=== PATIENT | male | born 1940 | race Caucasian/White ===

== ENCOUNTER → 2016-07-10 | Outpatient (CLI) | payer MEDICARE ==
[2016-07-10 11:08] LABS: EKG EKG PERFORMED
[2016-07-10 11:27] LABS: Basophils % (A) 1 %; CHCM 32.4; Eosinophils # (A) 0.2 k/uL (0-0.7); Eosinophils % (A) 4 %; HCT 42.1 % (39.0-53.0); HDW 2.55; HGB 13.6 gm/dL (13.0-17.5); Luc # (Auto) 0.19; Luc % (Auto) 4; Lymphocytes # (A) 1.5 k/uL (1.0-4.8); Lymphocytes % (A) 28 %; MCHC 32.4 g/dL (31.0-37.0); MCV 89.7 fL (80.0-100.0); Mean Platelet Volume 6.6; Monocytes # (A) 0.4 k/uL (0-1.0); Monocytes % (A) 7 %; Neutrophils % (A) 56 %; RBC 4.69 m/uL (4.30-5.90); RDW 13.7 % (11.5-15.5); WBC 5.4 k/uL (3.8-10.6); WBC (Perox) 5.35
[2016-07-10 12:03] LABS: Anion Gap 8 mmol/L; Blood Urea Nitrogen 14 mg/dL (9-20); Calcium 9.1 mg/dL (8.4-10.2); Carbon Dioxide 26 mmol/L (22-30); Chloride 108 mmol/L (98-107); Glucose 101 mg/dL (74-99); Non-African American GFR(MDRD) >60 (>60 ml/min/1.73 sqM); Potassium 4.2 mmol/L (3.5-5.1); Sodium 142 mmol/L (137-145)
== END | disposition home or self-care (01) ==
LOC: LABPAT 10:56
PROVIDERS: ATTEND Urology
DX: Z01.810 Encounter for preprocedural cardiovascular examination (principal); Z01.818 Encounter for other preprocedural examination; I48.91 Unspecified atrial fibrillation; E78.00 Pure hypercholesterolemia, unspecified; N40.1 Benign prostatic hyperplasia with lower urinary tract symptoms; R35.0 Frequency of micturition
CPT/HCPCS: 80048; 85025; 87086; 93005

== ENCOUNTER 2016-07-17 12:18 | Day surgery (SDC) | payer MEDICARE ==
[2016-07-13 10:33] VITALS: BMI 27.1
[~2016-07-17 12:18] MED LIST: HYDROmorphone 1 MG/ML 1 ML SYRINGE IVP PRN; LACTATED RINGERS 1,000 ML IV SCH; MIDAZOLAM 2 MG/2 ML VIAL IV PRN; ceFAZolin 2 GM in SODIUM CHLORIDE 0.9% 100 ML IVPB ONE
[2016-07-17] MEDS ORDERED: LIDOCAINE 1% 20 ML VIAL (10MG/ML) FOR IV START INTRADERMA ONE (12:59)
[2016-07-17] MEDS ORDERED: DEXAMETHASONE SOD PHOSPHATE 10 MG/ML 1 ML VIAL IV ONE (13:03)
[2016-07-17] MEDS ORDERED: ONDANSETRON 4 MG/2 ML VIAL IVP ONE (13:03)
[2016-07-17 13:18] LABS: INR 1.1 (<1.1); Partial Thromboplastin Time 24.8 sec (22.0-30.0); Prothrombin Time 10.7 sec (9.0-12.0)
[2016-07-17] MEDS ORDERED: ePHEDrine 50 MG/ML 1 ML AMP ONE (13:59)
[2016-07-17] MEDS ORDERED: LIDOCAINE 1% INJ 10MG/ML (20 ML MDV) ONE (13:59)
[2016-07-17] MEDS ORDERED: MIDAZOLAM 2 MG/2 ML VIAL ONE (13:59)
[2016-07-17] MEDS ORDERED: PROPOFOL 10 MG/ML 20 ML VIAL IV ONE (13:59)
[2016-07-17] MEDS ORDERED: SUCCINYLCHOLINE CHLORIDE 100 MG/5 ML SYR IV ONE (13:59)
[2016-07-17] MEDS ORDERED: fentaNYL (PF) 50 MCG/ML 2 ML AMP ONE (13:59)
[2016-07-17] MEDS ORDERED: FUROSEMIDE 10 MG/ML 2 ML VIAL ONE (13:59)
[2016-07-17] MEDS ORDERED: LACTATED RINGERS 1,000 ML IV ONE (14:55)
--- NOTE | 2016-07-17 16:40 | P.OP ---
Date of Procedure: 07/17/16 Preoperative Diagnosis: BPH with Obstruction Postoperative Diagnosis: Same Procedure(s) Performed: Cystoscopy, Bipolar Transurethral Resection of Prostate (TURP) Implants: Anesthesia: SELENAA Surgeon: Saeed Luo Estimated Blood Loss (ml): 75 IV fluids (ml): 1,100 Pathology: other (prostate chips) Condition: stable Disposition: PACU Indications for Procedure: He is a 76-year-old male with no family history of prostate cancer. His PSA level reached a high of 6.96. He reports moderate obstructive voiding symptoms, which improved after increasing the doxazosin dosage from 2 mg to 4 mg. Ultrasound showed a prostate volume of 74 cc. This is felt to be the cause of the PSA elevation. Biopsies were not performed. He has taken finasteride since April 2012, and he feels this has helped his voiding. His PSA level has decreased appropriately. His primary voiding symptom at this time is urgency with occasional incontinence. His post void residual has increased, and he has elected to undergo a TURP. Operative Findings: Trilobar BPH Description of Procedure: The patient was taken in the operating room and placed in the dorsolithotomy position, The external genitalia was prepped and draped sterilely. The 25- Lao ACMI resectoscope sheath was introduced into the bladder. The bladder was inspected. Both ureteral orifices were of normal anatomic location and configuration, and clear urine effluxed from both. No tumors or foreign bodies were seen. Examination of the prostate revealed complete obstruction with a trilobar configuration. Using the bipolar cutting loop, the median lobe was resected. Next, the lateral lobes were resected down to the surgical capsule. The floor of the prostate was then resected, proximal to the verumontanum. Lastly, any remaining anterior tissue was resected. The prostatic fossa was then carefully examined. The remaining apical tissue was then carefully resected. The resection was carried down to the surgical capsule in all 4 quadrants. The prostatic fossa was then carefully examined, and any areas of bleeding were controlled with electrocautery. A small capsular perforation was noted on the right side, but there was no bleeding from this. Excellent hemostasis was attained. The resectoscope was withdrawn into the bulbous urethra. The external urinary sphincter remained intact. The prostatic fossa was open. The Fare Motion evacuator was used to remove all prostate chips from the bladder. These were saved and sent for pathologic examination. The resectoscope was removed, and a 20 Lao Hollingsworth catheter was placed. The return was essentially clear. The patient tolerated the procedure well was taken to the recovery room in stable condition.
[2016-07-17 17:00] VITALS: TEMP 97
[2016-07-17 17:04] VITALS: RESP 16
[2016-07-17 18:17] VITALS: BP 130/81; PULSE 66
== END 2016-07-17 19:15 | disposition home or self-care (01) ==
LOC: OR 12:18
PROVIDERS: ATTEND Urology
DX: N40.1 Benign prostatic hyperplasia with lower urinary tract symptoms (principal); E78.00 Pure hypercholesterolemia, unspecified; G47.33 Obstructive sleep apnea (adult) (pediatric); Z99.89 Dependence on other enabling machines and devices; Z87.891 Personal history of nicotine dependence; I48.91 Unspecified atrial fibrillation; Z79.01 Long term (current) use of anticoagulants; J44.9 Chronic obstructive pulmonary disease, unspecified; Z79.82 Long term (current) use of aspirin; Z79.51 Long term (current) use of inhaled steroids; Z79.899 Other long term (current) drug therapy
CPT/HCPCS: 52601; 80162; 85610; 85730; J2250; J1100; J1940; J0690; J2405; J2001; J3010; J0330; J2704; 88305

== ENCOUNTER → 2019-04-11 | Outpatient (CLI) | payer MEDICARE | END | disposition home or self-care (01) | LOC: LABWHC1 09:15 | PROVIDERS: ATTEND Urology | DX: R97.20 Elevated prostate specific antigen [PSA] (principal) | CPT/HCPCS: 36415; 84153 ==

== ENCOUNTER → 2021-11-05 | Outpatient (CLI) | payer MEDICARE ==
--- NOTE | 2021-11-05 09:26 | US ---
EXAMINATION TYPE: US abdomen complete DATE OF EXAM: 11/05/2021 COMPARISON: NONE CLINICAL HISTORY: R79.89 OTH SPECIFIED ABN FINDING OF BLOOD CHEMISTRY. Patient states no symptoms TECHNIQUE: Multiple sonographic images of the abdomen are obtained. FINDINGS: EXAM MEASUREMENTS: Liver Length: 17.8 cm Gallbladder Wall: 0.4 cm CBD: 0.4 cm Spleen: n/a Right Kidney: 13.0 x 5.4 x 5.7 cm Left Kidney: 12.4 x 5.8 x 5.7 cm Pancreas: visualized portions wnl, limited by overlying midline bowel gas Liver: measures in upper limits of normal Gallbladder: wall mildly thickened at 0.4cm - patient not NPO, had coffee before exam Evidence for sonographic Hamilton's sign: no CBD: wnl Spleen: obscured by overlying bowel gas Right Kidney: 4.4 x 4.5 x 4.3cm hypoechoic vascular mass inferior pole Left Kidney: wnl Upper IVC: wnl Abd Aorta: wnl IMPRESSION: Right lower pole vascular mass suggested further evaluation with MRI with IV contrast renal mass prot ocol is recommended to underlying renal cell carcinoma.
== END | disposition home or self-care (01) ==
LOC: RADUSWWP 08:31
PROVIDERS: ATTEND Internal Medicine
DX: R79.89 Other specified abnormal findings of blood chemistry (principal)
CPT/HCPCS: 76700

== ENCOUNTER → 2021-11-21 | Outpatient (CLI) | payer MEDICARE ==
--- NOTE | 2021-11-21 21:02 | MR ---
EXAMINATION TYPE: MR abdomen wo/w con DATE OF EXAM: 11/21/2021 COMPARISON: None HISTORY: DISORDERS OF KIDNEY AND URETER CONTRAST: Standard multiplanar, multisequence MRI departmental protocol images were obtained without contrast a nd with 9 mL intravenous Gadavist gadolinium contrast. Liver has normal size and contour. Bile ducts are not dilated. Spleen is intact. No pancreatic mass. Stomach is intact. Gallbladder appears normal. There is no adrenal mass. There is a rounded mixed signal 5 cm mass on the lateral cortex right kidne y. Contrast images show enhancement in the periphery of the mass. There is normal enhancement of the inferior vena cava and the right renal vein. There is no sign of retroperitoneal adenopathy. Heart is enlarged. No sign of pleural effusion. There is normal enhancement of the portal venous system. No ascites. No evidence of a bowel obstruction. Delayed images show progressive enhancement on the periphery of the mass. The visualized lumbar spine is intact. There is multilevel spondylotic changes in the lumbar spine. Visualized bony pelvis is in tact. IMPRESSION: Solid mass in the lower pole right kidney arising from the cortex. This is consistent with a primary renal tumor and could be oncocytoma or renal cell carcinoma.
== END | disposition home or self-care (01) ==
LOC: RADMRIMAIN 19:11
PROVIDERS: ATTEND Family Medicine
DX: N28.89 Other specified disorders of kidney and ureter (principal)
CPT/HCPCS: 74183; A9585

== ENCOUNTER → 2021-11-28 | Outpatient (CLI) | payer MEDICARE ==
--- NOTE | 2021-11-28 14:58 | XR ---
EXAMINATION TYPE: XR chest 2V DATE OF EXAM: 11/28/2021 2:53 PM COMPARISON: Chest radiographs from 03/08/2014, CT chest 03/20/2013. TECHNIQUE: XR chest 2V Frontal and lateral views of the chest. CLINICAL INDICATION:Male, 81 years old with history of D41.01 Renal mass right; FINDINGS: Lungs/Pleura: There is no evidence of pleural effusion, focal consolidation, or pneumothorax. Right basilar linear atelectasis. Stable 7 mm calcified granuloma within the right upper lobe. Flattening o f the hemidiaphragms. Pulmonary vascularity: Unremarkable. Heart/mediastinum: Cardiomediastinal silhouette is unremarkable. Atherosclerotic calcifications are seen in the aorta. Musculoskeletal: No acute osseous pathology. IMPRESSION: 1. No acute cardiopulmonary disease/process. No significant change from prior examination. 2. Stable right upper lobe calcified granuloma. 3. COPD changes.
== END | disposition home or self-care (01) ==
LOC: RADXRMAIN 14:40
PROVIDERS: ATTEND Family Medicine
DX: J44.9 Chronic obstructive pulmonary disease, unspecified (principal); J84.10 Pulmonary fibrosis, unspecified
CPT/HCPCS: 71046

== ENCOUNTER → 2021-12-09 | Outpatient (CLI) | payer MEDICARE ==
--- NOTE | 2021-12-09 14:43 | NM ---
EXAMINATION TYPE: NM bone scan whole body DATE OF EXAM: 12/09/2021 COMPARISON: NONE HISTORY: Renal mass Delayed whole-body scanning was performed following the injection of 23 mCi Tc 99m MDP. Images acqui red 3.5 hours post injection. FINDINGS: Abnormal uptake involving the sternoclavicular joints bilaterally likely postarthritic. Faint uptake throughout the mid thoracic and lower lumbar spine likely degenerative. Abnormal uptake involving the knees and feet likely postarthritic. IMPRESSION: 1. Nonspecific uptake involving the vertebral, mild intensity, therefore, felt to be most likely dege nerative.
== END | disposition home or self-care (01) ==
LOC: RADNMMAIN 10:20
PROVIDERS: ATTEND Urology
DX: D41.01 Neoplasm of uncertain behavior of right kidney (principal)
CPT/HCPCS: 78306; A9503

== ENCOUNTER → 2021-12-29 | Outpatient (CLI) | payer MEDICARE ==
[2021-12-29 15:33] LABS: Basophils # (A) 0.05 X 10*3/uL (0.00-0.10); Basophils % (A) 0.8 %; Eosinophils # (A) 0.22 X 10*3/uL (0.04-0.35); Eosinophils % (A) 3.4 %; HCT 38.5 % (39.6-50.0); HGB 12.5 g/dL (13.0-17.0); Immature Grans, Automated 0.2 %; Lymphocytes # (A) 1.54 X 10*3/uL (0.90-5.00); MCH 29.3 pg (27.0-32.0); MCHC 32.5 g/dL (32.0-37.0); MCV 90.4 fL (80.0-97.0); Mean Platelet Volume 9.9 fL (9.5-12.2); Monocytes # (A) 0.87 X 10*3/uL (0.20-1.00); Monocytes % (A) 13.5 %; NRBC Per 100 WBC 0 /100 WBCS (0.0-0.0); Neutrophils # (A) 3.74 X 10*3/uL (1.80-7.70); Neutrophils % (A) 58.1 %; Platelet Count 288 X 10*3/uL (140-440); RBC 4.26 X 10*6/uL (4.40-5.60); RDW 14.6 % (11.5-14.5); WBC 6.43 X 10*3/uL (4.50-10.00)
[2021-12-29 15:56] LABS: African American GFR (CKD) 95.8 (60.0-200.0); BUN/Creat Ratio 15.24 Ratio (12.00-20.00); Blood Urea Nitrogen 12.6 mg/dL (9.0-27.0); Calcium 9.4 mg/dL (8.7-10.3); Carbon Dioxide 26.2 mmol/L (20.0-27.5); Non-African American GFR(CKD) 82.6 (60.0-200.0); Potassium 4.8 mmol/L (3.5-5.5)
== END | disposition home or self-care (01) ==
LOC: LABPAT 10:22
PROVIDERS: ATTEND Urology
DX: Z01.818 Encounter for other preprocedural examination (principal); D41.01 Neoplasm of uncertain behavior of right kidney
CPT/HCPCS: 36415; 80048; 85025

== ENCOUNTER 2022-01-08 06:04 | Inpatient (IN) | payer MEDICARE ==
--- NOTE | 2022-01-07 07:13 | P.GSHP ---
History of Present Illness H&P Date: 01/06/22 Chief Complaint: Right renal mass The patient is an 81-year-old white male recently found to have an incidental 5 cm right renal mass. The mass is solid and likely represents renal cell carcinoma. He declines flank pain and gross hematuria. His metastatic evaluation consists of a bone scan and chest x-ray, both of which were negative. The patient was made aware of the fact that aspects of the appearance of the mass suggest the possibility of oncocytoma, and referral to a tertiary care center for biopsy of the mass was offered. Given the likelihood of malignancy, he has elected to simply undergo a right radical nephrectomy and comes for this reason. - Cardiovascular Cardiovascular: Reports high blood pressure - Genitourinary (Male) Genitourinary: Reports as per HPI, Denies flank pain, Denies hematuria Past Medical History Past Medical History: Atrial Fibrillation, Asthma, COPD, Eye Disorder, Hyperlipidemia, Hypertension, Prostate Disorder, Sleep Apnea/CPAP/BIPAP Additional Past Medical History / Comment(s): 'dry skin", enlarged prostate. uses c-pap. inguinal hernia rt side. BEGINNING OF CATARACTS History of Any Multi-Drug Resistant Organisms: None Reported Past Surgical History: Heart Catheterization, Hernia Repair, Orthopedic Surgery Additional Past Surgical History / Comment(s): right elbow surgery-injury, bone spur heel, right shoulder arthroscopy, cardioversion, umbilical hernia repair, colonoscopy, TURP 2016 Past Anesthesia/Blood Transfusion Reactions: No Reported Reaction Additional Past Anesthesia/Blood Transfusion Reaction / Comment(s): slow wake up Smoking Status: Former smoker - Past Family History Daughter(s) Family Medical History: Cancer Father Family Medical History: Cancer Medications and Allergies Home Medications Medication Instructions Recorded Confirmed Type Albuterol Sulfate [Proair Hfa] 2 puff INHALATION QID PRN 01/30/14 01/02/22 History Aspirin 81 mg PO DAILY 01/30/14 01/02/22 History Finasteride [Proscar] 5 mg PO HS 01/30/14 01/02/22 History Pravastatin Sodium [Pravachol] 20 mg PO HS 01/30/14 01/02/22 History Warfarin [Coumadin] 5 mg PO WE 01/30/14 01/02/22 History Warfarin [Coumadin] 10 mg PO SUMOTUTHFRSA 01/30/14 01/02/22 History dilTIAZem HCL [Diltiazem HCl] 120 mg PO HS 01/30/14 01/02/22 History Ascorbic Acid [Vitamin C] 500 mg PO DAILY 12/31/14 01/02/22 History Cholecalciferol [Vitamin D3] 4,000 unit PO DAILY 12/31/14 01/02/22 History Magnesium Gluconate [Magonate] 500 mg PO DAILY 12/31/14 01/02/22 History Vitamin B Complex 1 tab PO DAILY 12/31/14 01/02/22 History Fluticasone Propion/Salmeterol 1 puff INHALATION BID 01/02/22 01/02/22 History [Advair 500-50 Diskus] Latanoprost [Latanoprost 0.005%] 1 drop BOTH EYES DAILY 01/02/22 01/02/22 History Metoprolol Succinate (ER) [Toprol 50 mg PO HS 01/02/22 01/02/22 History Xl] Montelukast [Singulair] 1 tab PO HS 01/02/22 01/02/22 History Allergies Allergy/AdvReac Type Severity Reaction Status Date / Time No Known Allergies Allergy Verified 01/02/22 13:22 Surgical - Exam - General well developed, well nourished, no distress - Neck no masses, trachea midline - Respiratory normal respiratory effort - Abdomen Abdomen: soft, non tender, no guarding, no rigid, no rebound - Genitourinary normal penis with no external lesions, testicles non-tender - Psychiatric oriented to time, oriented to person, oriented to place, speech is normal, memory intact Results - Imaging Chest x-ray: report reviewed Assessment and Plan (1) Neoplasm of uncertain behavior of right kidney Status: Acute Code(s): D41.01 - NEOPLASM OF UNCERTAIN BEHAVIOR OF RIGHT KIDNEY SNOMED Code(s): 080667845064446 Plan: Right radical nephrectomy. The procedure then reviewed in detail with the patient. He has been made aware of potential risks, which include anesthesia, b leeding, infection, bowel injury, postoperative paralytic ileus, chylous ascites, and bowel obstruction.
[~2022-01-08 06:04] MED LIST changes: +HEPARIN SODIUM,PORCINE/PF 5,000 UNIT/0.5 ML SYRINGE SQ PRN; -HYDROmorphone 1 MG/ML 1 ML SYRINGE IVP PRN; -LACTATED RINGERS 1,000 ML IV SCH; -MIDAZOLAM 2 MG/2 ML VIAL IV PRN; -ceFAZolin 2 GM in SODIUM CHLORIDE 0.9% 100 ML IVPB ONE
[2022-01-08] MEDS ORDERED: DEXAMETHASONE SOD PHOSPHATE 4 MG/ML 1 ML VIAL IV ONE (06:20)
[2022-01-08] MEDS ORDERED: fentaNYL (PF) 50 MCG/ML 2 ML AMP ONE (07:20)
[2022-01-08] MEDS ORDERED: PROPOFOL 10 MG/ML 20 ML VIAL IV ONE (07:20)
[2022-01-08] MEDS ORDERED: LIDOCAINE 2% INJ 20 MG/ML (2 ML VIAL) ONE (07:20)
[2022-01-08] MEDS ORDERED: ROCURONIUM 10 MG/ML (5 ML VIAL) IV ONE (07:20)
[2022-01-08] MEDS ORDERED: GLYCOPYRROLATE 0.2 MG/ML 2 ML VIAL ONE (07:20)
[2022-01-08] MEDS ORDERED: ePHEDrine 50 MG/ML 1 ML VIAL ONE (07:20)
[2022-01-08] MEDS ORDERED: ROPIVACAINE 5 MG/ML 30 ML VIAL ONE (07:20)
[2022-01-08] MEDS ORDERED: WATER FOR INJECTION, STERILE 10 ML VIAL IV ONE (07:20)
[2022-01-08] MEDS ORDERED: SUCCINYLCHOLINE CHLORIDE 200 MG/10 ML VIAL IV ONE (07:20)
[2022-01-08] MEDS: LACTATED RINGERS 1,000 ML IV SCH (07:20)
[2022-01-08] MEDS ORDERED: NEOSTIGMINE 1 MG/ML 10 ML VIAL ONE (07:20)
[2022-01-08] MEDS ORDERED: MIDAZOLAM 2 MG/2 ML VIAL ONE (07:20)
[2022-01-08] MEDS ORDERED: PHENYLEPHRINE-0.9% NACL SYG 1,000 MCG/10 ML SYRINGE ONE (07:20)
[2022-01-08] MEDS: ONDANSETRON 4 MG/2 ML VIAL IVP ONE ×2 (07:26→07:27)
[2022-01-08] MEDS ORDERED: LACTATED RINGERS 1,000 ML IV ONE (10:25)
[2022-01-08] MEDS: HYDROmorphone 0.5 MG/0.5 ML SYRINGE IVP PRN ×3 (10:54→12:30)
[2022-01-08] MEDS ORDERED: ALBUTEROL NEBULIZED 2.5 MG/3 ML INHALATION PRN (11:06)
[2022-01-08] MEDS ORDERED: ACETAMINOPHEN TAB 325 MG TAB PO PRN (11:07)
--- NOTE | 2022-01-08 13:21 | P.OP ---
Date of Procedure: 01/08/22 Preoperative Diagnosis: Right renal mass Postoperative Diagnosis: Right renal mass, urethral stricture Procedure(s) Performed: Cystoscopy, direct visual internal urethrotomy (DVIU), right radical nephrectomy Anesthesia: BG Surgeon: Saeed Luo Seismograph Shooter #1: Amauri Quiñones Estimated Blood Loss (ml): 400 IV fluids (ml): 1,350 Pathology: other Condition: stable Disposition: PACU Indications for Procedure: The patient is an 81-year-old white male recently found to have an incidental 5 cm right renal mass. The mass is solid and likely represents renal cell carcinoma. He declines flank pain and gross hematuria. His metastatic evaluation consists of a bone scan and chest x-ray, both of which were negative. The patient was made aware of the fact that aspects of the appearance of the mass suggest the possibility of oncocytoma, and referral to a tertiary care center for biopsy of the mass was offered. Given the likelihood of malignancy, he has elected to simply undergo a right radical nephrectomy and comes for this reason. Operative Findings: Bulbous urethral stricture. Right upper quadrant scarring of unclear etiology. No evidence of extrarenal disease. Description of Procedure: The patient was taken to the operating room and placed in the supine position. The external genitalia was prepped and draped sterilely, but a Hollingsworth catheter could not be placed. Therefore, filiforms and followers were used to dilate the urethra but the urethra could not be dilated beyond 18-[place] Korean. The patient was placed in the dorsolithotomy position, and cystoscopy was performed using the visual urethrotome. The stricture was incised dorsally, and it was then possible to place a 16-[place] Hollingsworth catheter without difficulty. The patient was then returned to the supine position, and the abdomen was prepped and draped sterilely. A right-sided chevron incision was made using the scalpel. The Bovie electrocautery was used to incise the subcutaneous tissues and muscular layers of the abdominal wall down to the peritoneum. The peritoneum was then carefully entered, and opened the full length of the incision. The abdomen was examined, and no abnormalities were noted other than the renal mass. Specifically, there was no evidence of malignancy elsewhere within the abdomen. The Bookwalter retractor was used for exposure. The peritoneum was incised at the line of Toldt, and a South maneuver was performed. Significant scarring around the gallbladder was noted. This exposed the right kidney and the inferior vena cava. The gonadal vein was isolated. It was then ligated using 2-0 silk ties and divided. Dissection was then performed alongside the lateral aspect of the inferior vena cava. Lymphoadipose tissue was clipped and divided up to the renal hilum. There was no evidence of adenopathy. 2 right renal arteries were identified, one within the hilum and the other was a lower pole artery.. Both were ligated twice proximally and once distally using 2-0 silk ties and divided. The right renal vein was then likewise ligated twice proximally and distally. The remaining hilar tissues were clipped and divided at this time. Once the hilar dissection had been completed, the inferior aspect of the dissection was performed. A small hole was noted within the inferior vena cava, and this was closed using a 5-0 Prolene suture. The tail of Gerota's fascia was isolated, and the ureter was clipped and divided. Blunt dissection was then performed to dissect the kidney off of the posterior abdominal wall. Superiorly, the perinephric fat was divided down to the upper pole of the kidney. The remaining dissection was then performed over the superior aspect of the kidney, thus preserving the right adrenal gland. The superior attachments were clipped prior to dividing them. Once all attachments were divided, the specimen was removed. The adrenal gland was left intact. The wound was irrigated with warm normal saline. The surgical field was examined for hemostasis. Minimal oozing was noted from the superior aspect of the surgical field near the adrenal gland, and Surgicel was placed over this. Hemostasis within the remainder of the surgical field was excellent. The Bookwalter retractor was removed. The abdominal contents were allowed to return to their normal location. Each individual muscle layer of the anterior abdominal wall was closed using #1 Vicryl suture in a running fashion. Hemostasis within the subcutaneous tissues was excellent. The skin was closed using jarocho. A sterile gauze dressing was applied over the incision. All sponge and needle counts were correct. The patient tolerated the procedure well was taken to the recovery room in stable condition.
--- NOTE | 2022-01-08 14:17 | P.ANPRN ---
Procedure Note - Anesthesia - Nerve Block Performed Right Erector Spinae Single Time Out Performed: Yes ([id number]) Date of Procedure: 01/08/22 Procedure Start Time: 11:56 Procedure Stop Time: 12:02 Location of Patient: PreOp Indication: Acute Post-Operative Pain, Requested by Surgeon Specifically requested for management of pain by : Saeed Luo Sedation Type: Sedate with meaningful contact maintained Preparation: Sterile Prep Position: Left Lateral Catheter: None Needle Types: Pajunk Needle Gauge: 21 Ultrasound used to visualize needle placement: Yes Ultrasound used to observe medication spread: Yes Injectate: 0.5% Ropivacaine (see comment for volume) (30cc) Blood Aspirated: No Pain Paresthesia on Injection Noted: No Resistance on Injection: Normal Image Stored and Saved: Yes Events: Uneventful and Well Tolerated
[2022-01-08] MEDS ORDERED: HYDROcodone/APAP 5-325MG 1 EACH TAB PO PRN (14:30)
[2022-01-08] MEDS: DEXTROSE 5%-0.45% NACL 1,000 ML IV SCH (14:58)
[2022-01-08] MEDS: HYDROmorphone 1 MG/ML 1 ML SYRINGE IVP PRN (14:59)
[2022-01-08] MEDS: HEPARIN SODIUM,PORCINE/PF 5,000 UNIT/0.5 ML SYRINGE SQ SCH (16:42)
[2022-01-08] MEDS: SYMBICORT 160-4.5 MCG INHALER INHALATION SCH (20:49)
[2022-01-08] MEDS: MONTELUKAST 10 MG TAB PO SCH (21:34)
[2022-01-08] MEDS: DILTIAZEM CD 120 MG CAP.ER.24H PO SCH (21:34)
[2022-01-08] MEDS: METOPROLOL SUCCINATE (ER) 50 MG TAB.ER.24H PO SCH (21:34)
[2022-01-08] MEDS: FINASTERIDE 5 MG TAB PO SCH (21:34)
[2022-01-08] MEDS: PRAVASTATIN SODIUM 20 MG TAB PO SCH (21:35)
[2022-01-08] MEDS: HYDROcodone/APAP 5-325MG 1 EACH TAB PO PRN (21:37)
[2022-01-09] MEDS: HEPARIN SODIUM,PORCINE/PF 5,000 UNIT/0.5 ML SYRINGE SQ SCH ×4 (00:12→23:04)
[2022-01-09] MEDS: DEXTROSE 5%-0.45% NACL 1,000 ML IV SCH ×2 (03:03→13:47)
[2022-01-09] MEDS ORDERED: ONDANSETRON 4 MG/2 ML VIAL IVP PRN (05:39)
[2022-01-09] MEDS: LACTATED RINGERS 1,000 ML IV SCH (08:46)
[2022-01-09] MEDS: SYMBICORT 160-4.5 MCG INHALER INHALATION SCH ×2 (09:05→20:22)
--- NOTE | 2022-01-09 09:05 | P.PN ---
Subjective Progress Note Date: 01/09/22 Principal diagnosis: Right renal mass, urethral stricture The patient is an 81-year-old white male recently found to have an incidental 5 cm right renal mass. The mass is solid and likely represents renal cell carcinoma. He declined flank pain and gross hematuria. His metastatic evaluation consists of a bone scan and chest x-ray, both of which were negative. The patient was made aware of the fact that aspects of the appearance of the mass suggest the possibility of oncocytoma, and referral to a tertiary care center for biopsy of the mass was offered. Given the likelihood of malignancy, he elected to have a right radical nephrectomy. On 01/08/22 he was taken to the OR with Dr. Luo. Due to a bulbous urethral stricture, a Hollingsworth catheter was unable to be placed. Therefore, the urethra was dilated in order to insert the Hollingsworth catheter. The patient underwent an elective cystoscopy, direct visual internal urethrotomy (DVIU), right radical nephrectomy. Objective - Vital Signs Vital signs: Vital Signs Temp 97.6 F 01/09/22 04:29 Pulse 102 H 01/09/22 04:29 Resp 16 01/09/22 04:29 BP 125/80 01/09/22 04:29 Pulse Ox 96 01/09/22 04:29 FiO2 Intake & Output 01/08/22 01/09/22 01/09/22 18:59 06:59 18:59 Intake Total 1850 Output Total 600 600 Balance 1250 -600 Weight 87.2 kg Intake: IV 1850 Output: Urine 200 600 Estimated Blood Loss 400 Other: Voiding Method Indwelling Catheter - Exam General: Well developed, well nourished. No acute distress. HEENT: Head is atraumatic, normocephalic. Lungs: Respirations even and nonlabored. On 3L NC Abdomen/GI: Soft. Dressing to RUQ CDI, + tenderness. : Hollingsworth catheter in place draining clear yellow urine Skin: Warm and dry Neurologic: Awake, alert and oriented times 3. CN II-XII grossly intact. Psychiatric: Appropriate mood and affect. - Labs CBC & Chem 7: 01/09/22 05:15 01/09/22 05:15 Assessment and Plan Assessment: The patient states his pain has been well controlled. He reports being nauseated last night. He is afebrile, mildly tachycardic, and on 3L O2. His abdominal dressing is clean and intact. His Hollingsworth catheter is draining clear yellow urine. There is a scant amount of old dried blood at the urethral o pening, likely from the dilation and catheter insertion. (1) Neoplasm of uncertain behavior of right kidney Current Visit: No Status: Acute Code(s): D41.01 - NEOPLASM OF UNCERTAIN BEHAVIOR OF RIGHT KIDNEY SNOMED Code(s): 971427546439261 Plan: - Increase activity - Continue current pain regimen - Continue Kefzol as ordered - IS 10 x hour while awake - Wean O2 - Advance diet as tolerated - Leave Hollingsworth catheter in place - Pathology pending Impression and plan of care have been directed as dictated by the signing physician. Polly Snyder nurse practitioner acting as scribe for signing physician. Polly Snyder [facility]- Palliative Care/Urology [facility] [id number] Email: [email or web address] The patient was seen and evaluated by me. I concur with the above note, Farhad Mars
[2022-01-09] MEDS: LATANOPROST 0.005% OPHTH DROPS 2.5 ML BTL BOTH EYES SCH (09:16)
[2022-01-09] MEDS ORDERED: PROCHLORPERAZINE INJ 10 MG/2 ML VIAL IVP STA (09:17)
[2022-01-09 10:38] LABS: HGB 11.7 g/dL (13.0-17.0); MCH 29.2 pg (27.0-32.0); MCHC 31.6 g/dL (32.0-37.0); MCV 92.3 fL (80.0-97.0); Mean Platelet Volume 10.6 fL (9.5-12.2); NRBC Per 100 WBC 0 /100 WBCS (0.0-0.0); Platelet Count 314 X 10*3/uL (140-440); RBC 4.01 X 10*6/uL (4.40-5.60); RDW 14.7 % (11.5-14.5)
[2022-01-09 10:44] LABS: African American GFR (CKD) 65.3 (60.0-200.0); BUN/Creat Ratio 16.83 Ratio (12.00-20.00); Blood Urea Nitrogen 20.2 mg/dL (9.0-27.0); Calcium 8.9 mg/dL (8.7-10.3); Non-African American GFR(CKD) 56.4 (60.0-200.0); Potassium 4.6 mmol/L (3.5-5.5)
[2022-01-09] MEDS ORDERED: SIMETHICONE 80 MG CHEWABLE PO PRN (11:15)
[2022-01-09 11:42] LABS: Basophils # (A) 0.01 X 10*3/uL (0.00-0.10); Basophils % (A) 0.1 %; Eosinophils # (A) 0 X 10*3/uL (0.04-0.35); Eosinophils % (A) 0 %; Immature Grans, Automated 0.3 %; Lymphocytes # (A) 0.96 X 10*3/uL (0.90-5.00); Lymphocytes % (A) 7.2 %; Monocytes # (A) 1.67 X 10*3/uL (0.20-1.00); Monocytes % (A) 12.5 %; Neutrophils # (A) 10.72 X 10*3/uL (1.80-7.70); Neutrophils % (A) 79.9 %
[2022-01-09] MEDS ORDERED: polyethylene glycoL 3350 17 GM POWD.PACK PO STA (13:36)
[2022-01-09] MEDS: SENNOSIDES-DOCUSATE SODIUM 1 EACH TAB PO SCH (13:45)
[2022-01-09] MEDS: HYDROmorphone 1 MG/ML 1 ML SYRINGE IVP PRN (15:54)
[2022-01-09] MEDS: FINASTERIDE 5 MG TAB PO SCH (21:31)
[2022-01-09] MEDS: METOPROLOL SUCCINATE (ER) 50 MG TAB.ER.24H PO SCH (21:31)
[2022-01-09] MEDS: DILTIAZEM CD 120 MG CAP.ER.24H PO SCH (21:31)
[2022-01-09] MEDS: MONTELUKAST 10 MG TAB PO SCH (21:31)
[2022-01-09] MEDS: PRAVASTATIN SODIUM 20 MG TAB PO SCH (21:31)
[2022-01-10] MEDS: DEXTROSE 5%-0.45% NACL 1,000 ML IV SCH ×2 (02:47→13:58)
[2022-01-10] MEDS: SYMBICORT 160-4.5 MCG INHALER INHALATION SCH ×2 (07:19→19:29)
[2022-01-10] MEDS: SENNOSIDES-DOCUSATE SODIUM 1 EACH TAB PO SCH (08:14)
[2022-01-10] MEDS: polyethylene glycoL 3350 17 GM POWD.PACK PO SCH (08:18)
[2022-01-10] MEDS: HEPARIN SODIUM,PORCINE/PF 5,000 UNIT/0.5 ML SYRINGE SQ SCH ×3 (08:18→23:43)
[2022-01-10] MEDS: LATANOPROST 0.005% OPHTH DROPS 2.5 ML BTL BOTH EYES SCH (08:18)
[2022-01-10] MEDS: LACTATED RINGERS 1,000 ML IV SCH (08:18)
--- NOTE | 2022-01-10 11:24 | P.PN ---
Subjective Progress Note Date: 01/10/22 The patient underwent a right radical nephrectomy by on . He is slowly recuperating. He has not passed any gas yet. Vital signs are stable. His urine output is good. His abdomen was soft and wound looks good. I will ambulate the patient. We will continue the IV and the Hollingsworth for now. Objective - Vital Signs Vital signs: Vital Signs Temp 97.8 F 01/10/22 04:40 Pulse 72 01/10/22 04:40 Resp 16 01/10/22 04:40 BP 130/79 01/10/22 04:40 Pulse Ox 95 01/10/22 04:40 FiO2 Intake & Output 01/09/22 01/10/22 01/10/22 18:59 06:59 18:59 Output Total 1700 1650 Balance -1700 -1650 Output: Urine 1700 1650 Other: Voiding Method Indwelling Catheter Indwelling Catheter Indwelling Catheter - Labs CBC & Chem 7: 01/09/22 05:15 01/09/22 05:15 Labs: Abnormal Lab Results - Last 24 Hours (Table) 01/09/22 Range/Units 05:15 Neutrophils # 10.72 H (1.80-7.70) X 10*3/uL Monocytes # 1.67 H (0.20-1.00) X 10*3/uL Eosinophils # 0 L (0.04-0.35) X 10*3/uL Assessment and Plan (1) Neoplasm of uncertain behavior of right kidney Current Visit: No Status: Acute Code(s): D41.01 - NEOPLASM OF UNCERTAIN BEHAVIOR OF RIGHT KIDNEY SNOMED Code(s): 744505023606379
[2022-01-10] MEDS: METOPROLOL SUCCINATE (ER) 50 MG TAB.ER.24H PO SCH (20:21)
[2022-01-10] MEDS: DILTIAZEM CD 120 MG CAP.ER.24H PO SCH (20:21)
[2022-01-10] MEDS: MONTELUKAST 10 MG TAB PO SCH (20:21)
[2022-01-10] MEDS: PRAVASTATIN SODIUM 20 MG TAB PO SCH (20:21)
[2022-01-10] MEDS: FINASTERIDE 5 MG TAB PO SCH (20:21)
[2022-01-11] MEDS: LACTATED RINGERS 1,000 ML IV SCH (06:47)
[2022-01-11] MEDS: polyethylene glycoL 3350 17 GM POWD.PACK PO SCH (08:26)
[2022-01-11] MEDS: SENNOSIDES-DOCUSATE SODIUM 1 EACH TAB PO SCH (08:26)
[2022-01-11] MEDS: HEPARIN SODIUM,PORCINE/PF 5,000 UNIT/0.5 ML SYRINGE SQ SCH ×2 (08:26→16:02)
[2022-01-11] MEDS: LATANOPROST 0.005% OPHTH DROPS 2.5 ML BTL BOTH EYES SCH (08:27)
[2022-01-11] MEDS: SYMBICORT 160-4.5 MCG INHALER INHALATION SCH ×2 (08:34→20:53)
--- NOTE | 2022-01-11 09:57 | P.PN ---
Subjective Progress Note Date: 01/11/22 The patient is in the hospital for right renal mass. He underwent a right radical nephrectomy 01/08/2022. He is recuperating appropriately. His vital signs are stable. His urine output is good. He has not passed any gas was abnormal appears to be softer today. His wound looks good. His pathology is pending. He is coughing and deep breathing adequately. I will continue to ambulate the patient . The catheter will remain in place until he is ready for discharge. Objective - Vital Signs Vital signs: Vital Signs Temp 97.8 F 01/11/22 04:21 Pulse 94 01/11/22 04:21 Resp 16 01/11/22 04:21 BP 122/77 01/11/22 04:21 Pulse Ox 97 01/11/22 04:21 FiO2 Intake & Output 01/10/22 01/11/22 01/11/22 18:59 06:59 18:59 Output Total 350 Balance -350 Output: Urine 350 Other: Voiding Method Indwelling Catheter Indwelling Catheter # Voids 4 - Labs CBC & Chem 7: 01/09/22 05:15 01/09/22 05:15 Assessment and Plan (1) Neoplasm of uncertain behavior of right kidney Current Visit: No Status: Acute Code(s): D41.01 - NEOPLASM OF UNCERTAIN BEHAVIOR OF RIGHT KIDNEY SNOMED Code(s): 964628194965324
[2022-01-11] MEDS: DEXTROSE 5%-0.45% NACL 1,000 ML IV SCH (14:57)
[2022-01-11] MEDS: PRAVASTATIN SODIUM 20 MG TAB PO SCH (21:53)
[2022-01-11] MEDS: DILTIAZEM CD 120 MG CAP.ER.24H PO SCH (21:53)
[2022-01-11] MEDS: FINASTERIDE 5 MG TAB PO SCH (21:53)
[2022-01-11] MEDS: MONTELUKAST 10 MG TAB PO SCH (21:53)
[2022-01-11] MEDS: HYDROcodone/APAP 5-325MG 1 EACH TAB PO PRN (21:57)
[2022-01-11] MEDS: METOPROLOL SUCCINATE (ER) 50 MG TAB.ER.24H PO SCH (21:58)
[2022-01-12] MEDS: HEPARIN SODIUM,PORCINE/PF 5,000 UNIT/0.5 ML SYRINGE SQ SCH ×2 (00:06→09:01)
[2022-01-12 04:58] VITALS: BP 132/70; PULSE 75; RESP 14; TEMP 97.5
[2022-01-12] MEDS: SYMBICORT 160-4.5 MCG INHALER INHALATION SCH (07:22)
[2022-01-12] MEDS: LATANOPROST 0.005% OPHTH DROPS 2.5 ML BTL BOTH EYES SCH (09:01)
[2022-01-12] MEDS: SENNOSIDES-DOCUSATE SODIUM 1 EACH TAB PO SCH (09:01)
[2022-01-12] MEDS: polyethylene glycoL 3350 17 GM POWD.PACK PO SCH (09:01)
--- NOTE | 2022-01-12 09:48 | P.DS ---
Providers Date of admission: 01/08/22 06:04 Expected date of discharge: 01/12/22 Attending physician: Saeed Luo Primary care physician: Ben Liz MD - Discharge Diagnosis(es) (1) Neoplasm of uncertain behavior of right kidney Current Visit: No Status: Acute Hospital Course: The patient is an 81-year-old white male recently found to have an incidental 5 cm right renal mass. The mass is solid and likely represents renal cell carcinoma. He declined flank pain and gross hematuria. His metastatic evaluation consists of a bone scan and chest x-ray, both of which were negative. The patient was made aware of the fact that aspects of the appearance of the mass suggest the possibility of oncocytoma, and referral to a tertiary care center for biopsy of the mass was offered. Given the likelihood of malignancy, he elected to have a right radical nephrectomy. On 01/08/22 he was taken to the OR with Dr. Luo. Due to a bulbous urethral stricture, a Lentz catheter was unable to be placed. Therefore, the urethra was dilated in order to insert the Lentz catheter. The patient underwent an elective cystoscopy, direct visual internal urethrotomy (DVIU), right radical nephrectomy on 01/08/22. The patient is able to tolerate a diet and denies any nausea or vomiting. He has been ambulating in his room. He reports his pain is well managed. His lentz catheter was removed and he is able to void without difficulty. His vitals are stable and he is afebrile. His abdominal incision is intact with jarocho and ENVIRONMENTAL MONITORING SPECIALIST. He is being discharged on POD #4 with a prescription for Noco for pain. He is to follow up in the office in one week with Dr. Luo. Impression and plan of care have been directed as dictated by the signing physician. Polly Snyder nurse practitioner acting as scribe for signing physician. Polly Snyder [facility] Palliative Care/Urology Spectralink [phone] Email: [email or web address] Patient Condition at Discharge: Good Plan - Discharge Summary Discharge Rx Participant: No New Discharge Prescriptions: Continue Aspirin 81 mg PO DAILY Pravastatin Sodium [Pravachol] 20 mg PO HS Finasteride [Proscar] 5 mg PO HS dilTIAZem HCL [Diltiazem HCl] 120 mg PO HS Warfarin [Coumadin] 10 mg PO SUMOTUTHFRSA Warfarin [Coumadin] 5 mg PO WE Magnesium Gluconate [Magonate] 500 mg PO DAILY Cholecalciferol [Vitamin D3 (25 Mcg = 1000 Iu)] 4,000 unit PO DAILY Ascorbic Acid [Vitamin C] 500 mg PO DAILY Vitamin B Complex 1 tab PO DAILY Montelukast [Singulair] 1 tab PO HS Metoprolol Succinate (ER) [Toprol XL] 50 mg PO HS Latanoprost [Latanoprost 0.005%] 1 drop BOTH EYES DAILY Fluticasone Propion/Salmeterol [Advair 500-50 Diskus] 1 puff INHALATION BID Discontinued Albuterol Sulfate [Proair Hfa] 2 puff INHALATION QID PRN PRN Reason: Shortness Of Breath Discharge Medication List Aspirin 81 mg PO DAILY 01/30/14 [History] Finasteride [Proscar] 5 mg PO HS 01/30/14 [History] Pravastatin Sodium [Pravachol] 20 mg PO HS 01/30/14 [History] Warfarin [Coumadin] 5 mg PO WE 01/30/14 [History] Warfarin [Coumadin] 10 [facility] [History] dilTIAZem HCL [Diltiazem HCl] 120 mg PO HS 01/30/14 [History] Ascorbic Acid [Vitamin C] 500 mg PO DAILY 12/31/14 [History] Cholecalciferol [Vitamin D3 (25 Mcg = 1000 Iu)] 4,000 unit PO DAILY 12/31/14 [History] Magnesium Gluconate [Magonate] 500 mg PO DAILY 12/31/14 [History] Vitamin B Complex 1 tab PO DAILY 12/31/14 [History] Fluticasone Propion/Salmeterol [Advair 500-50 Diskus] 1 puff INHALATION BID 01/02/22 [History] Latanoprost [Latanoprost 0.005%] 1 drop BOTH EYES DAILY 01/02/22 [History] Metoprolol Succinate (ER) [Toprol XL] 50 mg PO HS 01/02/22 [History] Montelukast [Singulair] 1 tab PO HS 01/02/22 [History] Follow up Appointment(s)/Referral(s): Saeed Luo MD [STAFF PHYSICIAN] - 1 Week Activity/Diet/Wound Care/Special Instructions: - No heavy lifting, straining, or strenuous activity - You may shower, no tub baths - Monitor incision for infection - increased redness, drainage, or warmth - Follow up with Dr. Luo in one week - Use over the counter stool softener/laxative as needed Discharge Disposition: HOME SELF-CARE
[2022-01-12] MEDS ORDERED: ALBUTEROL NEBULIZED 2.5 MG/3 ML INHALATION SCH (12:00)
[2022-01-12] MEDS ORDERED: WARFARIN 7.5 MG TAB PO SCH (18:00)
--- NOTE | 2022-01-16 10:45 | CDI ---
Documentation Clarification Form Date: 01/16/22 From: Shannon Irwin Admit Date: 01/08/2022 06:04:00 AM Patient Name: Howie Ogden Visit Number: [id number] Discharge Date: 01/12/2022 01:10:00 PM ATTENTION: The Clinical Documentation Specialists (CDI) and [facility] Coding Staff appreciate your assistance in clarifying documentation. Please respond to the clarification below the line at the bottom and electronically sign. The CDI & [facility] Coding staff will review the response and follow-up if needed. Please note: Queries are made part of the Legal Health Record. If you have any questions, please contact the author of this message via ITS. Dr. 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 History/risk factors: bulbous urethral stricture, BPH, HTN, HLD, a fib, COPD, sleep apnea Clinical Indicators: The patient is an 81-year-old white male recently found to have an incidental 5 cm right renal mass. The mass is solid and likely represents renal cell carcinoma. He declines flank pain and gross hematuria. His metastatic evaluation consists of a bone scan and chest x-ray, both of which were negative. Treatment: Cystoscopy, direct visual internal urethrotomy (DVIU), right radical nephrectomy Please clarify if you agree with the pathology report diagnosis of Clear cell renal cell carcinoma: [ X] Yes [ ] No [ ] Other (please specify) [ ] Unable to determine MTDD
== END 2022-01-12 13:10 | disposition home or self-care (01) | DRG 657 ==
LOC: 2ORMAIN 06:04 → 5NMEDONC 12:28
PROVIDERS: ADMIT Urology; ATTEND Urology
PROC: 0TB60ZZ Excision of Right Ureter, Open Approach (ICD-10-PCS; principal; 2022-01-08 07:30)
PROC: 0T9D8ZZ Drainage of Urethra, Via Natural or Artificial Opening Endoscopic (ICD-10-PCS; principal; 2022-01-08 07:30)
PROC: 06Q00ZZ Repair Inferior Vena Cava, Open Approach (ICD-10-PCS; principal; 2022-01-08 07:30)
PROC: 0TT00ZZ Resection of Right Kidney, Open Approach (ICD-10-PCS; principal; 2022-01-08 07:30)
DX: C64.1 Malignant neoplasm of right kidney, except renal pelvis (principal); I97.51 Accidental puncture and laceration of a circulatory system organ or structure during a circulatory system procedure; E78.5 Hyperlipidemia, unspecified; Y83.6 Removal of other organ (partial) (total) as the cause of abnormal reaction of the patient, or of later complication, without mention of misadventure at the time of the procedure; Y92.234 Operating room of hospital as the place of occurrence of the external cause; I48.91 Unspecified atrial fibrillation; J44.9 Chronic obstructive pulmonary disease, unspecified; N35.912 Unspecified bulbous urethral stricture, male; N40.0 Benign prostatic hyperplasia without lower urinary tract symptoms; I10 Essential (primary) hypertension; G47.30 Sleep apnea, unspecified; K40.90 Unilateral inguinal hernia, without obstruction or gangrene, not specified as recurrent; H26.9 Unspecified cataract; Z79.82 Long term (current) use of aspirin; Z79.51 Long term (current) use of inhaled steroids; Z79.01 Long term (current) use of anticoagulants; Z79.899 Other long term (current) drug therapy; Z87.891 Personal history of nicotine dependence
CPT/HCPCS: 64999; 80048; 85025; 85610; 86850; 86900; 86901; 88307; 94640; 94760

== ENCOUNTER 2022-02-06 12:47 | Emergency (ER) | payer MEDICARE ==
[2022-02-06 13:12] VITALS: RESP 18
[2022-02-06 14:34] LABS: Basophils # (A) 0.1 k/uL (0-0.2); Basophils % (A) 1 %; Eosinophils # (A) 0.5 k/uL (0-0.7); Eosinophils % (A) 4 %; HCT 37.4 % (39.0-53.0); HGB 12.9 gm/dL (13.0-17.5); Lymphocytes # (A) 1.5 k/uL (1.0-4.8); Lymphocytes % (A) 11 %; MCH 30.7 pg (25.0-35.0); MCHC 34.6 g/dL (31.0-37.0); MCV 88.6 fL (80.0-100.0); Mean Platelet Volume 7.3; Monocytes % (A) 8 %; Neutrophils # (A) 9.8 k/uL (1.3-7.7); Neutrophils % (A) 75 %; Platelet Count 425 k/uL (150-450); RBC 4.21 m/uL (4.30-5.90); RDW 13.5 % (11.5-15.5); WBC 13.1 k/uL (3.8-10.6)
[2022-02-06 14:46] LABS: Calcium 9.4 mg/dL (8.4-10.2); Potassium 4.4 mmol/L (3.5-5.1); Total Bilirubin 0.8 mg/dL (0.2-1.3); Total Protein 6.7 g/dL (6.3-8.2)
[2022-02-06 15:22] LABS: Appearance,Urine Clear (Clear); Bilirubin,Urine Negative (Negative); Blood,Urine Negative (Negative); Color,Urine Yellow; Glucose,Urine (UA) Negative (Negative); Ketones,Urine Negative (Negative); Leukocyte Esterase,Urine Negative (Negative); Nitrite,Urine Negative (Negative); PH, Urine 5.5 (5.0-8.0); Protein,Urine Trace (Negative); Specific Gravity,Urine 1.016 (1.001-1.035); Urobilinogen,Urine <2.0 mg/dL (<2.0)
--- NOTE | 2022-02-06 15:41 | ED ---
Abdominal Pain HPI - General Source: patient, family Mode of arrival: ambulatory Limitations: no limitations <Theresa Farias - Last Filed: 02/06/22 15:43> <Tai Warner - Last Filed: 02/06/22 17:27> - General Chief Complaint: Abdominal Pain Stated Complaint: Hernia - History of Present Illness Initial Comments: 81-year-old male with past medical history of renal cell cancer presents to emergency department with right lower quadrant abdominal pain. Patient had a right radical nephrectomy on January [address] Luo. Patient was discharged home and states that he has had no postop complications. No fevers. No issues with urination. Denies diarrhea. He presents today after he had right lower quadrant pain while shopping. States it was sudden onset without radiation. He felt nauseated. Denies dysuria, hematuria or difficulty voiding. No diarrhea, consultation, black or bloody stools. No testicular pain. Admits that he did feel a bulge in the area which then reduced. He denies history of hernia. Patient arrives and states that the area feels sore however is nothing in comparison to what his pain previously was. He did not take anything for pain. As he is so recently. He is requesting evaluation. No fevers. No chest pain or shortness of breath. No alleviating, precipitating or modifying factors (Theresa Farias) - Related Data Home Medications Medication Instructions Recorded Confirmed Aspirin 81 mg PO DAILY 01/30/14 01/08/22 Finasteride [Proscar] 5 mg PO HS 01/30/14 01/08/22 Pravastatin Sodium [Pravachol] 20 mg PO HS 01/30/14 01/08/22 Warfarin [Coumadin] 5 mg PO WE 01/30/14 01/08/22 Warfarin [Coumadin] 10 mg PO SUMOTUTHFRSA 01/30/14 01/08/22 dilTIAZem HCL [Diltiazem HCl] 120 mg PO HS 01/30/14 01/08/22 Ascorbic Acid [Vitamin C] 500 mg PO DAILY 12/31/14 01/08/22 Cholecalciferol [Vitamin D3 (25 4,000 unit PO DAILY 12/31/14 01/08/22 Mcg = 1000 Iu)] Magnesium Gluconate [Magonate] 500 mg PO DAILY 12/31/14 01/08/22 Vitamin B Complex 1 tab PO DAILY 12/31/14 01/08/22 Fluticasone Propion/Salmeterol 1 puff INHALATION BID 01/02/22 01/08/22 [Advair 500-50 Diskus] Latanoprost [Latanoprost 0.005%] 1 drop BOTH EYES DAILY 01/02/22 01/08/22 Metoprolol Succinate (ER) [Toprol 50 mg PO HS 01/02/22 01/08/22 XL] Montelukast [Singulair] 1 tab PO HS 01/02/22 01/08/22 Previous Rx's Medication Instructions Recorded Albuterol Inhaler [Ventolin Hfa 2 puff INHALATION QID PRN #8 gm 01/12/22 Inhaler] HYDROcodone/APAP 5-325MG [[place] 1 tab PO Q6HR PRN 3 Days #12 tab 01/12/22 5-325] Allergies Allergy/AdvReac Type Severity Reaction Status Date / Time No Known Allergies Allergy Verified 02/06/22 13:12 Review of Systems ROS Other: All systems not noted in ROS Statement are negative. <Theresa Farias - Last Filed: 02/06/22 15:43> ROS Other: All systems not noted in ROS Statement are negative. <Tai Warner - Last Filed: 02/06/22 17:27> ROS Statement: Those systems with pertinent positive or pertinent negative responses have been documented in the HPI. Past Medical History Past Medical History: Atrial Fibrillation, Asthma, COPD, Eye Disorder, Hyperlipidemia, Hypertension, Prostate Disorder, Sleep Apnea/CPAP/BIPAP Additional Past Medical History / Comment(s): 'dry skin", enlarged prostate. uses c-pap. inguinal hernia rt side. BEGINNING OF CATARACTS History of Any Multi-Drug Resistant Organisms: None Reported Past Surgical History: Heart Catheterization, Hernia Repair, Orthopedic Surgery Additional Past Surgical History / Comment(s): right elbow surgery-injury, bone spur heel, right shoulder arthroscopy, cardioversion, umbilical hernia repair, colonoscopy, TURP 2016 Past Anesthesia/Blood Transfusion Reactions: No Reported Reaction Additional Past Anesthesia/Blood Transfusion Reaction / Comment(s): slow wake up Past Psychological History: No Psychological Hx Reported Smoking Status: Former smoker Past Alcohol Use History: Occasional Past Drug Use History: None Reported - Past Family History Daughter(s) Family Medical History: Cancer Father Family Medical History: Cancer <Theresa Farias - Last Filed: 02/06/22 15:43> General Exam Limitations: no limitations General appearance: alert, in no apparent distress Head exam: Present: atraumatic, normocephalic, normal inspection Eye exam: Present: normal appearance, PERRL, EOMI. Absent: scleral icterus, conjunctival injection, periorbital swelling ENT exam: Present: normal exam, mucous membranes moist Neck exam: Present: normal inspection. Absent: tenderness, meningismus, lymphadenopathy Respiratory exam: Present: normal lung sounds bilaterally. Absent: respiratory distress, wheezes, rales, rhonchi, stridor Cardiovascular Exam: Present: regular rate, normal rhythm, normal heart sounds. Absent: systolic murmur, diastolic murmur, rubs, gallop, clicks GI/Abdominal exam: Present: soft, normal bowel sounds. Absent: distended, tenderness, guarding, rebound, rigid Extremities exam: Present: normal inspection, full ROM, normal capillary refill. Absent: tenderness, pedal edema, joint swelling, calf tenderness Back exam: Present: normal inspection Neurological exam: Present: alert, oriented X3, CN II-XII intact Psychiatric exam: Present: normal affect, normal mood Skin exam: Present: warm, dry, intact, normal color. Absent: rash <Theresa Farias - Last Filed: 02/06/22 15:43> Course Vital Signs 02/06/22 13:09 Temperature 97.9 F Pulse Rate 83 Respiratory 18 Rate Blood Pressure 129/75 O2 Sat by Pulse 96 Oximetry Medical Decision Making - Lab Data Result diagrams: 02/06/22 14:21 02/06/22 14:21 <Theresa Farias - Last Filed: 02/06/22 15:43> - Lab Data Result diagrams: 02/06/22 14:21 02/06/22 14:21 <Tai Warner - Last Filed: 02/06/22 17:27> - Medical Decision Making Upon arrival patient's placed into room 33. A thorough history and physical exam was performed. IV access is established and laboratory studies are conducted. Mild white count 13.1. Patient sent for CT of his abdomen and pelvis. At this time the CT read is pending and the patient will be signed out to Dr. Warner. (JarrettTheresa Lalitha) - Lab Data Lab Results 02/06/22 02/06/22 02/06/22 Range/Units 14:21 14:21 14:21 WBC 13.1 H (3.8-10.6) k/uL RBC 4.21 L (4.30-5.90) m/uL Hgb 12.9 L (13.0-17.5) gm/dL Hct 37.4 L (39.0-53.0) % MCV 88.6 (80.0-100.0) fL MCH 30.7 (25.0-35.0) pg MCHC 34.6 (31.0-37.0) g/dL RDW 13.5 (11.5-15.5) % Plt Count 425 (150-450) k/uL MPV 7.3 Neutrophils % 75 % Lymphocytes % 11 % Monocytes % 8 % Eosinophils % 4 % Basophils % 1 % Neutrophils # 9.8 H (1.3-7.7) k/uL Lymphocytes # 1.5 (1.0-4.8) k/uL Monocytes # 1.0 (0-1.0) k/uL Eosinophils # 0.5 (0-0.7) k/uL Basophils # 0.1 (0-0.2) k/uL Sodium 137 (137-145) mmol/L Potassium 4.4 (3.5-5.1) mmol/L Chloride 104 (98-107) mmol/L Carbon Dioxide 26 (22-30) mmol/L Anion Gap 7 mmol/L BUN 22 H (9-20) mg/dL Creatinine 1.17 (0.66-1.25) mg/dL Est GFR (CKD-EPI)AfAm 67 (>60 ml/min/1.73 sqM) Est GFR (CKD-EPI)NonAf 58 (>60 ml/min/1.73 sqM) Glucose 97 (74-99) mg/dL Plasma Lactic Acid Gabriel 1.0 (0.7-2.0) mmol/L Calcium 9.4 (8.4-10.2) mg/dL Total Bilirubin 0.8 (0.2-1.3) mg/dL AST 46 (17-59) U/L ALT 39 (4-49) U/L Alkaline Phosphatase 176 H (38-126) U/L Total Protein 6.7 (6.3-8.2) g/dL Albumin 4.0 (3.5-5.0) g/dL Lipase 214 (23-300) U/L Urine Color Urine Appearance (Clear) Urine pH (5.0-8.0) Ur Specific [place] (1.001-1.035) Urine Protein (Negative) Urine Glucose (UA) (Negative) Urine Ketones (Negative) Urine Blood (Negative) Urine Nitrite (Negative) Urine Bilirubin (Negative) Urine Urobilinogen (<2.0) mg/dL Ur Leukocyte Esterase (Negative) 02/06/22 Range/Units 14:27 WBC (3.8-10.6) k/uL RBC (4.30-5.90) m/uL Hgb (13.0-17.5) gm/dL Hct (39.0-53.0) % MCV (80.0-100.0) fL MCH (25.0-35.0) pg MCHC (31.0-37.0) g/dL RDW (11.5-15.5) % Plt Count (150-450) k/uL MPV Neutrophils % % Lymphocytes % % Monocytes % % Eosinophils % % Basophils % % Neutrophils # (1.3-7.7) k/uL Lymphocytes # (1.0-4.8) k/uL Monocytes # (0-1.0) k/uL Eosinophils # (0-0.7) k/uL Basophils # (0-0.2) k/uL Sodium (137-145) mmol/L Potassium (3.5-5.1) mmol/L Chloride (98-107) mmol/L Carbon Dioxide (22-30) mmol/L Anion Gap mmol/L BUN (9-20) mg/dL Creatinine (0.66-1.25) mg/dL Est GFR (CKD-EPI)AfAm (>60 ml/min/1.73 sqM) Est GFR (CKD-EPI)NonAf (>60 ml/min/1.73 sqM) Glucose (74-99) mg/dL Plasma Lactic Acid Gabriel (0.7-2.0) mmol/L Calcium (8.4-10.2) mg/dL Total Bilirubin (0.2-1.3) mg/dL AST (17-59) U/L ALT (4-49) U/L Alkaline Phosphatase (38-126) U/L Total Protein (6.3-8.2) g/dL Albumin (3.5-5.0) g/dL Lipase (23-300) U/L Urine Color Yellow Urine Appearance Clear (Clear) Urine pH 5.5 (5.0-8.0) Ur Specific [place] 1.016 (1.001-1.035) Urine Protein Trace H (Negative) Urine Glucose (UA) Negative (Negative) Urine Ketones Negative (Negative) Urine Blood Negative (Negative) Urine Nitrite Negative (Negative) Urine Bilirubin Negative (Negative) Urine Urobilinogen <2.0 (<2.0) mg/dL Ur Leukocyte Esterase Negative (Negative) Disposition <Theresa Farias - Last Filed: 02/06/22 15:43> Is patient prescribed a controlled substance at d/c from ED?: No <Tai Warner - Last Filed: 02/06/22 17:27> Clinical Impression: Abdominal pain Disposition: HOME SELF-CARE Condition: Good Instructions (If sedation given, give patient instructions): Abdominal Pain (ED) Referrals: Ben Liz MD [Primary Care Provider] - 1-2 days
--- NOTE | 2022-02-06 15:49 | CT ---
EXAMINATION TYPE: CT abdomen pelvis w con DATE OF EXAM: 02/06/2022 COMPARISON: None INDICATION: abdominal pain, hx of hernia DLP: 950.5 mGycm, Automated exposure control for dose reduction was used. CONTRAST: 100 mL of Isovue 300. Study performed without Oral Contrast TECHNIQUE: Axial images were obtained from above the diaphragm to the pubic rami in the axial plane a t 5 mm thick sections. Reconstructed images are reviewed on the computer in the coronal plane. FINDINGS: Limited CT sections are obtained the lung bases. Mild infiltrates to the left posterior lung base. C orrelate for atelectasis. There may be some bronchiectasis present.. CT ABDOMEN: Liver: Normal Spleen: Multiple punctate calcifications are scattered within the spleen likely related to granuloma. Pancreas: Normal Adrenal glands: The adrenal glands are normal. Gallbladder: Normal Kidneys: Right kidney is surgically absent. Left kidney appears without masses or hydronephrosis. A c ortical renal cysts appear to be present at the inferior lateral pole. Aorta: Vascular calcification is within the aorta. Inferior vena cava: Normal. CT PELVIS: Loops of bowel within the abdomen and pelvis are normal. This study is performed without oral con trast limiting follow-up evaluation. Appendix: Normal as visualized. Urinary bladder: Normal. Genitourinary structures: Prostate appears prominent. A cystocele extending into the superior prostat e may be present. Correlate for prior surgical intervention. Osseous structures: No suspicious lytic or sclerotic lesions. Degenerative disc changes present L5-S1 . Some facet degenerative change or lumbar spine. IMPRESSIONS: 1. No suspicious recurrent masses right renal bed. No suspicious metastatic disease. 2. Suspected subsegmental atelectasis left lung base. Some chronic changes could be considered. Bronc hiectasis may be present.
[2022-02-06 17:39] VITALS: BP 128/71; PULSE 87; TEMP 98
== END 2022-02-06 17:40 | disposition home or self-care (01) ==
LOC: EC 12:47
DX: R10.31 Right lower quadrant pain (principal); I48.91 Unspecified atrial fibrillation; J44.9 Chronic obstructive pulmonary disease, unspecified; I10 Essential (primary) hypertension; E78.5 Hyperlipidemia, unspecified; Z87.891 Personal history of nicotine dependence; Z79.899 Other long term (current) drug therapy; Z79.82 Long term (current) use of aspirin; Z79.02 Long term (current) use of antithrombotics/antiplatelets
CPT/HCPCS: 36415; 80053; 83605; 83690; 85025; 81003; 74177; 99284; Q9967

== ENCOUNTER → 2022-06-23 | Outpatient (CLI) | payer MEDICARE ==
--- NOTE | 2022-06-23 09:20 | XR ---
EXAMINATION TYPE: XR chest 2V DATE OF EXAM: 06/23/2022 COMPARISON: 04/25/2022 TECHNIQUE: PA and lateral views submitted. HISTORY: Renal cancer FINDINGS: The lungs are clear and there is no pneumothorax, pleural effusion, or focal pneumonia. Heart size is mildly enlarged and there is a calcified granuloma right upper lobe. Hyperinflation suggests COPD. Somewhat nodular density seen at the left lung base. IMPRESSION: 1. Somewhat nodular density seen at the left lung base measuring 1.[address] of the chest to determine if this is related to superimposition of structures or true pulmonary nodule.
[2022-06-23 15:30] LABS: African American GFR (CKD) 45.1 (60.0-200.0); Albumin/Globulin Ratio 1.64 (1.60-3.17); Anion Gap 9.8 mmol/L (10.00-18.00); BUN/Creat Ratio 20.06 Ratio (12.00-20.00); Blood Urea Nitrogen 32.5 mg/dL (9.0-27.0); Calcium 9.7 mg/dL (8.7-10.3); Carbon Dioxide 25.7 mmol/L (20.0-27.5); Globulin 2.4 g/dL (1.6-3.3); Non-African American GFR(CKD) 38.9 (60.0-200.0); Potassium 4.6 mmol/L (3.5-5.5); Total Bilirubin 0.5 mg/dL (0.30-1.20); Total Protein 6.4 g/dL (6.2-8.2)
== END | disposition home or self-care (01) ==
LOC: LABWHC1 08:07
PROVIDERS: ATTEND Urology
DX: C64.1 Malignant neoplasm of right kidney, except renal pelvis (principal); J98.4 Other disorders of lung
CPT/HCPCS: 36415; 71046; 80053

== ENCOUNTER → 2022-07-21 | Outpatient (CLI) | payer MEDICARE ==
--- NOTE | 2022-07-21 14:17 | CT ---
EXAMINATION TYPE: CT chest wo con DATE OF EXAM: 07/21/2022 COMPARISON: 03/20/2013 CT chest, chest x-ray 06/23/2022 HISTORY: Malignant neoplasm of right kidney CT DLP: 460 mGycm. Automated Exposure Control for Dose Reduction was Utilized. TECHNIQUE: CT scan of the thorax is performed without IV contrast. FINDINGS: LUNGS: The lungs are grossly clear, there is no concerning parenchymal mass or nodule identified. T here is no pleural effusion or pneumothorax seen. The tracheobronchial tree is patent. 8mm calcified granuloma right upper lobe stable. There is a nodular area of consolidation left lower lobe measurin g 2.1 x 1.2 cm. There is mild diffuse centrilobular emphysema. MEDIASTINUM: Lack of IV contrast is noted to limit evaluation for mediastinal and especially hilar ad enopathy. There are no definitive greater than 1 cm hilar or mediastinal lymph nodes. The heart is en larged. There is coronary artery calcification. Trace pericardial fluid. Aorta normal caliber with mi ld atherosclerotic changes. Calcified lymph nodes in the hilum noted. OTHER: Calcified splenic and hepatic granuloma. Hypertrophic and degenerative change of the spine. Po st right nephrectomy changes are seen. Trace the gynecomastia noted. IMPRESSION: 1. There is a 2.1 x 1.2 cm nodular density at the left lung base corresponding to the chest x-ray abn ormality. Although this could be related to scarring or rounded atelectasis. A PET scan is recommende d given the patient's history to exclude underlying malignancy. 2. Cartilage with coronary artery calcifications. 3. Chronic granulomatous disease.
== END | disposition home or self-care (01) ==
LOC: RADCTMAIN 13:16
PROVIDERS: ATTEND Urology
DX: C64.1 Malignant neoplasm of right kidney, except renal pelvis (principal); I25.10 Atherosclerotic heart disease of native coronary artery without angina pectoris; D71 Functional disorders of polymorphonuclear neutrophils; J98.4 Other disorders of lung
CPT/HCPCS: 71250

== ENCOUNTER → 2022-08-08 | Outpatient (CLI) | payer MEDICARE ==
--- NOTE | 2022-08-09 08:54 | PE ---
EXAMINATION TYPE: PET CT fusion skull to thigh DATE OF EXAM: 08/08/2022 CLINICAL INDICATION:Male, 82 years old with history of C64.1 Renal Ca; TECHNIQUE: Following the intravenous administration of 11.9 mCi of F-18 FDG, whole body images are performed from the skull base to the midthigh. Images are reviewed on the computer in the coronal, a xial, and sagittal planes. Reconstructed rotating images are created on independent workstation and reviewed on the computer. A non-contrast CT is performed in conjunction with the PET scan. Glucose level 117 mg/dL COMPARISON: CT 02/06/2022, PET/CT None, FINDINGS: Mediastinal SUV mean is 1.3. Hepatic parenchyma SUV mean is 1.8. SKULL BASE AND NECK: No suspicious radiotracer activity. CHEST, MEDIASTINUM, AND HILAR REGION: Smooth. The hilar airspace opacities anteriorly max SUV 1.5 posteriorly with a more solid component m ax SUV 2.1 measuring 2.0 x 2.1 cm. In the left lung base airspace consolidation near the diaphragm ma x SUV 1.3. There are opacified airways extending down into these regions. ABDOMEN AND PELVIS: No suspicious radiotracer activity. OSSEOUS STRUCTURES: No suspicious radiotracer activity. OTHER CT: Bilaterally aphakia. Calcified senile scleral plaques. Atherosclerosis of the coronary minoo marilyn. The heart is mildly enlarged for size. Mild gynecomastia changes. Scattered calcified granuloma s within the spleen. The gallbladder is within normal limits. Few scattered colonic diverticula prese nt. Right kidney is surgically absent. Left kidney is without evidence of hydronephrosis. Bilateral f at-containing inguinal hernias. 06/13/2021 IMPRESSION: * No abnormal FDG activity or lymphadenopathy within the right renal surgical bed to suggest recurre nce. * Pulmonary consolidation like changes with multiple large airways opacified in the lung bases suspi cious for mucous plugging and infectious/inflammatory process. Consider short-term follow-up CT and/o r bronchoscopy.
== END | disposition home or self-care (01) ==
LOC: RADPETMAIN 07:10
PROVIDERS: ATTEND Urology
DX: C64.1 Malignant neoplasm of right kidney, except renal pelvis (principal); R91.8 Other nonspecific abnormal finding of lung field
CPT/HCPCS: 78815; A9552

== ENCOUNTER → 2022-12-21 | Outpatient (CLI) | payer MEDICARE ==
[2022-12-21 15:53] LABS: ALT 28 U/L (10-49); AST 39 U/L (14-35); Albumin 3.9 d/dL (3.8-4.9); Albumin/Globulin Ratio 1.62 Ratio (1.60-3.17); Alkaline Phosphatase 117 U/L (41-126); BUN/Creat Ratio 15.08 Ratio (12.00-20.00); Blood Urea Nitrogen 19.6 mg/dL (9.0-27.0); Calcium 9.7 mg/dL (8.7-10.3); Carbon Dioxide 26.1 mmol/L (21.6-31.8); Chloride 105 mmol/L (96-109); Globulin 2.4 d/dL (1.6-3.3); Glucose 90 mg/dL (70-110); Potassium 4.3 mmol/L (3.5-5.5); Sodium 141 mmol/L (135-145); Total Bilirubin 0.6 mg/dL (0.3-1.2); Total Protein 6.3 d/dL (6.2-8.2)
== END | disposition home or self-care (01) ==
LOC: LABWHC1 09:06
PROVIDERS: ATTEND Urology
DX: C64.1 Malignant neoplasm of right kidney, except renal pelvis (principal)
CPT/HCPCS: 36415; 80053

== ENCOUNTER → 2023-06-01 | Outpatient (CLI) | payer MEDICARE ==
--- NOTE | 2023-06-01 10:47 | CT ---
EXAMINATION TYPE: CT iac w con CT DLP: 150.0 mGycm, Automated exposure control for dose reduction was used. DATE OF EXAM: 06/01/2023 10:21 AM INDICATION: Patient age:Male; 82 years old; Reason for study: H60.392 OTHER INFECTIVE OTITIS EXTERNA, LEFT EAR; PHH. COMPARISON: None. TECHNIQUE: Multiple thin axial images were obtained through the temporal bones and internal auditory canals. Additional coronal reformatted images were obtained. No IV contrast was utilized. STENVER a nd POSCHL views were created on a separate work station. CT Contrast: Contrast used:70ml mL of Isovue 300 with IV Contrast, none. FINDINGS: Right Temporal Bone: External Ear: The external auditory canal is unremarkable, The tympanic membrane is present and unrem arkable. Middle Ear: The ossicles demonstrate a normal appearance. Prussak's space is clear and the scutum i s intact. There is no evidence of osseous erosion and the tegmen tympani is intact. Inner Ear: Cochlea, vestibule and semi circular canals are unremarkable. No evidence of carotid emili l dehiscence. Two and a half turns of the cochlea are identified. The vestibular aqueduct is not enl arged. Mastoid Air Cells: The mastoid air cells are clear. The tegmen mastoideum is intact. The aditus ad an trum is clear. Internal Auditory Canal: The internal auditory canal is unremarkable. Left Temporal Bone: External Ear: There is thickening of the skin around the external auditory canal with narrowing up to 75-90%. No organizing fluid collections identified. The tympanic membrane is present and unremarkabl e. Middle Ear: The ossicles demonstrate a normal appearance. Prussak's space is clear and the scutum i s intact. There is no evidence of osseous erosion and the tegmen tympani is intact. Inner Ear: Cochlea, vestibule and semi circular canals are unremarkable. No evidence of carotid emili l dehiscence. Two and a half turns of the cochlea are identified. The vestibular aqueduct is not enl arged. Mastoid Air Cells: A few opacified left mastoid air cells. No osseous erosion visualized. The tegmen mastoideum is intact. The aditus ad antrum is clear. Internal Auditory Canal: The internal auditory canal is unremarkable. Other: Mild paranasal sinus mucosal thickening most pronounced in the right maxillary sinus. IMPRESSION: 1. Thickening of the skin surrounding the left external auditory canal with mild fat stranding bernal es and narrowing of the external auditory canal to 75-90%. Correlate for otitis externa. 2. Trace left mastoid air cell effusion without evidence for osseous erosion.
== END | disposition home or self-care (01) ==
LOC: RADCTMAIN 09:37
PROVIDERS: ATTEND Otolaryngology
DX: H60.392 Other infective otitis externa, left ear (principal); R23.4 Changes in skin texture; Z13.9 Encounter for screening, unspecified
CPT/HCPCS: 70481; Q9967

== ENCOUNTER → 2023-06-10 | Outpatient (CLI) | payer MEDICARE ==
--- NOTE | 2023-06-10 09:35 | XR ---
EXAMINATION TYPE: XR chest 2V DATE OF EXAM: 06/10/2023 9:29 AM CLINICAL INDICATION:Male, 83 years old with history of C64.1 RENAL CA; [facility] COMPARISON: 06/24/2022 TECHNIQUE: XR chest 2V Frontal and lateral views of the chest. FINDINGS: Lungs/Pleura: Right upper lung suspected calcified granuloma. There is flattening of the diaphragm wi th increased lucency of the lungs. No evidence of pneumothorax, pleural effusion or focal consolidati on. Pulmonary vascularity: Unremarkable. Heart/mediastinum: Cardiomediastinal silhouette is unremarkable. Musculoskeletal: No acute osseous pathology. Other findings: None IMPRESSION: 1. No acute cardiopulmonary disease process. 2. COPD changes.
[2023-06-10 16:17] LABS: ALT 42 U/L (10-49); AST 37 U/L (14-35); Albumin 3.9 g/dL (3.8-4.9); Albumin/Globulin Ratio 1.95 Ratio (1.60-3.17); Alkaline Phosphatase 88 U/L (41-126); Blood Urea Nitrogen 21.6 mg/dL (9.0-27.0); Calcium 9.3 mg/dL (8.7-10.3); Carbon Dioxide 24.7 mmol/L (21.6-31.8); Chloride 106 mmol/L (96-109); Glucose 99 mg/dL (70-110); Potassium 4.3 mmol/L (3.5-5.5); Sodium 142 mmol/L (135-145); Total Bilirubin 0.5 mg/dL (0.3-1.2); Total Protein 5.9 g/dL (6.2-8.2)
== END | disposition home or self-care (01) ==
LOC: LABWHC1 09:10
PROVIDERS: ATTEND Urology
DX: C64.1 Malignant neoplasm of right kidney, except renal pelvis (principal); J44.9 Chronic obstructive pulmonary disease, unspecified
CPT/HCPCS: 36415; 71046; 80053

== ENCOUNTER 2023-07-05 19:15 | Emergency (ER) | payer MEDICARE ==
--- NOTE | 2023-07-05 19:21 | ED ---
Upper Extremity HPI - General Stated Complaint: Fall-L Wrist Injury-blood thinners Time Seen by Provider: 07/05/23 19:20 Source: patient, family Mode of arrival: ambulatory Limitations: no limitations - History of Present Illness Initial Comments: 83-year-old male presenting to the ER with a chief complaint of left wrist injury. Patient states he was working out in the yard earlier today and slipped on abdelrahman. Patient states he put out his right arm to catch himself. Patient denies any head injury, loss of consciousness. Patient does take warfarin. Patient states the fall occurred around noon today. Patient denies any other injuries or complaints. Denies any paresthesias. - Related Data Home Medications Medication Instructions Recorded Confirmed Aspirin 81 mg PO HS 01/30/14 04/25/22 Finasteride [Proscar] 5 mg PO HS 01/30/14 04/25/22 dilTIAZem HCL [Diltiazem HCl] 120 mg PO HS 01/30/14 04/25/22 Ascorbic Acid [Vitamin C] 500 mg PO DAILY 12/31/14 04/25/22 Cholecalciferol [Vitamin D3 (25 50 mcg PO DAILY 12/31/14 04/25/22 Mcg = 1000 Iu)] Vitamin B Complex 1 tab PO DAILY 12/31/14 04/25/22 Fluticasone Propion/Salmeterol 1 puff INHALATION RT-BID 01/02/22 04/25/22 [Advair 500-50 Diskus] Latanoprost [Latanoprost 0.005%] 1 drop BOTH EYES HS 01/02/22 04/25/22 Metoprolol Succinate (ER) [Toprol 50 mg PO HS 01/02/22 04/25/22 XL] Montelukast [Singulair] 10 mg PO HS 01/02/22 04/25/22 Albuterol Inhaler [Ventolin Hfa 2 puff INHALATION RT-QID PRN 04/25/22 04/25/22 Inhaler] Atorvastatin [Lipitor] 20 mg PO HS 04/25/22 04/25/22 Calcium/Magnesium/Zinc 1 tab PO DAILY 04/25/22 04/25/22 1000/400/25mg Ferrous Sulfate [Feosol] 325 mg PO Q2D@2100 04/25/22 04/25/22 L.acidoph,Paracasei, B.lactis 1 cap PO DAILY 04/25/22 04/25/22 [Probiotic] Warfarin [Coumadin] 10 mg PO HS 04/25/22 04/25/22 Previous Rx's Medication Instructions Recorded Sodium Bicarbonate Tab 650 mg PO TID #90 tab 04/29/22 levoFLOXacin 250 mg PO DIRECTED #4 tab 04/29/22 Allergies Allergy/AdvReac Type Severity Reaction Status Date / Time No Known Allergies Allergy Verified 07/05/23 19:40 Review of Systems ROS Statement: Those systems with pertinent positive or pertinent negative responses have been documented in the HPI. ROS Other: All systems not noted in ROS Statement are negative. Past Medical History Past Medical History: Atrial Fibrillation, Asthma, Cancer, COPD, Eye Disorder, Hyperlipidemia, Hypertension, Prostate Disorder, Sleep Apnea/CPAP/BIPAP Additional Past Medical History / Comment(s): 'dry skin", enlarged prostate. uses c-pap. inguinal hernia rt side. BEGINNING OF CATARACTS, kidney cancer History of Any Multi-Drug Resistant Organisms: None Reported Past Surgical History: Heart Catheterization, Hernia Repair, Orthopedic Surgery Additional Past Surgical History / Comment(s): right elbow surgery-injury, bone spur heel, right shoulder arthroscopy, cardioversion, umbilical hernia repair, colonoscopy, TURP 2017, nephrectomy -rt Past Anesthesia/Blood Transfusion Reactions: No Reported Reaction Additional Past Anesthesia/Blood Transfusion Reaction / Comment(s): slow wake up Past Psychological History: No Psychological Hx Reported Smoking Status: Former smoker Past Alcohol Use History: Occasional Additional Past Alcohol Use History / Comment(s): 1 -2pk/day quit 1996 Past Drug Use History: None Reported - Past Family History Daughter(s) Family Medical History: Cancer Father Family Medical History: Cancer General Exam - General Exam Comments Initial Comments: Visual Physical Exam Vital signs reviewed General: Well-appearing, nontoxic, no acute distress. Head: Normocephalic, atraumatic Eyes: PERRLA, EOMI ENT: Airway patent Chest: Nonlabored breathing Skin: No visual rash, normal skin tone Neuro: Alert and oriented 3 Musculoskeletal: Bruising and swelling to left wrist and hand. General appearance: alert, in no apparent distress Head exam: Present: atraumatic, normocephalic, normal inspection Eye exam: Present: normal appearance, PERRL, EOMI. Absent: scleral icterus, conjunctival injection, periorbital swelling Pupils: Present: normal accommodation Respiratory exam: Present: normal lung sounds bilaterally. Absent: respiratory distress, wheezes, rales, rhonchi, stridor Cardiovascular Exam: Present: normal rhythm, irregular rhythm, normal heart sounds. Absent: systolic murmur, diastolic murmur, rubs, gallop, clicks Extremities exam: Present: tenderness (Left distal radius. Edema present. 2+ left radial pulse. Sensation intact. There is edema to all digits.) Course Vital Signs 07/05/23 07/05/23 19:37 21:36 Temperature 98 F 98.2 F Pulse Rate 116 H 81 Respiratory 20 18 Rate Blood Pressure 122/72 122/79 O2 Sat by Pulse 96 97 Oximetry Procedures - Orthopedic Splinting/Casting Injury #1 Side: left Upper Extremity Injury Location: wrist Upper Extremity Immobilizer: posterior splint Medical Decision Making - Medical Decision Making I performed the quick note portion of this chart. Electronically signed by Gino Sebastian PA-C Was pt. sent in by a medical professional or institution (GAMALIEL Patino, BAILING MACHINE OPERATOR, urgent care, hospital, or penitentiary...) When possible be specific @ -No Did you speak to anyone other than the patient for history (EMS, parent, family, police, friend...)? What history was obtained from this source @ - aiding in HPI Did you review nursing and triage notes (agree or disagree)? Why? @ -I reviewed and agree with nursing and triage notes Were old charts reviewed (outside hosp., previous admission, EMS record, old EKG, old radiological studies, urgent care reports/EKG's, penitentiary records)? Report findings @ -No old charts were reviewed Differential Diagnosis (chest pain, altered mental status, abdominal pain women, abdominal pain men, vaginal bleeding, weakness, fever, dyspnea, syncope, headache, dizziness, GI bleed, back pain, seizure, CVA, palpatations, mental health, musculoskeletal)? @ -Differential Musculoskeletal: Muscular strain, contusion, ligament sprain, fracture, arthritis, septic arthritis, bursitis, cellulitis, muscle spasm, nerve compression, DVT, arterial occlusion, herpes zoster, electrolyte abnormality, tumor.... This is not meant to be in all inclusive list EKG interpreted by me (3pts min.). @ -None X-rays interpreted by me (1pt min.). @ -Wrist x-ray interpreted by me significant for a distal radius fracture. Left hand x-ray interpreted by me negative for acute process. CT interpreted by me (1pt min.). @ -CT brain considered due to thinners but not performed due to no head injury or loss of consciousness. U/S interpreted by me (1pt. min.). @ -None done What testing was considered but not performed or refused? (CT, X-rays, U/S, pastor bs)? Why? @ -None What meds were considered but not given or refused? Why? @ -None Did you discuss the management of the patient with other professionals (professionals i.e. , PA, BAILING MACHINE OPERATOR, lab, RT, psych nurse, social media editor, patient service representative, teacher, armed custom protection officer, counter caser)? Give summary @ -No Was smoking cessation discussed for >3mins.? @ -No Was critical care preformed (if so, how long)? @ -No Were there social determinants of health that impacted care today? How? (Homelessness, low income, unemployed, alcoholism, drug addiction, transportation, low edu. Level, literacy, decrease access to med. care, skilled nursing, rehab)? @ -No Was there de-escalation of care discussed even if they declined (Discuss DNR or withdrawal of care, Hospice)? DNR status @ -No What co-morbidities impacted this encounter? (DM, HTN, Smoking, COPD, CAD, Cancer, CVA, ARF, Chemo, Hep., AIDS, mental health diagnosis, sleep apnea, morbid obesity)? @ -None Was patient admitted / discharged? Hospital course, mention meds given and route, prescriptions, significant lab abnormalities, going to OR and other pertinent info. @ -Discharge. 83-year-old male presented to the ER with a chief complaint of left wrist injury. History and physical exam completed. Vitals stable. Patient in no signs of acute distress and nontoxic-appearing. Bilateral upper extremities neurovascular intact. No acute neurological findings on exam. Lung sounds clear to auscultation bilaterally. X-rays obtained significant for a distal left radius fracture. Patient placed in a splint. I advised close follow-up with orthopedics, referral given. Patient received by mouth Tylenol for pain control in the ER. Return parameters discussed. Patient discharged in stable condition. Patient verbally expressed understanding and agreement with care plan. Case discussed with ED attending, Dr. Warner Undiagnosed new problem with uncertain prognosis? @ -No Drug Therapy requiring intensive monitoring for toxicity (Heparin, Nitro, Insuli n, Cardizem)? @ -No Were any procedures done? @ -Yes Diagnosis/symptom? @ -Distal radius fracture Acute, or Chronic, or Acute on Chronic? @ -Acute Uncomplicated (without systemic symptoms) or Complicated (systemic symptoms)? @ -Uncomplicated Side effects of treatment? @ -No Exacerbation, Progression, or Severe Exacerbation? @ -No Poses a threat to life or bodily function? How? (Chest pain, [place], [place], pneumonia, PE, COPD, DKA, ARF, appy, cholecystitis, CVA, Diverticulitis, Homicidal, Suicidal, threat to staff... and all critical care pts) @ -No - Radiology Data Radiology results: report reviewed, image reviewed Disposition Clinical Impression: Distal radius fracture Disposition: HOME SELF-CARE Condition: Stable Instructions (If sedation given, give patient instructions): Wrist Fracture in Adults (ED) Additional Instructions: You may take Tylenol every 6-8 hours for pain control. Follow-up with orthopedics, referral given. I recommend elevation and ice. Return to the ER for any new or worsening concerns. Is patient prescribed a controlled substance at d/c from ED?: No Referrals: Ben Liz MD [Primary Care Provider] - 1-2 days Radha Arnold DO [Doctor of Osteopathic Medicine] - 1-2 days Time of Disposition: 21:26
--- NOTE | 2023-07-05 20:54 | XR ---
EXAMINATION TYPE: XR hand complete LT, XR wrist complete LT DATE OF EXAM: 07/05/2023 8:19 PM CLINICAL INDICATION:Male, 83 years old with history of injury; COMPARISON: None TECHNIQUE: XR hand complete LT, XR wrist complete LT Frontal, lateral and oblique views were obtained . FINDINGS/IMPRESSION: 1. Acute fracture of the distal radius with intra-articular extension to the wrist and distal radiou lnar joint. Mild dorsal angulation. 2. Multi focal degeneration changes worse at the first digit carpometacarpal joint.
[2023-07-05] MEDS: ACETAMINOPHEN TAB 325 MG TAB PO STA (21:18)
[2023-07-05 22:01] VITALS: BP 122/79; PULSE 81; RESP 18; TEMP 98.2
== END 2023-07-05 21:39 | disposition home or self-care (01) ==
LOC: EC 19:15
DX: S52.572A Other intraarticular fracture of lower end of left radius, initial encounter for closed fracture (principal); Z87.891 Personal history of nicotine dependence; W01.0XXA Fall on same level from slipping, tripping and stumbling without subsequent striking against object, initial encounter
CPT/HCPCS: 29125; 99284

== ENCOUNTER → 2023-11-30 | Outpatient (CLI) | payer MEDICARE ==
--- NOTE | 2023-11-30 14:46 | XR ---
EXAMINATION TYPE: XR cervical spine 6 views comp DATE OF EXAM: 11/30/2023 COMPARISON: None HISTORY: 83-year-old male unspecified headache, R51.9 FINDINGS: No predental space widening or prevertebral soft tissue swelling. Moderate degenerative disc disease and endplate spondylosis C5-C7 levels. Alignment is maintained. Scattered facet and uncovertebral afshin nt arthropathy is also present. On the right, changes result in moderate bony neuroforaminal narrowing at C5-C6 and C6/C7. Mild elsew here on the right. On the left, changes result in mild bony neuroforaminal narrowing at multiple levels, greatest at C6/ C7. Normal odontoid view. IMPRESSION: 1. Moderate degenerative disc disease C5-C7 levels. 2. Multilevel facet and uncovertebral joint arthropathy resulting in moderate bony neuroforaminal laverne rowing on the right at C5-C6 and C6-C7. Mild elsewhere throughout on both sides of the cervical spine . 3. No malalignment. [facility], , 11/30/2023 2:44 PM
== END | disposition home or self-care (01) ==
LOC: RADXRMAIN 09:54
PROVIDERS: ATTEND Internal Medicine
DX: R51.9 Headache, unspecified
CPT/HCPCS: 72050

== ENCOUNTER 2023-12-05 10:35 | Inpatient (IN) | payer MEDICARE ==
[2023-12-05 11:55] LABS: Basophils % (A) 0 %; Eosinophils # (A) 0.1 k/uL (0-0.7); Eosinophils % (A) 1 %; HCT 35.9 % (39.0-53.0); HGB 11.8 gm/dL (13.0-17.5); Lymphocytes # (A) 0.9 k/uL (1.0-4.8); Lymphocytes % (A) 7 %; MCH 28.6 pg (25.0-35.0); MCHC 32.9 g/dL (31.0-37.0); Mean Platelet Volume 6.6; Monocytes # (A) 1.4 k/uL (0-1.0); Monocytes % (A) 10 %; Neutrophils # (A) 10.9 k/uL (1.3-7.7); Neutrophils % (A) 80 %; Platelet Count 407 k/uL (150-450); RBC 4.13 m/uL (4.30-5.90); RDW 14.9 % (11.5-15.5); WBC 13.7 k/uL (3.8-10.6)
[2023-12-05] MEDS: SODIUM CHLORIDE 0.9% 500 ML 500 ML IV ONE (12:08)
[2023-12-05] MEDS: METOPROLOL TARTRATE 5 MG/5 ML VIAL IVP STA ×2 (12:09→13:09)
--- NOTE | 2023-12-05 12:12 | XR ---
EXAMINATION TYPE: XR chest 2V DATE OF EXAM: 12/05/2023 COMPARISON: 06/10/2023 HISTORY: Cough TECHNIQUE: Frontal and lateral views of the chest are obtained. FINDINGS: There is moderate cardiomegaly but no pulmonary vascular congestion or interstitial edema. There is no airspace consolidation. There is a stable 8 mm nodule in the right upper lobe. There is no pleural effusion or pneumothorax. The osseous structures are intact IMPRESSION: Moderate cardiomegaly but no evidence of acute cardiopulmonary disease. [facility], , 12/05/2023 12:10 PM
--- NOTE | 2023-12-05 12:16 | XR ---
Right elbow Limited HISTORY: Pain after fall. COMPARISON: None TECHNIQUE: 2 views of the right elbow were obtained. FINDINGS: There is no acute fracture or dislocation or focal intraosseous abnormality. 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 There is a suggestion of a small joint effusion . There are multiple small calcifications in the posterior soft tissues. IMPRESSION: 1. No acute trauma. 2. Degenerative changes as described above. [facility], , 12/05/2023 12:13 PM
[2023-12-05 12:31] LABS: ALT 22 U/L (4-49); AST 31 U/L (17-59); African American GFR (CKD) 86 (>60 ml/min/1.73 sqM); Albumin 3.4 g/dL (3.5-5.0); Alkaline Phosphatase 127 U/L (38-126); Anion Gap 7 mmol/L; Blood Urea Nitrogen 21 mg/dL (9-20); Carbon Dioxide 23 mmol/L (22-30); Chloride 97 mmol/L (98-107); Glucose 118 mg/dL (74-99); Magnesium 1.7 mg/dL (1.6-2.3); Non-African American GFR(CKD) 74 (>60 ml/min/1.73 sqM); Potassium 4.1 mmol/L (3.5-5.1); Sodium 127 mmol/L (137-145); Total Protein 6.1 g/dL (6.3-8.2)
[2023-12-05] MEDS ORDERED: ONDANSETRON 4 MG/2 ML VIAL IVP PRN (13:35)
[2023-12-05] MEDS ORDERED: NALOXONE 0.4 MG/ML 1 ML VIAL IV PRN (13:35)
--- NOTE | 2023-12-05 13:35 | ED ---
General Adult HPI - General Chief complaint: Fall Stated complaint: fall/R elbow injury Time Seen by Provider: 12/05/23 10:43 Source: patient, family, RN notes reviewed Mode of arrival: wheelchair Limitations: no limitations - History of Present Illness Initial comments: 83-year-old male presents emergency department complaint of right elbow injury. Patient states he got up from a sitting position to a standing states he felt very unsteady and fell over. He states this happened 1 week ago. He states he does feel very weak does not feel well. He denies any current complaints of chest pain but he does have a history of A-fib and has had some palpitations. No head injury no loss conscious. Fall was witnessed by family. - Related Data Home Medications Medication Instructions Recorded Confirmed Aspirin 81 mg PO HS 01/30/14 04/25/22 Finasteride [Proscar] 5 mg PO HS 01/30/14 04/25/22 dilTIAZem HCL [Diltiazem HCl] 120 mg PO HS 01/30/14 04/25/22 Ascorbic Acid [Vitamin C] 500 mg PO DAILY 12/31/14 04/25/22 Cholecalciferol [Vitamin D3 (25 50 mcg PO DAILY 12/31/14 04/25/22 Mcg = 1000 Iu)] Vitamin B Complex 1 tab PO DAILY 12/31/14 04/25/22 Fluticasone Propion/Salmeterol 1 puff INHALATION RT-BID 01/02/22 04/25/22 [Advair 500-50 Diskus] Latanoprost [Latanoprost 0.005%] 1 drop BOTH EYES HS 01/02/22 04/25/22 Metoprolol Succinate (ER) [Toprol 50 mg PO HS 01/02/22 04/25/22 XL] Montelukast [Singulair] 10 mg PO HS 01/02/22 04/25/22 Albuterol Inhaler [Ventolin Hfa 2 puff INHALATION RT-QID PRN 04/25/22 04/25/22 Inhaler] Atorvastatin [Lipitor] 20 mg PO HS 04/25/22 04/25/22 Calcium/Magnesium/Zinc 1 tab PO DAILY 04/25/22 04/25/22 1000/400/25mg Ferrous Sulfate [Feosol] 325 mg PO Q2D@2100 04/25/22 04/25/22 L.acidoph,Paracasei, B.lactis 1 cap PO DAILY 04/25/22 04/25/22 [Probiotic] Warfarin [Coumadin] 10 mg PO HS 04/25/22 04/25/22 Ofloxacin 0.3% Otic Soln [Floxin 5 drops BOTH EARS BID PRN 12/05/23 12/05/23 0.3% Otic Soln] Previous Rx's Medication Instructions Recorded Sodium Bicarbonate Tab 650 mg PO TID #90 tab 04/29/22 levoFLOXacin 250 mg PO DIRECTED #4 tab 04/29/22 Allergies Allergy/AdvReac Type Severity Reaction Status Date / Time No Known Allergies Allergy Verified 07/05/23 19:40 Review of Systems ROS Statement: Those systems with pertinent positive or pertinent negative responses have been documented in the HPI. ROS Other: All systems not noted in ROS Statement are negative. Past Medical History Past Medical History: Atrial Fibrillation, Asthma, Cancer, COPD, Eye Disorder, Hyperlipidemia, Hypertension, Prostate Disorder, Sleep Apnea/CPAP/BIPAP Additional Past Medical History / Comment(s): 'dry skin", enlarged prostate. uses c-pap. inguinal hernia rt side. BEGINNING OF CATARACTS, kidney cancer History of Any Multi-Drug Resistant Organisms: None Reported Past Surgical History: Heart Catheterization, Hernia Repair, Orthopedic Surgery Additional Past Surgical History / Comment(s): right elbow surgery-injury, bone spur heel, right shoulder arthroscopy, cardioversion, umbilical hernia repair, colonoscopy, TURP 2016, nephrectomy -rt Past Anesthesia/Blood Transfusion Reactions: No Reported Reaction Additional Past Anesthesia/Blood Transfusion Reaction / Comment(s): slow wake up Past Psychological History: No Psychological Hx Reported Smoking Status: Former smoker Past Alcohol Use History: Occasional Past Drug Use History: None Reported - Past Family History Daughter(s) Family Medical History: Cancer Father Family Medical History: Cancer General Exam Limitations: no limitations General appearance: alert, in no apparent distress Head exam: Present: atraumatic, normocephalic, normal inspection Neck exam: Present: normal inspection. Absent: tenderness, meningismus, lymphadenopathy Respiratory exam: Present: normal lung sounds bilaterally. Absent: respiratory distress, wheezes, rales, rhonchi, stridor Cardiovascular Exam: Present: tachycardia, irregular rhythm, normal heart sounds. Absent: systolic murmur, diastolic murmur, rubs, gallop, clicks GI/Abdominal exam: Present: soft, normal bowel sounds. Absent: distended, tenderness, guarding, rebound, rigid Extremities exam: Present: other (Right elbow with significant swelling, ecchymosis, tenderness to palpation neurovascular intact) Course Vital Signs 12/05/23 12/05/23 12/05/23 10:55 11:42 12:09 Temperature 97.9 F Pulse Rate 117 H 113 H Respiratory 18 20 Rate Blood Pressure 102/59 113/68 Blood Pressure 117/80 [Left Arm Sitting] Blood Pressure 88/48 [Left Arm Standing] Blood Pressure 123/78 [Left Arm Supine] O2 Sat by Pulse 95 94 L Oximetry 12/05/23 13:09 Temperature Pulse Rate 110 H Respiratory 18 Rate Blood Pressure 134/87 Blood Pressure [Left Arm Sitting] Blood Pressure [Left Arm Standing] Blood Pressure [Left Arm Supine] O2 Sat by Pulse 95 Oximetry EKG Findings - EKG Comments: EKG Findings:: EKG performed at 11: 31 A-fib with RVR rate of 119, QRS 166 QT/QTc 350/425 - EKG Results: EKG: interpreted by PINKY Medical Decision Making - Medical Decision Making Was pt. sent in by a medical professional or institution (, PA, LINE PERSON, urgent care, hospital, or usp...) When possible be specific @ -No Did you speak to anyone other than the patient for history (EMS, parent, family, police, friend...)? What history was obtained from this source @ -No Did you review nursing and triage notes (agree or disagree)? Why? @ -I reviewed and agree with nursing and triage notes Were old charts reviewed (outside hosp., previous admission, EMS record, old EKG, old radiological studies, urgent care reports/EKG's, usp records)? Report findings @ -No old charts were reviewed Differential Diagnosis (chest pain, altered mental status, abdominal pain women, abdominal pain men, vaginal bleeding, weakness, fever, dyspnea, syncope, headache, dizziness, GI bleed, back pain, seizure, CVA, palpatations, mental health, musculoskeletal)? @ -Differential Syncope: Valvular disease, hypertrophic cardiomyopathy, pulmonary embolism, tamponade, tachycardia, bradycardia, [place], hypovolemia, hemorrhage, dissection, anemia, intracranial hemorrhage, seizure, hypoglycemia, carbon monoxide poisoning, this is not meant to be an all-inclusive list. EKG interpreted by me (3pts min.). @ -As above X-rays interpreted by me (1pt min.). @ -Chest x-ray shows no acute cardiopulmonary process X-ray right elbow shows old injury no acute fracture CT interpreted by me (1pt min.). @ -None done U/S interpreted by me (1pt. min.). @ -None done What testing was considered but not performed or refused? (CT, X-rays, U/S, labs)? Why? @ -None What meds were considered but not given or refused? Why? @ -None Did you discuss the management of the patient with other professionals (professionals i.e. , PA, LINE PERSON, lab, RT, psych nurse, social science professor, product management manager, teacher, staff electronic warfare officer, briefcase sewer)? Give summary @Dr. Downey for admission Was smoking cessation discussed for >3mins.? @ -No Was critical care preformed (if so, how long)? @ -35 minutes Were there social determinants of health that impacted care today? How? (Homelessness, low income, unemployed, alcoholism, drug addiction, transportation, low edu. Level, literacy, decrease access to med. care, longterm, rehab)? @ -No Was there de-escalation of care discussed even if they declined (Discuss DNR or withdrawal of care, Hospice)? DNR status @ -No What co-morbidities impacted this encounter? (DM, HTN, Smoking, COPD, CAD, Cancer, CVA, ARF, Chemo, Hep., AIDS, mental health diagnosis, sleep apnea, morbid obesity)? @ -A-fib Was patient admitted / discharged? Hospital course, mention meds given and route, prescriptions, significant lab abnormalities, going to OR and other pertinent info. @ -Admitted patient presented for near syncopal episode, fall, right elbow injury. Patient found to be in A-fib RVR patient received 2 doses of metoprolol with no severe improvement of heart rate patient was started on Cardizem patient found to have mild hyponatremia was given fluid bolus, maintenance fluids and will be admitted for further treatment management Undiagnosed new problem with uncertain prognosis? @ -No Drug Therapy requiring intensive monitoring for toxicity (Heparin, Nitro, Insulin, Cardizem)? @ -Cardizem Were any procedures done? @ -No Diagnosis/symptom? @ -A-fib RVR, near syncope, hyponatremia, right elbow injury Acute, or Chronic, or Acute on Chronic? @ -Acute Uncomplicated (without systemic symptoms) or Complicated (systemic symptoms)? @ -Complicated Side effects of treatment? @ -No Exacerbation, Progression, or Severe Exacerbation? @ -No Poses a threat to life or bodily function? How? (Chest pain, [place], [place], pneumonia, PE, COPD, DKA, ARF, appy, cholecystitis, CVA, Diverticulitis, Homicidal, Suicidal, threat to staff... and all critical care pts) @ -Yes A-fib, hyponatremia, cardiac arrest - Lab Data Result diagrams: 12/05/23 11:30 12/05/23 11:30 Lab Results 12/05/23 12/05/23 Range/Units 11:30 11:30 WBC 13.7 H (3.8-10.6) k/uL RBC 4.13 L (4.30-5.90) m/uL Hgb 11.8 L (13.0-17.5) gm/dL Hct 35.9 L (39.0-53.0) % MCV 87.0 (80.0-100.0) fL MCH 28.6 (25.0-35.0) pg MCHC 32.9 (31.0-37.0) g/dL RDW 14.9 (11.5-15.5) % Plt Count 407 (150-450) k/uL MPV 6.6 Neutrophils % 80 % Lymphocytes % 7 % Monocytes % 10 % Eosinophils % 1 % Basophils % 0 % Neutrophils # 10.9 H (1.3-7.7) k/uL Lymphocytes # 0.9 L (1.0-4.8) k/uL Monocytes # 1.4 H (0-1.0) k/uL Eosinophils # 0.1 (0-0.7) k/uL Basophils # 0.0 (0-0.2) k/uL Sodium 127 L (137-145) mmol/L Potassium 4.1 (3.5-5.1) mmol/L Chloride 97 L (98-107) mmol/L Carbon Dioxide 23 (22-30) mmol/L Anion Gap 7 mmol/L BUN 21 H (9-20) mg/dL Creatinine 0.95 (0.66-1.25) mg/dL Est GFR (CKD-EPI)AfAm 86 (>60 ml/min/1.73 sqM) Est GFR (CKD-EPI)NonAf 74 (>60 ml/min/1.73 sqM) Glucose 118 H (74-99) mg/dL Calcium 9.0 (8.4-10.2) mg/dL Magnesium 1.7 (1.6-2.3) mg/dL Total Bilirubin 2.0 H (0.2-1.3) mg/dL AST 31 (17-59) U/L ALT 22 (4-49) U/L Alkaline Phosphatase 127 H (38-126) U/L Total Protein 6.1 L (6.3-8.2) g/dL Albumin 3.4 L (3.5-5.0) g/dL Critical Care Time Critical Care Time: Yes Total Critical Care Time: 35 Disposition Clinical Impression: Fall, Contusion of right elbow, Atrial fibrillation with RVR, Near syncope, Hyponatremia Disposition: ADMITTED IP TO THIS [facility] Condition: Fair Time of Disposition: 13:34
[2023-12-05] MEDS: SODIUM CHLORIDE 0.9% 1,000 ML IV SCH (13:49)
[2023-12-05] MEDS: DILTIAZEM 125 MG in SODIUM CHLORIDE 0.9% 100 ML IV SCH (13:50)
[2023-12-05] MEDS: HYDROcodone/APAP 5-325MG 1 EACH TAB PO STA (13:51)
--- NOTE | 2023-12-05 15:12 | P.HPIM ---
History of Present Illness H&P Date: 12/05/23 Patient is a 81-year-old male with history of atrial fibrillation, renal cell cancer status post nephrectomy, dyslipidemia, COPD/asthma presenting with fall and weakness. He claims that he felt unsteady and fell over injuring his right elbow. Happened yesterday. And was witnessed by family. Did not hit his head at any point. He denies any chest pain or palpitation during that time. Patient is accompanied by his and daughter. Supposedly he had about 10 to 15 pound weight loss over the last few months. He is also not been eating or drinking well over the last week. Denies any fevers or chills. Denies any chest pain, shortness of breath, abdominal pain, urinary or bowel complaints. He follows up with urology, and cardiology. In the ED, temperature was 97.9, pulse 117, respiratory rate 18, blood pressure 102/59, saturating at 95%. WBC 13.7, hemoglobin 11.8, sodium 127, BUN 21, creatinine 0.95, magnesium 1.7. Elbow x-ray did not show any acute fractures. Chest x-ray independently interpreted, did not show any focal opacities. EKG independently interpreted showed atrial fibrillation with RVR, right bundle branch block, nonspecific ST-T wave changes including T wave inversions in precordial leads. Patient given 500 cc of normal saline bolus, started on Car dizem drip after getting 2 x 5 mg IV pushes of metoprolol tartrate. Admitted for A-fib RVR, hyponatremia, generalized weakness. Pertinent positives and negatives as discussed in HPI, a complete review of systems was performed and all other systems are negative. Patient seen and examined at bedside. Vital signs reviewed General: nontoxic, no distress, appears at stated age, chronically ill-appearing Derm: warm, dry Head: atraumatic, normocephalic, symmetric Eyes: EOMI, no lid lag, anicteric sclera, pupils equal round reactive to light ENT: Nose and ears atraumatic, left eardrum inflamed Neck: No thyromegaly, supple Mouth: no lip lesion, mucus membranes moist Cardiovascular: S1S2 irregular, tachycardic, no murmur, no edema Lungs: clear to auscultation bilateral, no rhonchi, no rales, no wheeze, no accessory muscle use Abdominal: soft, nontender to palpation, no guarding, no appreciable organomegaly Ext: no gross muscle atrophy, muscle strength muscle strength 5 out of 5 in all 4 extremities, no contractures Neuro: CN II-XII grossly intact Psych: Alert, oriented, appropriate affect Assessment/Plan: Active: Atrial fibrillation with RVR Dehydration Hypovolemic hyponatremia -Continue Cardizem drip at 5 mg/h -Continue home metoprolol 25 daily, 50 nightly, holding home oral Cardizem -Continue home Xarelto 20 nightly -Cardiology consulted -Monitor on telemetry -Continue normal saline at 75 cc an hour -Repeat BMP at 8 PM today, goal increase in sodium less than 8 to 10 mEq in 24 hours -TSH, urine electrolytes and osmolality, serum osmolality pending Leukocytosis, likely reactive -Continue to monitor for any signs of infection Weight loss -Follow-up outpatient with urology, concern for recurrence of cancer Left otitis externa -Continue Floxin 0.3% otic solution Chronic: COPD, without exacerbation BPH Renal cell cancer status post nephrectomy The patient is admitted with an anticipated less than 2 midnight stay as observation status for evaluation of A-fib RVR. Surrogate decision-maker: Spouse CODE STATUS: Full code DVT prophylaxis: Xarelto Anticipated discharge date: Pending clinical course Anticipated discharge place: Pending clinical course A total of 55 minutes was spent on the care of this complex patient more than 50% of the time was spent in counseling and care coordination. Past Medical History Past Medical History: Atrial Fibrillation, Asthma, Cancer, COPD, Eye Disorder, Hyperlipidemia, Hypertension, Prostate Disorder, Sleep Apnea/CPAP/BIPAP Additional Past Medical History / Comment(s): 'dry skin", enlarged prostate. uses c-pap. inguinal hernia rt side. BEGINNING OF CATARACTS, kidney cancer History of Any Multi-Drug Resistant Organisms: None Reported Past Surgical History: Heart Catheterization, Hernia Repair, Orthopedic Surgery Additional Past Surgical History / Comment(s): right elbow surgery-injury, bone spur heel, right shoulder arthroscopy, cardioversion, umbilical hernia repair, colonoscopy, TURP 2016, nephrectomy -rt Past Anesthesia/Blood Transfusion Reactions: No Reported Reaction Additional Past Anesthesia/Blood Transfusion Reaction / Comment(s): slow wake up Past Psychological History: No Psychological Hx Reported Smoking Status: Former smoker Past Alcohol Use History: Occasional Past Drug Use History: None Reported - Past Family History Daughter(s) Family Medical History: Cancer Father Family Medical History: Cancer Medications and Allergies Home Medications Medication Instructions Recorded Confirmed Type Aspirin 81 mg PO HS 01/30/14 12/05/23 History Finasteride [Proscar] 5 mg PO HS 01/30/14 12/05/23 History dilTIAZem HCL [Diltiazem HCl] 120 mg PO HS 01/30/14 12/05/23 History Fluticasone Propion/Salmeterol 1 puff INHALATION RT-BID 01/02/22 12/05/23 Histor y [Advair 500-50 Diskus] Metoprolol Succinate (ER) [Toprol 50 mg PO HS 01/02/22 12/05/23 History XL] Albuterol Inhaler [Ventolin Hfa 2 puff INHALATION RT-QID PRN 04/25/22 12/05/23 History Inhaler] Atorvastatin [Lipitor] 20 mg PO HS 04/25/22 12/05/23 History Ferrous Sulfate [Feosol] 325 mg PO Q2D@2100 04/25/22 12/05/23 History Ipratropium-Albuterol Nebulize 3 ml INHALATION RT-QID 12/05/23 12/05/23 History [Duoneb 0.5 mg-3 mg/3 ml Soln] Metoprolol Succinate [Toprol XL] 25 mg PO DAILY 12/05/23 12/05/23 History Ofloxacin 0.3% Otic Soln [Floxin 5 drops BOTH EARS BID PRN 12/05/23 12/05/23 History 0.3% Otic Soln] Rivaroxaban [Xarelto] 20 mg PO HS 12/05/23 12/05/23 History guaiFENesin [Mucinex] 600 mg PO Q12H 12/05/23 12/05/23 History predniSONE 5 mg PO HS 12/05/23 12/05/23 History Allergies Allergy/AdvReac Type Severity Reaction Status Date / Time No Known Allergies Allergy Verified 12/05/23 14:00 Physical Exam Vitals: Vital Signs Temp Pulse Resp BP BP BP BP 12/05/23 13:09 110 H 18 134/87 12/05/23 12:09 113 H 20 113/68 12/05/23 11:42 117/80 88/48 123/78 12/05/23 10:55 97.9 F 117 H 18 102/59 Pulse Ox 12/05/23 13:09 95 12/05/23 12:09 94 L 12/05/23 11:42 12/05/23 10:55 95 Intake and Output 12/04/23 12/05/23 12/05/23 22:59 06:59 14:59 Other: Weight 81.193 kg Results CBC & Chem 7: 12/05/23 11:30 12/05/23 11:30 Labs: Abnormal Lab Results - Last 24 Hours (Table) 12/05/23 12/05/23 Range/Units 11:30 11:30 WBC 13.7 H (3.8-10.6) k/uL RBC 4.13 L (4.30-5.90) m/uL Hgb 11.8 L (13.0-17.5) gm/dL Hct 35.9 L (39.0-53.0) % Neutrophils # 10.9 H (1.3-7.7) k/uL Lymphocytes # 0.9 L (1.0-4.8) k/uL Monocytes # 1.4 H (0-1.0) k/uL Sodium 127 L (137-145) mmol/L Chloride 97 L (98-107) mmol/L BUN 21 H (9-20) mg/dL Glucose 118 H (74-99) mg/dL Total Bilirubin 2.0 H (0.2-1.3) mg/dL Alkaline Phosphatase 127 H (38-126) U/L Total Protein 6.1 L (6.3-8.2) g/dL Albumin 3.4 L (3.5-5.0) g/dL
[2023-12-05] MEDS ORDERED: SYMBICORT 160-4.5 MCG INHALER INHALATION SCH (20:10)
[2023-12-05] MEDS: SYMBICORT 160-4.5 MCG INHALER INHALATION SCH ×2 (20:27→23:46)
[2023-12-05 21:13] LABS: African American GFR (CKD) >90 (>60 ml/min/1.73 sqM); Anion Gap 5 mmol/L; Blood Urea Nitrogen 23 mg/dL (9-20); Calcium 8.3 mg/dL (8.4-10.2); Carbon Dioxide 22 mmol/L (22-30); Chloride 97 mmol/L (98-107); Glucose 143 mg/dL (74-99); Non-African American GFR(CKD) 80 (>60 ml/min/1.73 sqM); Sodium 124 mmol/L (137-145)
[2023-12-05] MEDS: FINASTERIDE 5 MG TAB PO SCH (21:19)
[2023-12-05] MEDS: RIVAROXABAN 20 MG TAB PO SCH (21:20)
[2023-12-05] MEDS: predniSONE 10 MG TAB PO SCH (21:20)
[2023-12-05] MEDS: ATORVASTATIN 20 MG TAB PO SCH (21:20)
[2023-12-05] MEDS: METOPROLOL SUCCINATE (ER) 50 MG TAB.ER.24H PO SCH (21:20)
[2023-12-05] MEDS: ASPIRIN 81 MG PO SCH (21:20)
[2023-12-05] MEDS: ACETAMINOPHEN TAB 325 MG TAB PO PRN (21:21)
[2023-12-06 06:46] LABS: Basophils % (A) 0 %; Eosinophils # (A) 0.1 k/uL (0-0.7); Eosinophils % (A) 1 %; HCT 33.9 % (39.0-53.0); HGB 11.2 gm/dL (13.0-17.5); Lymphocytes # (A) 0.9 k/uL (1.0-4.8); Lymphocytes % (A) 6 %; MCH 28.9 pg (25.0-35.0); MCHC 33.1 g/dL (31.0-37.0); MCV 87.3 fL (80.0-100.0); Monocytes # (A) 1.2 k/uL (0-1.0); Monocytes % (A) 8 %; Neutrophils # (A) 12.9 k/uL (1.3-7.7); Neutrophils % (A) 83 %; Platelet Count 372 k/uL (150-450); RBC 3.89 m/uL (4.30-5.90); WBC 15.5 k/uL (3.8-10.6)
[2023-12-06 07:36] LABS: African American GFR (CKD) >90 (>60 ml/min/1.73 sqM); Anion Gap 7 mmol/L; Blood Urea Nitrogen 20 mg/dL (9-20); Calcium 8.6 mg/dL (8.4-10.2); Carbon Dioxide 17 mmol/L (22-30); Chloride 99 mmol/L (98-107); Glucose 126 mg/dL (74-99); Non-African American GFR(CKD) 86 (>60 ml/min/1.73 sqM); Sodium 123 mmol/L (137-145)
[2023-12-06 07:37] LABS: Potassium 4.5 mmol/L (3.5-5.1)
[2023-12-06] MEDS: METOPROLOL SUCCINATE (ER) 50 MG TAB.ER.24H PO SCH ×2 (08:59→19:51)
--- NOTE | 2023-12-06 11:02 | P.CRDCN ---
History of Present Illness Consult date: 12/06/23 Reason for Consult (text): Atrial fibrillation with rapid ventricular rate History of present illness: HPI: Patient is a 83 year old male with past medical history of atrial fibrillation, renal cell cancer s/p nephrectomy, dyslipidemia, COPD/asthma presenting with fall and weaknesses. Patient reported having a mechanical fall yesterday where he felt unsteady and fell and injured his right elbow. This was a witnessed fall. Patient did not lose his consciousness, pass out, or hit his head. Patient did have a syncopal episode about a month ago where he felt dizzy. In the ED, elbow X ray showed no acute fractures. Chest X ray showed no focal opacities. EKG showed Atrial fibrillation with rapid ventricular rate, right bundle branch block, T wave inversions in precordial leads. He got 2 X 5 mg IV of metoprolol tartrate and then was placed on Cardizem drip. He did have a heart catheterization procedure done in 2014 which showed total occlusion of major diagonal branch. He was seen in 385 this morning. He denied any chest pain, shortness of breath, nausea, vomiting, fever, chills, lower extremity edema. His last echocardiogram was done in October 2023 and the ejection fraction was normal. CBC showed CBC of 15.5, hemoglobin 11.2, hematocrit 33.9, platelet 372. CMP showed sodium of 123, potassium 4.5, chloride 99, carbon dioxide 17, BUN 20, creatinine 0.72, platelet 126. TSH 2.35. Alkaline phosphatase 127. ROS: 14 points ROS negative except those mentioned in the HPI. PMH: Atrial fibrillation, renal cell cancer s/p nephrectomy, dyslipidemia, COPD/asthma PSH: Heart cath in 2014, TURP in 2017, nephrectomy Social History: Former smoker Family History: Father has cancer Physical Exam: General: alert and oriented, not in acute distress Cardiovascular: Regular heart rate, no diastolic/systolic murmurs Respiratory: CTAB, no wheezing/rhonchi/stridor/crackles Abdominal: Soft, nontender to palpation, nondistended Extremity: No LE edema Previous Cardiac workup: Echocardiogram in October 2023 - normal ejection fraction Heart catheterization in 2014 - total occlusion of major diagonal branch Impression: 1) Atrial fibrillation with poorly controlled ventricular rate Plan: Increase metoprolol to 50 mg bid po. And one time metoprolol 25 mg po this morning. Discontinue IV cardizem. We will continue to monitor. Past Medical History Past Medical History: Atrial Fibrillation, Asthma, Cancer, COPD, Eye Disorder, Hearing Disorder / Deafness, Hyperlipidemia, Hypertension, Prostate Disorder, Sleep Apnea/CPAP/BIPAP Additional Past Medical History / Comment(s): BPH, Prescribed C-PAP but does not wear anymore, Inguinal hernia right side, cataracts, Renal CA w nephrostomy in Dec 2021. History of Any Multi-Drug Resistant Organisms: None Reported Past Surgical History: Heart Catheterization, Hernia Repair, Orthopedic Surgery Additional Past Surgical History / Comment(s): right elbow surgery-injury, bone spur heel, right shoulder arthroscopy, cardioversion, umbilical hernia repair, colonoscopy, TURP 2016, nephrectomy -rt Past Anesthesia/Blood Transfusion Reactions: No Reported Reaction Additional Past Anesthesia/Blood Transfusion Reaction / Comment(s): slow wake up Past Psychological History: No Psychological Hx Reported Smoking Status: Former smoker Past Alcohol Use History: Rare Additional Past Alcohol Use History / Comment(s): 1 -2pk/day quit 1996 Past Drug Use History: None Reported - Past Family History Daughter(s) Family Medical History: Cancer Father Family Medical History: Cancer Medications and Allergies Home Medications Medication Instructions Recorded Confirmed Type Aspirin 81 mg PO HS 01/30/14 12/05/23 History Finasteride [Proscar] 5 mg PO HS 01/30/14 12/05/23 History dilTIAZem HCL [Diltiazem HCl] 120 mg PO HS 01/30/14 12/05/23 History Fluticasone Propion/Salmeterol 1 puff INHALATION RT-BID 01/02/22 12/05/23 History [Advair 500-50 Diskus] Metoprolol Succinate (ER) [Toprol 50 mg PO HS 01/02/22 12/05/23 History XL] Albuterol Inhaler [Ventolin Hfa 2 puff INHALATION RT-QID PRN 04/25/22 12/05/23 History Inhaler] Atorvastatin [Lipitor] 20 mg PO HS 04/25/22 12/05/23 History Ferrous Sulfate [Feosol] 325 mg PO Q2D@2100 04/25/22 12/05/23 History Ipratropium-Albuterol Nebulize 3 ml INHALATION RT-QID 12/05/23 12/05/23 History [Duoneb 0.5 mg-3 mg/3 ml Soln] Metoprolol Succinate [Toprol XL] 25 mg PO DAILY 12/05/23 12/05/23 History Ofloxacin 0.3% Otic Soln [Floxin 5 drops BOTH EARS BID PRN 12/05/23 12/05/23 History 0.3% Otic Soln] Rivaroxaban [Xarelto] 20 mg PO HS 12/05/23 12/05/23 History guaiFENesin [Mucinex] 600 mg PO Q12H 12/05/23 12/05/23 History predniSONE 5 mg PO HS 12/05/23 12/05/23 History Allergies Allergy/AdvReac Type Severity Reaction Status Date / Time No Known Allergies Allergy Verified 12/05/23 14:00 Physical Exam Vitals: Vital Signs Temp Pulse Pulse Resp BP BP BP 12/06/23 08:00 108 H 16 12/06/23 03:45 98.4 F 97 18 12/06/23 00:17 110 H 20 12/05/23 20:10 98.0 F 107 H 20 115/61 12/05/23 18:41 97.8 F 100 18 12/05/23 17:59 97.8 F 98 20 123/82 12/05/23 16:15 96 16 119/78 12/05/23 13:09 110 H 18 134/87 12/05/23 12:09 113 H 20 113/68 12/05/23 11:42 117/80 88/48 12/05/23 10:55 97.9 F 117 H 18 102/59 BP Pulse Ox 12/06/23 08:00 128/67 92 L 12/06/23 03:45 128/72 95 12/06/23 00:17 125/69 93 L 12/05/23 20:10 94 L 12/05/23 18:41 126/77 96 12/05/23 17:59 93 L 12/05/23 16:15 94 L 12/05/23 13:09 95 12/05/23 12:09 94 L 12/05/23 11:42 123/78 12/05/23 10:55 95 Intake and Output 12/05/23 12/06/23 12/06/23 22:59 06:59 14:59 Intake Total 0 120 Balance 0 120 Intake: Oral 0 120 Other: Voiding Method Urinal Urinal # Voids 1 # Bowel Movements 1 Weight 82.1 kg Results 12/06/23 06:28 12/06/23 06:28 Cardiac Enzymes 12/05/23 Range/Units 11:30 AST 31 (17-59) U/L CBC 12/05/23 12/06/23 Range/Units 11:30 06:28 WBC 13.7 H 15.5 H (3.8-10.6) k/uL RBC 4.13 L 3.89 L (4.30-5.90) m/uL Hgb 11.8 L 11.2 L (13.0-17.5) gm/dL Hct 35.9 L 33.9 L (39.0-53.0) % Plt Count 407 372 (150-450) k/uL Comprehensive Metabolic Panel 12/05/23 12/05/23 12/06/23 Range/Units 11:30 20:30 06:28 Sodium 127 L 124 L 123 L (137-145) mmol/L Potassium 4.1 4.0 4.5 (3.5-5.1) mmol/L Chloride 97 L 97 L 99 (98-107) mmol/L Carbon Dioxide 23 22 17 L (22-30) mmol/L BUN 21 H 23 H 20 (9-20) mg/dL Creatinine 0.95 0.86 0.72 (0.66-1.25) mg/dL Glucose 118 H 143 H 126 H (74-99) mg/dL Calcium 9.0 8.3 L 8.6 (8.4-10.2) mg/dL AST 31 (17-59) U/L ALT 22 (4-49) U/L Alkaline Phosphatase 127 H (38-126) U/L Total Protein 6.1 L (6.3-8.2) g/dL Albumin 3.4 L (3.5-5.0) g/dL Current Medications Generic Name Dose Route Start Last Admin Trade Name Freq PRN Reason Stop Dose Admin Acetaminophen 650 mg 12/05/23 18:51 12/05/23 21:21 Acetaminophen Tab 325 Mg Tab PO 650 mg Q6HR PRN Administration Fever and/ or Pain Albuterol Sulfate 2 puff 12/05/23 14:20 Albuterol Hfa Inhaler INHALATION RT-QID PRN Shortness Of Breath Albuterol/Ipratropium 3 ml 12/05/23 14:20 Ipratropium-Albuterol 3 Ml Neb INHALATION RT-QID PRN Shortness Of Breath Aspirin 81 mg 12/05/23 21:00 12/05/23 21:20 Aspirin 81 Mg PO 81 mg HS LIAT Administration Atorvastatin Calcium 20 mg 12/05/23 21:00 12/05/23 21:20 Atorvastatin 20 Mg Tab PO 20 mg HS LIAT Administration Budesonide/Formoterol Fumarate 2 puff 12/05/23 20:10 12/06/23 09:05 Symbicort 160-4.5 Mcg Inhaler INHALATION 2 puff RT-BID LIAT Administration Finasteride 5 mg 12/05/23 21:00 12/05/23 21:19 Finasteride 5 Mg Tab PO 5 mg HS LIAT Administration Metoprolol Succinate 50 mg 12/06/23 21:00 Metoprolol Succinate (Er) 50 Mg Tab.Er.24h PO BID LIAT Naloxone HCl 0.2 mg 12/05/23 13:35 Naloxone 0.4 Mg/Ml 1 Ml Vial IV Q2M PRN Opioid Reversal Ofloxacin 5 drops 12/05/23 15:10 Ofloxacin 0.3% Ophth Drops 5 Ml Bottle BOTH EARS BID PRN ear irritation Ondansetron HCl 4 mg 12/05/23 13:35 Ondansetron 4 Mg/2 Ml Vial IVP Q8HR PRN Nausea And Vomiting Prednisone 5 mg 12/05/23 21:00 12/05/23 21:20 Prednisone 10 Mg Tab PO 5 mg HS LIAT Administration Rivaroxaban 20 mg 12/05/23 21:00 12/05/23 21:20 Rivaroxaban 20 Mg Tab PO 20 mg HS LIAT Administration Protocol Intake and Output 12/05/23 12/06/23 12/06/23 22:59 06:59 14:59 Intake Total 0 120 Balance 0 120 Intake: Oral 0 120 Other: Voiding Method Urinal Urinal # Voids 1 # Bowel Movements 1 Weight 82.1 kg 12/06/23 06:28 12/06/23 06:28
--- NOTE | 2023-12-06 11:18 | P.PN ---
Subjective Progress Note Date: 12/06/23 Hospital Course: 81-year-old male with history of atrial fibrillation, renal cell cancer status post nephrectomy, dyslipidemia, COPD/asthma presenting with fall and weakness. In the ED, temperature was 97.9, pulse 117, respiratory rate 18, blood pressure 102/59, saturating at 95%. WBC 13.7, hemoglobin 11.8, sodium 127, BUN 21, creatinine 0.95, magnesium 1.7. Elbow x-ray did not show any acute fractures. Chest x-ray independently interpreted, did not show any focal opacities. EKG independently interpreted showed atrial fibrillation with RVR, right bundle branch block, nonspecific ST-T wave changes including T wave inversions in precordial leads. Patient given 500 cc of normal saline bolus, started on Cardizem drip after getting 2 x 5 mg IV pushes of metoprolol tartrate. Admitted for A-fib RVR, hyponatremia, generalized weakness. Subjective: Seen and examined at bedside. No acute events overnight. No new changes. Pertinent positives and negatives as discussed above, a complete review of systems was performed and all other systems are negative. Vitals Signs Reviewed. General: Nontoxic, no distress, appears at stated age Derm: Warm, dry Head: Atraumatic, normocephalic, symmetric Eyes: EOMI, no lid lag, anicteric sclera Mouth: No lip lesion, mucus membranes moist Cardiovascular: S1S2 irregular, no murmur Lungs: CTA bilateral, no rhonchi, no rales, no accessory muscle use Abdominal: Soft, nontender to palpation, no guarding, no appreciable organomegaly Ext: No gross muscle atrophy, no edema, no contractures Neuro: CN II-XI grossly intact, no focal neuro deficits Psych: Alert, oriented, appropriate affect Data Reviewed Today: Pertinent Labs: WBC 15.5, sodium 123, creatinine 0.72, urine osmolality 814, urine sodium 47, TSH 2.35 Imaging: No new imaging Assessment and Plan: Patient is severely ill, needs close monitoring. Prognosis guarded. Atrial fibrillation with RVR, now rate controlled -Cardiology note reviewed, Cardizem drip discontinued, patient started on metoprolol 25 twice daily -Continue home Xarelto 20 nightly -Monitor on telemetry Euvolemic hyponatremia -On fluid restriction, IV fluids discontinued -Nephrology consulted Orthostatic hypotension Multiple falls -Repeat orthostatic vitals -Patient is status post IV fluids -PT/OT Leukocytosis, likely reactive -Continue to monitor for any signs of infection Weight loss -Follow-up outpatient with urology, concern for recurrence of cancer Left otitis externa -Continue Floxin 0.3% otic solution Chronic: COPD, without exacerbation BPH Renal cell cancer status post nephrectomy DVT ppx: Xarelto Code status: DNR/DNI Anticipated discharge place: Pending clinical course Anticipated discharge time: Pending clinical course Objective - Vital Signs Vital signs: Vital Signs Temp 98.4 F 12/06/23 03:45 Pulse 108 H 12/06/23 08:00 Resp 16 12/06/23 08:00 BP 128/67 12/06/23 08:00 Pulse Ox 92 L 12/06/23 08:00 FiO2 Intake & Output 12/05/23 12/06/23 12/06/23 18:59 06:59 18:59 Intake Total 0 120 Balance 0 120 Weight 81.193 kg 82.1 kg Intake: Oral 0 120 Other: Voiding Method Urinal Urinal # Voids 1 # Bowel Movements 1 - Labs CBC & Chem 7: 12/06/23 06:28 12/06/23 06:28 Labs: Abnormal Lab Results - Last 24 Hours (Table) 12/05/23 12/05/23 12/05/23 Range/Units 11:30 11:30 11:30 WBC 13.7 H (3.8-10.6) k/uL RBC 4.13 L (4.30-5.90) m/uL Hgb 11.8 L (13.0-17.5) gm/dL Hct 35.9 L (39.0-53.0) % Neutrophils # 10.9 H (1.3-7.7) k/uL Lymphocytes # 0.9 L (1.0-4.8) k/uL Monocytes # 1.4 H (0-1.0) k/uL Sodium 127 L (137-145) mmol/L Chloride 97 L (98-107) mmol/L Carbon Dioxide (22-30) mmol/L BUN 21 H (9-20) mg/dL Glucose 118 H (74-99) mg/dL Osmolality 272 L (275-295) mOsm/kg Calcium (8.4-10.2) mg/dL Total Bilirubin 2.0 H (0.2-1.3) mg/dL Alkaline Phosphatase 127 H (38-126) U/L Total Protein 6.1 L (6.3-8.2) g/dL Albumin 3.4 L (3.5-5.0) g/dL 12/05/23 12/06/23 12/06/23 Range/Units 20:30 06:28 06:28 WBC 15.5 H (3.8-10.6) k/uL RBC 3.89 L (4.30-5.90) m/uL Hgb 11.2 L (13.0-17.5) gm/dL Hct 33.9 L (39.0-53.0) % Neutrophils # 12.9 H (1.3-7.7) k/uL Lymphocytes # 0.9 L (1.0-4.8) k/uL Monocytes # 1.2 H (0-1.0) k/uL Sodium 124 L 123 L (137-145) mmol/L Chloride 97 L (98-107) mmol/L Carbon Dioxide 17 L (22-30) mmol/L BUN 23 H (9-20) mg/dL Glucose 143 H 126 H (74-99) mg/dL Osmolality (275-295) mOsm/kg Calcium 8.3 L (8.4-10.2) mg/dL Total Bilirubin (0.2-1.3) mg/dL Alkaline Phosphatase (38-126) U/L Total Protein (6.3-8.2) g/dL Albumin (3.5-5.0) g/dL
--- NOTE | 2023-12-06 12:09 | P.NPCON ---
History of Present Illness - Reason for Consult Consult date: 12/06/23 hyponatremia Requesting physician: Fam Downey - History of Present Illness Patient is a 83 year old male with past medical history of atrial fibrillation, renal cell cancer s/p nephrectomy in 2021, dyslipidemia, COPD/ asthma who presented to the ED with fall and weakness. Yesterday he felt unsteady and fell over injuring his right elbow. His and daughter helped him up. He reports similar kind of fall a month ago as well. He has lost 10 to 15 pounds over the last few months and has not been eating or drinking well over the last week. He mentions following up regularly with Dr. Luo for renal cell cancer and reports being in remission. He is currrently on daily low dose aspirin, xarelto. Patient seen today for renal consultation for hyponatremia. He complains of pain in the left elbow,elbow xray doesn't show any fracture or dislocation. Denies chest pain, shortness of breath, abdominal pain, dysuria. No history of CHF His sodium on admission was 127, today is 123, serum osmolality 272, urine sodium 47, urine osmolality 814 and creatinine 0.72. Systolic bp 88 on admi ssion. TSH was 2.3 No new medications started recently on outpatient basis. Past Medical History Past Medical History: Atrial Fibrillation, Asthma, Cancer, COPD, Eye Disorder, Hearing Disorder / Deafness, Hyperlipidemia, Hypertension, Prostate Disorder, Sleep Apnea/CPAP/BIPAP Additional Past Medical History / Comment(s): BPH, Prescribed C-PAP but does not wear anymore, Inguinal hernia right side, cataracts, Renal CA w nephrostomy in Dec 2021. History of Any Multi-Drug Resistant Organisms: None Reported Past Surgical History: Heart Catheterization, Hernia Repair, Orthopedic Surgery Additional Past Surgical History / Comment(s): right elbow surgery-injury, bone spur heel, right shoulder arthroscopy, cardioversion, umbilical hernia repair, colonoscopy, TURP 2016, nephrectomy -rt Past Anesthesia/Blood Transfusion Reactions: No Reported Reaction Additional Past Anesthesia/Blood Transfusion Reaction / Comment(s): slow wake up Past Psychological History: No Psychological Hx Reported Smoking Status: Former smoker Past Alcohol Use History: Rare Additional Past Alcohol Use History / Comment(s): 1 -2pk/day quit 1996 Past Drug Use History: None Reported - Past Family History Daughter(s) Family Medical History: Cancer Father Family Medical History: Cancer Medications and Allergies Home Medications Medication Instructions Recorded Confirmed Type Aspirin 81 mg PO HS 01/30/14 12/05/23 History Finasteride [Proscar] 5 mg PO HS 01/30/14 12/05/23 History dilTIAZem HCL [Diltiazem HCl] 120 mg PO HS 01/30/14 12/05/23 History Fluticasone Propion/Salmeterol 1 puff INHALATION RT-BID 01/02/22 12/05/23 History [Advair 500-50 Diskus] Metoprolol Succinate (ER) [Toprol 50 mg PO HS 01/02/22 12/05/23 History XL] Albuterol Inhaler [Ventolin Hfa 2 puff INHALATION RT-QID PRN 04/25/22 12/05/23 History Inhaler] Atorvastatin [Lipitor] 20 mg PO HS 04/25/22 12/05/23 History Ferrous Sulfate [Feosol] 325 mg PO Q2D@2100 04/25/22 12/05/23 History Ipratropium-Albuterol Nebulize 3 ml INHALATION RT-QID 12/05/23 12/05/23 History [Duoneb 0.5 mg-3 mg/3 ml Soln] Metoprolol Succinate [Toprol XL] 25 mg PO DAILY 12/05/23 12/05/23 History Ofloxacin 0.3% Otic Soln [Floxin 5 drops BOTH EARS BID PRN 12/05/23 12/05/23 History 0.3% Otic Soln] Rivaroxaban [Xarelto] 20 mg PO HS 12/05/23 12/05/23 History guaiFENesin [Mucinex] 600 mg PO Q12H 12/05/23 12/05/23 History predniSONE 5 mg PO HS 12/05/23 12/05/23 History Allergies Allergy/AdvReac Type Severity Reaction Status Date / Time No Known Allergies Allergy Verified 12/05/23 14:00 Physical Exam Vitals: Vital Signs Temp Pulse Pulse Resp BP BP BP 12/06/23 08:00 108 H 16 12/06/23 03:45 98.4 F 97 18 12/06/23 00:17 110 H 20 12/05/23 20:10 98.0 F 107 H 20 115/61 12/05/23 18:41 97.8 F 100 18 12/05/23 17:59 97.8 F 98 20 123/82 12/05/23 16:15 96 16 119/78 12/05/23 13:09 110 H 18 134/87 12/05/23 12:09 113 H 20 113/68 12/05/23 11:42 117/80 88/48 12/05/23 10:55 97.9 F 117 H 18 102/59 BP Pulse Ox 12/06/23 08:00 128/67 92 L 12/06/23 03:45 128/72 95 12/06/23 00:17 125/69 93 L 12/05/23 20:10 94 L 12/05/23 18:41 126/77 96 12/05/23 17:59 93 L 12/05/23 16:15 94 L 12/05/23 13:09 95 12/05/23 12:09 94 L 12/05/23 11:42 123/78 12/05/23 10:55 95 Intake and Output 12/05/23 12/06/23 12/06/23 22:59 06:59 14:59 Intake Total 0 120 Balance 0 120 Intake: Oral 0 120 Other: Voiding Method Urinal Urinal # Voids 1 # Bowel Movements 1 Weight 82.1 kg General: nontoxic, no distress, appears at stated age Derm: warm, dry, intact Head: atraumatic, normocephalic, symmetric Cardiovascular: S1 S2 reg, no murmur Lungs: CTA bilateral, no rhonchi, no rales, no accessory muscle use Abdominal: soft, non-tender to palpataion Extremities: no gross muscle atrophy, trace edema Neuro: Alert, Oriented Results - Lab Results Most recent lab results Calcium 8.6 mg/dL (8.4-10.2) 12/06/23 06:28 Magnesium 1.7 mg/dL (1.6-2.3) 12/05/23 11:30 12/06/23 06:28 12/06/23 11:42 Assessment and Plan Assessment: Hyponatremia, appears euvolemic although trace LE edema present. U osm 814, U Na 47. S Na worsened with saline administration suggesting high likelihood for underlying SIADH along with elevated U osm. TSH WNL. 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 Follows up with Dr. Luo Atrial fibrillation with RVR, maintained on cardizem drip Benign prostatic hyperplasia Chronic COPD Left otitis externa Weight loss, 10-15 pounds over the last few months. Plan: Continue off IV fluids Maintain fluid restriction Recheck sodium Check bladder scan, r/o urine retention due to underlying BPH Consider tolvaptan if serum sodium doesn't improve Encourage to increase oral protein intake Thank you for the consultation. We will continue to follow during the hospitalization. Patient is seen and examined. Agree with resident's findings assessment and plan.
[2023-12-06] MEDS: METOPROLOL SUCCINATE (ER) 25 MG TAB.ER.24H PO ONE (12:10)
[2023-12-06] MEDS: OFLOXACIN 0.3% OPHTH DROPS 5 ML BOTTLE BOTH EARS PRN (12:10)
[2023-12-06] MEDS: IPRATROPIUM-ALBUTEROL 3 ML NEB INHALATION PRN (16:38)
[2023-12-06] MEDS ORDERED: METOPROLOL TARTRATE 50 MG TAB PO SCH (21:00)
--- NOTE | 2023-12-06 21:40 | P.PN ---
Progress Note - Text Progress Note Date: 12/06/23 8:06 PM called to bedside by RN for right arm pain. Patient was noted to be A&O x 3 and comfortable with right arm pain and swelling from fingers to forearm at the elbow. Right arm is warm to touch, tenderness on palpation at distal area of elbow, wrist, and middle finger MCP intensity of max 10 out of 10. ROM limited by pain and swelling. Noted superficial wounds that are dried with scabs on elbow and distal forearm area with no surrounding erythema or tenderness. Negative for erythema, IV access on affected arm. Concern for DVT. Ordered venous Doppler ultrasound of right forearm.
[2023-12-06] MEDS: FUROSEMIDE 10 MG/ML 2 ML VIAL IV ONE (23:33)
--- NOTE | 2023-12-07 00:52 | US ---
EXAMINATION TYPE: US venous doppler duplex UE RT DATE OF EXAM: 12/06/2023 COMPARISON: NONE CLINICAL INDICATION: Male, 83 years old with history of R arm swelling; right hand swelling after fal l, no h/o dvt TECHNIQUE: Grayscale, color Doppler and spectral Doppler imaging of the upper extremity. SIDE PERFORMED: Right FINDINGS: Right Arm: Negative for DVT Grayscale, color doppler, spectral doppler imaging performed of the deep veins of the upper extremiti es. IMPRESSION: No evidence of DVT in the right upper extremity. [facility], , 12/07/2023 12:50 AM
[2023-12-07 07:55] LABS: African American GFR (CKD) >90 (>60 ml/min/1.73 sqM); Anion Gap 7 mmol/L; Blood Urea Nitrogen 18 mg/dL (9-20); Calcium 8.5 mg/dL (8.4-10.2); Carbon Dioxide 23 mmol/L (22-30); Chloride 94 mmol/L (98-107); Glucose 127 mg/dL (74-99); Magnesium 1.6 mg/dL (1.6-2.3); Non-African American GFR(CKD) 88 (>60 ml/min/1.73 sqM); Potassium 3.8 mmol/L (3.5-5.1); Sodium 124 mmol/L (137-145)
[2023-12-07] MEDS: FUROSEMIDE 10 MG/ML 2 ML VIAL IV STA (08:48)
--- NOTE | 2023-12-07 11:15 | P.PN ---
Subjective Progress Note Date: 12/07/23 Hospital Course: 81-year-old male with history of atrial fibrillation, renal cell cancer status post nephrectomy, dyslipidemia, COPD/asthma presenting with fall and weakness. In the ED, temperature was 97.9, pulse 117, respiratory rate 18, blood pressure 102/59, saturating at 95%. WBC 13.7, hemoglobin 11.8, sodium 127, BUN 21, creatinine 0.95, magnesium 1.7. Elbow x-ray did not show any acute fractures. Chest x-ray independently interpreted, did not show any focal opacities. EKG independently interpreted showed atrial fibrillation with RVR, right bundle branch block, nonspecific ST-T wave changes including T wave inversions in precordial leads. Patient given 500 cc of normal saline bolus, started on Cardizem drip after getting 2 x 5 mg IV pushes of metoprolol tartrate. Admitted for A-fib RVR, hyponatremia, generalized weakness. Nephrology consulted for hyponatremia. Cardiology consulted for A-fib with RVR. Subjective: Seen and examined at bedside. No acute events overnight. Continues to complain of right arm swelling and pain. Pertinent positives and negatives as discussed above, a complete review of systems was performed and all other systems are negative. Vitals Signs Reviewed. General: Nontoxic, no distress, appears at stated age Derm: Warm, dry Head: Atraumatic, normocephalic, symmetric Eyes: EOMI, no lid lag, anicteric sclera Mouth: No lip lesion, mucus membranes moist Cardiovascular: S1S2 irregular, no murmur Lungs: CTA bilateral, no rhonchi, no rales, no accessory muscle use Abdominal: Soft, nontender to palpation, no guarding, no appreciable or ganomegaly Ext: Right upper extremity edematous and erythematous Neuro: CN II-XI grossly intact, no focal neuro deficits Psych: Alert, oriented, appropriate affect Data Reviewed Today: Pertinent Labs: Sodium 124, creatinine 0.69, magnesium 1.6 Imaging: Right upper extremity venous Doppler negative for DVT Assessment and Plan: Patient is severely ill, needs close monitoring. Prognosis guarded. Atrial fibrillation with RVR, now rate controlled -Discussed management with cardiology, patient on diltiazem oral 30 3 times daily, metoprolol 50 twice daily -Continue home Xarelto 20 nightly -Monitor on telemetry Euvolemic versus hypervolemic hyponatremia -On fluid restriction, IV fluids discontinued -Nephrology following, patient given 2 doses of 20 mg IV Lasix over the last 2 days -Continue to monitor BMP Orthostatic hypotension Multiple falls Right forearm edema -Dopplers negative for DVT -Forearm and wrist x-ray pending -Repeat orthostatic vitals -Patient is status post IV fluids -PT/OT Leukocytosis, likely reactive -Continue to monitor for any signs of infection Repeat CBC. Weight loss -Follow-up outpatient with urology, concern for recurrence of cancer Left otitis externa -Continue Floxin 0.3% otic solution Chronic: COPD, without exacerbation BPH Renal cell cancer status post nephrectomy DVT ppx: Xarelto Code status: DNR/DNI Anticipated discharge place: Pending clinical course Anticipated discharge time: Pending clinical course Objective - Vital Signs Vital signs: Vital Signs Temp 97.3 F L 12/07/23 11:08 Pulse 92 12/07/23 11:08 Resp 16 12/07/23 11:08 BP 107/64 12/07/23 11:08 Pulse Ox 94 L 12/07/23 11:08 FiO2 Intake & Output 12/06/23 12/07/23 12/07/23 18:59 06:59 18:59 Intake Total 596 10 180 Output Total 1000 350 Balance 596 -990 -170 Weight 82.1 kg 81.2 kg Intake: IV 10 Invasive Line 1 10 Oral 596 0 180 Output: Urine 1000 350 Straight 500 Other: Voiding Method Urinal Urinal # Voids 0 1 1 # Bowel Movements 0 1 1 - Labs CBC & Chem 7: 12/06/23 06:28 12/07/23 06:50 Labs: Abnormal Lab Results - Last 24 Hours (Table) 12/06/23 12/06/23 12/07/23 Range/Units 11:42 20:37 06:50 Sodium 124 L 120 L 124 L (137-145) mmol/L Chloride 94 L (98-107) mmol/L Glucose 127 H (74-99) mg/dL 12/07/23 Range/Units 06:50 Sodium 124 L (137-145) mmol/L Chloride (98-107) mmol/L Glucose (74-99) mg/dL
--- NOTE | 2023-12-07 11:44 | XR ---
EXAMINATION TYPE: XR forearm RT DATE OF EXAM: 12/07/2023 COMPARISON: NONE HISTORY: Pain Two views of the forearm demonstrate that the osseous structures appear to be intact and the joint sp aces appear to be preserved. There is no acute fracture or dislocation. Generalized osteopenia. Que stion mild anterior fat pad displacement. This may be indicative of a joint effusion. This can be see n either an occult fracture or post arthropathy. Soft tissue edema. Vascular calcifications. Calcifications are seen adjacent to the head of the radius. Stable from rece nt x-ray. IMPRESSION: 1. No acute displaced fracture or dislocation. 2. Again noted are calcifications along the radial margin of the joint space and posteriorly which ar e likely chronic. If the patient is point tender consider a dedicated CT scan to exclude fracture. [facility], , 12/07/2023 11:42 AM
--- NOTE | 2023-12-07 11:50 | XR ---
EXAMINATION TYPE: XR wrist complete RT DATE OF EXAM: 12/07/2023 COMPARISON: NONE HISTORY: Pain TECHNIQUE: Four views submitted. FINDINGS: The osseous structures are intact. There is severe arthropathy of the trapezial scaphoid joint with c ystic changes the scaphoid which appear chronic. Marked narrowing of the capitate lunate joint is see n. There is narrowing of the radiocarpal joint with chondrocalcinosis noted. There are vascular calci fications and diffuse osteopenia. Moderate arthropathy of the first MCP and first carpometacarpal afshin nt. Remote trauma the fifth metacarpal. IMPRESSION: 1. No definite acute fracture. 2. Deformity of the scaphoid injury which appears chronic. Osteonecrosis in the differential diagnosi sLisa [facility], , 12/07/2023 11:48 AM
[2023-12-07] MEDS: DILTIAZEM ORAL 30 MG TAB PO SCH (12:31)
--- NOTE | 2023-12-07 12:39 | P.PN ---
Subjective HISTORY OF PRESENT ILLNESS: This is an 83-year-old male who initially presented to the hospital after sustaining a mechanical fall at home. Patient was found to be in A-fib with RVR. Patient was started on IV Cardizem which was discontinued yesterday. Patient remains in atrial fibrillation this morning with heart rates [id number]. Patient currently denies chest pain or pressure. He denies shortness of breath. He denies any palpitations. He complains of increased swelling to his right arm and worsening decreased range of motion. Venous Doppler performed this morning was negative for DVT. Patient did have an echocardiogram performed in the office in October 2023 revealing ejection fraction 50%, moderate pulm hypertension, moderate to severe mitral regurgitation, severe tricuspid regurgitation, mild to moderate aortic insufficiency. PHYSICAL EXAM: VITAL SIGNS: Reviewed. GENERAL: Well-developed in no acute distress. NECK: Supple. No JVD or thyromegaly LUNGS: Respirations even and unlabored. Lungs essentially clear to auscultation bilaterally. HEART: Irregular rate and rhythm. S1 and S2 heard. Systolic murmur noted EXTREMITIES: Normal range of motion. No clubbing or cyanosis. Peripheral pulses intact. Right upper extremity with bruising and swelling noted along with decreased range of motion. ASSESSMENT: Status post mechanical fall Permanent atrial fibrillation with RVR Hyponatremia Right arm pain with increased swelling and decreased range of motion History of renal cancer with previous right nephrectomy Coronary artery disease with total occlusion of diagonal branch, per cardiac catheterization in 2014 Hypertension Hyperlipidemia History of COPD History of asthma Moderate pulmonary hypertension Valvular heart disease including moderate to severe MR, severe TR, mild to moderate AI PLAN: Continue anticoagulation with Xarelto Continue current dose of metoprolol succinate 50 mg twice a day Add oral Cardizem 30 mg 3 times daily for optimal heart rate control Continue additional cardiac medications Recommend orthopedic consultation for increased right arm pain and decreased range of motion. Discussed with primary medicine, Dr. Downey who states he will order x-rays first. Will defer ortho consult to primary medicine if deemed necessary. Further recommendations pending patient course Patient to follow-up postdischarge with Dr. Schneider Nurse practitioner note has been reviewed by physician. Signing provider agrees with the documented findings, assessment, and plan of care documented by LEAF TINNER as a scribe. Objective - Vital Signs Vital signs: Vital Signs Temp 97.3 F L 12/07/23 11:08 Pulse 92 12/07/23 11:08 Resp 16 12/07/23 11:08 BP 107/64 12/07/23 11:08 Pulse Ox 94 L 12/07/23 11:08 FiO2 Intake & Output 12/06/23 12/07/23 12/07/23 18:59 06:59 18:59 Intake Total 596 10 180 Output Total 1000 350 Balance 596 -990 -170 Weight 82.1 kg 81.2 kg Intake: IV 10 Invasive Line 1 10 Oral 596 0 180 Output: Urine 1000 350 Straight 500 Other: Voiding Method Urinal Urinal # Voids 0 1 1 # Bowel Movements 0 1 1 - Labs CBC & Chem 7: 12/06/23 06:28 12/07/23 10:49 Labs: Abnormal Lab Results - Last 24 Hours (Table) 12/06/23 12/07/23 12/07/23 Range/Units 20:37 06:50 06:50 Sodium 120 L 124 L 124 L (137-145) mmol/L Chloride 94 L (98-107) mmol/L Glucose 127 H (74-99) mg/dL 12/07/23 Range/Units 10:49 Sodium 124 L (137-145) mmol/L Chloride (98-107) mmol/L Glucose (74-99) mg/dL
--- NOTE | 2023-12-07 12:48 | P.PN ---
Subjective Progress Note Date: 12/07/23 Principal diagnosis: Euvolemic hyponatremia Hospital course: Patient is a 83 year old male with past medical history of atrial fibrillation, renal cell cancer s/p nephrectomy in 2021, dyslipidemia, COPD/ asthma who presented to the ED with fall and weakness. Yesterday he felt unsteady and fell over injuring his right elbow. His and daughter helped him up. He reports similar kind of fall a month ago as well. He has lost 10 to 15 pounds over the last few months and has not been eating or drinking well over the last week. He mentions following up regularly with Dr. Luo for renal cell cancer and reports being in remission. He is currrently on daily low dose aspirin, xarelto. Patient seen today for renal consultation for hyponatremia. He complains of pain in the left elbow,elbow xray doesn't show any fracture or dislocation. Denies chest pain, shortness of breath, abdominal pain, dysuria. No history of CHF His sodium on admission was 127, today is 123, serum osmolality 272, urine sodium 47, urine osmolality 814 and creatinine 0.72. Systolic bp 88 on admiss ion. TSH was 2.3 No new medications started recently on outpatient basis. 12/07/23 Patient seen today. Bladder scan showed post void residual of 367 ml yesterday and 101-150 ml today. Repeat sodium yesterday was 124 and dropped to 120. S/p IV lasix x1. Na imoroved to 124 this morning. He complains of pain and edema in the right arm. Venous doppler is negative for DVT. Denies abdominal pain, chest pain, dysuria. Objective - Vital Signs Vital signs: Vital Signs Temp 97.5 F L 12/07/23 08:00 Pulse 110 H 12/07/23 08:00 Resp 22 12/07/23 08:00 BP 136/80 12/07/23 08:00 Pulse Ox 97 12/07/23 08:00 FiO2 Intake & Output 12/06/23 12/07/23 12/07/23 18:59 06:59 18:59 Intake Total 596 10 180 Output Total 1000 350 Balance 596 -990 -170 Weight 82.1 kg 81.2 kg Intake: IV 10 Invasive Line 1 10 Oral 596 0 180 Output: Urine 1000 350 Straight 500 Other: Voiding Method Urinal # Voids 0 1 1 # Bowel Movements 0 1 1 - Exam General: nontoxic, no distress, appears at stated age Derm: warm, dry, intact Head: atraumatic, normocephalic, symmetric Cardiovascular: S1 S2 reg, no murmur Lungs: CTA bilateral, no rhonchi, no rales, no accessory muscle use Abdominal: soft, non-tender to palpataion Extremities: right UE edematous, trace edema on LE b/l Neuro: Alert, Oriented - Labs CBC & Chem 7: 12/07/23 12:49 12/07/23 10:49 Labs: Abnormal Lab Results - Last 24 Hours (Table) 12/06/23 12/06/23 12/07/23 Range/Units 11:42 20:37 06:50 Sodium 124 L 120 L 124 L (137-145) mmol/L Chloride 94 L (98-107) mmol/L Glucose 127 H (74-99) mg/dL 12/07/23 Range/Units 06:50 Sodium 124 L (137-145) mmol/L Chloride (98-107) mmol/L Glucose (74-99) mg/dL Assessment and Plan Assessment: Hyponatremia, appears euvolemic although trace LE edema present. U osm 814, U Na 47. S Na worsened with saline administration suggesting high likelihood for underlying SIADH along with elevated U osm. TSH WNL. s/p furosemide 40mg. Maintained on fluid restriction. 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 Follows up with Dr. Luo Atrial fibrillation with RVR,s/p cardizem drip, now maintained on oral cardizem, metoprolol and xarelto Benign prostatic hyperplasia Chronic COPD Left otitis externa Weight loss, 10-15 pounds over the last few months. Plan: Samsca x1 Maintain fluid restriction Repeat sodium at 7pm today. Continue to monitor bladder scan periodically Encourage to increase oral protein intake Repeat labs in am. Patient seen and examined. Agree with resident's findings, assessment and plan
[2023-12-07 13:09] LABS: Basophils % (A) 0 %; Eosinophils # (A) 0.1 k/uL (0-0.7); Eosinophils % (A) 1 %; HCT 35.1 % (39.0-53.0); HGB 11.3 gm/dL (13.0-17.5); Lymphocytes # (A) 0.9 k/uL (1.0-4.8); Lymphocytes % (A) 6 %; MCH 28.2 pg (25.0-35.0); MCHC 32.1 g/dL (31.0-37.0); MCV 87.6 fL (80.0-100.0); Mean Platelet Volume 7.2; Monocytes # (A) 0.9 k/uL (0-1.0); Monocytes % (A) 6 %; Neutrophils # (A) 12.1 k/uL (1.3-7.7); Neutrophils % (A) 85 %; Platelet Count 442 k/uL (150-450); WBC 14.4 k/uL (3.8-10.6)
[2023-12-07] MEDS: TOLVAPTAN 15 MG TABLET PO ONE (16:42)
[2023-12-08 06:19] LABS: Basophils % (A) 0 %; Eosinophils # (A) 0.1 k/uL (0-0.7); Eosinophils % (A) 1 %; HGB 10.8 gm/dL (13.0-17.5); Lymphocytes # (A) 0.9 k/uL (1.0-4.8); Lymphocytes % (A) 7 %; MCH 28.6 pg (25.0-35.0); MCHC 32.8 g/dL (31.0-37.0); MCV 87.2 fL (80.0-100.0); Mean Platelet Volume 6.8; Monocytes % (A) 9 %; Neutrophils # (A) 9.5 k/uL (1.3-7.7); Neutrophils % (A) 80 %; Platelet Count 432 k/uL (150-450); RBC 3.79 m/uL (4.30-5.90); WBC 11.8 k/uL (3.8-10.6)
[2023-12-08 06:30] LABS: African American GFR (CKD) >90 (>60 ml/min/1.73 sqM); Anion Gap 4 mmol/L; Blood Urea Nitrogen 18 mg/dL (9-20); Carbon Dioxide 29 mmol/L (22-30); Chloride 100 mmol/L (98-107); Glucose 123 mg/dL (74-99); Non-African American GFR(CKD) 83 (>60 ml/min/1.73 sqM); Sodium 133 mmol/L (137-145)
[2023-12-08] MEDS: METOPROLOL SUCCINATE (ER) 25 MG TAB.ER.24H PO ONE (09:08)
--- NOTE | 2023-12-08 11:55 | P.PN ---
Subjective Progress Note Date: 12/08/23 Principal diagnosis: Euvolemic hyponatremia Hospital course: Patient is a 83 year old male with past medical history of atrial fibrillation, renal cell cancer s/p nephrectomy in 2021, dyslipidemia, COPD/ asthma who presented to the ED with fall and weakness. Yesterday he felt unsteady and fell over injuring his right elbow. His and daughter helped him up. He reports similar kind of fall a month ago as well. He has lost 10 to 15 pounds over the last few months and has not been eating or drinking well over the last week. He mentions following up regularly with Dr. Luo for renal cell cancer and reports being in remission. He is currrently on daily low dose aspirin, xarelto. Patient seen today for renal consultation for hyponatremia. He complains of pain in the left elbow,elbow xray doesn't show any fracture or dislocation. Denies chest pain, shortness of breath, abdominal pain, dysuria. No history of CHF His sodium on admission was 127, today is 123, serum osmolality 272, urine sodium 47, urine osmolality 814 and creatinine 0.72. Systolic bp 88 on admiss ion. TSH was 2.3 No new medications started recently on outpatient basis. 12/07/23 Patient seen today. Bladder scan showed post void residual of 367 ml yesterday and 101-150 ml today. Repeat sodium yesterday was 124 and dropped to 120. S/p IV lasix x1. Na imoroved to 124 this morning. He complains of pain and edema in the right arm. Venous doppler is negative for DVT. Denies abdominal pain, chest pain, dysuria. 12/08/23 Patient evaluated today.Complains of pain in the right forearm. Denies abdominal pain, dysuria, hematuria. S/p tolvaptan 15 mg p.o. once yesterday. Sodium is improving and is 133 today. Right forearm x-ray and wrist x-ray did not show any definite acute fractures. Objective - Vital Signs Vital signs: Vital Signs Temp 97.5 F L 12/08/23 06:45 Pulse 112 H 12/08/23 06:45 Resp 16 12/08/23 06:45 BP 102/70 12/08/23 06:45 Pulse Ox 95 12/08/23 06:45 FiO2 Intake & Output 10/12/08/23 12/08/23 18:59 06:59 18:59 Intake Total 540 10 Output Total 350 2350 Balance 190 -2340 Weight 80.5 kg Intake: IV 10 Invasive Line 1 10 Oral 540 Output: Urine 350 2350 Other: Voiding Method Urinal Toilet Urinal # Voids 1 1 # Bowel Movements 1 0 - Exam General: nontoxic, no distress, appears at stated age Derm: warm, dry, intact Head: atraumatic, normocephalic, symmetric Cardiovascular: S1 S2 reg, no murmur Lungs: CTA bilateral, no rhonchi, no rales, no accessory muscle use Abdominal: soft, non-tender to palpataion Extremities: right UE edematous, trace edema on LE b/l Neuro: Alert, Oriented - Labs CBC & Chem 7: 12/08/23 05:37 12/08/23 10:11 Labs: Abnormal Lab Results - Last 24 Hours (Table) 12/07/23 12/07/23 12/07/23 Range/Units 10:49 12:49 19:02 WBC 14.4 H (3.8-10.6) k/uL RBC 4.00 L (4.30-5.90) m/uL Hgb 11.3 L (13.0-17.5) gm/dL Hct 35.1 L (39.0-53.0) % Neutrophils # 12.1 H (1.3-7.7) k/uL Lymphocytes # 0.9 L (1.0-4.8) k/uL Sodium 124 L 122 L (137-145) mmol/L Glucose (74-99) mg/dL 12/08/23 12/08/23 Range/Units 05:37 05:37 WBC 11.8 H (3.8-10.6) k/uL RBC 3.79 L (4.30-5.90) m/uL Hgb 10.8 L (13.0-17.5) gm/dL Hct 33.0 L (39.0-53.0) % Neutrophils # 9.5 H (1.3-7.7) k/uL Lymphocytes # 0.9 L (1.0-4.8) k/uL Sodium 133 L (137-145) mmol/L Glucose 123 H (74-99) mg/dL Assessment and Plan Assessment: 1. Hyponatremia, appears euvolemic although trace LE edema present. U osm 814, U Na 47. S Na worsened with saline administration suggesting high likelihood for underlying SIADH along with elevated U osm. TSH WNL. s/p furosemide 40mg. Maintained on fluid restriction. Improving after Samsca 15 mg p.o. once 12/07/2023. 2. 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 Follows up with Dr. Luo 3. Atrial fibrillation with RVR, s/p cardizem drip, now maintained on oral cardizem, metoprolol and xarelto 4. Benign prostatic hyperplasia 5. Chronic COPD 6. Left otitis externa 7. Weight loss, 10-15 pounds over the last few months. Plan: Monitor sodium for possible need of D5W if sodium continues to increase. Encourage to increase oral protein intake Repeat labs in am. Agree with resident's findings, assessment and plan.
--- NOTE | 2023-12-08 12:03 | P.PN ---
Subjective HISTORY OF PRESENT ILLNESS: This is an 83-year-old male who initially presented to the hospital after sustaining a mechanical fall at home. Patient was found to be in A-fib with RVR. Patient was started on IV Cardizem which was discontinued yesterday. Patient remains in atrial fibrillation this morning with heart rates [id number]. Patient currently denies chest pain or pressure. He denies shortness of breath. He denies any palpitations. He complains of increased swelling to his right arm and worsening decreased range of motion. Venous Doppler performed this morning was negative for DVT. Patient did have an echocardiogram performed in the office in October 2023 revealing ejection fraction 50%, moderate pulm hypertension, moderate to severe mitral regurgitation, severe tricuspid regurgitation, mild to moderate aortic insufficiency. 12/08/2023 Patient examined this morning at the bedside. Patient currently denies chest pain or pressure. He denies shortness of breath. He continues to have swelling in his right upper extremity but does report a little bit more mobility today. X-rays were completed yesterday which were negative for fracture. He remains in atrial fibrillation with heart rates in the [id number]. Sodium 132. Nephrology is following. PHYSICAL EXAM: VITAL SIGNS: Reviewed. GENERAL: Well-developed in no acute distress. NECK: Supple. No JVD or thyromegaly LUNGS: Respirations even and unlabored. Lungs essentially clear to auscultation bilaterally. HEART: Irregular rate and rhythm. S1 and S2 heard. Systolic murmur noted EXTREMITIES: Normal range of motion. No clubbing or cyanosis. Peripheral pulses intact. Right upper extremity with bruising and swelling noted along with decreased range of motion. ASSESSMENT: Status post mechanical fall Permanent atrial fibrillation with RVR Hyponatremia, improving Right arm pain with increased swelling and decreased range of motion History of renal cancer with previous right nephrectomy Coronary artery disease with total occlusion of diagonal branch, per cardiac catheterization in 2014 Hypertension Hyperlipidemia History of COPD History of asthma Moderate pulmonary hypertension Valvular heart disease including moderate to severe MR, severe TR, mild to moderate AI PLAN: Continue anticoagulation with Xarelto Increase metoprolol succinate to 75 mg twice a day Continue oral Cardizem 30 mg a day Continue telemetry monitoring Continue additional cardiac medications Further recommendations pending patient course Patient to follow-up postdischarge with Dr. Schneider Nurse practitioner note has been reviewed by physician. Signing provider agrees with the documented findings, assessment, and plan of care documented by MANUFACTURING ASSISTANT as a scribe. Objective - Vital Signs Vital signs: Vital Signs Temp 97.7 F 12/08/23 11:08 Pulse 97 12/08/23 11:08 Resp 16 12/08/23 11:08 BP 111/56 12/08/23 11:08 Pulse Ox 94 L 12/08/23 11:08 FiO2 Intake & Output 12/07/23 12/08/23 12/08/23 18:59 06:59 18:59 Intake Total 540 10 Output Total 350 2350 380 Balance 190 -2340 -380 Weight 80.5 kg Intake: IV 10 Invasive Line 1 10 Oral 540 Output: Urine 350 2350 380 Other: Voiding Method Urinal Toilet Toilet Urinal Urinal # Voids 1 1 # Bowel Movements 1 0 - Labs CBC & Chem 7: 12/08/23 05:37 12/08/23 10:11 Labs: Abnormal Lab Results - Last 24 Hours (Table) 12/07/23 12/07/23 12/07/23 Range/Units 10:49 12:49 19:02 WBC 14.4 H (3.8-10.6) k/uL RBC 4.00 L (4.30-5.90) m/uL Hgb 11.3 L (13.0-17.5) gm/dL Hct 35.1 L (39.0-53.0) % Neutrophils # 12.1 H (1.3-7.7) k/uL Lymphocytes # 0.9 L (1.0-4.8) k/uL Sodium 124 L 122 L (137-145) mmol/L Glucose (74-99) mg/dL 12/08/23 12/08/23 12/08/23 Range/Units 05:37 05:37 10:11 WBC 11.8 H (3.8-10.6) k/uL RBC 3.79 L (4.30-5.90) m/uL Hgb 10.8 L (13.0-17.5) gm/dL Hct 33.0 L (39.0-53.0) % Neutrophils # 9.5 H (1.3-7.7) k/uL Lymphocytes # 0.9 L (1.0-4.8) k/uL Sodium 133 L 132 L (137-145) mmol/L Glucose 123 H (74-99) mg/dL
--- NOTE | 2023-12-08 13:00 | P.PN ---
Subjective Progress Note Date: 12/08/23 Hospital Course: 81-year-old male with history of atrial fibrillation, renal cell cancer status post nephrectomy, dyslipidemia, COPD/asthma presenting with fall and weakness. In the ED, temperature was 97.9, pulse 117, respiratory rate 18, blood pressure 102/59, saturating at 95%. WBC 13.7, hemoglobin 11.8, sodium 127, BUN 21, creatinine 0.95, magnesium 1.7. Elbow x-ray did not show any acute fractures. Chest x-ray independently interpreted, did not show any focal opacities. EKG independently interpreted showed atrial fibrillation with RVR, right bundle branch block, nonspecific ST-T wave changes including T wave inversions in precordial leads. Patient given 500 cc of normal saline bolus, started on Cardizem drip after getting 2 x 5 mg IV pushes of metoprolol tartrate. Admitted for A-fib RVR, hyponatremia, generalized weakness. Nephrology consulted for hyponatremia. Cardiology consulted for A-fib with RVR. Subjective: Seen and examined at bedside. No acute events overnight. Continues to complain of right arm swelling and pain. Pertinent positives and negatives as discussed above, a complete review of systems was performed and all other systems are negative. Vitals Signs Reviewed. General: Nontoxic, no distress, appears at stated age Derm: Warm, dry Head: Atraumatic, normocephalic, symmetric Eyes: EOMI, no lid lag, anicteric sclera Mouth: No lip lesion, mucus membranes moist Cardiovascular: S1S2 irregular, no murmur Lungs: CTA bilateral, no rhonchi, no rales, no accessory muscle use Abdominal: Soft, nontender to palpation, no guarding, no appreciable or ganomegaly Ext: Right upper extremity edematous and erythematous, slowly improving Neuro: CN II-XI grossly intact, no focal neuro deficits Psych: Alert, oriented, appropriate affect Data Reviewed Today: Pertinent Labs: WBC 11.8, hemoglobin 10.8, sodium 133, creatinine 0.8 Imaging: Right upper extremity x-rays did not show any fractures, 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 -Continue to monitor for any signs of infection Repeat CBC. Weight loss -Follow-up outpatient with urology, concern for recurrence of cancer Left otitis externa -Continue Floxin 0.3% otic solution Chronic: COPD, without exacerbation BPH Renal cell cancer status post nephrectomy DVT ppx: Xarelto Code status: DNR/DNI Anticipated discharge place: [facility] Anticipated discharge time: Pending clinical course Objective - Vital Signs Vital signs: Vital Signs Temp 97.7 F 12/08/23 11:08 Pulse 97 12/08/23 11:08 Resp 16 12/08/23 11:08 BP 111/56 12/08/23 11:08 Pulse Ox 94 L 12/08/23 11:08 FiO2 Intake & Output 12/07/23 12/08/23 12/08/23 18:59 06:59 18:59 Intake Total 540 10 Output Total 350 2350 380 Balance 190 -2340 -380 Weight 80.5 kg Intake: IV 10 Invasive Line 1 10 Oral 540 Output: Urine 350 2350 380 Other: Voiding Method Urinal Toilet Toilet Urinal Urinal # Voids 1 1 # Bowel Movements 1 0 - Labs CBC & Chem 7: 12/08/23 05:37 12/08/23 10:11 Labs: Abnormal Lab Results - Last 24 Hours (Table) 12/07/23 12/07/23 12/08/23 Range/Units 12:49 19:02 05:37 WBC 14.4 H (3.8-10.6) k/uL RBC 4.00 L (4.30-5.90) m/uL Hgb 11.3 L (13.0-17.5) gm/dL Hct 35.1 L (39.0-53.0) % Neutrophils # 12.1 H (1.3-7.7) k/uL Lymphocytes # 0.9 L (1.0-4.8) k/uL Sodium 122 L 133 L (137-145) mmol/L Glucose 123 H (74-99) mg/dL 12/08/23 12/08/23 Range/Units 05:37 10:11 WBC 11.8 H (3.8-10.6) k/uL RBC 3.79 L (4.30-5.90) m/uL Hgb 10.8 L (13.0-17.5) gm/dL Hct 33.0 L (39.0-53.0) % Neutrophils # 9.5 H (1.3-7.7) k/uL Lymphocytes # 0.9 L (1.0-4.8) k/uL Sodium 132 L (137-145) mmol/L Glucose (74-99) mg/dL
--- NOTE | 2023-12-08 13:17 | CDI ---
Documentation Clarification Form Date: 12/08/2023 12:17:01 PM From: Karla Cochran RN CCDS Phone: [phone] Admit Date: 12/06/2023 09:31:00 AM Patient Name: Howie Ogden Visit Number: [id number] Discharge Date: ATTENTION: The Clinical Documentation Specialists (CDI) and [facility] Coding Staff appreciate your assistance in clarifying documentation. Please respond to the clarification below the line at the bottom and electronically sign. The CDI & [facility] Coding staff will review the response and follow-up if needed. Please note: Queries are made part of the Legal Health Record. If you have any questions, please contact the author of this message via ITS. Doctor: Samia Chavez MD Your patient has a sodium level of 127 and 124 on 12/05. Please clarify if there is an additional diagnosis and/or clinical significance related to this lab value. History/Risk Factors: 81 year old male presents to the ED after a fall from standing with weakness. Medical history: COPD, BPH, Renal cell cancer s/p nephrectomy. 12/04, Clinical indicators: 12/05, Nephrology Consult: Hyponatremia, appears euvolemic although trace LE edema present U osm 814, U Na 47. S Na worsened with saline administration suggesting high likihood for underlying SIADH along with elevated U OSM. TSH WNL. Treatment: Fluid restriction, 12/05 IV Fluids discontinued, 12/05 Lasix IV x 1; 12/06 Lasix IV x 1; 12/06 Samsca po x 1; Is there an additional diagnosis and/or clinical significance related to the above lab result/information? [ x ] Hyponatremia [ x ] SIADH [ ] Other condition, please specify [ ] Unable to determine (Template Last Revised: April 2020) MTDD
--- NOTE | 2023-12-08 16:52 | P.CNOR ---
History of Present Illness - [facility] Consult date: 12/08/23 Requesting physician: Fam Downey Consult reason: other (Right upper extremity cellulitis and edema) History of present illness: Patient is a very pleasant 83-year-old male who is seen examined the bedside with his family present for further evaluation of his right upper extremity. Patient states he sustained a fall landing on his right arm. Since that time he has had swelling and pain at his right forearm, elbow, and distal humerus. He has had some limited range of motion of his elbow due to the swelling. He denies any pain or difficulty with his right wrist, hand, or fingers of the right hand. He denies any difficulty with his right shoulder. Prior to evaluation x-ray imaging has been taken of the right wrist and forearm without evidence of fracture. He does have arthritic change at his right elbow and right wrist. He states he did sustain an injury to his right elbow in 1963 requiring surgical intervention. He states his arm almost had to be amputated at that time. Following surgery and recovery he was able to live a normal life with normal range of motion of his right elbow. He has not had difficulty until his recent fall. Currently he has Significant swelling and edema with warmth to palpation over his lower right humerus, right elbow, and forearm. He is currently being seen and evaluated by multiple other medical providers including cardiology, nephrology, and medicine for his other medical diagnoses. Past Medical History Past Medical History: Atrial Fibrillation, Asthma, Cancer, COPD, Eye Disorder, Hearing Disorder / Deafness, Hyperlipidemia, Hypertension, Prostate Disorder, Sleep Apnea/CPAP/BIPAP Additional Past Medical History / Comment(s): BPH, Prescribed C-PAP but does not wear anymore, Inguinal hernia right side, cataracts, Renal CA w nephrostomy in Dec 2021. History of Any Multi-Drug Resistant Organisms: None Reported Past Surgical History: Heart Catheterization, Hernia Repair, Orthopedic Surgery Additional Past Surgical History / Comment(s): right elbow surgery-injury, bone spur heel, right shoulder arthroscopy, cardioversion, umbilical hernia repair, colonoscopy, TURP 2017, nephrectomy -rt Past Anesthesia/Blood Transfusion Reactions: No Reported Reaction Additional Past Anesthesia/Blood Transfusion Reaction / Comm: slow wake up Past Psychological History: No Psychological Hx Reported Smoking Status: Former smoker Past Alcohol Use History: Rare Additional Past Alcohol Use History / Comment(s): 1 -2pk/day quit 1996 Past Drug Use History: None Reported - Past Family History Daughter(s) Family Medical History: Cancer Father Family Medical History: Cancer Medications and Allergies Home Medications Medication Instructions Recorded Confirmed Type Aspirin 81 mg PO HS 01/30/14 12/05/23 History Finasteride [Proscar] 5 mg PO HS 01/30/14 12/05/23 History dilTIAZem HCL [Diltiazem HCl] 120 mg PO HS 01/30/14 12/05/23 History Fluticasone Propion/Salmeterol 1 puff INHALATION RT-BID 01/02/22 12/05/23 History [Advair 500-50 Diskus] Metoprolol Succinate (ER) [Toprol 50 mg PO HS 01/02/22 12/05/23 History XL] Albuterol Inhaler [Ventolin Hfa 2 puff INHALATION RT-QID PRN 04/25/22 12/05/23 History Inhaler] Atorvastatin [Lipitor] 20 mg PO HS 04/25/22 12/05/23 History Ferrous Sulfate [Feosol] 325 mg PO Q2D@2100 04/25/22 12/05/23 History Ipratropium-Albuterol Nebulize 3 ml INHALATION RT-QID 12/05/23 12/05/23 History [Duoneb 0.5 mg-3 mg/3 ml Soln] Metoprolol Succinate [Toprol XL] 25 mg PO DAILY 12/05/23 12/05/23 History Ofloxacin 0.3% Otic Soln [Floxin 5 drops BOTH EARS BID PRN 12/05/23 12/05/23 History 0.3% Otic Soln] Rivaroxaban [Xarelto] 20 mg PO HS 12/05/23 12/05/23 History guaiFENesin [Mucinex] 600 mg PO Q12H 12/05/23 12/05/23 History predniSONE 5 mg PO HS 12/05/23 12/05/23 History Allergies Allergy/AdvReac Type Severity Reaction Status Date / Time No Known Allergies Allergy Verified 12/05/23 14:00 Physical Examination Physical Exam: Patient is awake, alert, and oriented 3 Vital signs stable Good chest excursion with deep inspiration and expiration Evidence of significant swelling at the volar aspect of the right forearm, at the right elbow, and right distal humerus with erythema erythema, edema, and increased warmth with palpation No palpable fluid collection over the entire right upper extremity Neurovascular intact right upper extremity Patient is able to perform flexion and extension of the right wrist independently without difficulty Active range of motion of all fingers of the right hand without difficulty Results Pertinent studies: X-rays of the right wrist and forearm taken on 12/07/2023: No obvious fracture or dislocation at the right forearm or right wrist; midcarpal arthritis; r adiocapitellar arthritis Ultrasound Doppler of the right upper extremity taken on 12/06/2023: Negative for DVT - Labs Labs: Abnormal Lab Results - Last 24 Hours (Table) 12/07/23 12/08/23 12/08/23 Range/Units 19:02 05:37 05:37 WBC 11.8 H (3.8-10.6) k/uL RBC 3.79 L (4.30-5.90) m/uL Hgb 10.8 L (13.0-17.5) gm/dL Hct 33.0 L (39.0-53.0) % Neutrophils # 9.5 H (1.3-7.7) k/uL Lymphocytes # 0.9 L (1.0-4.8) k/uL Sodium 122 L 133 L (137-145) mmol/L Glucose 123 H (74-99) mg/dL 12/08/23 Range/Units 10:11 WBC (3.8-10.6) k/uL RBC (4.30-5.90) m/uL Hgb (13.0-17.5) gm/dL Hct (39.0-53.0) % Neutrophils # (1.3-7.7) k/uL Lymphocytes # (1.0-4.8) k/uL Sodium 132 L (137-145) mmol/L Glucose (74-99) mg/dL H & H 12/05/23 12/06/23 12/07/23 Range/Units 11:30 06:28 12:49 Hgb 11.8 L 11.2 L 11.3 L (13.0-17.5) gm/dL Hct 35.9 L 33.9 L 35.1 L (39.0-53.0) % 12/08/23 Range/Units 05:37 Hgb 10.8 L (13.0-17.5) gm/dL Hct 33.0 L (39.0-53.0) % Result Diagrams: 12/08/23 05:37 12/08/23 10:11 Assessment and Plan Assessment: Assessment: Right upper extremity cellulitis Right upper extremity edema and swelling Right upper extremity pain Status post fall Right midcarpal arthritis Right radiocapitellar arthritis Atrial fibrillation with RVR Hyponatremia Orthostatic hypotension History of renal cell carcinoma with nephrectomy COPD (1) Cellulitis of right upper extremity Current Visit: Yes Status: Acute Code(s): L03.113 - CELLULITIS OF RIGHT UPPER LIMB SNOMED Code(s): 55921183161037645 (2) Right arm pain Current Visit: Yes Status: Acute Code(s): M79.601 - PAIN IN RIGHT ARM SNOMED Code(s): 074346054 (3) Swelling of right upper extremity Current Visit: Yes Status: Acute Code(s): M79.89 - OTHER SPECIFIED SOFT TISSUE DISORDERS SNOMED Code(s): 672159702 (4) Edema of right upper extremity Current Visit: Yes Status: Acute Code(s): R60.0 - LOCALIZED EDEMA SNOMED Code(s): 635999218 (5) Status post fall Current Visit: Yes Status: Acute Code(s): Z91.81 - HISTORY OF FALLING SNOMED Code(s): 697284241 (6) COPD (chronic obstructive pulmonary disease) Current Visit: Yes Status: Acute Code(s): J44.9 - CHRONIC OBSTRUCTIVE PULMONARY DISEASE, UNSPECIFIED SNOMED Code(s): 63026495 (7) History of renal cell carcinoma Current Visit: Yes Status: Acute Code(s): Z85.528 - PERSONAL HISTORY OF OTHER MALIGNANT NEOPLASM OF KIDNEY SNOMED Code(s): 241477552 (8) History of nephrectomy Current Visit: Yes Status: Acute Code(s): Z90.5 - ACQUIRED ABSENCE OF KIDNEY SNOMED Code(s): 48619815493632 (9) Orthostatic hypotension Current Visit: Yes Status: Acute Code(s): I95.1 - ORTHOSTATIC HYPOTENSION SNOMED Code(s): 59497083 (10) Atrial fibrillation with RVR Current Visit: Yes Status: Acute Code(s): I48.91 - UNSPECIFIED ATRIAL FIBRILLATION SNOMED Code(s): 126548942435824 (11) Hyponatremia Current Visit: Yes Status: Acute Code(s): E87.1 - HYPO-OSMOLALITY AND HYPONATREMIA SNOMED Code(s): 45157318 Plan: Plan: 1. Patient had a recent fall and since that time has been experiencing significant swelling at the volar aspect of the right forearm, at the right elbow, and right distal humerus with erythema erythema, edema, and increased warmth with palpation. He does have some decreased range of motion in his right elbow due to the pain and swelling. No palpable fluid collection over the entire right upper extremity. He is neurovascular intact at the right upper extremity. Would not currently plan for acute surgical intervention as we do not feel a palpable fluid collection in which surgical intervention would provide significant movement of his symptoms. He does have cellulitis over his right upper extremity. I will currently plan to consult Dr. Ta sanchez. Patient will be discussed in detail with Dr. Stauffer we may plan to adjust our plan of care according to his recommendations. We will continue to follow the patient. 2. Patient will continue be seen examined by multiple other medical providers including cardiology, nephrology, and medicine. 3. Consultation has been placed with factious disease Time with Patient: Greater than 30 (Including obtaining history, physical examination, reviewing of imaging, and dictation.)
--- NOTE | 2023-12-08 21:15 | CT ---
EXAMINATION TYPE: CT upper extremity RT wo con CT DLP: 411.1 mGycm, Automated exposure control for dose reduction was used. DATE OF EXAM: 12/08/2023 8:43 PM COMPARISON: . None CLINICAL INDICATION: Male, 83 years old with history of R UE Cellulitis, Edema, and Pain; PHH, R UE C ellulitis, Edema, and Pain TECHNIQUE: Axial images were obtained of the CT upper extremity RT wo con, Additional coronal and sag ittal reformatted images and soft tissue and bone window were obtained for review. . Contrast used: mL of , (None if empty) Oral contrast used: (None if empty) FINDINGS: There is no evidence of fracture, subluxation, or dislocation. No focal muscular atrophy o r edema is identified. No radiopaque foreign body identified. Degeneration changes of the elbow joints with osteophyte from injury joint space narrowing. Small afshin nt effusion is likely present. Streaky edema throughout the soft tissues of the right upper extremity no organizing fluid collection s. There is a round area measuring 23 x 230 mm near the olecranon process. This is just deep to the s urface of the skin series 205 image 4 possibly related to vasculature with a vessel possibly extendin g away from this lesion. IMPRESSION: 1. Limited noncontrast exam. 2. Soft tissue lesion near the olecranon process in the medial epicondyle. Further evaluation with u ltrasound may be of benefit. No additional evidence of abscess. 3. Streaky edema throughout the subcutaneous tissues. [facility], , 12/08/2023 9:12 PM
[2023-12-08] MEDS: METOPROLOL SUCCINATE (ER) 50 MG TAB.ER.24H PO SCH (21:19)
[2023-12-09 07:26] LABS: Basophils % (A) 0 %; Eosinophils # (A) 0.2 k/uL (0-0.7); Eosinophils % (A) 2 %; HCT 32.7 % (39.0-53.0); HGB 10.4 gm/dL (13.0-17.5); Lymphocytes # (A) 0.9 k/uL (1.0-4.8); Lymphocytes % (A) 8 %; MCH 28.3 pg (25.0-35.0); MCHC 31.9 g/dL (31.0-37.0); MCV 88.6 fL (80.0-100.0); Mean Platelet Volume 7.1; Monocytes % (A) 9 %; Neutrophils # (A) 8.5 k/uL (1.3-7.7); Neutrophils % (A) 78 %; Platelet Count 485 k/uL (150-450); RBC 3.68 m/uL (4.30-5.90); RDW 14.9 % (11.5-15.5); WBC 10.9 k/uL (3.8-10.6)
[2023-12-09 07:39] LABS: African American GFR (CKD) >90 (>60 ml/min/1.73 sqM); Anion Gap 3 mmol/L; Blood Urea Nitrogen 18 mg/dL (9-20); Calcium 8.7 mg/dL (8.4-10.2); Carbon Dioxide 30 mmol/L (22-30); Chloride 97 mmol/L (98-107); Glucose 116 mg/dL (74-99); Magnesium 1.8 mg/dL (1.6-2.3); Non-African American GFR(CKD) 88 (>60 ml/min/1.73 sqM); Potassium 4.3 mmol/L (3.5-5.1); Sodium 130 mmol/L (137-145)
--- NOTE | 2023-12-09 08:38 | P.PN ---
Subjective Progress Note Date: 12/09/23 Patient is a very pleasant 83-year-old male who is seen and examined the bedside for progress evaluation of his right upper extremity with Dr. Stauffer. Patient states he feels his right elbow has slightly improved since yesterday. Patient states he sustained a fall landing on his right arm a couple weeks ago. Since that time he has had swelling and pain at his right forearm, elbow, and distal humerus. He denies any pain or difficulty with his right shoulder, right wrist, hand, or fingers of the right hand. He denies pain with passive range of motion of the elbow, but endorses slight decrease in range of motion of the elbow due to swelling. CT without contrast dated 12/08/2023 right upper extremity, images were reviewed, and report stated soft tissue lesion near the olecranon process and t he medial epicondyle. Streaky edema throughout the subcutaneous tissue no organizing fluid collections. Objective - Vital Signs Vital signs: Vital Signs Temp 97.5 F L 12/09/23 04:05 Pulse 89 12/09/23 04:05 Resp 18 12/09/23 04:05 BP 110/59 12/09/23 04:05 Pulse Ox 93 L 12/09/23 04:05 FiO2 Intake & Output 12/08/23 12/09/23 12/09/23 18:59 06:59 18:59 Output Total 380 300 Balance -380 -300 Weight 78.6 kg Output: Urine 380 300 Other: Voiding Method Toilet Toilet Urinal Urinal # Voids 1 - Exam Patient is awake, alert, and oriented 3. Evidence of significant swelling at the volar aspect of the right forearm, at the right elbow, and right distal humerus with erythema and edema. No fluctuance palpated in the right upper extremity today. No pain with passive range of motion of the right elbow. Patient is able to fully extend the right elbow, and has flexion up to 120 degrees. Patient is able to perform flexion and extension of the right wrist and fingers without difficulty. Neurovascular intact right upper extremity. - Labs CBC & Chem 7: 12/09/23 06:37 12/09/23 06:37 Labs: Abnormal Lab Results - Last 24 Hours (Table) 12/08/23 12/09/23 12/09/23 Range/Units 10:11 06:37 06:37 WBC 10.9 H (3.8-10.6) k/uL RBC 3.68 L (4.30-5.90) m/uL Hgb 10.4 L (13.0-17.5) gm/dL Hct 32.7 L (39.0-53.0) % Plt Count 485 H (150-450) k/uL Sodium 132 L 130 L (137-145) mmol/L Chloride 97 L (98-107) mmol/L Glucose 116 H (74-99) mg/dL Assessment and Plan Assessment: Right upper extremity cellulitis Right upper extremity edema and swelling Right upper extremity pain Status post fall Right midcarpal arthritis Right radiocapitellar arthritis Atrial fibrillation with RVR Hyponatremia Orthostatic hypotension History of renal cell carcinoma with nephrectomy COPD Plan: Patient had a recent fall and since that time has been experiencing significant swelling at the volar aspect of the right forearm, right elbow, and right distal humerus with erythema, and edema. He does have some mild decreased range of motion in his right elbow due to the swelling. No palpable fluid collection over the entire right upper extremity. CT without contrast dated 12/08/2023 right upper extremity, with no organizing fluid collections. Patient was examined at bedside with Dr. Stauffer, no acute surgical interve ntions are planned at this time as we do not feel a palpable fluid collection. A consult for infectious disease was placed for management of right upper extremity cellulitis and edema. Patient may be discharged from an orthopedic standpoint when cleared by medical team. Thank you for the consult.
--- NOTE | 2023-12-09 09:26 | P.PN ---
Subjective Progress Note Date: 12/09/23 Principal diagnosis: Euvolemic hyponatremia Hospital course: Patient is a 83 year old male with past medical history of atrial fibrillation, renal cell cancer s/p nephrectomy in 2021, dyslipidemia, COPD/ asthma who presented to the ED with fall and weakness. Yesterday he felt unsteady and fell over injuring his right elbow. His and daughter helped him up. He reports similar kind of fall a month ago as well. He has lost 10 to 15 pounds over the last few months and has not been eating or drinking well over the last week. He mentions following up regularly with Dr. Luo for renal cell cancer and reports being in remission. He is currrently on daily low dose aspirin, xarelto. Patient seen today for renal consultation for hyponatremia. He complains of pain in the left elbow,elbow xray doesn't show any fracture or dislocation. Denies chest pain, shortness of breath, abdominal pain, dysuria. No history of CHF His sodium on admission was 127, today is 123, serum osmolality 272, urine sodium 47, urine osmolality 814 and creatinine 0.72. Systolic bp 88 on admiss ion. TSH was 2.3 No new medications started recently on outpatient basis. 12/07/23 Patient seen today. Bladder scan showed post void residual of 367 ml yesterday and 101-150 ml today. Repeat sodium yesterday was 124 and dropped to 120. S/p IV lasix x1. Na imoroved to 124 this morning. He complains of pain and edema in the right arm. Venous doppler is negative for DVT. Denies abdominal pain, chest pain, dysuria. 12/08/23 Patient evaluated today.Complains of pain in the right forearm. Denies abdominal pain, dysuria, hematuria. S/p tolvaptan 15 mg p.o. once yesterday. Sodium is improving and is 133 today. Right forearm x-ray and wrist x-ray did not show any definite acute fractures. 12/09/23 Patient seen today. Still complains of pain in the right forearm. Denies abdominal pain, dysuria, hematuria. Repeat sodium yesterday was 132. Sodium today is 130. Objective - Vital Signs Vital signs: Vital Signs Temp 97.8 F 12/09/23 07:45 Pulse 95 12/09/23 07:45 Resp 18 12/09/23 07:45 BP 118/83 12/09/23 07:45 Pulse Ox 95 12/09/23 07:45 FiO2 Intake & Output 12/08/23 12/09/23 12/09/23 18:59 06:59 18:59 Intake Total 720 Output Total 380 300 Balance -380 -300 720 Weight 78.6 kg Intake: Oral 720 Output: Urine 380 300 Other: Voiding Method Toilet Toilet Urinal Urinal # Voids 1 - Exam General: nontoxic, no distress, appears at stated age Derm: warm, dry, intact Head: atraumatic, normocephalic, symmetric Cardiovascular: S1 S2 reg, no murmur Lungs: CTA bilateral, no rhonchi, no rales, no accessory muscle use Abdominal: soft, non-tender to palpataion Extremities: right UE edematous, trace edema on LE b/l Neuro: Alert, Oriented - Labs CBC & Chem 7: 12/09/23 06:37 12/09/23 06:37 Labs: Abnormal Lab Results - Last 24 Hours (Table) 12/08/23 12/09/23 12/09/23 Range/Units 10:11 06:37 06:37 WBC 10.9 H (3.8-10.6) k/uL RBC 3.68 L (4.30-5.90) m/uL Hgb 10.4 L (13.0-17.5) gm/dL Hct 32.7 L (39.0-53.0) % Plt Count 485 H (150-450) k/uL Sodium 132 L 130 L (137-145) mmol/L Chloride 97 L (98-107) mmol/L Glucose 116 H (74-99) mg/dL Assessment and Plan Assessment: 1. Hyponatremia, appears euvolemic although trace LE edema present. U osm 814, U Na 47. S Na worsened with saline administration suggesting high likelihood for underlying SIADH along with elevated U osm. TSH WNL. s/p furosemide 40mg. Maintained on fluid restriction. Improving after Samsca 15 mg p.o. once 12/07/2023. 2. 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 Follows up with Dr. Luo 3. Atrial fibrillation with RVR, s/p cardizem drip, now maintained on oral cardizem, metoprolol and xarelto 4. Benign prostatic hyperplasia. On finasteride. 5. Chronic COPD. On albuterol inhaler. 6. Left otitis externa. On ofloxacin 0.3% 7. Weight loss, 10-15 pounds over the last few months. Plan: Fluid restriction <1500ml Encourage to increase oral protein intake Repeat labs in am. Agree with resident's findings, assessment and plan.
--- NOTE | 2023-12-09 10:03 | P.PN ---
Progress Note - Text Progress Note Date: 12/09/23 Agree with written consult. Patient seen and examined. Diffuse edema through out the forearm and elbow. No structural injuries seen on xray/CT scan. No fluid collections or sign of deep space infection. No orthopaedic surgical procedures needed at this time. Would recommend elevation and gentle compression. Please call with questions, we will sign off.
--- NOTE | 2023-12-09 11:41 | P.PN ---
Subjective HISTORY OF PRESENT ILLNESS: This is an 83-year-old male who initially presented to the hospital after sustaining a mechanical fall at home. Patient was found to be in A-fib with RVR. Patient was started on IV Cardizem which was discontinued yesterday. Patient remains in atrial fibrillation this morning with heart rates [id number]. Patient currently denies chest pain or pressure. He denies shortness of breath. He denies any palpitations. He complains of increased swelling to his right arm and worsening decreased range of motion. Venous Doppler performed this morning was negative for DVT. Patient did have an echocardiogram performed in the office in October 2023 revealing ejection fraction 50%, moderate pulm hypertension, moderate to severe mitral regurgitation, severe tricuspid regurgitation, mild to moderate aortic insufficiency. 12/08/2023 Patient examined this morning at the bedside. Patient currently denies chest pain or pressure. He denies shortness of breath. He continues to have swelling in his right upper extremity but does report a little bit more mobility today. X-rays were completed yesterday which were negative for fracture. He remains in atrial fibrillation with heart rates in the [id number]. Sodium 132. Nephrology is following. 12/09/2023 Patient examined this morning the bedside. Patient denies chest pain or pressure. He denies shortness of breath. Vital signs are stable. He remains in atrial fibrillation with a heart rate in the 90s. He reports improvement in his swelling and also mobility of his right upper extremity. He has been seen by orthopedics with no need for any surgical procedures at this time. Orthopedics recommending elevation and gentle compression. PHYSICAL EXAM: VITAL SIGNS: Reviewed. GENERAL: Well-developed in no acute distress. NECK: Supple. No JVD or thyromegaly LUNGS: Respirations even and unlabored. Lungs essentially clear to auscultation bilaterally. HEART: Irregular rate and rhythm. S1 and S2 heard. Systolic murmur noted EXTREMITIES: Normal range of motion. No clubbing or cyanosis. Peripheral pulses intact. Right upper extremity with bruising and swelling noted along with decreased range of motion. ASSESSMENT: Status post mechanical fall Permanent atrial fibrillation with RVR Hyponatremia, improving Right arm pain with increased swelling and decreased range of motion History of renal cancer with previous right nephrectomy Coronary artery disease with total occlusion of diagonal branch, per cardiac catheterization in 2014 Hypertension Hyperlipidemia History of COPD History of asthma Moderate pulmonary hypertension Valvular heart disease including moderate to severe MR, severe TR, mild to moderate AI PLAN: Continue anticoagulation with Xarelto Continue current dose of metoprolol succinate and Cardizem Continue telemetry monitoring Continue additional cardiac medications Patient is currently stable from a cardiac perspective Patient to follow-up postdischarge with Dr. Schneider Nurse practitioner note has been reviewed by physician. Signing provider agrees with the documented findings, assessment, and plan of care documented by P[employer] as a scribe. Objective - Vital Signs Vital signs: Vital Signs Temp 97 F L 12/09/23 11:21 Pulse 100 12/09/23 11:21 Resp 18 12/09/23 11:21 BP 123/73 12/09/23 11:21 Pulse Ox 95 12/09/23 11:21 FiO2 Intake & Output 12/08/23 12/09/23 12/09/23 18:59 06:59 18:59 Intake Total 720 Output Total 380 300 Balance -380 -300 720 Weight 78.6 kg Intake: Oral 720 Output: Urine 380 300 Other: Voiding Method Toilet Toilet Urinal Urinal # Voids 1 - Labs CBC & Chem 7: 12/09/23 06:37 12/09/23 06:37 Labs: Abnormal Lab Results - Last 24 Hours (Table) 12/09/23 12/09/23 Range/Units 06:37 06:37 WBC 10.9 H (3.8-10.6) k/uL RBC 3.68 L (4.30-5.90) m/uL Hgb 10.4 L (13.0-17.5) gm/dL Hct 32.7 L (39.0-53.0) % Plt Count 485 H (150-450) k/uL Sodium 130 L (137-145) mmol/L Chloride 97 L (98-107) mmol/L Glucose 116 H (74-99) mg/dL
--- NOTE | 2023-12-09 11:42 | P.PN ---
Subjective Progress Note Date: 12/09/23 Hospital Course: 81-year-old male with history of atrial fibrillation, renal cell cancer status post nephrectomy, dyslipidemia, COPD/asthma presenting with fall and weakness. In the ED, temperature was 97.9, pulse 117, respiratory rate 18, blood pressure 102/59, saturating at 95%. WBC 13.7, hemoglobin 11.8, sodium 127, BUN 21, creatinine 0.95, magnesium 1.7. Elbow x-ray did not show any acute fractures. Chest x-ray independently interpreted, did not show any focal opacities. EKG independently interpreted showed atrial fibrillation with RVR, right bundle branch block, nonspecific ST-T wave changes including T wave inversions in precordial leads. Patient given 500 cc of normal saline bolus, started on Cardizem drip after getting 2 x 5 mg IV pushes of metoprolol tartrate. Admitted for A-fib RVR, hyponatremia, generalized weakness. Nephrology consulted for hyponatremia. Cardiology consulted for A-fib with RVR. Subjective: Seen and examined at bedside. No acute events overnight. Continues to complain of right arm swelling and pain, however decreasing.. Pertinent positives and negatives as discussed above, a complete review of systems was performed and all other systems are negative. Vitals Signs Reviewed. General: Nontoxic, no distress, appears at stated age Derm: Warm, dry Head: Atraumatic, normocephalic, symmetric Eyes: EOMI, no lid lag, anicteric sclera Mouth: No lip lesion, mucus membranes moist Cardiovascular: S1S2 irregular, no murmur Lungs: CTA bilateral, no rhonchi, no rales, no accessory muscle use Abdominal: Soft, nontender to palpation, no guarding, no appreciable organomegaly Ext: Right upper extremity edematous and erythematous, slowly improving Neuro: CN II-XI grossly intact, no focal neuro deficits Psych: Alert, oriented, appropriate affect Data Reviewed Today: Pertinent Labs: WBC 10.9, hemoglobin 10.4, sodium 130, creatinine 0.7 Imaging: Upper extremity CT shows soft tissue lesion near the olecranon process and the medial epicondyle, no evidence of abscess, streaky edema throughout subcutaneous tissue. Assessment and Plan: Hyponatremia, euvolemic -Status post Samsca x 1 -Nephrology note reviewed, continue to monitor sodium, increase protein intake -Continue to monitor BMP Atrial fibrillation with RVR, now rate controlled -Cardiology following, continue diltiazem 30 3 times daily, metoprolol increased to 75 twice daily -Continue home Xarelto 20 nightly -Monitor on telemetry Orthostatic hypotension Multiple falls Right forearm edema -Orthopedic surgery note reviewed, no interventions needed for right upper extremity -Orthopedic surgery believes that there may be a component of cellulitis, ID consulted -However, on my assessment cellulitis is highly unlikely given the edema started after he fell on that arm -Continue elevation of the arm -PT recommending subacute rehab -Repeat orthostatic vitals Leukocytosis, likely reactive, resolved. -Continue to monitor for any signs of infection Repeat CBC. Weight loss -Follow-up outpatient with urology, concern for recurrence of cancer Left otitis externa -Continue Floxin 0.3% otic solution Chronic: COPD, without exacerbation BPH Renal cell cancer status post nephrectomy DVT ppx: Xarelto Code status: DNR/DNI Anticipated discharge place: [facility] Anticipated discharge time: Pending clinical course Objective - Vital Signs Vital signs: Vital Signs Temp 97 F L 12/09/23 11:21 Pulse 100 12/09/23 11:21 Resp 18 12/09/23 11:21 BP 123/73 12/09/23 11:21 Pulse Ox 95 12/09/23 11:21 FiO2 Intake & Output 12/08/23 12/09/23 12/09/23 18:59 06:59 18:59 Intake Total 720 Output Total 380 300 Balance -380 -300 720 Weight 78.6 kg Intake: Oral 720 Output: Urine 380 300 Other: Voiding Method Toilet Toilet Urinal Urinal # Voids 1 - Labs CBC & Chem 7: 12/09/23 06:37 12/09/23 06:37 Labs: Abnormal Lab Results - Last 24 Hours (Table) 12/09/23 12/09/23 Range/Units 06:37 06:37 WBC 10.9 H (3.8-10.6) k/uL RBC 3.68 L (4.30-5.90) m/uL Hgb 10.4 L (13.0-17.5) gm/dL Hct 32.7 L (39.0-53.0) % Plt Count 485 H (150-450) k/uL Sodium 130 L (137-145) mmol/L Chloride 97 L (98-107) mmol/L Glucose 116 H (74-99) mg/dL
[2023-12-09 12:09] LABS: Poikilocytosis (M) Present
[2023-12-09 12:10] LABS: Crenated RBC Present; Ovalocytes Present
--- NOTE | 2023-12-09 23:14 | P.CONS ---
History of Present Illness - Reason for Consult Consult date: 12/09/23 Right upper extremity edema and evaluate for cellulitis Requesting physician: Gregorio Mansfield - Chief Complaint Right elbow pain x few days - History of Present Illness Patient is a 83-year-old male with a past medical history significant for atrial fibrillation COPD hypertension hyperlipidemia prostate disorder renal cancer, patient presented to the hospital about 4 days ago after apparently the patient did have a fall when he went from a sitting position to standing felt unsteady and fell over complaining of pain to the right elbow patient injury happened about a week before presentation the hospital however the patient was having increasing pain to the right elbow area that brought her here to come to the hospital patient be complaining of pain to the right elbow mostly dull aching moderate intensity and is mostly on movement of the elbow with some as sociated swelling did not have any skin breakdown or any drainage patient on presentation to the hospital was afebrile and no fever have recorded subsequently patient has been tachycardic but not hypotensive or hypoxic and no need for supplemental oxygen patient did have a white count of 14.4 which has came down to 10.9 creatinine 0.70 patient did not have any culture during this hospital stay he did have elbow x-ray no acute trauma degenerative changes also have CT of the upper extremity soft tissue lesion near the olecranon process streaky edema throughout the subcutaneous tissue and there is no evidence of any abscess infectious disease was consulted today for possible evaluation of cellu litis and need for antibiotic therapy as mentioned earlier patient has not been on antibiotics during this hospital stay Review of Systems Positive point and negatives has been mentioned in the HPI, complete review of systems was performed and all other systems are negative Past Medical History Past Medical History: Atrial Fibrillation, Asthma, Cancer, COPD, Eye Disorder, Hearing Disorder / Deafness, Hyperlipidemia, Hypertension, Prostate Disorder, Sleep Apnea/CPAP/BIPAP Additional Past Medical History / Comment(s): BPH, Prescribed C-PAP but does not wear anymore, Inguinal hernia right side, cataracts, Renal CA w nephrostomy in Dec 2021. History of Any Multi-Drug Resistant Organisms: None Reported Past Surgical History: Heart Catheterization, Hernia Repair, Orthopedic Surgery Additional Past Surgical History / Comment(s): right elbow surgery-injury, bone spur heel, right shoulder arthroscopy, cardioversion, umbilical hernia repair, colonoscopy, TURP 2016, nephrectomy -rt Past Anesthesia/Blood Transfusion Reactions: No Reported Reaction Additional Past Anesthesia/Blood Transfusion Reaction / Comm: slow wake up Past Psychological History: No Psychological Hx Reported Smoking Status: Former smoker Past Alcohol Use History: Rare Additional Past Alcohol Use History / Comment(s): 1 -2pk/day quit 1996 Past Drug Use History: None Reported - Past Family History Daughter(s) Family Medical History: Cancer Father Family Medical History: Cancer Medications and Allergies Home Medications Medication Instructions Recorded Confirmed Type Aspirin 81 mg PO HS 01/30/14 12/05/23 History Finasteride [Proscar] 5 mg PO HS 01/30/14 12/05/23 History dilTIAZem HCL [Diltiazem HCl] 120 mg PO HS 01/30/14 12/05/23 History Fluticasone Propion/Salmeterol 1 puff INHALATION RT-BID 01/02/22 12/05/23 History [Advair 500-50 Diskus] Metoprolol Succinate (ER) [Toprol 50 mg PO HS 01/02/22 12/05/23 History XL] Albuterol Inhaler [Ventolin Hfa 2 puff INHALATION RT-QID PRN 04/25/22 12/05/23 History Inhaler] Atorvastatin [Lipitor] 20 mg PO HS 04/25/22 12/05/23 History Ferrous Sulfate [Feosol] 325 mg PO Q2D@2100 04/25/22 12/05/23 History Ipratropium-Albuterol Nebulize 3 ml INHALATION RT-QID 12/05/23 12/05/23 History [Duoneb 0.5 mg-3 mg/3 ml Soln] Metoprolol Succinate [Toprol XL] 25 mg PO DAILY 12/05/23 12/05/23 History Ofloxacin 0.3% Otic Soln [Floxin 5 drops BOTH EARS BID PRN 12/05/23 12/05/23 History 0.3% Otic Soln] Rivaroxaban [Xarelto] 20 mg PO HS 12/05/23 12/05/23 History guaiFENesin [Mucinex] 600 mg PO Q12H 12/05/23 12/05/23 History predniSONE 5 mg PO HS 12/05/23 12/05/23 History Allergies Allergy/AdvReac Type Severity Reaction Status Date / Time No Known Allergies Allergy Verified 12/05/23 14:00 Physical Exam Vitals: Vital Signs Temp Pulse Resp BP BP Pulse Ox 12/09/23 07:45 97.8 F 95 18 118/83 95 12/09/23 04:05 97.5 F L 89 18 110/59 93 L 12/09/23 02:14 90 12/08/23 23:07 98.1 F 90 20 116/64 95 12/08/23 20:09 97.7 F 101 H 18 120/55 95 12/08/23 20:00 101 H 12/08/23 15:37 97.7 F 108 H 18 110/67 95 12/08/23 11:08 97.7 F 97 16 111/56 94 L Intake and Output 12/08/23 12/09/23 12/09/23 22:59 06:59 14:59 Intake Total 720 Output Total 300 Balance -300 720 Intake: Oral 720 Output: Urine 300 Other: Voiding Method Toilet Toilet Urinal Urinal # Voids 1 Weight 78.6 kg GENERAL DESCRIPTION: Elderly male up in the chair, no distress. No tachypnea or accessory muscle of respiration use. HEENT: Shows Pallor , no scleral icterus. Oral mucous membrane is dry. No pharyngeal erythema or thrush NECK: Trachea central, no thyromegaly. LUNGS: Unlabored breathing. Clear to auscultation anteriorly. No wheeze or crackle. HEART: S1, S2, regular rate and rhythm. No loud murmur ABDOMEN: Soft, no tenderness , guarding or rigidity, no organomegaly EXTREMITIES: Right upper extremity did have a bruising on the lateral aspect on the medial aspect he did have some diffuse swelling but no significant redness or warmth or skin breakdown was noticed SKIN: No rash, no masses palpable. NEUROLOGICAL: The patient is awake, alert, oriented x3, mood and affect normal. Results CBC & Chem 7: 12/09/23 06:37 12/09/23 06:37 Labs: Abnormal Lab Results - Last 24 Hours (Table) 12/08/23 12/09/23 12/09/23 Range/Units 10:11 06:37 06:37 WBC 10.9 H (3.8-10.6) k/uL RBC 3.68 L (4.30-5.90) m/uL Hgb 10.4 L (13.0-17.5) gm/dL Hct 32.7 L (39.0-53.0) % Plt Count 485 H (150-450) k/uL Sodium 132 L 130 L (137-145) mmol/L Chloride 97 L (98-107) mmol/L Glucose 116 H (74-99) mg/dL Assessment and Plan (1) Leukocytosis Current Visit: Yes Status: Acute Code(s): D72.829 - ELEVATED WHITE BLOOD CELL COUNT, UNSPECIFIED SNOMED Code(s): 062310797 (2) Edema of right upper extremity Current Visit: Yes Status: Acute Code(s): R60.0 - LOCALIZED EDEMA SNOMED Code(s): 566986659 Plan: 1patient presenting to the hospital for right elbow pain in this patient who did have a fall about a week before presentation to the hospital patient did have elevated white count admission however that has subsequently trend down without antibiotic therapy patient did have significant swelling to the right upper extremity but no significant redness warmth to be suspicious for cellulitis in this patient who did not have any fever and as mentioned earlier white count seem to be trending down without any antibiotic therapy clinically doubt cellulitis 2-recommend elevation and possible mild compression to help get the swelling down 3-no need for antibiotic therapy at this point We will follow on clinical condition and cultures to further adjust medication if needed Thank you for this consultation we will follow the patient along with you Dictation was produced using [employer] dictation software. please excuse any grammatical, word or spelling errors. Time with Patient: Greater than 30
[2023-12-10] MEDS: diphenhydrAMINE 50 MG/ML 1 ML VIAL IVP STA ×2 (04:47→04:54)
[2023-12-10 07:17] LABS: African American GFR (CKD) >90 (>60 ml/min/1.73 sqM); Anion Gap 2 mmol/L; Blood Urea Nitrogen 20 mg/dL (9-20); Calcium 8.7 mg/dL (8.4-10.2); Carbon Dioxide 28 mmol/L (22-30); Chloride 99 mmol/L (98-107); Glucose 114 mg/dL (74-99); Non-African American GFR(CKD) 83 (>60 ml/min/1.73 sqM); Potassium 4.6 mmol/L (3.5-5.1); Sodium 129 mmol/L (137-145)
--- NOTE | 2023-12-10 09:47 | P.PN ---
Subjective Progress Note Date: 12/10/23 Principal diagnosis: Euvolemic hyponatremia Hospital course: Patient is a 83 year old male with past medical history of atrial fibrillation, renal cell cancer s/p nephrectomy in 2021, dyslipidemia, COPD/ asthma who presented to the ED with fall and weakness. Yesterday he felt unsteady and fell over injuring his right elbow. His and daughter helped him up. He reports similar kind of fall a month ago as well. He has lost 10 to 15 pounds over the last few months and has not been eating or drinking well over the last week. He mentions following up regularly with Dr. Luo for renal cell cancer and reports being in remission. He is currrently on daily low dose aspirin, xarelto. Patient seen today for renal consultation for hyponatremia. He complains of pain in the left elbow,elbow xray doesn't show any fracture or dislocation. Denies chest pain, shortness of breath, abdominal pain, dysuria. No history of CHF His sodium on admission was 127, today is 123, serum osmolality 272, urine sodium 47, urine osmolality 814 and creatinine 0.72. Systolic bp 88 on admiss ion. TSH was 2.3 No new medications started recently on outpatient basis. 12/07/23 Patient seen today. Bladder scan showed post void residual of 367 ml yesterday and 101-150 ml today. Repeat sodium yesterday was 124 and dropped to 120. S/p IV lasix x1. Na imoroved to 124 this morning. He complains of pain and edema in the right arm. Venous doppler is negative for DVT. Denies abdominal pain, chest pain, dysuria. 12/08/23 Patient evaluated today.Complains of pain in the right forearm. Denies abdominal pain, dysuria, hematuria. S/p tolvaptan 15 mg p.o. once yesterday. Sodium is improving and is 133 today. Right forearm x-ray and wrist x-ray did not show any definite acute fractures. 12/09/23 Patient seen today. Still complains of pain in the right forearm. Denies abdominal pain, dysuria, hematuria. Repeat sodium yesterday was 132. Sodium today is 130. 12/10/2023 Patient medically. Complains of pain in the right forearm. Also has back pain on the left side from when he fell a couple days ago and hit against the side of the bed. Labs today show sodium 129. Objective - Vital Signs Vital signs: Vital Signs Temp 97.3 F L 12/10/23 08:00 Pulse 94 12/10/23 08:00 Resp 18 12/10/23 08:00 BP 129/79 12/10/23 08:00 Pulse Ox 95 12/10/23 08:00 FiO2 Intake & Output 12/09/23 12/10/23 12/10/23 18:59 06:59 18:59 Intake Total 956 0 236 Output Total 325 Balance 956 -325 236 Weight 79 kg Intake: Oral 956 0 236 Output: Urine 325 Other: Voiding Method Toilet Urinal - Exam General: nontoxic, no distress, appears at stated age Derm: warm, dry, intact Head: atraumatic, normocephalic, symmetric Cardiovascular: S1 S2 reg, no murmur Lungs: CTA bilateral, no rhonchi, no rales, no accessory muscle use Abdominal: soft, non-tender to palpataion Extremities: right UE edematous, trace edema on LE b/l Neuro: Alert, Oriented - Labs CBC & Chem 7: 12/09/23 06:37 12/11/23 06:39 Labs: Abnormal Lab Results - Last 24 Hours (Table) 12/09/23 12/10/23 Range/Units 06:37 06:06 Neutrophils # 8.5 H (1.3-7.7) k/uL Lymphocytes # 0.9 L (1.0-4.8) k/uL Sodium 129 L (137-145) mmol/L Glucose 114 H (74-99) mg/dL Assessment and Plan Assessment: 1. Hyponatremia, appears euvolemic although trace LE edema present. U osm 814, U Na 47. S Na worsened with saline administration suggesting high likelihood for underlying SIADH along with elevated U osm. TSH WNL. s/p furosemide 40mg. M aintained on fluid restriction. S/p Samsca 12/07/2023. 2. 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 Follows up with Dr. Luo 3. Atrial fibrillation with RVR, s/p cardizem drip, now maintained on oral cardizem, metoprolol and xarelto 4. Benign prostatic hyperplasia. On finasteride. 5. Chronic COPD. On albuterol inhaler. 6. Left otitis externa. On ofloxacin 0.3% 7. Weight loss, 10-15 pounds over the last few months. Plan: Repeat Samsca 7.5mg PO once Fluid restriction <1500ml Encourage to increase oral protein intake Repeat labs in am. Agree with resident's findings, assessment and plan.
--- NOTE | 2023-12-10 10:34 | US ---
EXAMINATION TYPE: US axilla RT DATE OF EXAM: 12/10/2023 COMPARISON: ct CLINICAL INDICATION: Male, 83 years old with history of check axilla for lymph nodes, drainable fluid ; Pain right arm TECHNIQUE: Right Axilla FINDINGS: Lymph node within right axilla= 1.8 x 0.8 x 0.8 cm with a 0.3 cm cortical thickness- no fl uid collection visualized within right axilla IMPRESSION: Axillary lymphadenopathy measuring 1.8 x 0.8 x 0.8 cm. No sizable fluid collection. [facility], , 12/10/2023 10:32 AM
--- NOTE | 2023-12-10 10:39 | US ---
EXAMINATION TYPE: US extremity nonvasculr ltd RT DATE OF EXAM: 12/10/2023 COMPARISON: CT CLINICAL INDICATION: Male, 83 years old with history of near olecranon fossa, rule out abscess; pain right arm TECHNIQUE: Right Elbow FINDINGS: Superficial edema with hypervascularity, possible isoechoic area near right olecranon stefano a= 3.3 x 1.8 x 1.4 cm ?abscess vs. other etiology IMPRESSION: There is a area of superficial edema with vascularity. Area of abnormal echogenicity bella r the olecranon fossa measuring 3.3 x 1.8 x 1.4 cm. Differential diagnosis would include a complicate d fluid collection or complicated joint effusion such as phlegmon, abscess or hematoma. Underlying ma ss not excluded. [facility], , 12/10/2023 10:36 AM
--- NOTE | 2023-12-10 11:15 | XR ---
EXAMINATION TYPE: XR ribs LT DATE OF EXAM: 12/10/2023 COMPARISON: NONE HISTORY: Pain post fall TECHNIQUE: 4 views of the left ribs are submitted FINDINGS: No pneumothorax. There is a nodular density overlying the anterior margin left fifth rib. T here is a mildly displaced fracture of the left eighth rib anteriorly. Subtle deformity of the anteri or margin of the left 10th rib. IMPRESSION: 1. Findings are suspicious for hairline fracture through the anterior margin of the left eighth and 1 0th ribs. 2. Nodular density overlying the anterior margin of the left fourth rib. Recommend follow-up CT of th e chest. [facility], , 12/10/2023 11:13 AM
--- NOTE | 2023-12-10 12:53 | P.PN ---
Subjective HISTORY OF PRESENT ILLNESS: This is an 83-year-old male who initially presented to the hospital after sustaining a mechanical fall at home. Patient was found to be in A-fib with RVR. Patient was started on IV Cardizem which was discontinued yesterday. Patient remains in atrial fibrillation this morning with heart rates [id number]. Patient currently denies chest pain or pressure. He denies shortness of breath. He denies any palpitations. He complains of increased swelling to his right arm and worsening decreased range of motion. Venous Doppler performed this morning was negative for DVT. Patient did have an echocardiogram performed in the office in October 2023 revealing ejection fraction 50%, moderate pulm hypertension, moderate to severe mitral regurgitation, severe tricuspid regurgitation, mild to moderate aortic insufficiency. 12/08/2023 Patient examined this morning at the bedside. Patient currently denies chest pain or pressure. He denies shortness of breath. He continues to have swelling in his right upper extremity but does report a little bit more mobility today. X-rays were completed yesterday which were negative for fracture. He remains in atrial fibrillation with heart rates in the [id number]. Sodium 132. Nephrology is following. 12/09/2023 Patient examined this morning the bedside. Patient denies chest pain or pressure. He denies shortness of breath. Vital signs are stable. He remains in atrial fibrillation with a heart rate in the 90s. He reports improvement in his swelling and also mobility of his right upper extremity. He has been seen by orthopedics with no need for any surgical procedures at this time. Orthopedics recommending elevation and gentle compression. 12/10/2023 Patient examined this morning the bedside. Patient currently denies chest pain or pressure. He denies shortness of breath. He reports improvement in his swelling and also range of motion of his right upper extremity. Telemetry reveals atrial fibrillation with controlled ventricular rate. PHYSICAL EXAM: VITAL SIGNS: Reviewed. GENERAL: Well-developed in no acute distress. NECK: Supple. No JVD or thyromegaly LUNGS: Respirations even and unlabored. Lungs essentially clear to auscultation bilaterally. HEART: Irregular rate and rhythm. S1 and S2 heard. Systolic murmur noted EXTREMITIES: Normal range of motion. No clubbing or cyanosis. Peripheral pulses intact. Right upper extremity with bruising and swelling noted along with decreased range of motion. ASSESSMENT: Status post mechanical fall Permanent atrial fibrillation with RVR Hyponatremia, improving Right arm pain with increased swelling and decreased range of motion History of renal cancer with previous right nephrectomy Coronary artery disease with total occlusion of diagonal branch, per cardiac catheterization in 2015 Hypertension Hyperlipidemia History of COPD History of asthma Moderate pulmonary hypertension Valvular heart disease including moderate to severe MR, severe TR, mild to moderate AI PLAN: Continue anticoagulation with Xarelto Continue current dose of metoprolol succinate and Cardizem Continue telemetry monitoring Continue additional cardiac medications Patient is currently stable from a cardiac perspective Patient to follow-up postdischarge with Dr. Schneider Nurse practitioner note has been reviewed by physician. Signing provider agrees with the documented findings, assessment, and plan of care documented by [employer] as a scribe. Objective - Vital Signs Vital signs: Vital Signs Temp 97.3 F L 12/10/23 08:00 Pulse 94 12/10/23 08:00 Resp 18 12/10/23 08:00 BP 129/79 12/10/23 08:00 Pulse Ox 95 12/10/23 08:00 FiO2 Intake & Output 12/09/23 12/10/23 12/10/23 18:59 06:59 18:59 Intake Total 956 0 236 Output Total 325 Balance 956 -325 236 Weight 79 kg Intake: Oral 956 0 236 Output: Urine 325 Other: Voiding Method Toilet Urinal - Labs CBC & Chem 7: 12/09/23 06:37 12/10/23 06:06 Labs: Abnormal Lab Results - Last 24 Hours (Table) 12/10/23 Range/Units 06:06 Sodium 129 L (137-145) mmol/L Glucose 114 H (74-99) mg/dL
[2023-12-10] MEDS: TOLVAPTAN 15 MG TABLET PO ONE (12:57)
[2023-12-10 13:40] VITALS: BMI 23.6
--- NOTE | 2023-12-10 15:07 | CT ---
EXAMINATION TYPE: CT upper extremity RT w con CT DLP: 445.3 mGycm, Automated exposure control for dose reduction was used. DATE OF EXAM: 12/10/2023 2:53 PM COMPARISON: CT right upper extremity 12/08/2023, ultrasound right upper extremity 12/10/2023 CLINICAL INDICATION:Male, 83 years old with history of better characterization of fluid collection, e prudencio; PHH, better characterization of fluid collection, redness and edema to rt forearm TECHNIQUE: Axial images were obtained of the right upper extremity after the uneventful administratio n of 100 mL of Isovue-370 intravenously. Additional coronal and sagittal reformatted images and soft tissue and bone window were obtained for review. FINDINGS: There is no evidence of acute fracture, subluxation, or dislocation. Remote healed fracture of the fifth metacarpal. Degenerative changes of the carpal bones. Osteoarthritic changes of the elb ow. Few punctate calcifications along the ulnar aspect. Diffuse soft tissue edema of the right upper extremity. Visualized arterial vasculature is patent. He terogenous enhancement identified within the triceps muscle near the olecranon. Redemonstration of fo jhonny ovoid lesion near the lateral ulnar aspect of the olecranon 2.3 cm (series 204, image 102). No ri m enhancement identified. No radiopaque foreign body. No soft tissue gas identified. Slight granuloma within the right upper lobe. Partial visualization of bilateral pleural effusions wi th adjacent atelectasis. Complete opacification of the left mastoid air cells. Bilateral aphakia with scleral calcifications. IMPRESSION: 1. Redemonstration of a 2.3 cm heterogenous lesion near the olecranon process without definitive enh ancement. Etiologies include phlegmon or hematoma or bursitis. No drainable fluid collection. 2. Diffuse right upper extremity soft tissue edema without evidence of soft tissue gas. Correlate fo r cellulitis. 3. Heterogenous enhancement of the triceps muscle near the olecranon likely representing inflammatio n. 4. Complete opacification of the left mastoid air cells. Correlate for mastoiditis. 5. Partial visualization of bilateral pleural effusions with adjacent atelectasis. [facility], , 12/10/2023 3:05 PM
--- NOTE | 2023-12-10 15:23 | P.PN ---
Subjective Progress Note Date: 12/10/23 Patient is a 83-year-old male with a past medical history significant for atrial fibrillation COPD hypertension hyperlipidemia prostate disorder renal cancer, patient presented to the hospital for evaluation of right upper extremity elbow area pain in this patient who did have a fall CT did shows a soft tissue lesion in August swelling with ultrasound suggestive of fluid collection question of hematoma versus abscess. On today's evaluation that is 12/10/2023,the patient denies any fever or any chills, patient is breathing comfortably on room air, the patient denies chest pain shortness of breath and no significant cough, patient denies abdominal pain, no nausea vomiting or diarrhea. Patient seem to be slightly more sleepy as reported by the family however denies any worsening pain to the right upper extremity Patient did have a creatinine of 0.79 white count is 10.9 Objective - Vital Signs Vital signs: Vital Signs Temp 97.3 F L 12/10/23 08:00 Pulse 94 12/10/23 08:00 Resp 18 12/10/23 08:00 BP 129/79 12/10/23 08:00 Pulse Ox 95 12/10/23 08:00 FiO2 Intake & Output 12/09/23 12/10/23 12/10/23 18:59 06:59 18:59 Intake Total 956 0 236 Output Total 325 Balance 956 -325 236 Weight 79 kg 79 kg Intake: Oral 956 0 236 Output: Urine 325 Other: Voiding Method Toilet Urinal - Exam GENERAL DESCRIPTION: An elderly male lying in bed in no distress RESPIRATORY SYSTEM: Unlabored breathing , decreased breath sounds at bases HEART: S1 S2 regular rate and rhythm , ABDOMEN: Soft , no tenderness EXTREMITIES: Right upper extremity with diffuse swelling, mild erythema to the palmar aspect - Labs CBC & Chem 7: 12/09/23 06:37 12/10/23 06:06 Labs: Abnormal Lab Results - Last 24 Hours (Table) 12/10/23 Range/Units 06:06 Sodium 129 L (137-145) mmol/L Glucose 114 H (74-99) mg/dL Assessment and Plan (1) Leukocytosis Current Visit: Yes Status: Acute Code(s): D72.829 - ELEVATED WHITE BLOOD CELL COUNT, UNSPECIFIED SNOMED Code(s): 312209176 (2) Edema of right upper extremity Current Visit: Yes Status: Acute Code(s): R60.0 - LOCALIZED EDEMA SNOMED Code(s): 927722697 Plan: 1patient presenting to the hospital for right elbow pain in this patient who did have a fall about a week before presentation to the hospital patient did hartman ve elevated white count admission however that has subsequently trend down without antibiotic therapy patient did have significant swelling to the right upper extremity but no significant redness warmth to be suspicious for cellulitis in this patient who did not have any fever and as mentioned earlier white count seem to be trending down without any antibiotic therapy clinically doubt cellulitis 2-patient did have ultrasound suggestive of fluid collection could be hematoma CT did not show any evidence of drainable fluid collection though clinical suspicion low for cellulitis we will go ahead and add Unasyn and see clinical response Dictation was produced using [employer] dictation software. please excuse any grammatical, word or spelling errors. Time with Patient: Less than 30
[2023-12-10] MEDS: AMPICILLIN-SULBACTAM 3 GM in SODIUM CHLORIDE 0.9% 100 ML IVPB SCH (15:28)
--- NOTE | 2023-12-10 17:01 | P.PN ---
Subjective Progress Note Date: 12/10/23 Pt still c/o right arm pain, pitting edema. Pts family notes pt is more lethargic than usual. Gen: In NAD, non-toxic HEENT: normocephalic, atraumatic, hearing acuity is intant, mucous membranes moist CVS: perfusing all extremities well, no pitting edema, Respiratory: symmetric chest expansion, no accessory muscle use, GI: soft, NTTP, ND, : no suprapubic tenderness, no CVA tenderness MSK/Derm: no rashes, cyanosis, right-sided erythema, pitting edema of the upper extremity Neuro: CN II-XII intact, no motor weakness, Psych: cooperative, euthymic mood, judgment and insight is intact Hospital Course: 81-year-old male with history of atrial fibrillation, renal cell cancer status post nephrectomy, dyslipidemia, COPD/asthma presenting with fall and weakness. In the ED, temperature was 97.9, pulse 117, respiratory rate 18, blood pressure 102/59, saturating at 95%. WBC 13.7, hemoglobin 11.8, sodium 127, BUN 21, creatinine 0.95, magnesium 1.7. Elbow x-ray did not show any acute fractures. Chest x-ray independently interpreted, did not show any focal opacities. EKG independently interpreted showed atrial fibrillation with RVR, right bundle branch block, nonspecific ST-T wave changes including T wave inversions in precordial leads. Patient given 500 cc of normal saline bolus, started on Cardizem drip after getting 2 x 5 mg IV pushes of metoprolol tartrate. Admitted for A-fib RVR, hyponatremia, generalized weakness. Nephrology consulted for hyponatremia. Cardiology consulted for A-fib with RVR. Assessment and Plan: Hyponatremia, euvolemic -Status post Samsca x 1 -Nephrology note reviewed, continue to monitor sodium, increase protein intake -Continue to monitor BMP Atrial fibrillation with RVR, now rate controlled -Cardiology following, continue diltiazem 30 3 times daily, metoprolol increased to 75 twice daily -Continue home Xarelto 20 nightly -Monitor on telemetry Orthostatic hypotension Multiple falls Right forearm edema, erythema -Orthopedic surgery note reviewed, no interventions needed for right upper extremity -Orthopedic surgery believes that there may be a component of cellulitis, ID consulted -However, on my assessment cellulitis is highly unlikely given the edema started after he fell on that arm -Continue elevation of the arm -PT recommending subacute rehab -Repeat orthostatic vitals -ordered and reviewed US of RUE, axilla, and CT RT UE with contrast, discussed with ortho, appears to have inflammatory changes and complex fluid/masslike lesi on by olecranon bursa -DDx: bursitis, tendinitis, dermatomyositis, cellulitis -Ordered: unasyn, CK level. Leukocytosis, likely reactive, resolved. -Continue to monitor for any signs of infection Repeat CBC. Weight loss -Follow-up outpatient with urology, concern for recurrence of cancer Left otitis externa -Continue Floxin 0.3% otic solution Chronic: COPD, without exacerbation BPH Renal cell cancer status post nephrectomy DVT ppx: Xarelto Code status: DNR/DNI Anticipated discharge place: [facility] Anticipated discharge time: Pending clinical course Objective - Vital Signs Vital signs: Vital Signs Temp 97.3 F L 12/10/23 08:00 Pulse 94 12/10/23 08:00 Resp 18 12/10/23 08:00 BP 129/79 12/10/23 08:00 Pulse Ox 95 12/10/23 08:00 FiO2 Intake & Output 12/09/23 12/10/23 12/10/23 18:59 06:59 18:59 Intake Total 956 0 236 Output Total 325 Balance 956 -325 236 Weight 79 kg 79 kg Intake: Oral 956 0 236 Output: Urine 325 Other: Voiding Method Toilet Urinal - Labs CBC & Chem 7: 12/09/23 06:37 12/10/23 06:06 Labs: Abnormal Lab Results - Last 24 Hours (Table) 12/10/23 Range/Units 06:06 Sodium 129 L (137-145) mmol/L Glucose 114 H (74-99) mg/dL
[2023-12-11 07:24] LABS: African American GFR (CKD) >90 (>60 ml/min/1.73 sqM); Anion Gap 3 mmol/L; Blood Urea Nitrogen 18 mg/dL (9-20); Calcium 8.6 mg/dL (8.4-10.2); Carbon Dioxide 28 mmol/L (22-30); Chloride 99 mmol/L (98-107); Creatine Kinase 30 U/L (55-170); Glucose 110 mg/dL (74-99); Non-African American GFR(CKD) 86 (>60 ml/min/1.73 sqM); Potassium 4.5 mmol/L (3.5-5.1); Sodium 130 mmol/L (137-145)
--- NOTE | 2023-12-11 08:18 | P.PN ---
Subjective Progress Note Date: 12/11/23 I was contacted by Dr. Chavez to reassess the patient as he had continued swelling in his arm. the patient had a computed tomography scan with contrast yesterday to further evaluate the etiology of the swelling in his arm. This morning the patient feels better clinically. He states that the swelling in the elbow and forearm is significantly improved. He denies any pain with active range of motion of the elbow or wrist. He denies fevers or chills. Objective - Vital Signs Vital signs: Vital Signs Temp 97.4 F L 12/10/23 20:45 Pulse 86 12/11/23 04:21 Resp 20 12/11/23 04:21 BP 125/80 12/11/23 04:21 Pulse Ox 94 L 12/11/23 04:21 FiO2 Intake & Output 12/10/23 12/11/23 12/11/23 18:59 06:59 18:59 Intake Total 476 Output Total 800 1100 Balance -324 -1100 Weight 79 kg 80.6 kg Intake: Oral 476 Output: Urine 800 1100 Other: Voiding Method Bedside Commode Urinal - Exam the patient is resting comfortably in bed. He is alert and able to answer questions. A focused exam of the right upper extremity was conducted. On inspection there is diffuse swelling and edema throughout the elbow and forearm. There is mild hyperemia and slight erythema over the medial elbow and forearm but no jojo erythematous or warmth. There is minimal to no tenderness diffusely throughout the right arm. There is no palpable fluctuance or crepitance. He has no pain with passive range of motion of the elbow or wrist. - Labs CBC & Chem 7: 12/09/23 06:37 12/11/23 06:39 Labs: Abnormal Lab Results - Last 24 Hours (Table) 12/10/23 12/11/23 Range/Units 06:06 06:39 Sodium 130 L (137-145) mmol/L Glucose 110 H (74-99) mg/dL Creatine Kinase 39 L 30 L (55-170) U/L Assessment and Plan Assessment: right upper extremity edema/swelling Elbow and wrist arthritis No evidence of deep space infection requiring surgical treatment Plan: I was asked to reassess the patient by Dr. Chavez. This morning the patient says he feels better. He has full active and passive range of motion of the elbow and wrist without pain. He has minimal to no tenderness throughout the arm. The repeat computed tomography scan shows no sign of deep infection or any lesion that would require surgical treatment. I have no plans for any surgical intervention at this time. I would continue to recommend elevation and gentle compression for his swelling. We will sign off at this time. Please call with any questions or concerns.
--- NOTE | 2023-12-11 12:34 | P.PN ---
Subjective Progress Note Date: 12/11/23 Pt reports improvement in right arm swelling, pain since starting abx. Gen: In NAD, non-toxic HEENT: normocephalic, atraumatic, hearing acuity is intant, mucous membranes moist CVS: perfusing all extremities well, no pitting edema, Respiratory: symmetric chest expansion, no accessory muscle use, GI: soft, NTTP, ND, : no suprapubic tenderness, no CVA tenderness MSK/Derm: no rashes, cyanosis, right-sided erythema, pitting edema of the upper extremity Neuro: CN II-XII intact, no motor weakness, Psych: cooperative, euthymic mood, judgment and insight is intact Hospital Course: 81-year-old male with history of atrial fibrillation, renal cell cancer status post nephrectomy, dyslipidemia, COPD/asthma presenting with fall and weakness. In the ED, temperature was 97.9, pulse 117, respiratory rate 18, blood pressure 102/59, saturating at 95%. WBC 13.7, hemoglobin 11.8, sodium 127, BUN 21, cre atinine 0.95, magnesium 1.7. Elbow x-ray did not show any acute fractures. Chest x-ray independently interpreted, did not show any focal opacities. EKG independently interpreted showed atrial fibrillation with RVR, right bundle branch block, nonspecific ST-T wave changes including T wave inversions in precordial leads. Patient given 500 cc of normal saline bolus, started on Cardizem drip after getting 2 x 5 mg IV pushes of metoprolol tartrate. Admitted for A-fib RVR, hyponatremia, generalized weakness. Nephrology consulted for hyponatremia. Cardiology consulted for A-fib with RVR. Assessment and Plan: Hyponatremia, euvolemic -Status post Samsca x 1 -Nephrology note reviewed, continue to monitor sodium, increase protein intake -Continue to monitor BMP Atrial fibrillation with RVR, now rate controlled -Cardiology following, continue diltiazem 30 3 times daily, metoprolol increased to 75 twice daily -Continue home Xarelto 20 nightly -Monitor on telemetry Orthostatic hypotension Multiple falls Right arm cellulitis -Orthopedic surgery note reviewed, no interventions needed for right upper extremity -Orthopedic surgery believes that there may be a component of cellulitis, ID consulted -However, on my assessment cellulitis is highly unlikely given the edema started after he fell on that arm -Continue elevation of the arm -PT recommending subacute rehab -Repeat orthostatic vitals -ordered and reviewed US of RUE, axilla, and CT RT UE with contrast, discussed with ortho, appears to have inflammatory changes and complex fluid/masslike lesion by olecranon bursa -cellulitis with infectious component given improvement with abx. -Ordered: unasyn, CK level is low. Weight loss -Follow-up outpatient with urology, concern for recurrence of cancer Left otitis externa -Continue Floxin 0.3% otic solution Chronic: COPD, without exacerbation BPH Renal cell cancer status post nephrectomy DVT ppx: Xarelto Code status: DNR/DNI Anticipated discharge place: [facility] Anticipated discharge time: Pending clinical course Objective - Vital Signs Vital signs: Vital Signs Temp 97.4 F L 12/11/23 08:00 Pulse 103 H 12/11/23 08:00 Resp 20 12/11/23 08:00 BP 109/70 12/11/23 08:00 Pulse Ox 95 12/11/23 08:00 FiO2 Intake & Output 12/10/23 12/11/23 12/11/23 18:59 06:59 18:59 Intake Total 476 120 Output Total 800 1100 700 Balance -324 -1100 -580 Weight 79 kg 80.6 kg Intake: Oral 476 120 Output: Urine 800 1100 700 Other: Voiding Method Bedside Commode Urinal # Bowel Movements 1 - Labs CBC & Chem 7: 12/09/23 06:37 12/11/23 06:39 Labs: Abnormal Lab Results - Last 24 Hours (Table) 12/10/23 12/11/23 Range/Units 06:06 06:39 Sodium 130 L (137-145) mmol/L Glucose 110 H (74-99) mg/dL Creatine Kinase 39 L 30 L (55-170) U/L
--- NOTE | 2023-12-11 12:49 | P.PN ---
Subjective patient is seen for follow-up for hyponatremia secondary to SIADH. Serum sodium has improved post Samsca. No significant complaints today. Maintained on fluid restriction. Serum sodium is 1:30 today. Objective - Vital Signs Vital signs: Vital Signs Temp 97.4 F L 12/11/23 08:00 Pulse 103 H 12/11/23 08:00 Resp 20 12/11/23 08:00 BP 109/70 12/11/23 08:00 Pulse Ox 95 12/11/23 08:00 FiO2 Intake & Output 12/10/23 12/11/23 12/11/23 18:59 06:59 18:59 Intake Total 476 120 Output Total 800 1100 700 Balance -324 -1100 -580 Weight 79 kg 80.6 kg Intake: Oral 476 120 Output: Urine 800 1100 700 Other: Voiding Method Bedside Commode Urinal # Bowel Movements 1 - Exam General: nontoxic, no distress, Derm: warm, dry, intact Head: atraumatic, normocephalic, symmetric Cardiovascular: S1 S2 reg, no murmur Lungs: CTA bilateral, no rhonchi, no rales, no accessory muscle use Abdominal: soft, non-tender to palpataion Extremities: right UE edematous, trace edema on LE b/l Neuro: Alert, Oriented - Labs CBC & Chem 7: 12/09/23 06:37 12/11/23 06:39 Labs: Abnormal Lab Results - Last 24 Hours (Table) 12/10/23 12/11/23 Range/Units 06:06 06:39 Sodium 130 L (137-145) mmol/L Glucose 110 H (74-99) mg/dL Creatine Kinase 39 L 30 L (55-170) U/L Assessment and Plan Assessment: 1. Hyponatremia, appears euvolemic U osm 814, U Na 47. S Na worsened with saline administration suggesting high likelihood for underlying SIADH. TSH WNL. s/p furosemide 40mg. Maintained on fluid restriction. Improving after Samsca 2. 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 Follows up with Dr. Luo 3. Atrial fibrillation with RVR, s/p cardizem drip, now maintained on oral cardizem, metoprolol and xarelto 4. Benign prostatic hyperplasia. On finasteride. 5. Chronic COPD. On albuterol inhaler. 6. Left otitis externa. On ofloxacin 0.3% 7. Weight loss, 10-15 pounds over the last few months. Plan: Fluid restriction <1500ml Encourage to increase oral protein intake Repeat labs in am.
[2023-12-11] MEDS: ALBUTEROL HFA INHALER INHALATION PRN (15:55)
[2023-12-11] MEDS: diphenhydrAMINE 2% CREAM 28.4 GM TUBE TOPICAL PRN (21:12)
[2023-12-11] MEDS: diphenhydrAMINE 25 MG CAP PO PRN (23:36)
[2023-12-12 08:01] LABS: Basophils % (A) 0 %; Eosinophils # (A) 0.5 k/uL (0-0.7); Eosinophils % (A) 5 %; HCT 33.9 % (39.0-53.0); HGB 10.8 gm/dL (13.0-17.5); Hypochromasia Slight; Lymphocytes % (A) 9 %; MCH 28.5 pg (25.0-35.0); MCHC 31.8 g/dL (31.0-37.0); MCV 89.6 fL (80.0-100.0); Mean Platelet Volume 6.5; Monocytes # (A) 0.7 k/uL (0-1.0); Monocytes % (A) 7 %; Neutrophils # (A) 8.4 k/uL (1.3-7.7); Neutrophils % (A) 77 %; Platelet Count 559 k/uL (150-450); RBC 3.78 m/uL (4.30-5.90); RDW 14.9 % (11.5-15.5)
[2023-12-12 08:16] LABS: African American GFR (CKD) >90 (>60 ml/min/1.73 sqM); Anion Gap 5 mmol/L; Blood Urea Nitrogen 17 mg/dL (9-20); Calcium 8.7 mg/dL (8.4-10.2); Carbon Dioxide 27 mmol/L (22-30); Chloride 100 mmol/L (98-107); Glucose 102 mg/dL (74-99); Magnesium 1.8 mg/dL (1.6-2.3); Non-African American GFR(CKD) 86 (>60 ml/min/1.73 sqM); Potassium 4.5 mmol/L (3.5-5.1); Sodium 132 mmol/L (137-145)
--- NOTE | 2023-12-12 09:42 | P.PN ---
Subjective Progress Note Date: 12/12/23 No new complaints today. Gen: In NAD, non-toxic HEENT: normocephalic, atraumatic, hearing acuity is intant, mucous membranes moist CVS: perfusing all extremities well, no pitting edema, Respiratory: symmetric chest expansion, no accessory muscle use, GI: soft, NTTP, ND, : no suprapubic tenderness, no CVA tenderness MSK/Derm: no rashes, cyanosis, right-sided erythema, pitting edema of the upper extremity Neuro: CN II-XII intact, no motor weakness, Psych: cooperative, euthymic mood, judgment and insight is intact Hospital Course: 81-year-old male with history of atrial fibrillation, renal cell cancer status post nephrectomy, dyslipidemia, COPD/asthma presenting with fall and weakness. In the ED, temperature was 97.9, pulse 117, respiratory rate 18, blood pressure 102/59, saturating at 95%. WBC 13.7, hemoglobin 11.8, sodium 127, BUN 21, creatinine 0.95, magnesium 1.7. Elbow x-ray did not show any acute fractures. Chest x-ray independently interpreted, did not show any focal opacities. EKG independently interpreted showed atrial fibrillation with RVR, right bundle branch block, nonspecific ST-T wave changes including T wave inversions in precordial leads. Patient given 500 cc of normal saline bolus, started on Cardizem drip after getting 2 x 5 mg IV pushes of metoprolol tartrate. Admitted for A-fib RVR, hyponatremia, generalized weakness. Nephrology consulted for hyponatremia. Cardiology consulted for A-fib with RVR. Assessment and Plan: Hyponatremia, euvolemic -Status post Samsca x2 -Nephrology note reviewed, continue to monitor sodium, increase protein intake -Continue to monitor BMP Atrial fibrillation with RVR, now rate controlled -Cardiology following, continue diltiazem 30 3 times daily, metoprolol increased to 75 twice daily -Continue home Xarelto 20 nightly -Monitor on telemetry Orthostatic hypotension Multiple falls Right arm cellulitis -Orthopedic surgery note reviewed, no interventions needed for right upper extremity -Orthopedic surgery believes that there may be a component of cellulitis, ID consulted -However, on my assessment cellulitis is highly unlikely given the edema started after he fell on that arm -Continue elevation of the arm -PT recommending subacute rehab -Repeat orthostatic vitals -ordered and reviewed US of RUE, axilla, and CT RT UE with contrast, discussed with ortho, appears to have inflammatory changes and complex fluid/masslike lesion by olecranon bursa -cellulitis with infectious component given improvement with abx. -Ordered: unasyn, CK level is low. Weight loss -Follow-up outpatient with urology, concern for recurrence of cancer Left otitis externa -Continue Floxin 0.3% otic solution Chronic: COPD, without exacerbation BPH Renal cell cancer status post nephrectomy DVT ppx: Xarelto Code status: DNR/DNI Anticipated discharge place: [facility] Anticipated discharge time: Pending clinical course Objective - Vital Signs Vital signs: Vital Signs Temp 97.7 F 12/11/23 21:18 Pulse 62 12/12/23 04:19 Resp 19 12/12/23 04:19 BP 125/80 12/12/23 04:19 Pulse Ox 95 12/12/23 04:19 FiO2 Intake & Output 12/11/23 12/12/23 12/12/23 18:59 06:59 18:59 Intake Total 240 236 Output Total 700 900 Balance -460 -900 236 Weight 80.8 kg Intake: Oral 240 236 Output: Urine 700 900 Other: Voiding Method Bedside Commode Urinal # Bowel Movements 1 - Labs CBC & Chem 7: 12/12/23 07:35 12/12/23 07:35 Labs: Abnormal Lab Results - Last 24 Hours (Table) 12/11/23 12/12/23 12/12/23 Range/Units 15:01 07:35 07:35 WBC 11.0 H (3.8-10.6) k/uL RBC 3.78 L (4.30-5.90) m/uL Hgb 10.8 L (13.0-17.5) gm/dL Hct 33.9 L (39.0-53.0) % Plt Count 559 H (150-450) k/uL Neutrophils # 8.4 H (1.3-7.7) k/uL Sodium 129 L 132 L (137-145) mmol/L Glucose 102 H (74-99) mg/dL
--- NOTE | 2023-12-12 11:45 | P.PN ---
Subjective patient is seen for follow-up for hyponatremia secondary to SIADH. Serum sodium has improved post Samsca. No significant complaints today. Maintained on fluid restriction. Serum sodium is 132 today. Objective - Vital Signs Vital signs: Vital Signs Temp 97.4 F L 12/12/23 08:00 Pulse 85 12/12/23 11:16 Resp 18 12/12/23 11:16 BP 126/75 12/12/23 11:16 Pulse Ox 95 12/12/23 11:16 FiO2 Intake & Output 12/11/23 12/12/23 12/12/23 18:59 06:59 18:59 Intake Total 240 236 Output Total 700 900 Balance -460 -900 236 Weight 80.8 kg Intake: Oral 240 236 Output: Urine 700 900 Other: Voiding Method Bedside Commode Urinal # Bowel Movements 1 - Exam General: nontoxic, no distress, Derm: warm, dry, intact Head: atraumatic, normocephalic, symmetric Extremities: right UE edematous, trace edema on LE b/l Neuro: Alert, Oriented - Labs CBC & Chem 7: 12/12/23 07:35 12/12/23 07:35 Labs: Abnormal Lab Results - Last 24 Hours (Table) 12/11/23 12/12/23 12/12/23 Range/Units 15:01 07:35 07:35 WBC 11.0 H (3.8-10.6) k/uL RBC 3.78 L (4.30-5.90) m/uL Hgb 10.8 L (13.0-17.5) gm/dL Hct 33.9 L (39.0-53.0) % Plt Count 559 H (150-450) k/uL Neutrophils # 8.4 H (1.3-7.7) k/uL Sodium 129 L 132 L (137-145) mmol/L Glucose 102 H (74-99) mg/dL Assessment and Plan Assessment: 1. Hyponatremia, appears euvolemic U osm 814, U Na 47. S Na worsened with saline administration suggesting high likelihood for underlying SIADH. TSH WNL. Maintained on fluid restriction. Improving after Samsca 2. 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 Follows up with Dr. Luo 3. Atrial fibrillation with RVR, s/p cardizem drip, now maintained on oral cardizem, metoprolol and xarelto 4. Benign prostatic hyperplasia. On finasteride. 5. Chronic COPD. On albuterol inhaler. 6. Left otitis externa. On ofloxacin 0.3% 7. Weight loss, 10-15 pounds over the last few months. Plan: continue with fluid restriction Continue to maintain good oral protein intake. Repeat sodium in a.m.
--- NOTE | 2023-12-12 13:09 | P.PN ---
Subjective Progress Note Date: 12/12/23 Principal diagnosis: Reason for follow-up is right upper extremity swelling and a question of cellulitis Patient is a 83-year-old male with a past medical history significant for atrial fibrillation COPD hypertension hyperlipidemia prostate disorder renal cancer, patient presented to the hospital for evaluation of right upper extremity elbow area pain in this patient who did have a fall CT did shows a soft tissue lesion in August swelling with ultrasound suggestive of fluid collection question of hematoma versus abscess. On today's evaluation that is 12/12/2023, the patient continues to be afebrile, the patient is on room air and breathing comfortably, the Pt denies having any chest pain or cough, the patient denies having any abdominal pain no vomiting or any diarrhea, the patient right upper extremity swelling redness and pain has decreased in intensity. Patient white count is 11,000, creatinine 0.72 Objective - Vital Signs Vital signs: Vital Signs Temp 97.4 F L 12/12/23 08:00 Pulse 85 12/12/23 11:16 Resp 18 12/12/23 11:16 BP 126/75 12/12/23 11:16 Pulse Ox 95 12/12/23 11:16 FiO2 Intake & Output 12/11/23 12/12/23 12/12/23 18:59 06:59 18:59 Intake Total 240 236 Output Total 700 900 Balance -460 -900 236 Weight 80.8 kg Intake: Oral 240 236 Output: Urine 700 900 Other: Voiding Method Bedside Commode Urinal # Bowel Movements 1 - Exam GENERAL DESCRIPTION: An elderly male lying in bed in no distress RESPIRATORY SYSTEM: Unlabored breathing , decreased breath sounds at bases HEART: S1 S2 regular rate and rhythm , ABDOMEN: Soft , no tenderness EXTREMITIES: Right upper extremity swelling and redness slightly decreased - Labs CBC & Chem 7: 12/12/23 07:35 12/12/23 07:35 Labs: Abnormal Lab Results - Last 24 Hours (Table) 12/11/23 12/12/23 12/12/23 Range/Units 15:01 07:35 07:35 WBC 11.0 H (3.8-10.6) k/uL RBC 3.78 L (4.30-5.90) m/uL Hgb 10.8 L (13.0-17.5) gm/dL Hct 33.9 L (39.0-53.0) % Plt Count 559 H (150-450) k/uL Neutrophils # 8.4 H (1.3-7.7) k/uL Sodium 129 L 132 L (137-145) mmol/L Glucose 102 H (74-99) mg/dL Assessment and Plan (1) Leukocytosis Current Visit: Yes Status: Acute Code(s): D72.829 - ELEVATED WHITE BLOOD CELL COUNT, UNSPECIFIED SNOMED Code(s): 606280327 (2) Edema of right upper extremity Current Visit: Yes Status: Acute Code(s): R60.0 - LOCALIZED EDEMA SNOMED Code(s): 522941085 Plan: 1patient presenting to the hospital for right elbow pain in this patient who did have a fall about a week before presentation to the hospital patient did have elevated white count admission however that has subsequently trend down without antibiotic therapy patient did have significant swelling to the right upper extremity but no significant redness warmth to be suspicious for cellulitis in this patient who did not have any fever and as mentioned earlier white count seem to be trending down without any antibiotic therapy clinically doubt cellulitis 2-patient did have ultrasound suggestive of fluid collection could be hematoma CT did not show any evidence of drainable fluid collection, 3-patient seem to have shown some clinical improvement with IV Unasyn to continue while inpatient and consider short course of oral Augmentin on discharge at the bedside questions answered Dictation was produced using [employer] dictation software. please excuse any grammatical, word or spelling errors. Time with Patient: Less than 30
--- NOTE | 2023-12-12 13:09 | P.PN ---
Subjective Progress Note Date: 12/11/23 Principal diagnosis: Reason for follow-up is right upper extremity swelling and a question of cellulitis Patient is a 83-year-old male with a past medical history significant for atrial fibrillation COPD hypertension hyperlipidemia prostate disorder renal cancer, patient presented to the hospital for evaluation of right upper extremity elbow area pain in this patient who did have a fall CT did shows a soft tissue lesion in August swelling with ultrasound suggestive of fluid collection question of hematoma versus abscess. On today's evaluation that is 12/11/2023,the patient remains to be afebrile, patient is on room air not requiring supplemental oxygen and denies any shortness of breath no chest pain or cough.Patient denies having any nausea or vomiting, no abdominal pain and no diarrhea has been reported, overall swelling redness to right abdomen slightly decreased in intensity. Patient did have a creatinine 0.72 no CBC was done today Objective - Vital Signs Vital signs: Vital Signs Temp 97.4 F L 12/11/23 08:00 Pulse 89 12/11/23 15:35 Resp 16 12/11/23 15:35 BP 121/72 12/11/23 15:35 Pulse Ox 93 L 12/11/23 12:00 FiO2 Intake & Output 12/11/23 12/11/23 12/12/23 06:59 18:59 06:59 Intake Total 240 Output Total 1100 700 Balance -1100 -460 Weight 80.6 kg Intake: Oral 240 Output: Urine 1100 700 Other: Voiding Method Bedside Commode Urinal # Bowel Movements 1 - Exam GENERAL DESCRIPTION: An elderly male lying in bed in no distress RESPIRATORY SYSTEM: Unlabored breathing , decreased breath sounds at bases HEART: S1 S2 regular rate and rhythm , ABDOMEN: Soft , no tenderness EXTREMITIES: Right upper extremity swelling and redness slightly decreased - Labs CBC & Chem 7: 12/12/23 07:35 12/12/23 07:35 Labs: Abnormal Lab Results - Last 24 Hours (Table) 12/10/23 12/11/23 12/11/23 Range/Units 06:06 06:39 15:01 Sodium 130 L 129 L (137-145) mmol/L Glucose 110 H (74-99) mg/dL Creatine Kinase 39 L 30 L (55-170) U/L Assessment and Plan (1) Leukocytosis Current Visit: Yes Status: Acute Code(s): D72.829 - ELEVATED WHITE BLOOD CELL COUNT, UNSPECIFIED SNOMED Code(s): 273279597 (2) Edema of right upper extremity Current Visit: Yes Status: Acute Code(s): R60.0 - LOCALIZED EDEMA SNOMED Code(s): 207891274 Plan: 1patient presenting to the hospital for right elbow pain in this patient who did have a fall about a week before presentation to the hospital patient did have elevated white count admission however that has subsequently trend down without antibiotic therapy patient did have significant swelling to the right upper extremity but no significant redness warmth to be suspicious for cellulitis in this patient who did not have any fever and as mentioned earlier w marleen count seem to be trending down without any antibiotic therapy clinically doubt cellulitis 2-patient did have ultrasound suggestive of fluid collection could be hematoma CT did not show any evidence of drainable fluid collection, patient has been started on IV Unasyn to continue and monitor clinical course closely Dictation was produced using Vocab dictation software. please excuse any gramm atical, word or spelling errors. Time with Patient: Less than 30
[2023-12-13 01:32] VITALS: RESP 16
[2023-12-13 05:10] LABS: Basophils # (A) 0.1 k/uL (0-0.2); Basophils % (A) 0 %; Eosinophils # (A) 0.6 k/uL (0-0.7); Eosinophils % (A) 4 %; HCT 33.4 % (39.0-53.0); HGB 11.1 gm/dL (13.0-17.5); Lymphocytes # (A) 1.3 k/uL (1.0-4.8); Lymphocytes % (A) 10 %; MCH 28.8 pg (25.0-35.0); MCHC 33.2 g/dL (31.0-37.0); Monocytes # (A) 0.8 k/uL (0-1.0); Monocytes % (A) 6 %; Neutrophils # (A) 10.2 k/uL (1.3-7.7); Neutrophils % (A) 78 %; Platelet Count 591 k/uL (150-450); RBC 3.84 m/uL (4.30-5.90); RDW 15.3 % (11.5-15.5); WBC 13.1 k/uL (3.8-10.6)
[2023-12-13 05:26] LABS: African American GFR (CKD) >90 (>60 ml/min/1.73 sqM); Anion Gap 4 mmol/L; Blood Urea Nitrogen 19 mg/dL (9-20); Calcium 8.7 mg/dL (8.4-10.2); Carbon Dioxide 26 mmol/L (22-30); Chloride 100 mmol/L (98-107); Glucose 114 mg/dL (74-99); Magnesium 1.9 mg/dL (1.6-2.3); Non-African American GFR(CKD) 82 (>60 ml/min/1.73 sqM); Potassium 4.7 mmol/L (3.5-5.1); Sodium 130 mmol/L (137-145)
--- NOTE | 2023-12-13 08:44 | P.PN ---
Subjective Patient is seen in follow-up for hyponatremia. Sodium level 130 today. Renal function at baseline. Oral intake fair. Vital signs are stable. General: No acute distress. HEENT: Head exam is unremarkable. LUNGS: No audible rhonchi or wheezes. HEART: Rate and Rhythm are regular. ABDOMEN: Nontender. EXTREMITITES: No edema. Objective - Vital Signs Vital signs: Vital Signs Temp 97.8 F 12/13/23 07:58 Pulse 71 12/13/23 07:58 Resp 16 12/13/23 07:58 BP 118/69 12/13/23 07:58 Pulse Ox 96 12/13/23 07:58 FiO2 Intake & Output 12/12/23 12/13/23 12/13/23 18:59 06:59 18:59 Intake Total 476 240 Output Total 800 1100 Balance -324 -860 Weight 82.5 kg Intake: Oral 476 240 Output: Urine 800 1100 Other: Voiding Method Bedside Commode Urinal # Bowel Movements 1 - Labs CBC & Chem 7: 12/13/23 04:51 12/13/23 04:51 Labs: Abnormal Lab Results - Last 24 Hours (Table) 12/13/23 12/13/23 Range/Units 04:51 04:51 WBC 13.1 H (3.8-10.6) k/uL RBC 3.84 L (4.30-5.90) m/uL Hgb 11.1 L (13.0-17.5) gm/dL Hct 33.4 L (39.0-53.0) % Plt Count 591 H (150-450) k/uL Neutrophils # 10.2 H (1.3-7.7) k/uL Sodium 130 L (137-145) mmol/L Glucose 114 H (74-99) mg/dL Assessment and Plan Plan: Assessment: 1. Hyponatremia, euvolemic. Urine sodium 47 and urine osmolality 814. TSH normal. Suspect SIADH. Questionable recurrence of malignancy. Sodium level 130 yesterday. Status post [facility] this admission. 2. Solitary left kidney. 3. Status post right nephrectomy secondary to renal cell cancer. 4. A-fib. Now rate controlled. Plan: Maintain fluid restriction. Encouraged oral intake, especially protein. Add sodium chloride tab. Check PTH related peptide.
[2023-12-13] MEDS ORDERED: OFLOXACIN 0.3% OPHTH DROPS 5 ML BOTTLE BOTH EARS SCH (09:00)
[2023-12-13] MEDS: SODIUM CHLORIDE TAB 1 GM TAB PO SCH (11:54)
[2023-12-13] MEDS: OFLOXACIN 0.3% OPHTH DROPS 5 ML BOTTLE LEFT EAR SCH (11:57)
--- NOTE | 2023-12-13 15:29 | P.DS ---
Providers Date of admission: 12/06/23 09:31 Expected date of discharge: 12/13/23 Attending physician: Fam Downey Consults: 12/05/23 14:19 Consult Physician Routine Consulting Provider: Clif Nicole Consult Reason/Comments: afib RVR Do you want consulting provider notified?: Yes 12/06/23 07:47 Consult Physician Routine Consulting Provider: Burak De Leon Consult Reason/Comments: euvolemic hyponatremia Do you want consulting provider notified?: Yes 12/08/23 10:31 Consult Physician Routine Consulting Provider: Donald Mcmanus Consult Reason/Comments: right upper extremity edema/pain after fall Do you want consulting provider notified?: Yes 12/08/23 16:52 Consult Physician Urgent Consulting Provider: Leonela Chappell Consult Reason/Comments: Upper extremity cellulitis and edema status post fall Do you want consulting provider notified?: Yes Primary care physician: Ben Liz MD Hospital Course: Hyponatremia, euvolemic Atrial fibrillation with RVR, now rate controlled Orthostatic hypotension Multiple falls Right arm cellulitis Weight loss Left otitis externa COPD, without exacerbation BPH Renal cell cancer status post nephrectomy Gen: In NAD, non-toxic HEENT: normocephalic, atraumatic, hearing acuity is intant, mucous membranes moist CVS: perfusing all extremities well, no pitting edema, Respiratory: symmetric chest expansion, no accessory muscle use, GI: soft, NTTP, ND, : no suprapubic tenderness, no CVA tenderness MSK/Derm: no rashes, cyanosis, right-sided erythema, pitting edema of the upper extremity Neuro: CN II-XII intact, no motor weakness, Psych: cooperative, euthymic mood, judgment and insight is intact Hospital Course: 81-year-old male with history of atrial fibrillation, renal cell cancer status post nephrectomy, dyslipidemia, COPD/asthma presenting with fall and weakness. In the ED, temperature was 97.9, pulse 117, respiratory rate 18, blood pressure 102/59, saturating at 95%. WBC 13.7, hemoglobin 11.8, sodium 127, BUN 21, creatinine 0.95, magnesium 1.7. Elbow x-ray did not show any acute fractures. Chest x-ray independently interpreted, did not show any focal opacities. EKG independently interpreted showed atrial fibrillation with RVR, right bundle branch block, nonspecific ST-T wave changes including T wave inversions in precordial leads. Patient given 500 cc of normal saline bolus, started on Car dizem drip after getting 2 x 5 mg IV pushes of metoprolol tartrate. Admitted for A-fib RVR, hyponatremia, generalized weakness. Nephrology consulted for hyponatremia. Cardiology consulted for A-fib with RVR. Patient was also noted to have some erythema of his right arm and was seen in consultation with infectious disease. He underwent imaging which did show findings of inflammatory changes and possible complex fluid/masslike lesion near the olecranon bursa which should be followed up as an outpatient. However, based on these findings it was decided to trial the patient on Unasyn, which did show some improvement of his erythema and swelling. Therefore, patient was discharged on an additional 7-day course of Augmentin. Also noted were some rib fractures on the left side of his chest following a fall and hospitalization. These were hairline and nondisplaced, treated conservatively. He should follow-up with his primary care physician as well as cardiology. I spent 45 minutes coordinating this discharge Assessment and Plan: Patient Condition at Discharge: Good Plan - Discharge Summary Discharge Rx Participant: No New Discharge Prescriptions: New diphenhydrAMINE [Benadryl] 25 mg PO QID PRN cap PRN Reason: Rash Metoprolol Succinate (ER) [Toprol XL] 75 mg PO BID tab Acetaminophen Tab [Tylenol] 650 mg PO Q6HR PRN tab PRN Reason: Fever And/ Or Pain Amoxic-Pot Clav 875-125Mg [Augmentin 875-125] 1 tab PO BID 7 Days #14 tab Sodium Chloride Tab 1 gm PO DAILY #0 tab Continue Aspirin 81 mg PO HS Finasteride [Proscar] 5 mg PO HS dilTIAZem HCL [Diltiazem HCl] 120 mg PO HS Ferrous Sulfate [Feosol] 325 mg PO Q2D@2100 Albuterol Inhaler [Ventolin Hfa Inhaler] 2 puff INHALATION RT-QID PRN PRN Reason: Shortness Of Breath guaiFENesin [Mucinex] 600 mg PO Q12H Rivaroxaban [Xarelto] 20 mg PO HS Fluticasone Propion/Salmeterol [Advair 500-50 Diskus] 1 puff INHALATION RT- BID Atorvastatin [Lipitor] 20 mg PO HS Ofloxacin 0.3% Otic Soln [Floxin 0.3% Otic Soln] 5 drops BOTH EARS BID PRN PRN Reason: ear irritation predniSONE 5 mg PO HS Ipratropium-Albuterol Nebulize [Duoneb 0.5 mg-3 mg/3 ml Soln] 3 ml INHALATION RT-QID Discontinued Metoprolol Succinate (ER) [Toprol XL] 50 mg PO HS Metoprolol Succinate [Toprol XL] 25 mg PO DAILY Discharge Medication List Aspirin 81 mg PO HS 01/30/14 [History] Finasteride [Proscar] 5 mg PO HS 01/30/14 [History] dilTIAZem HCL [Diltiazem HCl] 120 mg PO HS 01/30/14 [History] Fluticasone Propion/Salmeterol [Advair 500-50 Diskus] 1 puff INHALATION RT-BID 01/02/22 [History] Albuterol Inhaler [Ventolin Hfa Inhaler] 2 puff INHALATION RT-QID PRN 04/25/22 [History] Atorvastatin [Lipitor] 20 mg PO HS 04/25/22 [History] Ferrous Sulfate [Feosol] 325 mg PO Q2D@2100 04/25/22 [History] Ipratropium-Albuterol Nebulize [Duoneb 0.5 mg-3 mg/3 ml Soln] 3 ml INHALATION RT-QID 12/05/23 [History] Ofloxacin 0.3% Otic Soln [Floxin 0.3% Otic Soln] 5 drops BOTH EARS BID PRN 12/05/23 [History] Rivaroxaban [Xarelto] 20 mg PO HS 12/05/23 [History] guaiFENesin [Mucinex] 600 mg PO Q12H 12/05/23 [History] predniSONE 5 mg PO HS 12/05/23 [History] Acetaminophen Tab [Tylenol] 650 mg PO Q6HR PRN tab 12/13/23 [Rx] Amoxic-Pot Clav 875-125Mg [Augmentin 875-125] 1 tab PO BID 7 Days #14 tab 12/13/23 [Rx] Metoprolol Succinate (ER) [Toprol XL] 75 mg PO BID tab 12/13/23 [Rx] Sodium Chloride Tab 1 gm PO DAILY #0 tab 10/21/24 [Rx] diphenhydrAMINE [Benadryl] 25 mg PO QID PRN cap 12/13/23 [Rx] Follow up Appointment(s)/Referral(s): [facility], [NON-STAFF] - Danish Schneider MD [STAFF PHYSICIAN] - 1 Week Ben Liz MD [Primary Care Provider] - 1-2 days Discharge/Stand Alone Forms: Who Do I Call? Discharge Disposition: TRANSFER TO SNF/ECF
[2023-12-13 15:51] VITALS: BP 119/76; PULSE 82; TEMP 97.5
--- NOTE | 2023-12-14 15:30 | P.PN ---
Subjective Progress Note Date: 12/13/23 Principal diagnosis: Reason for follow-up is right upper extremity swelling and a question of cellulitis Patient is a 83-year-old male with a past medical history significant for atrial fibrillation COPD hypertension hyperlipidemia prostate disorder renal cancer, patient presented to the hospital for evaluation of right upper extremity elbow area pain in this patient who did have a fall CT did shows a soft tissue lesion in August swelling with ultrasound suggestive of fluid collection question of hematoma versus abscess. On today's evaluation that is 12/13/2023, Patient is afebrile patient is currently on room air and denies having any shortness of breath, the patient denies any chest pain or cough, the patient denies any nausea vomiting did not have any abdominal pain and no diarrhea patient denies any pain to the ER or behind the ear area. Patient white count is 13.1, creatinine 0.81 Objective - Vital Signs Vital signs: Vital Signs Temp 97.8 F 12/13/23 07:58 Pulse 71 12/13/23 07:58 Resp 16 12/13/23 07:58 BP 118/69 12/13/23 07:58 Pulse Ox 96 12/13/23 07:58 FiO2 Intake & Output 12/12/23 12/13/23 12/13/23 18:59 06:59 18:59 Intake Total 476 240 118 Output Total 800 1100 Balance -324 -860 118 Weight 82.5 kg Intake: Oral 476 240 118 Output: Urine 800 1100 Other: Voiding Method Bedside Commode Urinal # Bowel Movements 1 - Exam Elderly male up in the chair in no distress No tachypnea or accessory muscle respiration use Unlabored breathing Right upper extremity swelling redness has decreased no open wound no drainage - Labs CBC & Chem 7: 12/13/23 04:51 12/13/23 04:51 Labs: Abnormal Lab Results - Last 24 Hours (Table) 12/13/23 12/13/23 Range/Units 04:51 04:51 WBC 13.1 H (3.8-10.6) k/uL RBC 3.84 L (4.30-5.90) m/uL Hgb 11.1 L (13.0-17.5) gm/dL Hct 33.4 L (39.0-53.0) % Plt Count 591 H (150-450) k/uL Neutrophils # 10.2 H (1.3-7.7) k/uL Sodium 130 L (137-145) mmol/L Glucose 114 H (74-99) mg/dL Assessment and Plan (1) Leukocytosis Status: Acute Code(s): D72.829 - ELEVATED WHITE BLOOD CELL COUNT, UNSPECIFIED SNOMED Code(s): 762343271 (2) Edema of right upper extremity Status: Acute Code(s): R60.0 - LOCALIZED EDEMA SNOMED Code(s): 953803413 Plan: 1patient presenting to the hospital for right elbow pain in this patient who did have a fall about a week before presentation to the hospital patient did have elevated white count admission however that has subsequently trend down without antibiotic therapy patient did have significant swelling to the right upper extremity but no significant redness warmth to be suspicious for cellulitis in this patient who did not have any fever and as mentioned earlier white count seem to be trending down without any antibiotic therapy clinically doubt cellulitis 2-patient did have ultrasound suggestive of fluid collection could be hematoma CT did not show any evidence of drainable fluid collection, 3-patient seem to have shown some clinical improvement with IV Unasyn manage finish therapy with a short course of oral Augmentin on discharge 4daughter raised the question about seeing effusion and mastoiditis on the CT of the left upper extremity which is very unusual to report on a CT of the left upper extremity I did went down to the radiology department to review those images with the radiologist but I was not able to find a radiologist to see the importance of those findings Daughter at the bedside questions answered Dictation was produced using [employer] dictation software. please excuse any grammatical, word or spelling errors. Time with Patient: Less than 30
== END 2023-12-13 18:06 | DRG 644 ==
LOC: EC 10:35 → 3SCARD 13:36 → OBSVTOIN 12-06 09:31 → 3NCARDOBS 12-06 21:14 → 3SCARD 12-06 21:14 → 3NCARDOBS 12-10 08:51 → 3SCARD 12-10 08:51 → 6NMEDSUR 12-13 01:24
PROVIDERS: ADMIT Student in an Organized Health Care Education/Training Program; ATTEND Student in an Organized Health Care Education/Training Program
DX: E22.2 Syndrome of inappropriate secretion of antidiuretic hormone (principal); C64.9 Malignant neoplasm of unspecified kidney, except renal pelvis; I48.21 Permanent atrial fibrillation; S22.42XA Multiple fractures of ribs, left side, initial encounter for closed fracture; L03.113 Cellulitis of right upper limb; Z90.5 Acquired absence of kidney; E78.5 Hyperlipidemia, unspecified; E86.0 Dehydration; E86.1 Hypovolemia; H60.92 Unspecified otitis externa, left ear; H91.90 Unspecified hearing loss, unspecified ear; I08.3 Combined rheumatic disorders of mitral, aortic and tricuspid valves; I10 Essential (primary) hypertension; I25.10 Atherosclerotic heart disease of native coronary artery without angina pectoris; J44.89 Other specified chronic obstructive pulmonary disease; R63.4 Abnormal weight loss; I27.20 Pulmonary hypertension, unspecified; I45.10 Unspecified right bundle-branch block; I95.1 Orthostatic hypotension; Z66 Do not resuscitate; Z68.24 Body mass index [BMI] 24.0-24.9, adult; M19.039 Primary osteoarthritis, unspecified wrist; N40.0 Benign prostatic hyperplasia without lower urinary tract symptoms; R29.6 Repeated falls; S50.01XA Contusion of right elbow, initial encounter; W19.XXXA Unspecified fall, initial encounter; Y92.009 Unspecified place in unspecified non-institutional (private) residence as the place of occurrence of the external cause; Z79.01 Long term (current) use of anticoagulants; Z79.82 Long term (current) use of aspirin; Z87.891 Personal history of nicotine dependence; Z91.81 History of falling; Z90.79 Acquired absence of other genital organ(s); Z28.311 Partially vaccinated for COVID-19
CPT/HCPCS: 36415; 71046; 80048; 80053; 82550; 83735; 83930; 83935; 84295; 84300; 84443; 85025; 93005; 94640; 96361; 96365; 96375; 96376; 99291

== ENCOUNTER 2023-12-24 10:33 | Emergency (ER) | payer MEDICARE ==
--- NOTE | 2023-12-24 10:46 | ED ---
Recheck HPI - General Chief Complaint: Recheck/Abnormal Lab/Rx Stated Complaint: Low Sodium Time Seen by Provider: 12/24/23 10:35 Source: patient, RN notes reviewed Mode of arrival: EMS Limitations: physical limitation - History of Present Illness Initial Comments: This is an 83-year-old male who presents to the emergency department for hyponatremia. Patient had blood work done on 12/19 and followed up with Dr. De Leon today. His sodium was found to be 122 and he was instructed to come to the emergency department for evaluation. Patient denies any complaints at this time aside from a mild headache. Denies any chest pain or shortness of breath. MD Complaint: abnormal lab - Related Data Home Medications Medication Instructions Recorded Confirmed Aspirin 81 mg PO HS@209901/30/14 12/24/23 Finasteride [Proscar] 5 mg PO HS@209901/30/14 12/24/23 dilTIAZem HCL [Diltiazem HCl] 120 mg PO HS@209901/30/14 12/24/23 Fluticasone Propion/Salmeterol 1 puff INHALATION RT-BID@01/02/22 12/24/23 [Advair 500-50 Diskus] Albuterol Inhaler [Ventolin Hfa 2 puff INHALATION RT-QID PRN 04/25/22 12/24/23 Inhaler] Atorvastatin [Lipitor] 20 mg PO HS@209904/25/22 12/24/23 Ferrous Sulfate [Feosol] 325 mg PO BID@04/25/22 12/24/23 Ipratropium-Albuterol Nebulize 3 ml INHALATION RT-QID@,,,12/05/23 12/24/23 [Duoneb 0.5 mg-3 mg/3 ml Soln] Ofloxacin 0.3% Otic Soln [Floxin 5 drops LEFT EAR BID@12/05/23 12/24/23 0.3% Otic Soln] Rivaroxaban [Xarelto] 20 mg PO HS@209912/05/23 12/24/23 guaiFENesin [Mucinex] 600 mg PO BID@12/05/23 12/24/23 predniSONE 5 mg PO DAILY@0912/05/23 12/24/23 Acetaminophen [Tylenol Arthritis] 650 mg PO Q6H PRN 12/24/23 12/24/23 Eszopiclone [Lunesta] 2 mg PO HS 12/24/23 12/24/23 Metoprolol Succinate (ER) [Toprol 75 mg PO BID@,12/24/23 12/24/23 XL] Sennosides/Docusate Sodium [Senna 1 cap PO DAILY@0900 12/24/23 12/24/23 Plus 8.6-50 mg Softgel] Sodium Chloride Tab 1 gm PO BID@,12/24/23 12/24/23 Allergies Allergy/AdvReac Type Severity Reaction Status Date / Time No Known Allergies Allergy Verified 12/24/23 11:43 Review of Systems ROS Statement: Those systems with pertinent positive or pertinent negative responses have been documented in the HPI. ROS Other: All systems not noted in ROS Statement are negative. Past Medical History Past Medical History: Atrial Fibrillation, Coronary Artery Disease (CAD), Cancer, COPD, Eye Disorder, Hearing Disorder / Deafness, Hyperlipidemia, Hypertension, Prostate Disorder, Sleep Apnea/CPAP/BIPAP Additional Past Medical History / Comment(s): BPH, Prescribed C-PAP but does not wear anymore, Inguinal hernia right side, cataracts, Renal CA w nephrostomy in Dec 2021. Pt denies asthma 12/24/23, states chronic bronchitis as the issue. History of Any Multi-Drug Resistant Organisms: None Reported Past Surgical History: Heart Catheterization, Hernia Repair, Orthopedic Surgery Additional Past Surgical History / Comment(s): right elbow surgery-injury, bone spur heel, right shoulder arthroscopy, cardioversion, umbilical hernia repair, colonoscopy, TURP 2016, nephrectomy -rt, broke L wrist around August 2023 Past Anesthesia/Blood Transfusion Reactions: No Reported Reaction Additional Past Anesthesia/Blood Transfusion Reaction / Comment(s): slow wake up Past Psychological History: No Psychological Hx Reported Smoking Status: Former smoker Past Alcohol Use History: Rare Past Drug Use History: None Reported - Past Family History Daughter(s) Family Medical History: Cancer Father Family Medical History: Cancer General Exam Limitations: physical limitation General appearance: alert, in no apparent distress Head exam: Present: atraumatic, normocephalic, normal inspection Respiratory exam: Present: normal lung sounds bilaterally. Absent: respiratory distress, wheezes, rales, rhonchi, stridor Cardiovascular Exam: Present: regular rate, normal rhythm, normal heart sounds. Absent: systolic murmur, diastolic murmur, rubs, gallop, clicks Neurological exam: Present: alert, oriented X3, CN II-XII intact Psychiatric exam: Present: normal affect, normal mood Skin exam: Present: warm, dry, intact, normal color. Absent: rash Course Vital Signs 12/24/23 12/24/23 12/24/23 10:34 11:30 12:00 Temperature 97.7 F Pulse Rate 75 75 74 Respiratory 20 20 21 Rate Blood Pressure 129/79 126/84 138/83 O2 Sat by Pulse 96 96 95 Oximetry 12/24/23 12/24/23 12/24/23 12:30 13:00 13:30 Temperature Pulse Rate 75 79 85 Respiratory 20 18 19 Rate Blood Pressure 137/77 129/80 130/86 O2 Sat by Pulse 97 95 96 Oximetry 12/24/23 12/24/23 12/24/23 14:00 14:30 15:00 Temperature Pulse Rate 86 84 80 Respiratory 19 16 16 Rate Blood Pressure 129/85 121/68 119/67 O2 Sat by Pulse 95 95 97 Oximetry 12/24/23 12/24/23 15:30 16:00 Temperature Pulse Rate 91 87 Respiratory 14 14 Rate Blood Pressure 122/73 134/82 O2 Sat by Pulse 95 98 Oximetry Medical Decision Making - Medical Decision Making This is an 83 year old male who presents to the emergency department for hyponatremia. Was pt. sent in by a medical professional or institution? @ -Dr. De Leon Did you speak to anyone other than the patient for history? @ -No Did you review nursing and triage notes? @ -Yes, and I agree, it is accurate with regards to the patient's symptoms. Were old charts reviewed? @ -No Differential Diagnosis? @ -Medication, renal failure, dehydration, cirrhosis, CHF, thyroid issue, this is not meant to be an all-inclusive list. EKG interpreted by me (3pts min.)? @ -EKG interpreted by me demonstrating the following: Atrial fibrillation. Ventricular rate 70 bpm, QRS duration 167 ms, QTc 453 ms. X-rays interpreted by me (1pt min.)? @ -Not obtained CT interpreted by me (1pt min.)? @ -Not obtained U/S interpreted by me (1pt. min.)? @ -Not obtained What testing was considered but not performed? (CT, X-rays, U/S, labs)? Why? @ -None What meds were considered but not given? Why? @ -None Did you discuss the management of the patient with other professionals? @ -No Did you reconcile home meds? @ -No Was smoking cessation discussed for >3mins.? @ -No Was critical care preformed (if so, how long)? @ -No Were there social determinants of health that impacted care today? How? (Homelessness, low income, unemployed, alcoholism, drug addiction, transportation, low edu. Level, literacy, decrease access to med. care, penitentiary, rehab)? @ -No Was there de-escalation of care discussed even if they declined? (Discuss DNR or withdrawal of care, Hospice)? @ -No What co-morbidities impacted this encounter? (DM, HTN, Smoking, COPD, CAD, Cancer, CVA, Hep., AIDS, mental health diagnosis, sleep apnea, morbid obesity)? @ -Renal failure Was patient admitted / discharged? @ -Discharged. Lab work demonstrates a sodium of 128, which is improved when compared with a few days ago when it was 122. During patient's admission last month, it was determined the hyponatremia was likely a euvolemic hyponatremia. He was given Samsca and started on sodium chloride tabs during that hospi talization. Case discussed with pharmacist, who advised that Samsca can only be ordered by nephrology. Patient was instead given his home sodium chloride tablet. Given that the patient is already at a long-term facility who is able to redraw his labs and he is asymptomatic, it was felt that he can be discharged home. However, family was concerned and ended up calling Dr. De Leon's office themselves. Dr. De Leon called and advised that the patient can be admitted for observation overnight. However, patient and family declined admission at that point and were comfortable with having him go back home because he is already having close follow-up at the senior living. Patient discharged back to senior living via EMS in stable condition with strict return parameters. Case discussed with ED attending, Dr. Galvin. Return precautions reviewed in depth, the patient is instructed to return to the emergency department with any new, worsening, or concerning symptoms. Patient verbalized understanding. Undiagnosed new problem with uncertain prognosis? @ -None Drug Therapy requiring intensive monitoring for toxicity (Heparin, Nitro, Insulin, Cardizem)? @ -None Were any procedures done? @ -None Diagnosis/symptom? @ -Hyponatremia Acute, or Chronic, or Acute on Chronic? @ -Acute Uncomplicated (without systemic symptoms) or Complicated (systemic symptoms)? @ -Uncomplicated Side effects of treatment? @ -None Exacerbation, Progression, or Severe Exacerbation] @ -Not applicable Poses a threat to life or bodily function? @ -Not at this level - Lab Data Result diagrams: 12/24/23 10:46 12/24/23 10:46 Lab Results 12/24/23 12/24/23 12/24/23 Range/Units 10:46 10:46 10:46 WBC 10.9 H (3.8-10.6) k/uL RBC 3.29 L (4.30-5.90) m/uL Hgb 9.3 L D (13.0-17.5) gm/dL Hct 28.5 L (39.0-53.0) % MCV 86.5 (80.0-100.0) fL MCH 28.3 (25.0-35.0) pg MCHC 32.8 (31.0-37.0) g/dL RDW 16.3 H (11.5-15.5) % Plt Count 552 H (150-450) k/uL MPV 7.2 Neutrophils % 79 % Lymphocytes % 8 % Monocytes % 9 % Eosinophils % 2 % Basophils % 0 % Neutrophils # 8.6 H (1.3-7.7) k/uL Lymphocytes # 0.8 L (1.0-4.8) k/uL Monocytes # 1.0 (0-1.0) k/uL Eosinophils # 0.2 (0-0.7) k/uL Basophils # 0.0 (0-0.2) k/uL Anisocytosis Slight Sodium 128 L (137-145) mmol/L Potassium 4.2 (3.5-5.1) mmol/L Chloride 99 (98-107) mmol/L Carbon Dioxide 26 (22-30) mmol/L Anion Gap 3 mmol/L BUN 15 (9-20) mg/dL Creatinine 0.71 (0.66-1.25) mg/dL Est GFR (CKD-EPI)AfAm >90 (>60 ml/min/1.73 sqM) Est GFR (CKD-EPI)NonAf 87 (>60 ml/min/1.73 sqM) Glucose 111 H (74-99) mg/dL Calcium 8.8 (8.4-10.2) mg/dL Magnesium 1.8 (1.6-2.3) mg/dL Total Bilirubin 0.9 (0.2-1.3) mg/dL AST 29 (17-59) U/L ALT 22 (4-49) U/L Alkaline Phosphatase 178 H (38-126) U/L Total Protein 5.6 L (6.3-8.2) g/dL Albumin 2.9 L (3.5-5.0) g/dL Urine Color Colorless Urine Appearance Clear (Clear) Urine pH 7.0 (5.0-8.0) Ur Specific [place] 1.008 (1.001-1.035) Urine Protein Trace H (Negative) Urine Glucose (UA) Negative (Negative) Urine Ketones Negative (Negative) Urine Blood Trace H (Negative) Urine Nitrite Negative (Negative) Urine Bilirubin Negative (Negative) Urine Urobilinogen <2.0 (<2.0) mg/dL Ur Leukocyte Esterase Negative (Negative) Urine RBC 2 (0-5) /hpf Urine WBC 1 (0-5) /hpf Ur Squamous Epith Cells <1 (0-4) /hpf Disposition Clinical Impression: Hyponatremia Disposition: HOME SELF-CARE Instructions (If sedation given, give patient instructions): Hyponatremia (ED) Additional Instructions: Return to the emergency department with any new, worsening, or concerning symptoms. Follow up with your primary care provider in 1-2 days. Is patient prescribed a controlled substance at d/c from ED?: No Referrals: Ben Liz MD [Primary Care Provider] - 1-2 days Time of Disposition: 14:16
[2023-12-24 10:57] VITALS: TEMP 97.7
[2023-12-24 11:03] LABS: Anisocytosis Slight; Basophils % (A) 0 %; Eosinophils # (A) 0.2 k/uL (0-0.7); Eosinophils % (A) 2 %; HCT 28.5 % (39.0-53.0); Lymphocytes # (A) 0.8 k/uL (1.0-4.8); Lymphocytes % (A) 8 %; MCH 28.3 pg (25.0-35.0); MCHC 32.8 g/dL (31.0-37.0); MCV 86.5 fL (80.0-100.0); Mean Platelet Volume 7.2; Monocytes % (A) 9 %; Neutrophils # (A) 8.6 k/uL (1.3-7.7); Neutrophils % (A) 79 %; Platelet Count 552 k/uL (150-450); RBC 3.29 m/uL (4.30-5.90); RDW 16.3 % (11.5-15.5); WBC 10.9 k/uL (3.8-10.6)
[2023-12-24 11:04] LABS: HGB 9.3 gm/dL (13.0-17.5)
[2023-12-24 11:19] LABS: ALT 22 U/L (4-49); AST 29 U/L (17-59); African American GFR (CKD) >90 (>60 ml/min/1.73 sqM); Albumin 2.9 g/dL (3.5-5.0); Alkaline Phosphatase 178 U/L (38-126); Anion Gap 3 mmol/L; Blood Urea Nitrogen 15 mg/dL (9-20); Calcium 8.8 mg/dL (8.4-10.2); Carbon Dioxide 26 mmol/L (22-30); Chloride 99 mmol/L (98-107); Glucose 111 mg/dL (74-99); Magnesium 1.8 mg/dL (1.6-2.3); Non-African American GFR(CKD) 87 (>60 ml/min/1.73 sqM); Potassium 4.2 mmol/L (3.5-5.1); Sodium 128 mmol/L (137-145); Total Bilirubin 0.9 mg/dL (0.2-1.3); Total Protein 5.6 g/dL (6.3-8.2)
[2023-12-24 12:33] LABS: Appearance,Urine Clear (Clear); Bilirubin,Urine Negative (Negative); Blood,Urine Trace (Negative); Color,Urine Colorless; Glucose,Urine (UA) Negative (Negative); Ketones,Urine Negative (Negative); Leukocyte Esterase,Urine Negative (Negative); Nitrite,Urine Negative (Negative); Protein,Urine Trace (Negative); RBC,Urine 2 /hpf (0-5); Specific Gravity,Urine 1.008 (1.001-1.035); Squamous Epithelial Cell,Urine <1 /hpf (0-4); Urobilinogen,Urine <2.0 mg/dL (<2.0); WBC,Urine 1 /hpf (0-5)
[2023-12-24] MEDS: SODIUM CHLORIDE TAB 1 GM TAB PO ONE (14:28)
[2023-12-24] MEDS: TOLVAPTAN 15 MG TABLET PO ONE ×2 (14:35)
[2023-12-24 16:44] VITALS: BP 134/82; PULSE 87; RESP 14
[2023-12-27 10:24] LABS: Phosphorus 3.3 (2.4-5.1)
== END 2023-12-24 16:30 | disposition home or self-care (01) ==
LOC: EC 10:33
DX: E87.1 Hypo-osmolality and hyponatremia (principal); Z87.891 Personal history of nicotine dependence; Z87.448 Personal history of other diseases of urinary system
CPT/HCPCS: 36415; 80053; 81001; 83735; 83930; 83935; 84100; 85025; 93005; 99284

== ENCOUNTER → 2023-12-30 | Outpatient (CLI) | payer MEDICARE ==
--- NOTE | 2023-12-30 12:22 | FL ---
EXAMINATION TYPE: FL barium swallow w video DATE OF EXAM: 12/30/2023 12:18 PM COMPARISON: None. CLINICAL INDICATION: Male, 83 years old with history of R13.10 DYSPHAGIA, UNSPECIFIED; A number of thin and thick substances were ingested under the care of the department of speech pathol ogy. There is penetration with thin barium. There is no evidence of aspiration. There is no evidence of obstruction. DAP are not provided. IMPRESSION: 1. No evidence of titration within barium. [facility], , 12/30/2023 12:20 PM
== END | disposition home or self-care (01) ==
LOC: RADFLMAIN 11:01
PROVIDERS: ATTEND Family Medicine
DX: R13.10 Dysphagia, unspecified (principal)
CPT/HCPCS: 74230

== ENCOUNTER → 2024-01-05 | Outpatient (CLI) | payer MEDICARE ==
[2024-01-05 13:00] LABS: African American GFR (CKD) >90 (>60 ml/min/1.73 sqM); Blood Urea Nitrogen 23 mg/dL (9-20); Non-African American GFR(CKD) 84 (>60 ml/min/1.73 sqM)
--- NOTE | 2024-01-05 13:55 | CT ---
EXAMINATION TYPE: CT abdomen w con CT DLP: 642.6 mGycm, Automated exposure control for dose reduction was used. DATE OF EXAM: 01/05/2024 1:30 PM COMPARISON: Head CT 08/08/2022, CT abdomen pelvis 02/06/2022, MR abdomen 11/21/2021 CLINICAL INDICATION:Male, 83 years old with history of RENAL CA- RIGHT C64.1; f/u renal ca TECHNIQUE: Standard CT of the abdomen following the administration of 100 cc of Isovue 300 IV contr ast material and oral contrast. Coronal and sagittal reformats were performed. FINDINGS: LOWER CHEST: Bilateral lower lobe linear atelectasis and/or scarring. Cardiomegaly with dilated right ventricle and right atrium. ABDOMEN LIVER: Unremarkable GALLBLADDER AND BILE DUCTS: Unremarkable. PANCREAS: Unremarkable. SPLEEN: Scattered calcified granulomas. ADRENAL GLANDS: Unremarkable. KIDNEYS AND URETERS: Right kidney surgically absent. No suspicious soft tissue within the surgical be d. No evidence of hydronephrosis or renal calculus of the left kidney. Contrast demonstrated within the left renal collecting system on the delayed phase. STOMACH AND BOWEL: Stomach and duodenum are unremarkable. Enteric contrast reaches the mid small sonia l . No focal bowel wall thickening or surrounding inflammatory changes identified. No evidence of bow el obstruction. PERITONEUM/Retroperitoneum: No evidence of pneumoperitoneum or free fluid. Paracaval surgical clips i dentified from lymph node dissection. VASCULATURE: Moderate atherosclerotic calcifications are present throughout the abdominal aorta and i ts branches. No evidence of aortic aneurysm. Dilated hepatic IVC with prominent hepatic veins. MUSCULOSKELETAL: No acute osseous abnormalities. No aggressive osseous lesion. Multilevel degenerativ e disc disease. LYMPH NODES: No evidence for lymphadenopathy. SOFT TISSUE/ABDOMINAL WALL: Unremarkable IMPRESSION: 1. Postsurgical changes from right nephrectomy redemonstrated. No evidence for recurrence or metastat ic disease. 2. Findings of right heart dysfunction with cardiomegaly including dilated right atrium and right tammy tricle. Dilated intrahepatic IVC and hepatic veins. [facility], , 01/05/2024 1:53 PM
== END | disposition home or self-care (01) ==
LOC: RADCTMAIN 11:55
PROVIDERS: ATTEND Urology
DX: C64.1 Malignant neoplasm of right kidney, except renal pelvis (principal); I51.7 Cardiomegaly; Z90.5 Acquired absence of kidney
CPT/HCPCS: 82565; 84520; 74160; 36415; Q9967

== ENCOUNTER → 2024-01-14 | Outpatient (CLI) | payer MEDICARE ==
[2024-01-14 15:24] LABS: Basophils # (A) 0.03 X 10*3/uL (0.00-0.10); Basophils % (A) 0.3 %; Eosinophils # (A) 0.19 X 10*3/uL (0.04-0.35); Eosinophils % (A) 1.9 %; HGB 8.3 g/dL (13.0-17.0); Lymphocytes # (A) 1.01 X 10*3/uL (0.90-5.00); Lymphocytes % (A) 10.3 %; MCH 28.3 pg (27.0-32.0); MCHC 30.7 g/dL (32.0-37.0); MCV 92.2 FL (80.0-97.0); Monocytes # (A) 1.39 X 10*3/uL (0.20-1.00); Monocytes % (A) 14.2 %; NRBC Per 100 WBC 0 X 10*3/uL (0.00-0.01); Neutrophils # (A) 7.08 X 10*3/uL (1.80-7.70); Neutrophils % (A) 72.6 %; Platelet Count 479 X 10*3/uL (140-440); RBC 2.93 X 10*6/uL (4.40-5.60); RDW 16.8 % (11.5-14.5); WBC 9.77 X 10*3/uL (4.50-10.00)
[2024-01-14 15:29] LABS: ALT 12 U/L (10-49); AST 21 U/L (14-35); Alkaline Phosphatase 145 U/L (41-126); BUN/Creat Ratio 20.11 Ratio (12.00-20.00); Blood Urea Nitrogen 18.1 mg/dL (9.0-27.0); Calcium 8.6 mg/dL (8.7-10.3); Carbon Dioxide 23.5 mmol/L (21.6-31.8); Chloride 100 mmol/L (96-109); Globulin 2.3 g/dL (1.6-3.3); Glucose 102 mg/dL (70-110); Potassium 4.2 mmol/L (3.5-5.5); Sodium 134 mmol/L (135-145); Total Bilirubin 0.6 mg/dL (0.3-1.2); Total Protein 5.3 g/dL (6.2-8.2)
[2024-01-14 16:39] LABS: NT-Pro-B-Type Natriuretic Pept 2318 pg/mL (0-450)
== END | disposition home or self-care (01) ==
LOC: LABWHC1 09:38
PROVIDERS: ATTEND Internal Medicine
DX: I50.9 Heart failure, unspecified (principal); R05.8 Other specified cough
CPT/HCPCS: 36415; 80053; 83880; 85025

== ENCOUNTER → 2024-01-28 | Outpatient (CLI) | payer MEDICARE ==
[2024-01-28 15:48] LABS: Basophils # (A) 0.04 X 10*3/uL (0.00-0.10); Basophils % (A) 0.4 %; Eosinophils # (A) 0.14 X 10*3/uL (0.04-0.35); Eosinophils % (A) 1.4 %; HCT 32.6 % (39.6-50.0); HGB 9.8 g/dL (13.0-17.0); Lymphocytes # (A) 0.98 X 10*3/uL (0.90-5.00); MCH 26.9 pg (27.0-32.0); MCHC 30.1 g/dL (32.0-37.0); MCV 89.6 FL (80.0-97.0); Mean Platelet Volume 8.8 FL (9.5-12.2); Monocytes # (A) 1.16 X 10*3/uL (0.20-1.00); Monocytes % (A) 11.9 %; NRBC Per 100 WBC 0 X 10*3/uL (0.00-0.01); Neutrophils # (A) 7.39 X 10*3/uL (1.80-7.70); Neutrophils % (A) 75.8 %; Platelet Count 476 X 10*3/uL (140-440); RBC 3.64 X 10*6/uL (4.40-5.60); RDW 16.7 % (11.5-14.5); WBC 9.76 X 10*3/uL (4.50-10.00)
[2024-01-28 16:00] LABS: % Iron Saturation 6.81 (15.00-50.00); ALT 12 U/L (10-49); AST 24 U/L (14-35); Albumin 3.3 g/dL (3.8-4.9); Albumin/Globulin Ratio 1.18 Ratio (1.60-3.17); Alkaline Phosphatase 176 U/L (41-126); BUN/Creat Ratio 21.88 Ratio (12.00-20.00); Blood Urea Nitrogen 17.5 mg/dL (9.0-27.0); Calcium 9.2 mg/dL (8.7-10.3); Chloride 103 mmol/L (96-109); Ferritin 75.7 ng/mL (22.0-322.0); Globulin 2.8 g/dL (1.6-3.3); Glucose 97 mg/dL (70-110); Iron 25 UG/DL (65-175); Magnesium 1.8 mg/dL (1.5-2.4); Potassium 4.2 mmol/L (3.5-5.5); Sodium 139 mmol/L (135-145); Total Bilirubin 0.8 mg/dL (0.3-1.2); Total Iron Binding Capacity 367 UG/DL (228-460); Total Protein 6.1 g/dL (6.2-8.2)
== END | disposition home or self-care (01) ==
LOC: LABWHC1 09:12
PROVIDERS: ATTEND Internal Medicine
DX: D50.9 Iron deficiency anemia, unspecified (principal); I11.0 Hypertensive heart disease with heart failure; I50.9 Heart failure, unspecified
CPT/HCPCS: 36415; 80053; 82607; 82728; 82746; 83540; 83550; 83735; 85025

== ENCOUNTER → 2024-02-04 | Outpatient (CLI) | payer MEDICARE ==
[~2024-02-04] MED LIST changes: -HEPARIN SODIUM,PORCINE/PF 5,000 UNIT/0.5 ML SYRINGE SQ PRN; +SODIUM CHLORIDE 0.9% 250 ML in EMPTY BAG 1 BAG IV PRN
[2024-02-04 11:21] VITALS: BP 108/70; PULSE 85; RESP 16; TEMP 97.4
[2024-02-04] MEDS: SODIUM CHLORIDE 0.9% 500 ML 500 ML in EMPTY BAG 1 BAG IV PRN (11:27)
== END ==
LOC: PROCWHC3 11:04
PROVIDERS: ATTEND Internal Medicine
DX: D50.9 Iron deficiency anemia, unspecified (principal)
CPT/HCPCS: 96365; Q0138

== ENCOUNTER → 2024-02-08 | Outpatient (CLI) | payer MEDICARE ==
--- NOTE | 2024-02-08 10:01 | US ---
EXAMINATION TYPE: US abdomen complete DATE OF EXAM: 02/08/2024 COMPARISON: CT CLINICAL INDICATION: Male, 83 years old with history of R74.8 ELEVATED ALKALINE PHOSPHATASE D50.9 IRO N DEF; Abnormal labs TECHNIQUE: Grayscale and color Doppler imaging of the abdomen was performed. FINDINGS: EXAM MEASUREMENTS: Liver Length: 15.8 cm Gallbladder Wall: 0.3 cm CBD: 0.3 cm, color Doppler imaging was utilized to isolate the common bile duct for measurement. Spleen: 10.4 cm Right Kidney: Surgically absent Left Kidney: 13.3 x 6.6 x 5.4 cm BEVERAGE SPECIALIST NOTES: Pancreas: wnl, tail obscured by overlying bowel gas Liver: Heterogeneous Gallbladder: Lumen clear, wall thickness upper limits of normal Evidence for sonographic Hamilton's sign: No CBD: wnl Spleen: Specular reflections scattered throughout spleen Right Kidney: Surgically absent Left Kidney: No evidence of hydro, small cystic lesion upper pole= 1.1 x 0.9 x 0.8 cm Upper IVC: Appeared dilated as also visualized on CT Abd Aorta: Distal portion gassed out, prox and mid appeared wnl Incidental finding right pleural effusion IMPRESSION: 1. Nonspecific pattern of liver can be seen with hepatocellular disease or hepatic steatosis. 2. Small right pleural effusion 3. Splenic granuloma [facility], , 02/08/2024 9:59 AM
== END | disposition home or self-care (01) ==
LOC: RADUSWWP 07:33
PROVIDERS: ATTEND Internal Medicine
DX: R74.8 Abnormal levels of other serum enzymes (principal); D50.9 Iron deficiency anemia, unspecified; J90 Pleural effusion, not elsewhere classified; K76.89 Other specified diseases of liver; D73.89 Other diseases of spleen
CPT/HCPCS: 76700

== ENCOUNTER → 2024-03-08 | Outpatient (CLI) | payer MEDICARE ==
[2024-03-08 17:08] LABS: Basophils # (A) 0 X 10*3/uL (0.00-0.10); Basophils % (A) 0 %; Eosinophils # (A) 0 X 10*3/uL (0.04-0.35); Eosinophils % (A) 0 %; HCT 30.8 % (39.6-50.0); Lymphocytes # (A) 0.41 X 10*3/uL (0.90-5.00); Lymphocytes % (A) 6.7 %; MCH 26.2 pg (27.0-32.0); MCHC 29.2 g/dL (32.0-37.0); MCV 89.8 FL (80.0-97.0); Mean Platelet Volume 8.8 FL (9.5-12.2); Monocytes # (A) 0.54 X 10*3/uL (0.20-1.00); Monocytes % (A) 8.9 %; NRBC Per 100 WBC 0 X 10*3/uL (0.00-0.01); Neutrophils # (A) 5.09 X 10*3/uL (1.80-7.70); Neutrophils % (A) 83.7 %; Platelet Count 668 X 10*3/uL (140-440); RBC 3.43 X 10*6/uL (4.40-5.60); RDW 16.8 % (11.5-14.5); WBC 6.08 X 10*3/uL (4.50-10.00)
[2024-03-08 20:07] LABS: % Iron Saturation 4.39 (15.00-50.00); Ferritin 73.1 ng/mL (22.0-322.0)
== END | disposition home or self-care (01) ==
LOC: LABWHC1 10:22
PROVIDERS: ATTEND Internal Medicine
DX: D50.9 Iron deficiency anemia, unspecified (principal)
CPT/HCPCS: 36415; 82728; 83540; 83550; 85025

== ENCOUNTER → 2024-03-10 | Outpatient (CLI) | payer MEDICARE ==
[2024-03-10 08:43] VITALS: BP 116/73; PULSE 109; RESP 15; TEMP 97.3
[2024-03-10] MEDS: SODIUM CHLORIDE 0.9% 500 ML 500 ML in EMPTY BAG 1 BAG IV PRN (08:46)
== END ==
LOC: PROCWHC3 08:28
PROVIDERS: ATTEND Internal Medicine
DX: D50.9 Iron deficiency anemia, unspecified (principal)
CPT/HCPCS: 96365; Q0138

== ENCOUNTER 2024-05-06 10:10 | Emergency (ER) | payer MEDICARE ==
[2024-05-06 10:20] VITALS: TEMP 97.7
--- NOTE | 2024-05-06 10:42 | ED ---
General Adult HPI - General Chief complaint: Neuro Symptoms/Deficit Stated complaint: R eye and face drooping Time Seen by Provider: 05/06/24 10:21 Source: patient, family Mode of arrival: wheelchair Limitations: no limitations - History of Present Illness Initial comments: Dictation was produced using [employer] dictation software. please excuse any grammatical, word or spelling errors. Chief Complaint: 83-year-old male with right facial droop along with conjunctival hemorrhage History of Present Illness: Patient is 83-year-old male 3 days ago patient began having symptoms of right facial droop along with right conjunctival hemorrhage. Family called primary care doctor yesterday and was encouraged to come to the ER however his late yesterday they decided to wait till this morning. Patient is hard of hearing limiting history of present illness. Patient denies any extremity issues. States that he does have an occipital headache. Denies that the headache is severe. The ROS documented in this emergency department record has been reviewed and confirmed by me. Those systems with pertinent positive or negative responses have been documented in the HPI. All other systems are other negative and/or noncontributory. - Related Data Home Medications Medication Instructions Recorded Confirmed Aspirin 81 mg PO HS 01/30/14 03/25/24 Finasteride [Proscar] 5 mg PO HS 01/30/14 03/25/24 Fluticasone Propion/Salmeterol 1 puff INHALATION RT-BID 01/02/22 03/25/24 [Advair 500-50 Diskus] Albuterol Inhaler [Ventolin Hfa 2 puff INHALATION RT-QID PRN 04/25/22 03/25/24 Inhaler] Atorvastatin [Lipitor] 20 mg PO HS 04/25/22 03/25/24 Ferrous Sulfate [Feosol] 325 mg PO BID 04/25/22 03/25/24 Ipratropium-Albuterol Nebulize 3 ml INHALATION RT-QID 12/05/23 03/25/24 [Duoneb 0.5 mg-3 mg/3 ml Soln] guaiFENesin [Mucinex] 600 mg PO Q12H 12/05/23 03/25/24 Acetaminophen [Tylenol Arthritis] 650 mg PO Q6H PRN 12/24/23 03/25/24 Sennosides/Docusate Sodium [Senna 1 cap PO DAILY 12/24/23 03/25/24 Plus 8.6-50 mg Softgel] Sodium Chloride Tab 1 gm PO BID 12/24/23 03/25/24 Furosemide [Lasix] 20 mg PO MOWEFR 03/25/24 03/26/24 Previous Rx's Medication Instructions Recorded Cefdinir [Omnicef] 300 mg PO Q12HR #8 capsule 04/04/24 Metoprolol Tartrate [Lopressor] 25 mg PO Q12HR tab 04/04/24 Pantoprazole [Protonix] 40 mg PO DAILY #30 tab 04/04/24 Rivaroxaban [Xarelto] 15 mg PO HS tab 04/04/24 Allergies Allergy/AdvReac Type Severity Reaction Status Date / Time No Known Allergies Allergy Verified 03/25/24 19:32 Review of Systems ROS Statement: Those systems with pertinent positive or pertinent negative responses have been documented in the HPI. ROS Other: All systems not noted in ROS Statement are negative. Past Medical History Past Medical History: Atrial Fibrillation, Coronary Artery Disease (CAD), Cancer, COPD, Eye Disorder, Hearing Disorder / Deafness, Hyperlipidemia, Hypertension, Prostate Disorder, Sleep Apnea/CPAP/BIPAP Additional Past Medical History / Comment(s): BPH, Prescribed C-PAP but does not wear anymore, Inguinal hernia right side, cataracts, Renal CA w nephrostomy in Dec 2021. Pt denies asthma 12/24/23, states chronic bronchitis as the issue. Hyponatremia History of Any Multi-Drug Resistant Organisms: None Reported Past Surgical History: Heart Catheterization, Hernia Repair, Orthopedic Surgery Additional Past Surgical History / Comment(s): right elbow surgery-injury, bone spur heel, right shoulder arthroscopy, cardioversion, umbilical hernia repair, colonoscopy, TURP 2016, nephrectomy -rt, broke L wrist around August 2023. FLUID REMOVED FROM LEFT EAR AND TUBE PLACED. Past Anesthesia/Blood Transfusion Reactions: No Reported Reaction Additional Past Anesthesia/Blood Transfusion Reaction / Comment(s): slow wake up Past Psychological History: No Psychological Hx Reported Smoking Status: Former smoker - Past Family History Daughter(s) Family Medical History: Cancer Father Family Medical History: Cancer General Exam - General Exam Comments Initial Comments: PHYSICAL EXAM: General Impression: Alert and oriented x3, not in acute distress HEENT: Normocephalic atraumatic, extra-ocular movements intact, pupils equal and reactive to light bilaterally, mucous membranes moist. Ocular: Subconjunctival hemorrhage to the right eye, mild ptosis Cardiovascular: Heart regular rate and rhythm Chest: Able to complete full sentences, no retractions, no tachypnea Abdomen: abdomen soft, non-tender, non-distended, no organomegaly Musculoskeletal: Pulses present and equal in all extremities, no peripheral edema Motor: no focal deficits noted Neurological: Right lower facial droop, no focal motor or sensory deficits noted Skin: Intact with no visualized rashes Psych: Normal affect and mood Limitations: no limitations Course Vital Signs 05/06/24 05/06/24 05/06/24 10:16 10:28 11:45 Temperature 97.7 F Pulse Rate 103 H 109 H 93 Respiratory 20 18 16 Rate Blood Pressure 102/68 112/73 112/80 O2 Sat by Pulse 95 97 98 Oximetry Medical Decision Making - Medical Decision Making Was pt. sent in by a medical professional or institution (, PA, CONFIGURATION MANAGEMENT MANAGER, urgent care, hospital, or [facility]...) When possible be specific @ -[No] Did you speak to anyone other than the patient for history (EMS, parent, family, police, friend...)? What history was obtained from this source @ -See above Did you review nursing and triage notes (agree or disagree)? Why? @ -[I reviewed and agree with nursing and triage notes] Were old charts reviewed (outside hosp., previous admission, EMS record, old EKG, old radiological studies, urgent care reports/EKG's, [facility] records)? Report findings @ -[No old charts were reviewed] Differential Diagnosis (chest pain, altered mental status, abdominal pain women, abdominal pain men, vaginal bleeding, musculoskeletal, weakness, fever, dyspnea, syncope, headache, dizziness, GI bleed, back pain, seizure, CVA, palpatations, mental health)? @ - Differential CVA: Ischemic stroke, hemorrhagic stroke, brain tumor, atypical migraine, Wernicke's encephalopathy, seizure, multiple sclerosis, meningitis, encephalitis, hypoglycemia, Guillain-Cochran, electrolytes disturbance, myasthenia gravis.... This is not meant to be an all-inclusive list EKG interpreted by me (3pts min.). @ -My EKG interpretation: Ventricular rate 104, A-fib, QRS 165, QTc 454, right bundle branch block. No WI prolongation, no QTC prolongation, no ST or T-wave changes noted. Overall, this EKG is unremarkable X-rays interpreted by me (1pt min.). @ -Chest x-ray is nonacute CT interpreted by me (1pt min.). @ -CT brain shows no bleed. CT angiography shows no large vessel occlusion. CTA shows no acute processes U/S interpreted by me (1pt. min.). @ -[None done] What testing was considered but not performed or refused? (CT, X-rays, U/S, labs)? Why? @ -[None] What meds were considered but not given or refused? Why? @ -[None] Was smoking cessation discussed for >3mins.? @ -[No] Were there social determinants of health that impacted care today? How? (Homelessness, low income, unemployed, alcoholism, drug addiction, transportation, low edu. Level, literacy, decrease access to med. care, longterm, rehab)? @ -[No] Was there de-escalation of care discussed even if they declined (Discuss DNR or withdrawal of care, Hospice)? DNR status @ -[No] What co-morbidities impacted this encounter? (DM, HTN, Smoking, COPD, CAD, Cancer, CVA, ARF, Chemo, Hep., AIDS, mental health diagnosis, sleep apnea, morbid obesity)? @ -A-fib, anticoagulation use Was patient admitted / discharged? Hospital course, mention meds given and route, prescriptions, significant lab abnormalities, going to OR and other pertinent info. @ -83-year-old male with right subconjunctival hemorrhage along with isolated right facial droop. Rest of neurologic exam is unremarkable. Vital signs upon arrival are within acceptable limits. Laboratory evaluation obtained. Labs are within acceptable limits. I do not suspect that subconjunctival hemorrhage and facial droop are related. Patient given aspirin will be admitted for CVA. Did you discuss the management of the patient with other professionals (professionals i.e. , PA, CONFIGURATION MANAGEMENT MANAGER, lab, RT, psych nurse, social worker palliative care, print color matcher, teacher, infantry officer, shoe parts caser)? Give summary @ -[No] Was critical care preformed (if so, how long)? @ -[No] Undiagnosed new problem with uncertain prognosis? @ -[No] Drug Therapy requiring intensive monitoring for toxicity (Heparin, Nitro, Insulin, Cardizem)? @ -[No] Were any procedures done? @ -[No] Diagnosis/symptom? Acute, or Chronic, or Acute on Chronic? Uncomplicated (without systemic symptoms) or Complicated (systemic symptoms)? @ -Subconjunctival hemorrhage, CVA Side effects of treatment? @ -[No] Exacerbation, Progression, or Severe Exacerbation? @ -[No] Poses a threat to life or bodily function? How? (Chest pain, USA, DC, pneumonia, PE, COPD, DKA, ARF, appy, cholecystitis, CVA, Diverticulitis, Homicidal, Suicidal, threat to staff... and all critical care pts) @ -Yes - Lab Data Result diagrams: 05/06/24 10:41 05/06/24 10:41 Lab Results 05/06/24 05/06/24 05/06/24 Range/Units 10:41 10:41 10:41 WBC 10.5 (3.8-10.6) k/uL RBC 4.35 (4.30-5.90) m/uL Hgb 11.4 L (13.0-17.5) gm/dL Hct 37.3 L (39.0-53.0) % MCV 85.7 (80.0-100.0) fL MCH 26.2 (25.0-35.0) pg MCHC 30.6 L (31.0-37.0) g/dL RDW 17.9 H (11.5-15.5) % Plt Count 339 (150-450) k/uL MPV 7.3 Neutrophils % 79 % Lymphocytes % 11 % Monocytes % 7 % Eosinophils % 2 % Basophils % 0 % Neutrophils # 8.2 H (1.3-7.7) k/uL Lymphocytes # 1.1 (1.0-4.8) k/uL Monocytes # 0.7 (0-1.0) k/uL Eosinophils # 0.2 (0-0.7) k/uL Basophils # 0.0 (0-0.2) k/uL Hypochromasia Moderate Anisocytosis Slight PT 13.8 H (10.0-12.5) sec INR 1.3 H (<1.2) APTT 33.2 H (22.0-30.0) sec Sodium 136 L (137-145) mmol/L Potassium 4.6 (3.5-5.1) mmol/L Chloride 102 (98-107) mmol/L Carbon Dioxide 26 (22-30) mmol/L Anion Gap 8 mmol/L BUN 15 (9-20) mg/dL Creatinine 0.80 (0.66-1.25) mg/dL Est GFR (CKD-EPI)AfAm >90 (>60 ml/min/1.73 sqM) Est GFR (CKD-EPI)NonAf 83 (>60 ml/min/1.73 sqM) Glucose 93 (74-99) mg/dL Calcium 8.9 (8.4-10.2) mg/dL Total Bilirubin 1.1 (0.2-1.3) mg/dL AST 35 (17-59) U/L ALT 17 (4-49) U/L Alkaline Phosphatase 175 H (38-126) U/L Creatine Kinase 24 L (55-170) U/L Troponin I (0.000-0.034) ng/mL Total Protein 6.2 L (6.3-8.2) g/dL Albumin 3.0 L (3.5-5.0) g/dL 05/06/24 Range/Units 10:41 WBC (3.8-10.6) k/uL RBC (4.30-5.90) m/uL Hgb (13.0-17.5) gm/dL Hct (39.0-53.0) % MCV (80.0-100.0) fL MCH (25.0-35.0) pg MCHC (31.0-37.0) g/dL RDW (11.5-15.5) % Plt Count (150-450) k/uL MPV Neutrophils % % Lymphocytes % % Monocytes % % Eosinophils % % Basophils % % Neutrophils # (1.3-7.7) k/uL Lymphocytes # (1.0-4.8) k/uL Monocytes # (0-1.0) k/uL Eosinophils # (0-0.7) k/uL Basophils # (0-0.2) k/uL Hypochromasia Anisocytosis PT (10.0-12.5) sec INR (<1.2) APTT (22.0-30.0) sec Sodium (137-145) mmol/L Potassium (3.5-5.1) mmol/L Chloride (98-107) mmol/L Carbon Dioxide (22-30) mmol/L Anion Gap mmol/L BUN (9-20) mg/dL Creatinine (0.66-1.25) mg/dL Est GFR (CKD-EPI)AfAm (>60 ml/min/1.73 sqM) Est GFR (CKD-EPI)NonAf (>60 ml/min/1.73 sqM) Glucose (74-99) mg/dL Calcium (8.4-10.2) mg/dL Total Bilirubin (0.2-1.3) mg/dL AST (17-59) U/L ALT (4-49) U/L Alkaline Phosphatase (38-126) U/L Creatine Kinase (55-170) U/L Troponin I 0.022 (0.000-0.034) ng/mL Total Protein (6.3-8.2) g/dL Albumin (3.5-5.0) g/dL Disposition Clinical Impression: Cerebrovascular accident (CVA), Subconjunctival hemorrhage Disposition: ADMITTED IP TO THIS [facility] Condition: Fair Referrals: Varun Henson DO [Primary Care Provider] - 1-2 days Decision Time: 12:27
[2024-05-06 10:55] LABS: Anisocytosis Slight; Basophils % (A) 0 %; Eosinophils # (A) 0.2 k/uL (0-0.7); Eosinophils % (A) 2 %; HCT 37.3 % (39.0-53.0); HGB 11.4 gm/dL (13.0-17.5); Hypochromasia Moderate; Lymphocytes # (A) 1.1 k/uL (1.0-4.8); Lymphocytes % (A) 11 %; MCH 26.2 pg (25.0-35.0); MCHC 30.6 g/dL (31.0-37.0); MCV 85.7 fL (80.0-100.0); Mean Platelet Volume 7.3; Monocytes # (A) 0.7 k/uL (0-1.0); Monocytes % (A) 7 %; Neutrophils # (A) 8.2 k/uL (1.3-7.7); Neutrophils % (A) 79 %; Platelet Count 339 k/uL (150-450); RBC 4.35 m/uL (4.30-5.90); RDW 17.9 % (11.5-15.5); WBC 10.5 k/uL (3.8-10.6)
[2024-05-06 10:56] LABS: INR 1.3 (<1.2); Partial Thromboplastin Time 33.2 sec (22.0-30.0); Prothrombin Time 13.8 sec (10.0-12.5)
[2024-05-06 11:02] LABS: ALT 17 U/L (4-49); African American GFR (CKD) >90 (>60 ml/min/1.73 sqM); Anion Gap 8 mmol/L; Blood Urea Nitrogen 15 mg/dL (9-20); Calcium 8.9 mg/dL (8.4-10.2); Carbon Dioxide 26 mmol/L (22-30); Chloride 102 mmol/L (98-107); Creatine Kinase 24 U/L (55-170); Glucose 93 mg/dL (74-99); Non-African American GFR(CKD) 83 (>60 ml/min/1.73 sqM); Sodium 136 mmol/L (137-145); Total Bilirubin 1.1 mg/dL (0.2-1.3); Total Protein 6.2 g/dL (6.3-8.2)
[2024-05-06 11:03] LABS: AST 35 U/L (17-59); Potassium 4.6 mmol/L (3.5-5.1)
[2024-05-06 11:04] LABS: Alkaline Phosphatase 175 U/L (38-126)
--- NOTE | 2024-05-06 11:34 | XR ---
EXAMINATION TYPE: XR chest 2V DATE OF EXAM: 05/06/2024 11:29 AM COMPARISON: Chest radiographs from 04/03/2024 TECHNIQUE: XR chest 2V Frontal and lateral views of the chest. CLINICAL INDICATION:Male, 83 years old with history of altered mental status; FINDINGS: Lungs/Pleura: Blunting of the right costophrenic angle with right basilar patchy airspace opacities l ikely representing atelectasis. No pneumothorax. Pulmonary vascularity: Pulmonary vascular congestion. Heart/mediastinum: Cardiomediastinal silhouette is enlarged and stable. Atherosclerotic calcificatio ns are seen in the aorta. Musculoskeletal: Multiple level degenerative disc disease changes seen throughout the spine. IMPRESSION: Cardiomegaly, pulmonary vascular congestion and trace right pleural effusions. Correlate with BNP for congestive heart failure. [facility], , 05/06/2024 11:31 AM
--- NOTE | 2024-05-06 11:46 | CT ---
EXAMINATION TYPE: CT brain wo con, CT facial bones wo con CT DLP: combined 1182.7 mGycm, Automated exposure control for dose reduction was used. DATE OF EXAM: 05/06/2024 11:33 AM COMPARISON: CT brain 04/01/2024. CLINICAL INDICATION:Male, 83 years old with history of Neuro deficit, acute, stroke suspected; Right conjunctival hematoma, tight facial droop x 3 days. TECHNIQUE: Brain: Multiple axial CT images of the brain were obtained without IV contrast. Facial bones; axial CT images of the facial bones were obtained without contrast and soft tissue and bone windows. Coronal and sagittal reformatted images were also reviewed. FINDINGS: Brain: Extra-axial spaces: No abnormal extra-axial fluid collections. Ventricular system: Within normal limits Cerebral parenchyma: Cerebral atrophy. No acute intraparenchymal hemorrhage or mass effect. The benton -white junction is well differentiated. Scattered hypoattenuating areas are seen within the periventr icular white matter. Cerebellum: Unremarkable. Mass effect: No evidence of midline shift. Intracranial vasculature: unremarkable Soft tissues: Normal. Calvarium: No depressed skull fracture. Paranasal sinuses and mastoid air cells: Partial opacification of the bilateral mastoid air cells. Mi ld mucosal thickening with air-fluid level within the right maxillary sinus. Left maxillary sinus 1 c m mucous retention cyst. The remaining paranasal sinuses are clear. Visualized orbits: Senile calcific scleral plaques are present. Bilateral aphakia. Facial Bones: Dental amalgam creates streak artifact which limits evaluation. There is no evidence of acute fracture, subluxation, dislocation, or significant soft tissue swelling . Remote left nasal bone fracture. Bilateral aphakia. Senile scleral calcific plaques bilaterally. T he temporal-mandibular joints appear symmetric. Partial opacification of the bilateral mastoid air ce lls. There is opacification within the right middle ear. Mild mucosal thickening with air-fluid level within the right maxillary sinus. Left maxillary sinus 1 cm mucous retention cyst. The remaining par anasal sinuses are clear. IMPRESSION: 1. No acute intracranial process. 2. Nonspecific white matter changes, likely secondary to chronic small vessel ischemic disease. 3. No acute facial bone fracture. 4. Mild paranasal sinus disease with air-fluid level within the right maxillary sinus. Correlate for acute sinusitis. 5. Bilateral mastoid effusions with some opacification within the right middle ear. Correlate for ot itis media. [facility], , 05/06/2024 11:44 AM
--- NOTE | 2024-05-06 11:55 | CT ---
EXAMINATION TYPE: CT angio head neck CT DLP: combined 1182.7 mGycm, Automated exposure control for dose reduction was used. DATE OF EXAM: 05/06/2024 11:37 AM COMPARISON: CT brain 05/06/2024, 04/01/2024. CLINICAL INDICATION:Male, 83 years old with history of Neuro deficit, acute, stroke suspected; PHH, R ight conjunctival hematoma, tight facial droop x 3 days. TECHNIQUE: Axially acquired helical CT angiogram of the head and neck was obtained with contrast util izing 75 cc of Isovue-370 administered intravenously. Axial images are supplemented with 3D reconstru ctions which were post-processed at an independent workstation. NASCET criteria used. FINDINGS: CTA HEAD: No evidence of acute intracranial hemorrhage, mass effect, or midline shift. The ventricles, sulci, a nd cisterns are unremarkable. The visualized portions of the internal carotid arteries, middle cerebral arteries, anterior cerebral arteries, and posterior cerebral arteries are patent. The basilar and vertebral arteries are patent. CTA NECK: Right Carotid System: The common carotid artery and external carotid artery are patent. Mild calcified plaque at the caroti d bifurcation. The carotid bifurcation demonstrates no evidence of hemodynamically significant stenos is. The remaining portions of the internal carotid artery demonstrate normal size without significant narrowing. Left Carotid System: The common carotid artery and external carotid artery are patent. Mild calcified plaque at the caroti d bifurcation. The carotid bifurcation demonstrates no evidence of hemodynamically significant stenos is. The remaining portions of the internal carotid artery demonstrate normal size without significant narrowing. Vertebral arteries are patent without evidence hemodynamically significant stenosis. There is a three-vessel aortic arch. The origins of the great vessels are patent. No evidence of hemo dynamically significant stenosis. Right upper lung calcified granuloma peripherally. Tree-in-bud nodular opacities within the right upp er lobe. Partial visualization of left upper lobe 6 mm pulmonary nodule (series 501, image 1). Multil evel degenerative changes of the cervical spine. IMPRESSION: 1. No evidence of dissection of the cervical internal carotid arteries or vertebral arteries. Mild ca lcified plaque at the carotid bifurcation without any evidence of significant stenosis. 2. No evidence of high-grade stenosis or intracranial aneurysm. 3. Tree-in-bud nodular opacities within the right upper lobe suggesting an infectious/inflammatory pr ocess. 4. Partial visualization of left upper lobe 6 mm pulmonary nodule. Follow-up CT chest in 6-12 months is recommended. [facility], , 05/06/2024 11:53 AM
[2024-05-06] MEDS ORDERED: ASPIRIN 81 MG PO STA (12:22)
[2024-05-06] MEDS ORDERED: ASPIRIN 325 MG TAB PO STA (12:23)
[2024-05-06] MEDS: ACETAMINOPHEN TAB 500 MG TAB PO STA (12:51)
[2024-05-06] MEDS: ASPIRIN 325 MG TAB PO STA (12:52)
--- NOTE | 2024-05-06 13:18 | ED ---
Medical Decision Making - Medical Decision Making Patient was seen and eval by neurology. Dr. 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 Patient evaluated at bedside. As discussed with family that it is not entirely clear that patient has right periorbital weakness. They do however feel confident discharge. They are given strict return precautions advised follow-up with primary care doctor. Discussed and counseled family on eye protection, antivirals and steroid - Lab Data Result diagrams: 05/06/24 10:41 05/06/24 10:41 Lab Results 05/06/24 05/06/24 05/06/24 Range/Units 10:41 10:41 10:41 WBC 10.5 (3.8-10.6) k/uL RBC 4.35 (4.30-5.90) m/uL Hgb 11.4 L (13.0-17.5) gm/dL Hct 37.3 L (39.0-53.0) % MCV 85.7 (80.0-100.0) fL MCH 26.2 (25.0-35.0) pg MCHC 30.6 L (31.0-37.0) g/dL RDW 17.9 H (11.5-15.5) % Plt Count 339 (150-450) k/uL MPV 7.3 Neutrophils % 79 % Lymphocytes % 11 % Monocytes % 7 % Eosinophils % 2 % Basophils % 0 % Neutrophils # 8.2 H (1.3-7.7) k/uL Lymphocytes # 1.1 (1.0-4.8) k/uL Monocytes # 0.7 (0-1.0) k/uL Eosinophils # 0.2 (0-0.7) k/uL Basophils # 0.0 (0-0.2) k/uL Hypochromasia Moderate Anisocytosis Slight PT 13.8 H (10.0-12.5) sec INR 1.3 H (<1.2) APTT 33.2 H (22.0-30.0) sec Sodium 136 L (137-145) mmol/L Potassium 4.6 (3.5-5.1) mmol/L Chloride 102 (98-107) mmol/L Carbon Dioxide 26 (22-30) mmol/L Anion Gap 8 mmol/L BUN 15 (9-20) mg/dL Creatinine 0.80 (0.66-1.25) mg/dL Est GFR (CKD-EPI)AfAm >90 (>60 ml/min/1.73 sqM) Est GFR (CKD-EPI)NonAf 83 (>60 ml/min/1.73 sqM) Glucose 93 (74-99) mg/dL Calcium 8.9 (8.4-10.2) mg/dL Total Bilirubin 1.1 (0.2-1.3) mg/dL AST 35 (17-59) U/L ALT 17 (4-49) U/L Alkaline Phosphatase 175 H (38-126) U/L Creatine Kinase 24 L (55-170) U/L Troponin I (0.000-0.034) ng/mL Total Protein 6.2 L (6.3-8.2) g/dL Albumin 3.0 L (3.5-5.0) g/dL 05/06/24 Range/Units 10:41 WBC (3.8-10.6) k/uL RBC (4.30-5.90) m/uL Hgb (13.0-17.5) gm/dL Hct (39.0-53.0) % MCV (80.0-100.0) fL MCH (25.0-35.0) pg MCHC (31.0-37.0) g/dL RDW (11.5-15.5) % Plt Count (150-450) k/uL MPV Neutrophils % % Lymphocytes % % Monocytes % % Eosinophils % % Basophils % % Neutrophils # (1.3-7.7) k/uL Lymphocytes # (1.0-4.8) k/uL Monocytes # (0-1.0) k/uL Eosinophils # (0-0.7) k/uL Basophils # (0-0.2) k/uL Hypochromasia Anisocytosis PT (10.0-12.5) sec INR (<1.2) APTT (22.0-30.0) sec Sodium (137-145) mmol/L Potassium (3.5-5.1) mmol/L Chloride (98-107) mmol/L Carbon Dioxide (22-30) mmol/L Anion Gap mmol/L BUN (9-20) mg/dL Creatinine (0.66-1.25) mg/dL Est GFR (CKD-EPI)AfAm (>60 ml/min/1.73 sqM) Est GFR (CKD-EPI)NonAf (>60 ml/min/1.73 sqM) Glucose (74-99) mg/dL Calcium (8.4-10.2) mg/dL Total Bilirubin (0.2-1.3) mg/dL AST (17-59) U/L ALT (4-49) U/L Alkaline Phosphatase (38-126) U/L Creatine Kinase (55-170) U/L Troponin I 0.022 (0.000-0.034) ng/mL Total Protein (6.3-8.2) g/dL Albumin (3.5-5.0) g/dL Disposition Clinical Impression: Cerebrovascular accident (CVA), Subconjunctival hemorrhage Disposition: HOME SELF-CARE Condition: Fair Is patient prescribed a controlled substance at d/c from ED?: No
--- NOTE | 2024-05-06 13:25 | ED ---
Medical Decision Making - Lab Data Result diagrams: 05/06/24 10:41 05/06/24 10:41 Lab Results 05/06/24 05/06/24 05/06/24 Range/Units 10:41 10:41 10:41 WBC 10.5 (3.8-10.6) k/uL RBC 4.35 (4.30-5.90) m/uL Hgb 11.4 L (13.0-17.5) gm/dL Hct 37.3 L (39.0-53.0) % MCV 85.7 (80.0-100.0) fL MCH 26.2 (25.0-35.0) pg MCHC 30.6 L (31.0-37.0) g/dL RDW 17.9 H (11.5-15.5) % Plt Count 339 (150-450) k/uL MPV 7.3 Neutrophils % 79 % Lymphocytes % 11 % Monocytes % 7 % Eosinophils % 2 % Basophils % 0 % Neutrophils # 8.2 H (1.3-7.7) k/uL Lymphocytes # 1.1 (1.0-4.8) k/uL Monocytes # 0.7 (0-1.0) k/uL Eosinophils # 0.2 (0-0.7) k/uL Basophils # 0.0 (0-0.2) k/uL Hypochromasia Moderate Anisocytosis Slight PT 13.8 H (10.0-12.5) sec INR 1.3 H (<1.2) APTT 33.2 H (22.0-30.0) sec Sodium 136 L (137-145) mmol/L Potassium 4.6 (3.5-5.1) mmol/L Chloride 102 (98-107) mmol/L Carbon Dioxide 26 (22-30) mmol/L Anion Gap 8 mmol/L BUN 15 (9-20) mg/dL Creatinine 0.80 (0.66-1.25) mg/dL Est GFR (CKD-EPI)AfAm >90 (>60 ml/min/1.73 sqM) Est GFR (CKD-EPI)NonAf 83 (>60 ml/min/1.73 sqM) Glucose 93 (74-99) mg/dL Calcium 8.9 (8.4-10.2) mg/dL Total Bilirubin 1.1 (0.2-1.3) mg/dL AST 35 (17-59) U/L ALT 17 (4-49) U/L Alkaline Phosphatase 175 H (38-126) U/L Creatine Kinase 24 L (55-170) U/L Troponin I (0.000-0.034) ng/mL Total Protein 6.2 L (6.3-8.2) g/dL Albumin 3.0 L (3.5-5.0) g/dL 05/06/24 Range/Units 10:41 WBC (3.8-10.6) k/uL RBC (4.30-5.90) m/uL Hgb (13.0-17.5) gm/dL Hct (39.0-53.0) % MCV (80.0-100.0) fL MCH (25.0-35.0) pg MCHC (31.0-37.0) g/dL RDW (11.5-15.5) % Plt Count (150-450) k/uL MPV Neutrophils % % Lymphocytes % % Monocytes % % Eosinophils % % Basophils % % Neutrophils # (1.3-7.7) k/uL Lymphocytes # (1.0-4.8) k/uL Monocytes # (0-1.0) k/uL Eosinophils # (0-0.7) k/uL Basophils # (0-0.2) k/uL Hypochromasia Anisocytosis PT (10.0-12.5) sec INR (<1.2) APTT (22.0-30.0) sec Sodium (137-145) mmol/L Potassium (3.5-5.1) mmol/L Chloride (98-107) mmol/L Carbon Dioxide (22-30) mmol/L Anion Gap mmol/L BUN (9-20) mg/dL Creatinine (0.66-1.25) mg/dL Est GFR (CKD-EPI)AfAm (>60 ml/min/1.73 sqM) Est GFR (CKD-EPI)NonAf (>60 ml/min/1.73 sqM) Glucose (74-99) mg/dL Calcium (8.4-10.2) mg/dL Total Bilirubin (0.2-1.3) mg/dL AST (17-59) U/L ALT (4-49) U/L Alkaline Phosphatase (38-126) U/L Creatine Kinase (55-170) U/L Troponin I 0.022 (0.000-0.034) ng/mL Total Protein (6.3-8.2) g/dL Albumin (3.5-5.0) g/dL Disposition Clinical Impression: Santamaria palsy Disposition: HOME SELF-CARE Condition: Fair Instructions (If sedation given, give patient instructions): Santamaria Palsy (ED) Additional Instructions: Cornea eye protection Artificial tears qhr while patient is awake Ophthalmic ointment at night Eye should be taped shut at night Protective glasses or goggles Prescriptions: Artificial Tears-Hypromellose [Artificial Tear Drops] 1 drops LEFT EYE TID #10 ml predniSONE 60 mg PO DAILY 7 Days #14 tab Erythromycin Ophth Oint [Romycin Ophth Oint] 1 applic OPHTHALMIC DAILY #1 gm valACYclovir HCL [Valtrex] 1,000 mg PO DAILY 7 Days #7 tablet Is patient prescribed a controlled substance at d/c from ED?: No Referrals: Varun Henson DO [Primary Care Provider] - 1-2 days Time of Disposition: 13:24
--- NOTE | 2024-05-06 13:26 | P.CNNES ---
History of Present Illness Consult date: 05/06/24 Reason for Consult: Stroke History of Present Illness: The patient is a 83-year-old male who is seen in neurologic consultation on May 06, 2024, in collaboration with Ofelia Martini, via teleneurology. History is obtained entirely from the patient's . Patient is extremely hard of hearing and therefore is unable to actively participate in obtaining history. The patient's reports that about 3 days ago the patient began to exper ience redness in his right eye as well as a drooping of his right lower lip. Since the onset of the symptoms, there has been no worsening of the symptoms. The patient denies pain in his eye. He does report a posterior headache. There is no numbness, tingling or weakness involving the extremities. The patient denies changes in his vision. There is reportedly no change in speech or swallowing. The patient was reportedly just recently admitted to this facility with hyponatremia. He was treated and was released to a rehab center. Patient spent some time at the rehab center and was just recently discharged to his home. There is reportedly no preceding viral infection. The patient is reportedly receiving antibiotics for an ear infection. Past Medical History Past Medical History: Atrial Fibrillation, Coronary Artery Disease (CAD), Cancer, COPD, Eye Disorder, Hearing Disorder / Deafness, Hyperlipidemia, Hypertension, Prostate Disorder, Sleep Apnea/CPAP/BIPAP Additional Past Medical History / Comment(s): BPH, Prescribed C-PAP but does not wear anymore, Inguinal hernia right side, cataracts, Renal CA w nephrostomy in Dec 2021. Pt denies asthma 12/24/23, states chronic bronchitis as the issue. Hyponatremia History of Any Multi-Drug Resistant Organisms: None Reported Past Surgical History: Heart Catheterization, Hernia Repair, Orthopedic Surgery Additional Past Surgical History / Comment(s): right elbow surgery-injury, bone spur heel, right shoulder arthroscopy, cardioversion, umbilical hernia repair, colonoscopy, TURP 2016, nephrectomy -rt, broke L wrist around August 2023. FLUID REMOVED FROM LEFT EAR AND TUBE PLACED. Past Anesthesia/Blood Transfusion Reactions: No Reported Reaction Additional Past Anesthesia/Blood Transfusion Reaction / Comment(s): slow wake up Past Psychological History: No Psychological Hx Reported Smoking Status: Former smoker - Past Family History Daughter(s) Family Medical History: Cancer Father Family Medical History: Cancer Medications and Allergies Home Medications Medication Instructions Recorded Confirmed Type Aspirin 81 mg PO HS 01/30/14 03/25/24 History Finasteride [Proscar] 5 mg PO HS 01/30/14 03/25/24 History Fluticasone Propion/Salmeterol 1 puff INHALATION RT-BID 01/02/22 03/25/24 History [Advair 500-50 Diskus] Albuterol Inhaler [Ventolin Hfa 2 puff INHALATION RT-QID PRN 04/25/22 03/25/24 History Inhaler] Atorvastatin [Lipitor] 20 mg PO HS 04/25/22 03/25/24 History Ferrous Sulfate [Feosol] 325 mg PO BID 04/25/22 03/25/24 History Ipratropium-Albuterol Nebulize 3 ml INHALATION RT-QID 12/05/23 03/25/24 History [Duoneb 0.5 mg-3 mg/3 ml Soln] guaiFENesin [Mucinex] 600 mg PO Q12H 12/05/23 03/25/24 History Acetaminophen [Tylenol Arthritis] 650 mg PO Q6H PRN 12/24/23 03/25/24 History Sennosides/Docusate Sodium [Senna 1 cap PO DAILY 12/24/23 03/25/24 History Plus 8.6-50 mg Softgel] Sodium Chloride Tab 1 gm PO BID 12/24/23 03/25/24 History Furosemide [Lasix] 20 mg PO MOWEFR 03/25/24 03/26/24 History Cefdinir [Omnicef] 300 mg PO Q12HR #8 capsule 04/04/24 Rx Metoprolol Tartrate [Lopressor] 25 mg PO Q12HR tab 04/04/24 Rx Pantoprazole [Protonix] 40 mg PO DAILY #30 tab 04/04/24 Rx Rivaroxaban [Xarelto] 15 mg PO HS tab 04/04/24 Rx Allergies Allergy/AdvReac Type Severity Reaction Status Date / Time No Known Allergies Allergy Verified 03/25/24 19:32 Physical Examination - Vital Signs Vital Signs: Vital Signs Temp Pulse Resp BP Pulse Ox 05/06/24 12:55 105 H 20 119/81 99 05/06/24 11:45 93 16 112/80 98 05/06/24 10:28 109 H 18 112/73 97 05/06/24 10:16 97.7 F 103 H 20 102/68 95 Intake and Output 05/05/24 05/06/24 05/06/24 22:59 06:59 14:59 Other: Weight 63.957 kg General: The patient is reclining on the gurney in the emergency department. He is a thin man. He is in no acute distress. HEENT: Head is atraumatic, normocephalic. There is conjunctival hemorrhage involving the right eye. There is mild swelling of the right eye. Fundus not visualized. There is no scleral icterus involving the left eye. Mucous membranes are moist. Neck: Supple without carotid bruits Heart: Regular rate and rhythm, slightly bradycardic Lungs: Patient has a wet cough Extremities: Without edema Neurological examination Mental status: The patient is awake, alert and oriented x 3. His speech is clear. There is no dysarthria or aphasia. The patient speaks very loudly, secondary to his marked hearing loss. Cranial nerves: Pupils are equal at 3 mm and reactive. Visual conroy are full to confrontation. Extraocular movements are intact. There is no nystagmus. Patient sensation is intact. There is a right lower motor neuron facial droop. Patient is unable to raise his right eyebrow. There is decreased right eyelid closure strength. Shoulder shrug is symmetric. Tongue protrudes to the right of midline. Motor: Strength is 5/5 throughout Sensation: Grossly intact to light touch bilaterally. There is no extinction with simultaneous stimulation. Coordination: [id number] testing is intact. Rapid alternating movements are intact. There is no pronator drift. Deep tendon reflexes: 2+/4+ throughout Gait: Not assessed Results CT scan of the brain images have been personally viewed - Laboratory Findings CBC and BMP: 05/06/24 10:41 05/06/24 10:41 Abnormal Lab Findings: Abnormal Labs 05/06/24 05/06/24 05/06/24 10:41 10:41 10:41 Hgb 11.4 L Hct 37.3 L MCHC 30.6 L RDW 17.9 H Neutrophils # 8.2 H PT 13.8 H INR 1.3 H APTT 33.2 H Sodium 136 L Alkaline Phosphatase 175 H Creatine Kinase 24 L Total Protein 6.2 L Albumin 3.0 L Assessment and Plan Assessment: 1. The patient is an 83-year-old male with signs and symptoms of a right, lower motor neuron facial droop-Santamaria's palsy 2. History of hearing loss 3. History of chronic cough and COPD Plan: 1. Exam findings and diagnosis were discussed with the patient and his family who are present in the room at the time of the evaluation. This was also discussed with the emergency department physician. 2. I do not believe the patient requires admission to the hospital 3. 10-day course of valacyclovir and a Medrol Dosepak are recommended 4. Family was advised to take the patient as I closed at night, so as to protect his cornea. There were also advised to use eyedrops liberally again, to protect the cornea. 5. Facial exercises were demonstrated and recommended for patient Thank you for allowing us to participate in care of this patient Time with Patient: Greater than 30 (55 minutes were spent caring for this patient today including, obtaining history, examining the patient, reviewing imaging, chart documentation, labs, placing orders and creating this note)
[2024-05-06 14:27] VITALS: BP 107/96; PULSE 108; RESP 18
[2024-05-06] MEDS ORDERED: ATORVASTATIN 40 MG TAB PO SCH (21:00)
[2024-05-07] MEDS ORDERED: ASPIRIN 325 MG TAB PO SCH (09:00)
[2024-05-07] MEDS ORDERED: ASPIRIN 81 MG PO SCH (09:00)
== END 2024-05-06 14:38 | disposition home or self-care (01) ==
LOC: EC 10:10 → UNDOADMIN 12:23 → 3SCARD 12:23 → EC 14:38
DX: I63.9 Cerebral infarction, unspecified (principal); H11.31 Conjunctival hemorrhage, right eye; I48.91 Unspecified atrial fibrillation; I45.10 Unspecified right bundle-branch block; Z79.01 Long term (current) use of anticoagulants; Z87.891 Personal history of nicotine dependence
CPT/HCPCS: 99285; 36415; 93005; 80053; 82550; 84484; 85025; 85610; 85730; 83036; 71046; 70496; 70486; 70450; 70498; Q9967

== ENCOUNTER 2024-05-09 10:18 | Inpatient (IN) | payer MEDICARE ==
[2024-05-09] MEDS: SODIUM CHLORIDE 0.9% 500 ML 500 ML IV ONE (11:05)
[2024-05-09 11:11] LABS: Glucose,Whole Blood 65 mg/dL (70-110)
--- NOTE | 2024-05-09 11:23 | ED ---
General Adult HPI - General Chief complaint: Altered Mental Status Stated complaint: AMS,weakness Time Seen by Provider: 05/09/24 10:44 Source: patient, family, EMS, RN notes reviewed, old records reviewed Limitations: altered mental status - History of Present Illness Initial comments: 83-year-old male presenting with generalized weakness, fatigue, poor appetite. Patient has had progressive symptoms over the past several days. He was seen in the emergency department and diagnosed with a Santamaria's palsy 3 days prior. He has persistent right lower facial weakness. Family is able to contribute to the history as the patient is very hard of hearing. No pain complaints. No measured fever. Family states she has not had much to eat or drink over the past 24 to 48 hours and that he is very weak. - Related Data Home Medications Medication Instructions Recorded Confirmed Aspirin 81 mg PO HS 01/30/14 05/09/24 Finasteride [Proscar] 5 mg PO HS 01/30/14 05/09/24 Fluticasone Propion/Salmeterol 1 puff INHALATION RT-BID 01/02/22 05/09/24 [Advair 500-50 Diskus] Albuterol Inhaler [Ventolin Hfa 2 puff INHALATION RT-QID PRN 04/25/22 05/09/24 Inhaler] Atorvastatin [Lipitor] 20 mg PO HS 04/25/22 05/09/24 Ferrous Sulfate [Feosol] 325 mg PO BID 04/25/22 05/09/24 Ipratropium-Albuterol Nebulize 3 ml INHALATION RT-QID 12/05/23 05/09/24 [Duoneb 0.5 mg-3 mg/3 ml Soln] guaiFENesin [Mucinex] 600 mg PO DAILY 12/05/23 05/09/24 Sodium Chloride Tab 1 gm PO BID 12/24/23 05/09/24 Furosemide [Lasix] 20 mg PO MOWEFR 03/25/24 05/09/24 Acetaminophen Tab [Tylenol] 325 mg PO Q6H PRN 05/09/24 05/09/24 Metoprolol Tartrate [Lopressor] 25 mg PO BID 05/09/24 05/09/24 Previous Rx's Medication Instructions Recorded Rivaroxaban [Xarelto] 15 mg PO HS tab 04/04/24 Artificial Tears-Hypromellose 1 drops LEFT EYE TID #10 ml 05/06/24 [Artificial Tear Drops] Erythromycin Ophth Oint [Romycin 1 applic OPHTHALMIC DAILY #1 gm 05/06/24 Ophth Oint] valACYclovir HCL [Valtrex] 1,000 mg PO DAILY 7 Days #7 tablet 05/06/24 Allergies Allergy/AdvReac Type Severity Reaction Status Date / Time No Known Allergies Allergy Verified 05/09/24 11:53 Review of Systems ROS Statement: Those systems with pertinent positive or pertinent negative responses have been documented in the HPI. ROS Other: All systems not noted in ROS Statement are negative. Past Medical History Past Medical History: Atrial Fibrillation, Coronary Artery Disease (CAD), Cancer, COPD, Eye Disorder, Hearing Disorder / Deafness, Hyperlipidemia, Hypertension, Prostate Disorder, Sleep Apnea/CPAP/BIPAP Additional Past Medical History / Comment(s): BPH, Prescribed C-PAP but does not wear anymore, Inguinal hernia right side, cataracts, Renal CA w nephrostomy in Dec 2021. Pt denies asthma 12/24/23, states chronic bronchitis as the issue. Hyponatremia History of Any Multi-Drug Resistant Organisms: None Reported Past Surgical History: Heart Catheterization, Hernia Repair, Orthopedic Surgery Additional Past Surgical History / Comment(s): right elbow surgery-injury, bone spur heel, right shoulder arthroscopy, cardioversion, umbilical hernia repair, colonoscopy, TURP 2016, nephrectomy -rt, broke L wrist around August 2023. FLUID REMOVED FROM LEFT EAR AND TUBE PLACED. Past Anesthesia/Blood Transfusion Reactions: No Reported Reaction Additional Past Anesthesia/Blood Transfusion Reaction / Comment(s): slow wake up Past Psychological History: No Psychological Hx Reported Smoking Status: Former smoker - Past Family History Daughter(s) Family Medical History: Cancer Father Family Medical History: Cancer General Exam Limitations: altered mental status General appearance: alert, in no apparent distress Head exam: Present: atraumatic, normocephalic Eye exam: Present: other (Right subconjunctival hemorrhage) ENT exam: Present: mucous membranes dry Neck exam: Present: normal inspection. Absent: tenderness, meningismus Respiratory exam: Present: normal lung sounds bilaterally, decreased breath sounds. Absent: respiratory distress, wheezes Cardiovascular Exam: Present: tachycardia, irregular rhythm GI/Abdominal exam: Present: soft. Absent: distended, tenderness, guarding Extremities exam: Present: pedal edema Neurological exam: Present: alert, motor sensory deficit (Right lower facial paralysis, globally weak without localizing weakness in the extremities) Skin exam: Present: warm Course Vital Signs 05/09/24 05/09/24 10:20 13:22 Temperature 97.4 F L Pulse Rate 128 H 122 H Respiratory 18 18 Rate Blood Pressure 90/64 97/69 O2 Sat by Pulse 92 L 98 Oximetry Medical Decision Making - Medical Decision Making Was pt. sent in by a medical professional or institution (, GAM[facility]IEL, VEHICLE MECHANIC, urgent care, hospital, or retirement...) When possible be specific @ -No Did you speak to anyone other than the patient for history (EMS, parent, family, police, friend...)? What history was obtained from this source @ -Patient's and daughter Did you review nursing and triage notes (agree or disagree)? Why? @ -I reviewed and agree with nursing and triage notes Were old charts reviewed (outside hosp., previous admission, EMS record, old EKG, old radiological studies, urgent care reports/EKG's, retirement records)? Report findings @ -No old charts were reviewed Differential Weakness: Hypoglycemia, shock, sepsis, hyponatremia, anemia, infection, GA, ETOH, adverse medicine reaction, overdose, stroke, this is not meant to be an all-inclusive list. EKG interpreted by me (3pts min.). @Atrial fibrillation with RVR rate of 133 QRS duration 165, QTc 440, wide QRS with interventricular conduction delay. X-rays interpreted by me (1pt min.). @ -Chest x-ray showing CHF CT interpreted by me (1pt min.). @ -CT negative for intracranial hemorrhage or mass effect U/S interpreted by me (1pt. min.). @ -None done What testing was considered but not performed or refused? (CT, X-rays, U/S, labs)? Why? @ -None What meds were considered but not given or refused? Why? @ -None Did you discuss the management of the patient with other professionals (professionals i.e. GAMALIEL Patino, VEHICLE MECHANIC, lab, RT, psych nurse, social science research assistant, immigration lawyer, teacher, chief science officer, test case developer)? Give summary @[facility]. Was smoking cessation discussed for >3mins.? @ -No Was critical care preformed (if so, how long)? @ -No Were there social determinants of health that impacted care today? How? (Homelessness, low income, unemployed, alcoholism, drug addiction, transportation, low edu. Level, literacy, decrease access to med. care, alf, rehab)? @ -No Was there de-escalation of care discussed even if they declined (Discuss DNR or withdrawal of care, Hospice)? DNR status @ -No What co-morbidities impacted this encounter? (DM, HTN, Smoking, COPD, CAD, Cancer, CVA, ARF, Chemo, Hep., AIDS, mental health diagnosis, sleep apnea, morbid obesity)? @Hypertension, atrial fibrillation, debility, recent Santamaria's palsy Was patient admitted / discharged? Hospital course, mention meds given and route, prescriptions, significant lab abnormalities, going to OR and other pertinent info. @Patient admitted with worsening clinical status, atrial fibrillation with RVR, CHF, likely intravascular depletion and dehydration from poor intake. Urinalysis is pending. Laboratory testing reveals a mild leukocytosis at 13 sodium 132, lactic acid 2.2 albumin is 2.9. Undiagnosed new problem with uncertain prognosis? @ -No Drug Therapy requiring intensive monitoring for toxicity (Heparin, Nitro, Insulin, Cardizem)? @ -No Were any procedures done? @ -No Diagnosis/symptom? @ -Weakness, dehydration, CHF Acute, or Chronic, or Acute on Chronic? @Acute on chronic Uncomplicated (without systemic symptoms) or Complicated (systemic symptoms)? @ -Complicated Side effects of treatment? @ -No Exacerbation, Progression, or Severe Exacerbation? @ -No Poses a threat to life or bodily function? How? (Chest pain, USA, GA, pneumonia, PE, COPD, DKA, ARF, appy, cholecystitis, CVA, Diverticulitis, Homicidal, Suicidal, threat to staff... and all critical care pts) @ -Yes, failure to thrive, worsening debility - Lab Data Result diagrams: 05/09/24 11:03 05/09/24 11:03 Lab Results 05/09/24 05/09/24 05/09/24 Range/Units 11:03 11:03 11:03 WBC 13.0 H (3.8-10.6) k/uL RBC 4.61 (4.30-5.90) m/uL Hgb 11.8 L (13.0-17.5) gm/dL Hct 39.9 (39.0-53.0) % MCV 86.7 (80.0-100.0) fL MCH 25.7 (25.0-35.0) pg MCHC 29.6 L (31.0-37.0) g/dL RDW 18.3 H (11.5-15.5) % Plt Count 349 (150-450) k/uL MPV 7.5 Neutrophils % 82 % Lymphocytes % 8 % Monocytes % 8 % Eosinophils % 1 % Basophils % 0 % Neutrophils # 10.7 H (1.3-7.7) k/uL Lymphocytes # 1.1 (1.0-4.8) k/uL Monocytes # 1.1 H (0-1.0) k/uL Eosinophils # 0.1 (0-0.7) k/uL Basophils # 0.0 (0-0.2) k/uL Hypochromasia Moderate Anisocytosis Slight PT 13.8 H (10.0-12.5) sec INR 1.3 H (<1.2) APTT 30.6 H (22.0-30.0) sec VBG pH (7.31-7.41) VBG pCO2 (37-51) mmHg VBG HCO3 (24-28) mmol/L Sodium 133 L (137-145) mmol/L Potassium 3.7 (3.5-5.1) mmol/L Chloride 104 (98-107) mmol/L Carbon Dioxide 21 L (22-30) mmol/L Anion Gap 8 mmol/L BUN 38 H (9-20) mg/dL Creatinine 1.04 (0.66-1.25) mg/dL Est GFR (CKD-EPI)AfAm 77 (>60 ml/min/1.73 sqM) Est GFR (CKD-EPI)NonAf 66 (>60 ml/min/1.73 sqM) Glucose 75 (74-99) mg/dL POC Glucose (mg/dL) (70-110) mg/dL POC Glu Slot Floor Supervisor ID Lactic Ac Sepsis Rflx Plasma Lactic Acid Gabriel (0.7-2.0) mmol/L Calcium 9.1 (8.4-10.2) mg/dL Magnesium 2.0 (1.6-2.3) mg/dL Total Bilirubin 1.0 (0.2-1.3) mg/dL AST 34 (17-59) U/L ALT 20 (4-49) U/L Alkaline Phosphatase 165 H (38-126) U/L Troponin I (0.000-0.034) ng/mL Total Protein 5.9 L (6.3-8.2) g/dL Albumin 2.9 L (3.5-5.0) g/dL Influenza Type A (PCR) (Not Detectd) Influenza Type B (PCR) (Not Detectd) RSV (PCR) (Not Detectd) SARS-CoV-2 (PCR) (Not Detectd) 05/09/24 05/09/24 05/09/24 Range/Units 11:03 11:03 11:03 WBC (3.8-10.6) k/uL RBC (4.30-5.90) m/uL Hgb (13.0-17.5) gm/dL Hct (39.0-53.0) % MCV (80.0-100.0) fL MCH (25.0-35.0) pg MCHC (31.0-37.0) g/dL RDW (11.5-15.5) % Plt Count (150-450) k/uL MPV Neutrophils % % Lymphocytes % % Monocytes % % Eosinophils % % Basophils % % Neutrophils # (1.3-7.7) k/uL Lymphocytes # (1.0-4.8) k/uL Monocytes # (0-1.0) k/uL Eosinophils # (0-0.7) k/uL Basophils # (0-0.2) k/uL Hypochromasia Anisocytosis PT (10.0-12.5) sec INR (<1.2) APTT (22.0-30.0) sec VBG pH (7.31-7.41) VBG pCO2 (37-51) mmHg VBG HCO3 (24-28) mmol/L Sodium (137-145) mmol/L Potassium (3.5-5.1) mmol/L Chloride (98-107) mmol/L Carbon Dioxide (22-30) mmol/L Anion Gap mmol/L BUN (9-20) mg/dL Creatinine (0.66-1.25) mg/dL Est GFR (CKD-EPI)AfAm (>60 ml/min/1.73 sqM) Est GFR (CKD-EPI)NonAf (>60 ml/min/1.73 sqM) Glucose (74-99) mg/dL POC Glucose (mg/dL) (70-110) mg/dL POC Glu Slot Floor Supervisor ID Lactic Ac Sepsis Rflx Plasma Lactic Acid Gabriel 2.2 H* (0.7-2.0) mmol/L Calcium (8.4-10.2) mg/dL Magnesium (1.6-2.3) mg/dL Total Bilirubin (0.2-1.3) mg/dL AST (17-59) U/L ALT (4-49) U/L Alkaline Phosphatase (38-126) U/L Troponin I 0.034 (0.000-0.034) ng/mL Total Protein (6.3-8.2) g/dL Albumin (3.5-5.0) g/dL Influenza Type A (PCR) Not Detected (Not Detectd) Influenza Type B (PCR) Not Detected (Not Detectd) RSV (PCR) Not Detected (Not Detectd) SARS-CoV-2 (PCR) Not Detected (Not Detectd) 05/09/24 05/09/24 05/09/24 Range/Units 11:03 11:09 11:53 WBC (3.8-10.6) k/uL RBC (4.30-5.90) m/uL Hgb (13.0-17.5) gm/dL Hct (39.0-53.0) % MCV (80.0-100.0) fL MCH (25.0-35.0) pg MCHC (31.0-37.0) g/dL RDW (11.5-15.5) % Plt Count (150-450) k/uL MPV Neutrophils % % Lymphocytes % % Monocytes % % Eosinophils % % Basophils % % Neutrophils # (1.3-7.7) k/uL Lymphocytes # (1.0-4.8) k/uL Monocytes # (0-1.0) k/uL Eosinophils # (0-0.7) k/uL Basophils # (0-0.2) k/uL Hypochromasia Anisocytosis PT (10.0-12.5) sec INR (<1.2) APTT (22.0-30.0) sec VBG pH 7.34 (7.31-7.41) VBG pCO2 43 (37-51) mmHg VBG HCO3 23 L (24-28) mmol/L Sodium (137-145) mmol/L Potassium (3.5-5.1) mmol/L Chloride (98-107) mmol/L Carbon Dioxide (22-30) mmol/L Anion Gap mmol/L BUN (9-20) mg/dL Creatinine (0.66-1.25) mg/dL Est GFR (CKD-EPI)AfAm (>60 ml/min/1.73 sqM) Est GFR (CKD-EPI)NonAf (>60 ml/min/1.73 sqM) Glucose (74-99) mg/dL POC Glucose (mg/dL) 65 L (70-110) mg/dL POC Glu Slot Floor Supervisor ID Ad Playcie Lactic Ac Sepsis Rflx Y Plasma Lactic Acid Gabriel (0.7-2.0) mmol/L Calcium (8.4-10.2) mg/dL Magnesium (1.6-2.3) mg/dL Total Bilirubin (0.2-1.3) mg/dL AST (17-59) U/L ALT (4-49) U/L Alkaline Phosphatase (38-126) U/L Troponin I (0.000-0.034) ng/mL Total Protein (6.3-8.2) g/dL Albumin (3.5-5.0) g/dL Influenza Type A (PCR) (Not Detectd) Influenza Type B (PCR) (Not Detectd) RSV (PCR) (Not Detectd) SARS-CoV-2 (PCR) (Not Detectd) Disposition Clinical Impression: Atrial fibrillation, CHF (congestive heart failure), Altered mental status Disposition: ADMITTED IP TO THIS HOSP Condition: Stable Is patient prescribed a controlled substance at d/c from ED?: No Referrals: Varun Henson DO [Primary Care Provider] - 1-2 days Time of Disposition: 14:09
[2024-05-09 11:34] LABS: VBG PH 7.34 (7.31-7.41)
[2024-05-09 11:35] LABS: Anisocytosis Slight; Basophils % (A) 0 %; Eosinophils # (A) 0.1 k/uL (0-0.7); Eosinophils % (A) 1 %; HCT 39.9 % (39.0-53.0); HGB 11.8 gm/dL (13.0-17.5); Hypochromasia Moderate; Lymphocytes # (A) 1.1 k/uL (1.0-4.8); Lymphocytes % (A) 8 %; MCH 25.7 pg (25.0-35.0); MCHC 29.6 g/dL (31.0-37.0); MCV 86.7 fL (80.0-100.0); Mean Platelet Volume 7.5; Monocytes # (A) 1.1 k/uL (0-1.0); Monocytes % (A) 8 %; Neutrophils # (A) 10.7 k/uL (1.3-7.7); Neutrophils % (A) 82 %; Platelet Count 349 k/uL (150-450); RBC 4.61 m/uL (4.30-5.90); RDW 18.3 % (11.5-15.5)
[2024-05-09 11:50] LABS: ALT 20 U/L (4-49); AST 34 U/L (17-59); African American GFR (CKD) 77 (>60 ml/min/1.73 sqM); Albumin 2.9 g/dL (3.5-5.0); Alkaline Phosphatase 165 U/L (38-126); Anion Gap 8 mmol/L; Blood Urea Nitrogen 38 mg/dL (9-20); Calcium 9.1 mg/dL (8.4-10.2); Carbon Dioxide 21 mmol/L (22-30); Chloride 104 mmol/L (98-107); Glucose 75 mg/dL (74-99); Non-African American GFR(CKD) 66 (>60 ml/min/1.73 sqM); Potassium 3.7 mmol/L (3.5-5.1); Sodium 133 mmol/L (137-145); Total Protein 5.9 g/dL (6.3-8.2)
[2024-05-09 11:56] LABS: INR 1.3 (<1.2); Partial Thromboplastin Time 30.6 sec (22.0-30.0); Prothrombin Time 13.8 sec (10.0-12.5)
[2024-05-09 12:12] LABS: Influenza A Not Detected (Not Detectd); Influenza B Not Detected (Not Detectd); RSV Not Detected (Not Detectd)
--- NOTE | 2024-05-09 12:57 | XR ---
EXAMINATION TYPE: XR chest 2V DATE OF EXAM: 05/09/2024 12:47 PM COMPARISON: Chest radiographs from 05/08/2024 CLINICAL INDICATION: Male, 83 years old with history of altered mental status; [facility] TECHNIQUE: XR chest 2V Frontal and lateral views of the chest. FINDINGS: Lungs/Pleura: Right upper lobe pulmonary nodule measuring 8 mm. No evidence of focal consolidation or pneumothorax. Blunting of the costophrenic angles is present. Pulmonary vascularity: Pulmonary vascular congestion. Heart/mediastinum: Cardiomediastinal silhouette is enlarged. Musculoskeletal: No acute osseous pathology. IMPRESSION: Cardiomegaly, pulmonary vascular congestion and bilateral pleural effusions. Correlate with BNP for c ongestive heart failure. [facility], , 05/09/2024 12:54 PM
--- NOTE | 2024-05-09 13:09 | CT ---
EXAMINATION TYPE: CT brain wo con CT DLP: 1226.6 mGycm, Automated exposure control for dose reduction was used. DATE OF EXAM: 05/09/2024 1:01 PM COMPARISON: CT brain facial bones 05/06/2024, CTA head and neck 05/06/2024, CT brain 04/01/2024 CLINICAL INDICATION:Male, 83 years old with history of Altered mental status, ams TECHNIQUE: Brain: Multiple axial CT images of the brain were obtained without IV contrast. . Coronal and sagitta l reformats reviewed. FINDINGS: Brain: Extra-axial spaces: No abnormal extra-axial fluid collections. Ventricular system: Within normal limits Cerebral parenchyma: Age appropriate cerebral atrophy. No acute intraparenchymal hemorrhage or mass e ffect. The benton-white junction is well differentiated. Scattered hypoattenuating areas are seen with in the periventricular white matter. Cerebellum: Unremarkable. Mass effect: No evidence of midline shift. Intracranial vasculature: unremarkable Soft tissues: Normal. Calvarium: No depressed skull fracture. Paranasal sinuses and mastoid air cells: Partial opacification of the bilateral mastoid air cells wit h left greater than right. Mild mucosal thickening with air-fluid level within the right maxillary si nus redemonstrated. A mucosal thickening in the posterior right ethmoid sinus. Visualized orbits: Senile calcific scleral plaques are present. Bilateral aphakia. IMPRESSION: 1. No acute intracranial process. 2. Nonspecific white matter changes, likely secondary to chronic small vessel ischemic disease. 3. Bilateral mastoid effusions redemonstrated. [facility], , 05/09/2024 1:06 PM
[2024-05-09] MEDS: D5-0.9% NACL WITH KCL 20 MEQ/L 1,000 ML IV SCH (13:31)
[2024-05-09] MEDS ORDERED: NALOXONE 0.4 MG/ML 1 ML VIAL IV PRN (14:04)
[2024-05-09] MEDS ORDERED: ALBUTEROL NEBULIZED 2.5 MG/3 ML INHALATION PRN (15:32)
[2024-05-09] MEDS: METOPROLOL TARTRATE 25 MG TAB PO STA (16:07)
[2024-05-09] MEDS: LACTATED RINGERS 1,000 ML IV SCH (16:09)
[2024-05-09 16:12] LABS: Appearance,Urine Clear (Clear); Bilirubin,Urine Negative (Negative); Blood,Urine Small (Negative); Color,Urine Light Yellow; Glucose,Urine (UA) Negative (Negative); Ketones,Urine Negative (Negative); Leukocyte Esterase,Urine Negative (Negative); Nitrite,Urine Negative (Negative); PH, Urine 5.5 (5.0-8.0); Protein,Urine Negative (Negative); RBC,Urine <1 /hpf (0-5); Specific Gravity,Urine 1.009 (1.001-1.035); Urobilinogen,Urine <2.0 mg/dL (<2.0); WBC,Urine 2 /hpf (0-5)
--- NOTE | 2024-05-09 17:23 | P.HPIM ---
History of Present Illness H&P Date: 05/09/24 Patient is a 83-year-old male with atrial fibrillation (on Xarelto), CAD, BPH, COPD (not on home oxygen), hyperlipidemia, hypertension,, BPH, sleep apnea, renal cell carcinoma status post right nephrostomy, hearing disorder status post bilateral tympanostomy, acute GI bleed in the setting of Xarelto, severe pulmonary hypertension here for evaluation of generalized weakness, fatigue and poor appetite. Patient is a poor historian and family at bedside contributed to majority of the history. Patient was reported to have the symptoms for the past several days and have worsened. Last night, patient was not able to ambulate and support himself and was very drowsy which led them to seek care today. He has associated diarrhea for the past 3 days with tarry stool that is attributed to having oral iron supplementation. Family also mentioned that patient has not had much to eat or drink in the past 24 to 48 hours is very weak but his appetite has been low since he was admitted in March to the point that he cannot eat solid or hard to chew foods. He denied chest pain, shortness of breath, cough, fever, chills, nausea, vomiting palpitations, changes in vision, focal weakness, gait changes, recent prolonged travel. he was recently in our facility when he was diagnosed with Santamaria's palsy and subconjunctival hemorrhage 3 days prior. He was also hospitalized on 03/27/2024 for an acute GI bleed in the setting of Xarelto complicated by sepsis with shock and metabolic encephalopathy. He was sent home with cefdinir p.o. for 4 more days at that time and was sent to [facility] for rehab regarding generalized debility. He was discharged from [facility] on the first week of April. On admission: Vitals: Temperature 97.4 F, pulse rate 128, respiratory rate 18, blood pressure 90/64, O2 saturation 92% on room air Labs: WBC 13, hemoglobin 11.8, platelet count 349,000, PT 13.8, INR 1.3, PTT 3 0.6, sodium 133, potassium 3.7, chloride 104, bicarb 21, BUN 38, creatinine 1.04, glucose 75, lactic acid 2.2, calcium 9.1, magnesium 2, AST 34, ALT 20, alk phos 165, albumin 2.5. proBNP 9290. Troponins negative. Cepheid 4 Plex negative. Imaging: Chest x-ray showed cardiomegaly, pulmonary vascular congestion and bilateral pleural effusions. Brain CT showed no acute intracranial process, nonspecific white matter changes likely secondary to chronic small vessel ischemic disease. EKG showed atrial fibrillation with a rate of 133 bpm, wide QRS is with a duration 165 MS, nonspecific ST-T changes, QTc 440 MS, left axis deviation. ED documentation reviewed. D5 half-normal saline initiated in the ED. 1 L normal saline bolus given Review of systems: Pertinent positives and negatives as discussed in HPI, a complete review of systems was performed and all other systems are negative. Physical examination: Vital signs reviewed General: non toxic, no distress, appears at stated age, on nasal cannula Derm: no unusual rashes/lesions, warm Head: atraumatic, normocephalic, symmetric Eyes: EOMI, anicteric sclera, pupils equal round reactive to light, right eye has subconjunctival hemorrhage known on last ED visit ENT: Nose and ears atraumatic Neck: No cervical lymphadenopathy, trachea midline, supple Mouth: no lip lesion, mucus membranes moist Cardiovascular: S1S2 irregularly irregular, no murmur Lungs: CTA bilateral, no rhonchi, no rales, no accessory muscle use Abdominal: soft, nondistended, nontender to palpation, no guarding Ext: muscle strength 5 out of 5 in all 4 extremities grossly, no gross muscle atrophy, no contractures, positive dorsalis pedis pulse bilateral, no edema, distal extremities cool to touch particularly his feet Neuro: CN II-XI grossly intact, no gross focal neuro deficits Psych: Alert and oriented x 3, appropriate affect and mood Assessment/Plan: 83-year-old male with atrial fibrillation (on Xarelto), PD (not on home oxygen), hypertension, sleep apnea, acute GI bleed in the setting of Xarelto here for evaluation of generalized weakness, fatigue and poor appetite. The patient is admitted with an anticipated greater than 2 midnight stay for the evaluation of debility and acute encephalopathy Active: #. Acute encephalopathy, rule out anatomic/metabolic etiologies #. Debility #. Hypovolemic hyponatremia, due to poor oral intake #. Lactic acidosis #. Nonanion gap metabolic acidosis #. Dehydration #. Leukocytosis likely reactive -Brain CT showed no acute intracranial process, nonspecific white matter changes likely secondary to chronic small vessel ischemic disease. -Fall precautions -Judicious use of fluids. IV fluids lactated Ringer's 100 cc/h -Blood cultures pending -Monitor CBC and BMP -PT OT consulted -Speech therapy consulted #. Atrial fibrillation with RVR -EKG independently interpreted showed atrial fibrillation with a rate of 133 bpm , wide QRS is with a duration 165 MS, nonspecific ST-T changes, QTc 440 MS, left axis deviation. - Troponins negative. -Cardiac telemetry -Metoprolol tartrate 25 mg p.o. twice daily -On Xarelto 50 mg p.o. at bedtime -Will consider amiodarone IV if patient continues to be hypotensive -Cardiology consulted #. Elevated ALP -ALP at 165 -Patient is symptomatic -Will monitor for now Chronic Conditions: #. CAD #. BPH #. COPD (not on home oxygen) #. Hyperlipidemia #. Hypertension #. BPH #. Sleep apnea #. Santamaria's palsy #. Severe pulmonary hypertension -Resumed home aspirin, Lipitor, Symbicort, oral iron, finasteride, DuoNeb, Lopressor, valacyclovir F:IV fluids lactated Ringer's 100 cc/h E: Monitor electrolytes N: Heart healthy diet A: Fall precautions DVT ppx: Xarelto 20 mg p.o. daily CODE STATUS: No code Discussed with: Patient and patient's family Anticipated discharge place: Pending clinical course Cleopatra Lee MD PGY-1 Internal Medicine Dictation was produced using [employer] dictation software. please excuse any grammatical, word or spelling errors. The patient is admitted with an anticipated greater than 2 midnight stay as inpatient status for evaluation of A-fib with RVR. A total of 65 minutes was spent on the care of this complex patient more than 50% of the time was spent in counseling and care coordination. I have seen and evaluated the patient today. Discussed with the resident and agree with the residents finding and plan as documented in the resident's note. Changes highlighted in blue font. Past Medical History Past Medical History: Atrial Fibrillation, Coronary Artery Disease (CAD), Cancer, COPD, Eye Disorder, Hearing Disorder / Deafness, Hyperlipidemia, Hypertension, Prostate Disorder, Sleep Apnea/CPAP/BIPAP Additional Past Medical History / Comment(s): BPH, Prescribed C-PAP but does not wear anymore, Inguinal hernia right side, cataracts, Renal CA w nephrostomy in Dec 2021. Pt denies asthma 12/24/23, states chronic bronchitis as the issue. Hyponatremia History of Any Multi-Drug Resistant Organisms: None Reported Past Surgical History: Heart Catheterization, Hernia Repair, Orthopedic Surgery Additional Past Surgical History / Comment(s): right elbow surgery-injury, bone spur heel, right shoulder arthroscopy, cardioversion, umbilical hernia repair, colonoscopy, TURP 2016, nephrectomy -rt, broke L wrist around August 2023. FLUID REMOVED FROM LEFT EAR AND TUBE PLACED. Past Anesthesia/Blood Transfusion Reactions: No Reported Reaction Additional Past Anesthesia/Blood Transfusion Reaction / Comment(s): slow wake up Past Psychological History: No Psychological Hx Reported Smoking Status: Former smoker - Past Family History Daughter(s) Family Medical History: Cancer Father Family Medical History: Cancer Medications and Allergies Home Medications Medication Instructions Recorded Confirmed Type Aspirin 81 mg PO HS 01/30/14 05/09/24 History Finasteride [Proscar] 5 mg PO HS 01/30/14 05/09/24 History Fluticasone Propion/Salmeterol 1 puff INHALATION RT-BID 01/02/22 05/09/24 History [Advair 500-50 Diskus] Albuterol Inhaler [Ventolin Hfa 2 puff INHALATION RT-QID PRN 04/25/22 05/09/24 History Inhaler] Atorvastatin [Lipitor] 20 mg PO HS 04/25/22 05/09/24 History Ferrous Sulfate [Feosol] 325 mg PO BID 04/25/22 05/09/24 History Ipratropium-Albuterol Nebulize 3 ml INHALATION RT-QID 12/05/23 05/09/24 History [Duoneb 0.5 mg-3 mg/3 ml Soln] guaiFENesin [Mucinex] 600 mg PO DAILY 12/05/23 05/09/24 History Sodium Chloride Tab 1 gm PO BID 12/24/23 05/09/24 History Furosemide [Lasix] 20 mg PO MOWEFR 03/25/24 05/09/24 History Rivaroxaban [Xarelto] 15 mg PO HS tab 04/04/24 05/09/24 Rx Artificial Tears-Hypromellose 1 drops LEFT EYE TID #10 ml 05/06/24 05/09/24 Rx [Artificial Tear Drops] Erythromycin Ophth Oint [Romycin 1 applic OPHTHALMIC DAILY #1 gm 05/06/24 05/09/24 Rx Ophth Oint] valACYclovir HCL [Valtrex] 1,000 mg PO DAILY 7 Days #7 tablet 05/06/24 05/09/24 Rx Acetaminophen Tab [Tylenol] 325 mg PO Q6H PRN 05/09/24 05/09/24 History Metoprolol Tartrate [Lopressor] 25 mg PO BID 05/09/24 05/09/24 History Allergies Allergy/AdvReac Type Severity Reaction Status Date / Time No Known Allergies Allergy Verified 05/09/24 11:53 Physical Exam Vitals: Vital Signs Temp Pulse Resp BP Pulse Ox 05/09/24 13:22 122 H 18 97/69 98 05/09/24 10:20 97.4 F L 128 H 18 90/64 92 L Intake and Output 05/08/24 05/09/24 05/09/24 22:59 06:59 14:59 Other: Weight 74.843 kg Results CBC & Chem 7: 05/09/24 11:03 05/09/24 11:03 Labs: Abnormal Lab Results - Last 24 Hours (Table) 05/09/24 05/09/24 05/09/24 Range/Units 11:03 11:03 11:03 WBC 13.0 H (3.8-10.6) k/uL Hgb 11.8 L (13.0-17.5) gm/dL MCHC 29.6 L (31.0-37.0) g/dL RDW 18.3 H (11.5-15.5) % Neutrophils # 10.7 H (1.3-7.7) k/uL Monocytes # 1.1 H (0-1.0) k/uL PT 13.8 H (10.0-12.5) sec INR 1.3 H (<1.2) APTT 30.6 H (22.0-30.0) sec VBG HCO3 (24-28) mmol/L Sodium 133 L (137-145) mmol/L Carbon Dioxide 21 L (22-30) mmol/L BUN 38 H (9-20) mg/dL POC Glucose (mg/dL) (70-110) mg/dL Plasma Lactic Acid Gabriel (0.7-2.0) mmol/L Alkaline Phosphatase 165 H (38-126) U/L Total Protein 5.9 L (6.3-8.2) g/dL Albumin 2.9 L (3.5-5.0) g/dL 05/09/24 05/09/24 05/09/24 Range/Units 11:03 11:03 11:09 WBC (3.8-10.6) k/uL Hgb (13.0-17.5) gm/dL MCHC (31.0-37.0) g/dL RDW (11.5-15.5) % Neutrophils # (1.3-7.7) k/uL Monocytes # (0-1.0) k/uL PT (10.0-12.5) sec INR (<1.2) APTT (22.0-30.0) sec VBG HCO3 23 L (24-28) mmol/L Sodium (137-145) mmol/L Carbon Dioxide (22-30) mmol/L BUN (9-20) mg/dL POC Glucose (mg/dL) 65 L (70-110) mg/dL Plasma Lactic Acid Gabriel 2.2 H* (0.7-2.0) mmol/L Alkaline Phosphatase (38-126) U/L Total Protein (6.3-8.2) g/dL Albumin (3.5-5.0) g/dL
[2024-05-09] MEDS: ARTIFICIAL TEARS-HYPROMELLOSE DROPS 15 ML BTL LEFT EYE SCH (17:25)
[2024-05-09] MEDS: RIVAROXABAN 20 MG TAB PO SCH (17:25)
[2024-05-09] MEDS: METOPROLOL TARTRATE 25 MG TAB PO SCH (21:07)
[2024-05-09] MEDS: FERROUS SULFATE 325 MG TAB PO SCH (21:07)
[2024-05-09] MEDS: FINASTERIDE 5 MG TAB PO SCH (21:07)
[2024-05-09] MEDS: ATORVASTATIN 20 MG TAB PO SCH (21:07)
[2024-05-09] MEDS: ASPIRIN 81 MG PO SCH (21:07)
[2024-05-09] MEDS: IPRATROPIUM-ALBUTEROL 3 ML NEB INHALATION SCH (21:56)
[2024-05-09] MEDS: SYMBICORT 160-4.5 MCG INHALER INHALATION SCH (21:56)
[2024-05-10 06:48] LABS: Anisocytosis Slight; Basophils % (A) 0 %; Eosinophils # (A) 0.2 k/uL (0-0.7); Eosinophils % (A) 3 %; HCT 34.1 % (39.0-53.0); HGB 10.9 gm/dL (13.0-17.5); Hypochromasia Marked; Lymphocytes # (A) 0.8 k/uL (1.0-4.8); Lymphocytes % (A) 9 %; MCH 26.9 pg (25.0-35.0); MCV 84.2 fL (80.0-100.0); Mean Platelet Volume 7.2; Monocytes # (A) 1.1 k/uL (0-1.0); Monocytes % (A) 11 %; Neutrophils # (A) 7.1 k/uL (1.3-7.7); Neutrophils % (A) 75 %; Platelet Count 307 k/uL (150-450); RBC 4.05 m/uL (4.30-5.90); RDW 18.3 % (11.5-15.5); WBC 9.6 k/uL (3.8-10.6)
[2024-05-10 07:36] LABS: ALT 20 U/L (4-49); AST 31 U/L (17-59); African American GFR (CKD) >90 (>60 ml/min/1.73 sqM); Albumin 2.3 g/dL (3.5-5.0); Alkaline Phosphatase 159 U/L (38-126); Anion Gap 3 mmol/L; Blood Urea Nitrogen 25 mg/dL (9-20); Calcium 8.6 mg/dL (8.4-10.2); Carbon Dioxide 24 mmol/L (22-30); Chloride 108 mmol/L (98-107); Glucose 76 mg/dL (74-99); Non-African American GFR(CKD) 83 (>60 ml/min/1.73 sqM); Sodium 135 mmol/L (137-145); Total Bilirubin 0.8 mg/dL (0.2-1.3); Total Protein 4.9 g/dL (6.3-8.2)
[2024-05-10] MEDS: valACYclovir HCL 1,000 MG TABLET PO SCH (08:02)
--- NOTE | 2024-05-10 11:15 | P.PN ---
Subjective Progress Note Date: 05/10/24 Patient is a 83-year-old male with atrial fibrillation (on Xarelto), CAD, BPH, COPD (not on home oxygen), hyperlipidemia, hypertension,, BPH, sleep apnea, renal cell carcinoma status post right nephrostomy, hearing disorder status post bilateral tympanostomy, acute GI bleed in the setting of Xarelto, severe pulmonary hypertension here for evaluation of generalized weakness, fatigue and poor appetite. Patient is a poor historian and family at bedside contributed to majority of the history. Patient was reported to have the symptoms for the past several days and have worsened. Last night, patient was not able to ambulate and support himself and was very drowsy which led them to seek care today. He has associated diarrhea for the past 3 days with tarry stool that is attributed to having oral iron supplementation. Family also mentioned that patient has not had much to eat or drink in the past 24 to 48 hours is very weak but his appetite has been low since he was admitted in March to the point that he cannot eat solid or hard to chew foods. He denied chest pain, shortness of breath, cough, fever, chills, nausea, vomiting palpitations, changes in vision, focal weakness, gait changes, recent prolonged travel. he was recently in our facility when he was diagnosed with Santamaria's palsy and subconjunctival hemorrhage 3 days prior. He was also hospitalized on 03/27/2024 for an acute GI bleed in the setting of Xarelto complicated by sepsis with shock and metabolic encephalopathy. He was sent home with cefdinir p.o. for 4 more days at that time and was sent to [facility] for rehab regarding generalized debility. He was discharged from [facility] on the first week of April. On admission: Vitals: Temperature 97.4 F, pulse rate 128, respiratory rate 18, blood pressure 90/64, O2 saturation 92% on room air Labs: WBC 13, hemoglobin 11.8, platelet count 349,000, PT 13.8, INR 1.3, PTT 30.6, sodium 133, potassium 3.7, chloride 104, bicarb 21, BUN 38, creatinine 1.04, glucose 75, lactic acid 2.2, calcium 9.1, magnesium 2, AST 34, ALT 20, alk phos 165, albumin 2.5. proBNP 9290. Troponins negative. Cepheid 4 Plex negative. Imaging: Chest x-ray showed cardiomegaly, pulmonary vascular congestion and bilateral pleural effusions. Brain CT showed no acute intracranial process, nonspecific white matter changes likely secondary to chronic small vessel ischemic disease. EKG showed atrial fibrillation with a rate of 133 bpm, wide QRS is with a duration 165 MS, nonspecific ST-T changes, QTc 440 MS, left axis deviation. 05/10/2024 patient seen and examined at bedside. No acute events overnight. Patient more awake and cooperative today. Labs: WBC 9.6, hemoglobin 10.9, platelet count 307,000, sodium 135, potassium 3, chloride 108, bicarb 24, BUN 25, creatinine 0.79, glucose 76, alk phos 159, albumin 2.3 Review of systems: Pertinent positives and negatives as discussed in HPI, a complete review of systems was performed and all other systems are negative. Physical examination: Vital signs reviewed General: non toxic, no distress, appears at stated age, on nasal cannula Derm: no unusual rashes/lesions, warm Head: atraumatic, normocephalic, symmetric Eyes: EOMI, anicteric sclera, pupils equal round reactive to light, right eye has subconjunctival hemorrhage known on last ED visit ENT: Nose and ears atraumatic Neck: No cervical lymphadenopathy, trachea midline, supple Mouth: no lip lesion, mucus membranes moist Cardiovascular: S1S2 irregularly irregular, no murmur Lungs: CTA bilateral, no rhonchi, no rales, no accessory muscle use Abdominal: soft, nondistended, nontender to palpation, no guarding Ext: muscle strength 5 out of 5 in all 4 extremities grossly, no gross muscle atrophy, no contractures, positive dorsalis pedis pulse bilateral, no edema Neuro: CN II-XI grossly intact, no gross focal neuro deficits Psych: Alert and oriented x 3, appropriate affect and mood Assessment/Plan: 83-year-old male with atrial fibrillation (on Xarelto), PD (not on home oxygen), hypertension, sleep apnea, acute GI bleed in the setting of Xarelto here for evaluation of generalized weakness, fatigue and poor appetite. The patient is admitted with an anticipated greater than 2 midnight stay for the evaluation of debility and acute encephalopathy Active: #. Acute encephalopathy, rule out anatomic/metabolic etiologies, improved #. Debility #. Hypovolemic hyponatremia, due to poor oral intake, resolved #. Lactic acidosis, resolved #. Nonanion gap metabolic acidosis, resolved #. Dehydration, improved #. Leukocytosis likely reactive, resolved -Lactic acid 1.4 -Brain CT showed no acute intracranial process, nonspecific white matter changes likely secondary to chronic small vessel ischemic disease. -Fall precautions -Judicious use of fluids. IV fluids lactated Ringer's 75 cc/h -Blood cultures pending -Monitor CBC and BMP -PT OT consulted -Speech therapy consulted -Will likely need home with home care on discharge #. Atrial fibrillation with RVR, rate controlled -EKG independently interpreted showed atrial fibrillation with a rate of 133 bpm, wide QRS is with a duration 165 MS, nonspecific ST-T changes, QTc 440 MS, left axis deviation. - Troponins negative. -Cardiac telemetry -On Xarelto 50 mg p.o. at bedtime -Will consider amiodarone IV if patient becomes hypotensive -Cardiology consulted. Increase metoprolol dosing to 25 mg thrice daily #. Hypokalemia -Potassium 3 -Potassium bicarb 60 mEq given -Recheck potassium #. Elevated ALP, improved -ALP at 159 -Patient is asymptomatic -Will monitor for now Chronic Conditions: #. CAD #. BPH #. COPD (not on home oxygen) #. Hyperlipidemia #. Hypertension #. BPH #. Sleep apnea #. Santamaria's palsy #. Subconjunctival hemorrhage #. Severe pulmonary hypertension -Resumed home aspirin, Lipitor, Symbicort, oral iron, finasteride, DuoNeb, Lopressor, valacyclovir F: lactated Ringer's 75 cc/h E: Monitor electrolytes N: Heart healthy diet A: Fall precautions DVT ppx: Xarelto 20 mg p.o. daily CODE STATUS: No code Discussed with: Patient and patient's family Anticipated discharge place: Pending clinical course Cleopatra Lee MD PGY-1 Internal Medicine Dictation was produced using [employer] dictation software. please excuse any grammatical, word or spelling errors. I have seen and evaluated the patient today. Discussed with the resident and agree with the residents finding and plan as documented in the resident's note. Changes highlighted in blue font. Objective - Vital Signs Vital signs: Vital Signs Temp 97.6 F 05/10/24 03:38 Pulse 70 05/10/24 03:38 Resp 18 05/10/24 03:38 BP 107/65 05/10/24 03:38 Pulse Ox 96 05/10/24 03:38 FiO2 Intake & Output 05/09/24 05/10/24 05/10/24 18:59 06:59 18:59 Intake Total 180 10 Output Total 200 Balance 180 -190 Weight 74.843 kg Intake: IV 10 Invasive Line 1 10 Oral 180 Output: Urine 200 Other: Voiding Method Urinal # Voids 1 # Bowel Movements 1 1 - Labs CBC & Chem 7: 05/10/24 06:29 05/10/24 06:29 Labs: Abnormal Lab Results - Last 24 Hours (Table) 05/09/24 05/09/24 05/09/24 Range/Units 11:03 11:03 11:03 WBC 13.0 H (3.8-10.6) k/uL RBC (4.30-5.90) m/uL Hgb 11.8 L (13.0-17.5) gm/dL Hct (39.0-53.0) % MCHC 29.6 L (31.0-37.0) g/dL RDW 18.3 H (11.5-15.5) % Neutrophils # 10.7 H (1.3-7.7) k/uL Lymphocytes # (1.0-4.8) k/uL Monocytes # 1.1 H (0-1.0) k/uL PT 13.8 H (10.0-12.5) sec INR 1.3 H (<1.2) APTT 30.6 H (22.0-30.0) sec VBG HCO3 (24-28) mmol/L Sodium 133 L (137-145) mmol/L Carbon Dioxide 21 L (22-30) mmol/L BUN 38 H (9-20) mg/dL POC Glucose (mg/dL) (70-110) mg/dL Plasma Lactic Acid Gabriel (0.7-2.0) mmol/L Alkaline Phosphatase 165 H (38-126) U/L Total Protein 5.9 L (6.3-8.2) g/dL Albumin 2.9 L (3.5-5.0) g/dL Urine Blood (Negative) 05/09/24 05/09/24 05/09/24 Range/Units 11:03 11:03 11:09 WBC (3.8-10.6) k/uL RBC (4.30-5.90) m/uL Hgb (13.0-17.5) gm/dL Hct (39.0-53.0) % MCHC (31.0-37.0) g/dL RDW (11.5-15.5) % Neutrophils # (1.3-7.7) k/uL Lymphocytes # (1.0-4.8) k/uL Monocytes # (0-1.0) k/uL PT (10.0-12.5) sec INR (<1.2) APTT (22.0-30.0) sec VBG HCO3 23 L (24-28) mmol/L Sodium (137-145) mmol/L Carbon Dioxide (22-30) mmol/L BUN (9-20) mg/dL POC Glucose (mg/dL) 65 L (70-110) mg/dL Plasma Lactic Acid Gabriel 2.2 H* (0.7-2.0) mmol/L Alkaline Phosphatase (38-126) U/L Total Protein (6.3-8.2) g/dL Albumin (3.5-5.0) g/dL Urine Blood (Negative) 05/09/24 05/09/24 05/10/24 Range/Units 14:38 16:00 06:29 WBC (3.8-10.6) k/uL RBC 4.05 L (4.30-5.90) m/uL Hgb 10.9 L (13.0-17.5) gm/dL Hct 34.1 L (39.0-53.0) % MCHC (31.0-37.0) g/dL RDW 18.3 H (11.5-15.5) % Neutrophils # (1.3-7.7) k/uL Lymphocytes # 0.8 L (1.0-4.8) k/uL Monocytes # 1.1 H (0-1.0) k/uL PT (10.0-12.5) sec INR (<1.2) APTT (22.0-30.0) sec VBG HCO3 (24-28) mmol/L Sodium (137-145) mmol/L Carbon Dioxide (22-30) mmol/L BUN (9-20) mg/dL POC Glucose (mg/dL) (70-110) mg/dL Plasma Lactic Acid Gabriel 2.3 H* (0.7-2.0) mmol/L Alkaline Phosphatase (38-126) U/L Total Protein (6.3-8.2) g/dL Albumin (3.5-5.0) g/dL Urine Blood Small H (Negative)
[2024-05-10] MEDS: POTASSIUM BICARBONATE/CIT AC 20 MEQ TABLET.EFF PO ONE ×2 (11:16→15:23)
--- NOTE | 2024-05-10 13:12 | P.CRDCN ---
History of Present Illness History of present illness: HISTORY OF PRESENT ILLNESS: This is a 83-year-old male with a past medical history significant for persistent atrial fibrillation, hypertension, coronary artery disease, hyperlipidemia, COPD, and former nicotine dependence. Patient follows in the office with Dr. Schneider. We have been asked to see the patient in consultation for A-fib with RVR. Patient examined at the bedside. Patient was apparently brought to the hospital by his family due to generalized weakness, fatigue, and poor a ppetite over the past 2 to 3 days. The patient was recently diagnosed with Santamaria's palsy as well. The patient was found to be in A-fib with RVR. At the time of examination he remains in atrial fibrillation with a heart rate around 120. He denies any chest pain or pressure. Denies any shortness of breath. Denies any dizziness or lightheadedness. DIAGNOSTICS: - EKG reveals atrial fibrillation with RVR. - Chest xray cardiomegaly, pulmonary vascular congestion and bilateral pleural effusions - Laboratory data: WBC 9.6. Hemoglobin 10.9. Platelet count 307. Sodium 135. Potassium 3.0. BUN 25. Creatinine 0.79. TSH 2.560. - Current home cardiac medications include metoprolol tartrate 25 mg twice a day, aspirin 81 mg at night, Lipitor 20 mg at night, Lasix 20 mg Wednesday, Xarelto 15 mg at night. - Most recent echocardiogram obtained in October 2023 reveals ejection fr action 50%, moderate pulm hypertension, moderate to severe mitral regurgitation, severe tricuspid regurgitation, mild to moderate aortic insufficiency -Patient underwent Lexiscan stress test in October 2023 without evidence of ischemia. - Cardiac catheterization history: March 2014 revealing total occlusion of diagonal branch which is not a new finding, dominant circumflex and nondominant RCA no irregularities, no significant disease, LAD small caliber vessel with distal one third disease, mild anterior apical hypokinesia, preserved EF REVIEW OF SYSTEMS: At the time of my exam: CONSTITUTIONAL: Denies fever or chills. HEENT: Denies blurred vision, vision changes, or eye pain. Denies hemoptysis CARDIOVASCULAR: Denies chest pain. Denies orthopnea. Denies PND. Denies palpitations RESPIRATORY: Denies shortness of breath. GASTROINTESTINAL: Denies abdominal pain. Denies nausea or vomiting. HEMATOLOGIC: Denies bleeding disorders. GENITOURINARY: Denies any blood in urine. SKIN: Denies pruitis. Denies rash. PHYSICAL EXAM: VITAL SIGNS: Reviewed. GENERAL: Well-developed in no acute distress. HEENT: Head is normocephalic. Pupils are equal, round. Sclerae anicteric. Mucous membranes of the mouth are moist. Neck supple. No JVD or thyromegaly LUNGS: Respirations even and unlabored. Lungs essentially clear to auscultation bilaterally. HEART: Tachycardic. Irregular rate and rhythm. S1 and S2 heard. ABDOMEN: Soft. Nondistended. Nontender. EXTREMITIES: Normal range of motion. No clubbing or cyanosis. Peripheral pulses intact. No lower extremity edema NEUROLOGIC: Awake and alert. Hard of hearing. ASSESSMENT: Generalized weakness Decreased oral intake Hyponatremia Persistent atrial fibrillation with RVR History of coronary artery disease Hypertension Hyperlipidemia COPD Former nicotine dependence Recent diagnosis of Santamaria's palsy Moderate pulmonary hypertension Valvular heart disease including moderate to severe MR, severe TR, mild to moderate aortic insufficiency PLAN: No need to repeat echocardiogram as this was performed in the office in October 2023 Resume home cardiac medications Increase metoprolol tartrate to 25 mg 3 times a day No indication for IV amiodarone as patient has persistent atrial fibrillation Continue telemetry monitoring Further recommendations pending patient course Nurse practitioner note has been reviewed by physician. Signing provider agrees with the documented findings, assessment, and plan of care documented by DELI COOK as a scribe. Past Medical History Past Medical History: Atrial Fibrillation, Coronary Artery Disease (CAD), Cancer, COPD, Eye Disorder, Hearing Disorder / Deafness, Hyperlipidemia, Hypertension, Prostate Disorder, Sleep Apnea/CPAP/BIPAP Additional Past Medical History / Comment(s): BPH, Prescribed C-PAP but does not wear anymore, Inguinal hernia right side, cataracts, Renal CA w nephrostomy in Dec 2021. Pt denies asthma 12/24/23, states chronic bronchitis as the issue. Hyponatremia History of Any Multi-Drug Resistant Organisms: None Reported Past Surgical History: Heart Catheterization, Hernia Repair, Orthopedic Surgery Additional Past Surgical History / Comment(s): right elbow surgery-injury, bone spur heel, right shoulder arthroscopy, cardioversion, umbilical hernia repair, colonoscopy, TURP 2017, nephrectomy -rt, broke L wrist around August 2023. FLUID REMOVED FROM LEFT EAR AND TUBE PLACED. Past Anesthesia/Blood Transfusion Reactions: No Reported Reaction Additional Past Anesthesia/Blood Transfusion Reaction / Comment(s): slow wake up Past Psychological History: No Psychological Hx Reported Smoking Status: Former smoker - Past Family History Daughter(s) Family Medical History: Cancer Father Family Medical History: Cancer Medications and Allergies Home Medications Medication Instructions Recorded Confirmed Type Aspirin 81 mg PO HS 01/30/14 05/09/24 History Finasteride [Proscar] 5 mg PO HS 01/30/14 05/09/24 History Fluticasone Propion/Salmeterol 1 puff INHALATION RT-BID 01/02/22 05/09/24 History [Advair 500-50 Diskus] Albuterol Inhaler [Ventolin Hfa 2 puff INHALATION RT-QID PRN 04/25/22 05/09/24 History Inhaler] Atorvastatin [Lipitor] 20 mg PO HS 04/25/22 05/09/24 History Ferrous Sulfate [Feosol] 325 mg PO BID 04/25/22 05/09/24 History Ipratropium-Albuterol Nebulize 3 ml INHALATION RT-QID 12/05/23 05/09/24 History [Duoneb 0.5 mg-3 mg/3 ml Soln] guaiFENesin [Mucinex] 600 mg PO DAILY 12/05/23 05/09/24 History Sodium Chloride Tab 1 gm PO BID 12/24/23 05/09/24 History Furosemide [Lasix] 20 mg PO MOWEFR 03/25/24 05/09/24 History Rivaroxaban [Xarelto] 15 mg PO HS tab 04/04/24 05/09/24 Rx Artificial Tears-Hypromellose 1 drops LEFT EYE TID #10 ml 05/06/24 05/09/24 Rx [Artificial Tear Drops] Erythromycin Ophth Oint [Romycin 1 applic OPHTHALMIC DAILY #1 gm 05/06/24 05/09/24 Rx Ophth Oint] valACYclovir HCL [Valtrex] 1,000 mg PO DAILY 7 Days #7 tablet 05/06/24 05/09/24 Rx Acetaminophen Tab [Tylenol] 325 mg PO Q6H PRN 05/09/24 05/09/24 History Metoprolol Tartrate [Lopressor] 25 mg PO BID 05/09/24 05/09/24 History Allergies Allergy/AdvReac Type Severity Reaction Status Date / Time No Known Allergies Allergy Verified 05/09/24 11:53 Physical Exam Vitals: Vital Signs Temp Pulse Pulse Pulse Resp BP BP 05/10/24 12:21 70 05/10/24 12:12 78 05/10/24 09:28 72 05/10/24 09:13 72 05/10/24 08:00 97.4 F L 109 H 70 18 94/54 05/10/24 03:38 97.6 F 70 18 107/65 05/09/24 23:30 97.5 F L 114 H 16 100/57 05/09/24 20:00 97.6 F 104 H 18 94/55 05/09/24 16:45 97.6 F 115 H 18 109/54 05/09/24 16:29 98.1 F 127 H 18 94/67 05/09/24 13:22 122 H 18 97/69 Pulse Ox 05/10/24 12:21 05/10/24 12:12 05/10/24 09:28 05/10/24 09:13 05/10/24 08:00 95 05/10/24 03:38 96 05/09/24 23:30 97 05/09/24 20:00 98 05/09/24 16:45 96 05/09/24 16:29 98 05/09/24 13:22 98 Intake and Output 05/09/24 05/10/24 05/10/24 22:59 06:59 14:59 Intake Total 190 Output Total 200 Balance 190 -200 Intake: IV 10 Invasive Line 1 10 Oral 180 Output: Urine 200 Other: Voiding Method Urinal Urinal Urinal # Voids 1 1 # Bowel Movements 1 1 Weight 74.843 kg Results 05/10/24 06:29 05/10/24 06:29 Cardiac Enzymes 05/10/24 Range/Units 06:29 AST 31 (17-59) U/L CBC 05/10/24 Range/Units 06:29 WBC 9.6 (3.8-10.6) k/uL RBC 4.05 L (4.30-5.90) m/uL Hgb 10.9 L (13.0-17.5) gm/dL Hct 34.1 L (39.0-53.0) % Plt Count 307 (150-450) k/uL Comprehensive Metabolic Panel 05/10/24 Range/Units 06:29 Sodium 135 L (137-145) mmol/L Potassium 3.0 L (3.5-5.1) mmol/L Chloride 108 H (98-107) mmol/L Carbon Dioxide 24 (22-30) mmol/L BUN 25 H (9-20) mg/dL Creatinine 0.79 (0.66-1.25) mg/dL Glucose 76 (74-99) mg/dL Calcium 8.6 (8.4-10.2) mg/dL AST 31 (17-59) U/L ALT 20 (4-49) U/L Alkaline Phosphatase 159 H (38-126) U/L Total Protein 4.9 L (6.3-8.2) g/dL Albumin 2.3 L (3.5-5.0) g/dL Current Medications Generic Name Dose Route Start Last Admin Trade Name Freq PRN Reason Stop Dose Admin Acetaminophen 650 mg 05/09/24 14:04 Acetaminophen Tab 325 Mg Tab PO Q6HR PRN Mild Pain or Fever > 100.5 Albuterol Sulfate 2.5 mg 05/09/24 15:32 Albuterol Nebulized 2.5 Mg/3 Ml INHALATION RT-QID PRN Shortness Of Breath Albuterol/Ipratropium 3 ml 05/09/24 16:00 05/10/24 12:12 Ipratropium-Albuterol 3 Ml Neb INHALATION 3 ml RT-QID LIAT Administration Artificial Tears 1 drops 05/09/24 16:00 05/10/24 08:01 Artificial Tears-Hypromellose Drops 15 Ml Btl LEFT EYE 1 drops TID LIAT Administration Aspirin 81 mg 05/09/24 21:00 05/09/24 21:07 Aspirin 81 Mg PO 81 mg HS LIAT Administration Atorvastatin Calcium 20 mg 05/09/24 21:00 05/09/24 21:07 Atorvastatin 20 Mg Tab PO 20 mg HS LIAT Administration Budesonide/Formoterol Fumarate 2 puff 05/09/24 20:00 05/10/24 09:13 Symbicort 160-4.5 Mcg Inhaler INHALATION 2 puff RT-BID LIAT Administration Erythromycin 1 applic 05/10/24 11:45 Erythromycin 5 Mg/Gm Ophth Oint 3.5 Gm Tube RIGHT EYE DAILY LIAT Ferrous Sulfate 325 mg 05/09/24 21:00 05/10/24 08:02 Ferrous Sulfate 325 Mg Tab PO 325 mg BID LIAT Administration Finasteride 5 mg 05/09/24 21:00 05/09/24 21:07 Finasteride 5 Mg Tab PO 5 mg HS LIAT Administration Lactated Ringer's 1,000 mls @ 75 mls/hr 05/09/24 15:45 05/10/24 04:33 Lactated Ringers IV 100 mls/hr .[id number] LIAT Administration Metoprolol Tartrate 25 mg 05/10/24 16:00 Metoprolol Tartrate 25 Mg Tab PO TID LIAT Naloxone HCl 0.2 mg 05/09/24 14:04 Naloxone 0.4 Mg/Ml 1 Ml Vial IV Q2M PRN Opioid Reversal Rivaroxaban 20 mg 05/09/24 17:30 05/09/24 17:25 Rivaroxaban 20 Mg Tab PO 20 mg W/SUPPER LIAT Administration Protocol Valacyclovir HCl 1,000 mg 05/10/24 09:00 05/10/24 08:02 Valacyclovir Hcl 1,000 Mg Tablet PO 1,000 mg DAILY LIAT Administration Protocol Intake and Output 05/09/24 05/10/24 05/10/24 22:59 06:59 14:59 Intake Total 190 Output Total 200 Balance 190 -200 Intake: IV 10 Invasive Line 1 10 Oral 180 Output: Urine 200 Other: Voiding Method Urinal Urinal Urinal # Voids 1 1 # Bowel Movements 1 1 Weight 74.843 kg 05/10/24 06:29 05/10/24 06:29
[2024-05-10 13:54] VITALS: BMI 23.6
[2024-05-10] MEDS: METOPROLOL TARTRATE 25 MG TAB PO SCH (15:23)
[2024-05-10] MEDS: ERYTHROMYCIN 5 MG/GM OPHTH OINT 3.5 GM TUBE RIGHT EYE SCH ×2 (16:34→19:56)
[2024-05-11 06:58] LABS: Anisocytosis Slight; Basophils % (A) 0 %; Eosinophils # (A) 0.3 k/uL (0-0.7); Eosinophils % (A) 3 %; HCT 36.2 % (39.0-53.0); HGB 10.7 gm/dL (13.0-17.5); Hypochromasia Moderate; Lymphocytes # (A) 0.9 k/uL (1.0-4.8); Lymphocytes % (A) 11 %; MCH 25.9 pg (25.0-35.0); MCHC 29.7 g/dL (31.0-37.0); MCV 87.2 fL (80.0-100.0); Mean Platelet Volume 7.9; Monocytes # (A) 0.8 k/uL (0-1.0); Monocytes % (A) 10 %; Neutrophils # (A) 5.7 k/uL (1.3-7.7); Neutrophils % (A) 73 %; Platelet Count 323 k/uL (150-450); RBC 4.15 m/uL (4.30-5.90); RDW 18.2 % (11.5-15.5); WBC 7.8 k/uL (3.8-10.6)
[2024-05-11 07:13] LABS: African American GFR (CKD) >90 (>60 ml/min/1.73 sqM); Anion Gap 6 mmol/L; Blood Urea Nitrogen 19 mg/dL (9-20); Calcium 8.4 mg/dL (8.4-10.2); Carbon Dioxide 23 mmol/L (22-30); Chloride 106 mmol/L (98-107); Glucose 81 mg/dL (74-99); Non-African American GFR(CKD) 89 (>60 ml/min/1.73 sqM); Potassium 3.6 mmol/L (3.5-5.1); Sodium 135 mmol/L (137-145)
[2024-05-11] MEDS: ACETAMINOPHEN TAB 325 MG TAB PO PRN (08:37)
--- NOTE | 2024-05-11 12:05 | P.PN ---
Subjective HISTORY OF PRESENT ILLNESS: This is a 83-year-old male with a past medical history significant for persistent atrial fibrillation, hypertension, coronary artery disease, hyperlipidemia, COPD, and former nicotine dependence. Patient follows in the office with Dr. Schneider. We have been asked to see the patient in consultation for A-fib with RVR. Patient examined at the bedside. Patient was apparently brought to the hospital by his family due to generalized weakness, fatigue, and poor appetite over the past 2 to 3 days. The patient was recently diagnosed with Santamaria's palsy as well. The patient was found to be in A-fib with RVR. At the time of examination he remains in atrial fibrillation with a heart rate around 120. He denies any chest pain or pressure. Denies any shortness of breath. Denies any dizziness or lightheadedness. DIAGNOSTICS: - EKG reveals atrial fibrillation with RVR. - Chest xray cardiomegaly, pulmonary vascular congestion and bilateral pleural effusions - Laboratory data: WBC 9.6. Hemoglobin 10.9. Platelet count 307. Sodium 135. Potassium 3.0. BUN 25. Creatinine 0.79. TSH 2.560. - Current home cardiac medications include metoprolol tartrate 25 mg twice a day, aspirin 81 mg at night, Lipitor 20 mg at night, Lasix 20 mg Wednesday, Xarelto 15 mg at night. - Most recent echocardiogram obtained in October 2023 reveals ejection fraction 50%, moderate pulm hypertension, moderate to severe mitral regurgitation, severe tricuspid regurgitation, mild to moderate aortic insufficiency -Patient underwent Lexiscan stress test in October 2023 without evidence of ischemia. - Cardiac catheterization history: March 2014 revealing total occlusion of diagonal branch which is not a new finding, dominant circumflex and nondominant RCA no irregularities, no significant disease, LAD small caliber vessel with distal one third disease, mild anterior apical hypokinesia, preserved EF 05/11/2024 Patient examined this morning the bedside. Patient denies chest pain or pressure. He denies shortness of breath. Patient remains in atrial fibrillation with heart rate between [id number]. Systolic blood pressures in the 90s. PHYSICAL EXAM: VITAL SIGNS: Reviewed. GENERAL: Well-developed in no acute distress. HEENT: Head is normocephalic. Pupils are equal, round. Sclerae anicteric. Mucous membranes of the mouth are moist. Neck supple. No JVD or thyromegaly LUNGS: Respirations even and unlabored. Lungs essentially clear to auscultation bilaterally. HEART: Tachycardic. Irregular rate and rhythm. S1 and S2 heard. ABDOMEN: Soft. Nondistended. Nontender. EXTREMITIES: Normal range of motion. No clubbing or cyanosis. Peripheral pulses intact. No lower extremity edema NEUROLOGIC: Awake and alert. Hard of hearing. ASSESSMENT: Generalized weakness Decreased oral intake Hyponatremia Persistent atrial fibrillation with RVR History of coronary artery disease Hypertension Hyperlipidemia COPD Former nicotine dependence Recent diagnosis of Santamaria's palsy Moderate pulmonary hypertension Valvular heart disease including moderate to severe MR, severe TR, mild to moderate aortic insufficiency PLAN: No need to repeat echocardiogram as this was performed in the office in October 2023 Continue metoprolol tartrate to 25 mg 3 times a day. Unable to increase secondary to soft blood pressures No indication for IV amiodarone as patient has persistent atrial fibrillation Continue telemetry monitoring Further recommendations pending patient course Nurse practitioner note has been reviewed by physician. Signing provider agrees with the documented findings, assessment, and plan of care documented by [employer] as a scribe. Objective - Vital Signs Vital signs: Vital Signs Temp 98.0 F 05/11/24 08:20 Pulse 94 05/11/24 08:20 Resp 16 05/11/24 08:20 BP 95/60 05/11/24 08:20 Pulse Ox 97 05/11/24 08:20 FiO2 Intake & Output 05/10/24 05/11/24 05/11/24 18:59 06:59 18:59 Intake Total 598 10 180 Balance 598 10 180 Weight 74.843 kg Intake: IV 10 Invasive Line 2 10 Oral 598 180 Other: Voiding Method Urinal Urinal Urinal # Voids 1 1 # Bowel Movements 1 1 1 - Labs CBC & Chem 7: 05/11/24 06:16 05/11/24 06:16 Labs: Abnormal Lab Results - Last 24 Hours (Table) 05/11/24 05/11/24 Range/Units 06:16 06:16 RBC 4.15 L (4.30-5.90) m/uL Hgb 10.7 L (13.0-17.5) gm/dL Hct 36.2 L (39.0-53.0) % MCHC 29.7 L (31.0-37.0) g/dL RDW 18.2 H (11.5-15.5) % Lymphocytes # 0.9 L (1.0-4.8) k/uL Sodium 135 L (137-145) mmol/L Microbiology - Last 24 Hours (Table) 05/09/24 17:53 Blood Culture - Preliminary Blood 05/09/24 11:53 Blood Culture - Preliminary Blood
--- NOTE | 2024-05-11 13:10 | P.PN ---
Subjective Progress Note Date: 05/11/24 Patient is a 83-year-old male with atrial fibrillation (on Xarelto), CAD, BPH, COPD (not on home oxygen), hyperlipidemia, hypertension,, BPH, sleep apnea, renal cell carcinoma status post right nephrostomy, hearing disorder status post bilateral tympanostomy, acute GI bleed in the setting of Xarelto, severe pulmonary hypertension here for evaluation of generalized weakness, fatigue and poor appetite. Patient is a poor historian and family at bedside contributed to majority of the history. Patient was reported to have the symptoms for the past several days and have worsened. Last night, patient was not able to ambulate and support himself and was very drowsy which led them to seek care today. He has associated diarrhea for the past 3 days with tarry stool that is attributed to having oral iron supplementation. Family also mentioned that patient has not had much to eat or drink in the past 24 to 48 hours is very weak but his appetite has been low since he was admitted in March to the point that he cannot eat solid or hard to chew foods. He denied chest pain, shortness of breath, cough, fever, chills, nausea, vomiting palpitations, changes in vision, focal weakness, gait changes, recent prolonged travel. he was recently in our facility when he was diagnosed with Santamaria's palsy and subconjunctival hemorrhage 3 days prior. He was also hospitalized on 03/27/2024 for an acute GI bleed in the setting of Xarelto complicated by sepsis with shock and metabolic encephalopathy. He was sent home with cefdinir p.o. for 4 more days at that time and was sent to [facility] for rehab regarding generalized debility. He was discharged from [facility] on the first week of April. On admission: Vitals: Temperature 97.4 F, pulse rate 128, respiratory rate 18, blood pressure 90/64, O2 saturation 92% on room air Labs: WBC 13, hemoglobin 11.8, platelet count 349,000, PT 13.8, INR 1.3, PTT 30.6, sodium 133, potassium 3.7, chloride 104, bicarb 21, BUN 38, creatinine 1.04, glucose 75, lactic acid 2.2, calcium 9.1, magnesium 2, AST 34, ALT 20, alk phos 165, albumin 2.5. proBNP 9290. Troponins negative. Cepheid 4 Plex negative. Imaging: Chest x-ray showed cardiomegaly, pulmonary vascular congestion and bilateral pleural effusions. Brain CT showed no acute intracranial process, nonspecific white matter changes likely secondary to chronic small vessel ischemic disease. EKG showed atrial fibrillation with a rate of 133 bpm, wide QRS is with a duration 165 MS, nonspecific ST-T changes, QTc 440 MS, left axis deviation. 05/10/2024 patient seen and examined at bedside. No acute events overnight. Patient more awake and cooperative today. Labs: WBC 9.6, hemoglobin 10.9, platelet count 307,000, sodium 135, potassium 3, chloride 108, bicarb 24, BUN 25, creatinine 0.79, glucose 76, alk phos 159, albumin 2.3 05/19/2024 patient seen and examined at bedside. No acute events overnight. Blood pressures labile and soft overnight Labs: WBC 7.8, hemoglobin 10.7, platelet count 323,000, sodium 135, potassium 3.6 creatinine 0.68, calcium 8.4 Review of systems: Pertinent positives and negatives as discussed in HPI, a complete review of systems was performed and all other systems are negative. Physical examination: Vital signs reviewed General: non toxic, no distress, appears at stated age, on nasal cannula Derm: no unusual rashes/lesions, warm Head: atraumatic, normocephalic, symmetric Eyes: EOMI, anicteric sclera, pupils equal round reactive to light, right eye hartman s subconjunctival hemorrhage known on last ED visit ENT: Nose and ears atraumatic Neck: No cervical lymphadenopathy, trachea midline, supple Mouth: no lip lesion, mucus membranes moist Cardiovascular: S1S2 irregularly irregular, no murmur Lungs: CTA bilateral, no rhonchi, no rales, no accessory muscle use Abdominal: soft, nondistended, nontender to palpation, no guarding Ext: muscle strength 5 out of 5 in all 4 extremities grossly, no gross muscle atrophy, no contractures, positive dorsalis pedis pulse bilateral, no edema Neuro: CN II-XI grossly intact, no gross focal neuro deficits Psych: Alert and oriented x 3, appropriate affect and mood Assessment/Plan: 83-year-old male with atrial fibrillation (on Xarelto), PD (not on home oxygen), hypertension, sleep apnea, acute GI bleed in the setting of Xarelto here for evaluation of generalized weakness, fatigue and poor appetite. The patient is admitted with an anticipated greater than 2 midnight stay for the evaluation of debility and acute encephalopathy Active: #. Acute encephalopathy, rule out anatomic/metabolic etiologies, improved #. Debility #. Hypovolemic hyponatremia, due to poor oral intake, resolved #. Lactic acidosis, resolved #. Nonanion gap metabolic acidosis, resolved #. Dehydration, improved #. Leukocytosis likely reactive, resolved -Fall precautions -Judicious use of fluids. IV fluids discontinued. Encourage oral intake -Blood cultures pending -Monitor CBC and BMP -PT OT consulted -Speech therapy consulted -Will likely need home with home care on discharge -Pending orthostatic vitals #. Atrial fibrillation with RVR, rate controlled -EKG independently interpreted showed atrial fibrillation with a rate of 133 bpm, wide QRS is with a duration 165 MS, nonspecific ST-T changes, QTc 440 MS, left axis deviation. - Troponins negative. -Cardiac telemetry -On Xarelto 50 mg p.o. at bedtime -Cardiology consulted. Increase metoprolol dosing to 25 mg thrice daily #. Hypokalemia, resolved -Potassium 3.6 #. Elevated ALP, stable -ALP at 159 -Patient is asymptomatic -Will monitor for now Chronic Conditions: #. CAD #. BPH #. COPD (not on home oxygen) #. Hyperlipidemia #. Hypertension #. BPH #. Sleep apnea #. Santamaria's palsy #. Subconjunctival hemorrhage #. Severe pulmonary hypertension -Resumed home aspirin, Lipitor, Symbicort, oral iron, finasteride, DuoNeb, Lopressor, valacyclovir F: Oral intake E: Monitor electrolytes N: Heart healthy diet A: Fall precautions DVT ppx: Xarelto 20 mg p.o. daily CODE STATUS: No code Anticipated discharge place: Pending clinical course Cleopatra Lee MD PGY-1 Internal Medicine Dictation was produced using [employer] dictation software. please excuse any grammatical, word or spelling errors. I have seen and evaluated the patient today. Discussed with the resident and agree with the residents finding and plan as documented in the resident's note. Changes highlighted in blue font. Objective - Vital Signs Vital signs: Vital Signs Temp 98.0 F 05/11/24 08:20 Pulse 94 05/11/24 08:20 Resp 16 05/11/24 08:20 BP 95/60 05/11/24 08:20 Pulse Ox 97 05/11/24 08:20 FiO2 Intake & Output 05/10/24 05/11/24 05/11/24 18:59 06:59 18:59 Intake Total 598 10 180 Balance 598 10 180 Weight 74.843 kg Intake: IV 10 Invasive Line 2 10 Oral 598 180 Other: Voiding Method Urinal Urinal Urinal # Voids 1 1 # Bowel Movements 1 1 1 - Labs CBC & Chem 7: 05/11/24 06:16 05/11/24 06:16 Labs: Abnormal Lab Results - Last 24 Hours (Table) 05/11/24 05/11/24 Range/Units 06:16 06:16 RBC 4.15 L (4.30-5.90) m/uL Hgb 10.7 L (13.0-17.5) gm/dL Hct 36.2 L (39.0-53.0) % MCHC 29.7 L (31.0-37.0) g/dL RDW 18.2 H (11.5-15.5) % Lymphocytes # 0.9 L (1.0-4.8) k/uL Sodium 135 L (137-145) mmol/L Microbiology - Last 24 Hours (Table) 05/09/24 17:53 Blood Culture - Preliminary Blood 05/09/24 11:53 Blood Culture - Preliminary Blood
[2024-05-11] MEDS: SODIUM FERRIC GLUCONAT-SUCROSE 125 MG in SODIUM CHLORIDE 0.9% 100 ML IVPB ONE (15:45)
[2024-05-12] MEDS: TAMSULOSIN 0.4 MG CAP.ER.24H PO SCH (10:11)
--- NOTE | 2024-05-12 13:09 | P.PN ---
Subjective HISTORY OF PRESENT ILLNESS: This is a 83-year-old male with a past medical history significant for persistent atrial fibrillation, hypertension, coronary artery disease, hyperlipidemia, COPD, and former nicotine dependence. Patient follows in the office with Dr. Schneider. We have been asked to see the patient in consultation for A-fib with RVR. Patient examined at the bedside. Patient was apparently brought to the hospital by his family due to generalized weakness, fatigue, and poor appetite over the past 2 to 3 days. The patient was recently diagnosed with Santamaria's palsy as well. The patient was found to be in A-fib with RVR. At the time of examination he remains in atrial fibrillation with a heart rate around 120. He denies any chest pain or pressure. Denies any shortness of breath. Denies any dizziness or lightheadedness. DIAGNOSTICS: - EKG reveals atrial fibrillation with RVR. - Chest xray cardiomegaly, pulmonary vascular congestion and bilateral pleural effusions - Laboratory data: WBC 9.6. Hemoglobin 10.9. Platelet count 307. Sodium 135. Potassium 3.0. BUN 25. Creatinine 0.79. TSH 2.560. - Current home cardiac medications include metoprolol tartrate 25 mg twice a day, aspirin 81 mg at night, Lipitor 20 mg at night, Lasix 20 mg Wednesday, Xarelto 15 mg at night. - Most recent echocardiogram obtained in October 2023 reveals ejection fraction 50%, moderate pulm hypertension, moderate to severe mitral regurgitation, severe tricuspid regurgitation, mild to moderate aortic insufficiency -Patient underwent Lexiscan stress test in October 2023 without evidence of ischemia. - Cardiac catheterization history: March 2014 revealing total occlusion of diagonal branch which is not a new finding, dominant circumflex and nondominant RCA no irregularities, no significant disease, LAD small caliber vessel with distal one third disease, mild anterior apical hypokinesia, preserved EF 05/11/2024 Patient examined this morning the bedside. Patient denies chest pain or pressure. He denies shortness of breath. Patient remains in atrial fibrillation with heart rate between [id number]. Systolic blood pressures in the 90s. 05/12/2024 Patient examined this morning to bedside. Patient denies chest pain or pressure. He denies shortness of breath. Vital signs are stable. Telemetry reveals atrial fibrillation with rates between [id number]. PHYSICAL EXAM: VITAL SIGNS: Reviewed. GENERAL: Well-developed in no acute distress. HEENT: Head is normocephalic. Pupils are equal, round. Sclerae anicteric. Mucous membranes of the mouth are moist. Neck supple. No JVD or thyromegaly LUNGS: Respirations even and unlabored. Lungs essentially clear to auscultation bilaterally. HEART: Tachycardic. Irregular rate and rhythm. S1 and S2 heard. ABDOMEN: Soft. Nondistended. Nontender. EXTREMITIES: Normal range of motion. No clubbing or cyanosis. Peripheral pulses intact. No lower extremity edema NEUROLOGIC: Awake and alert. Hard of hearing. ASSESSMENT: Generalized weakness Decreased oral intake Hyponatremia Persistent atrial fibrillation with RVR History of coronary artery disease Hypertension Hyperlipidemia COPD Former nicotine dependence Recent diagnosis of Santamaria's palsy Moderate pulmonary hypertension Valvular heart disease including moderate to severe MR, severe TR, mild to moderate aortic insufficiency PLAN: No need to repeat echocardiogram as this was performed in the office in ptember 2023 Continue metoprolol tartrate to 25 mg 3 times a day. Unable to increase secondary to soft blood pressures. Patient with chronic afib and HRs up to 110 are acceptable. No further inpatient recommendations from a cardiac standpoint We will sign off. Please reconsult if needed. Nurse practitioner note has been reviewed by physician. Signing provider agrees with the documented findings, assessment, and plan of care documented by [employer] as a scribe. Objective - Vital Signs Vital signs: Vital Signs Temp 98.9 F 05/12/24 08:53 Pulse 96 05/12/24 12:56 Resp 15 05/12/24 11:12 BP 90/55 05/12/24 11:12 Pulse Ox 97 05/12/24 11:12 FiO2 Intake & Output 05/11/24 05/12/24 05/12/24 18:59 06:59 18:59 Intake Total 180 180 Balance 180 180 Intake: Oral 180 180 Other: Voiding Method Urinal Urinal # Voids 1 # Bowel Movements 1 1 2 - Labs CBC & Chem 7: 05/11/24 06:16 05/11/24 06:16 Labs: Microbiology - Last 24 Hours (Table) 05/09/24 17:53 Blood Culture - Preliminary Blood 05/09/24 11:53 Blood Culture - Preliminary Blood
--- NOTE | 2024-05-12 15:32 | P.PN ---
Subjective Progress Note Date: 05/12/24 Patient is a 83-year-old male with atrial fibrillation (on Xarelto), CAD, BPH, COPD (not on home oxygen), hyperlipidemia, hypertension,, BPH, sleep apnea, renal cell carcinoma status post right nephrostomy, hearing disorder status post bilateral tympanostomy, acute GI bleed in the setting of Xarelto, severe pulmonary hypertension here for evaluation of generalized weakness, fatigue and poor appetite. Patient is a poor historian and family at bedside contributed to majority of the history. Patient was reported to have the symptoms for the past several days and have worsened. Last night, patient was not able to ambulate and support himself and was very drowsy which led them to seek care today. He has associated diarrhea for the past 3 days with tarry stool that is attributed to having oral iron supplementation. Family also mentioned that patient has not had much to eat or drink in the past 24 to 48 hours is very weak but his appetite has been low since he was admitted in March to the point that he cannot eat solid or hard to chew foods. He denied chest pain, shortness of breath, cough, fever, chills, nausea, vomiting palpitations, changes in vision, focal weakness, gait changes, recent prolonged travel. he was recently in our facility when he was diagnosed with Santamaria's palsy and subconjunctival hemorrhage 3 days prior. He was also hospitalized on 03/27/2024 for an acute GI bleed in the setting of Xarelto complicated by sepsis with shock and metabolic encephalopathy. He was sent home with cefdinir p.o. for 4 more days at that time and was sent to [facility] for rehab regarding generalized debility. He was discharged from [facility] on the first week of April. On admission: Vitals: Temperature 97.4 F, pulse rate 128, respiratory rate 18, blood pressure 90/64, O2 saturation 92% on room air Labs: WBC 13, hemoglobin 11.8, platelet count 349,000, PT 13.8, INR 1.3, PTT 30.6, sodium 133, potassium 3.7, chloride 104, bicarb 21, BUN 38, creatinine 1.04, glucose 75, lactic acid 2.2, calcium 9.1, magnesium 2, AST 34, ALT 20, alk phos 165, albumin 2.5. proBNP 9290. Troponins negative. Cepheid 4 Plex negative. Imaging: Chest x-ray showed cardiomegaly, pulmonary vascular congestion and bilateral pleural effusions. Brain CT showed no acute intracranial process, nonspecific white matter changes likely secondary to chronic small vessel ischemic disease. EKG showed atrial fibrillation with a rate of 133 bpm, wide QRS is with a duration 165 MS, nonspecific ST-T changes, QTc 440 MS, left axis deviation. 05/10/2024 patient seen and examined at bedside. No acute events overnight. Patient more awake and cooperative today. Labs: WBC 9.6, hemoglobin 10.9, platelet count 307,000, sodium 135, potassium 3, chloride 108, bicarb 24, BUN 25, creatinine 0.79, glucose 76, alk phos 159, albumin 2.3 05/11/2024 patient seen and examined at bedside. No acute events overnight. Blood pressures labile and soft overnight Labs: WBC 7.8, hemoglobin 10.7, platelet count 323,000, sodium 135, potassium 3.6 creatinine 0.68, calcium 8.4 05/12/2024 patient seen and examined at bedside. No acute events overnight. Patient was also having multiple bowel movements overnight that were nonbloody and nonbilious. Blood pressure still labile. Retaining about 315 mL of urine overnight. Review of systems: Pertinent positives and negatives as discussed in HPI, a complete review of syst ems was performed and all other systems are negative. Physical examination: Vital signs reviewed General: non toxic, no distress, appears at stated age, on nasal cannula Derm: no unusual rashes/lesions, warm Head: atraumatic, normocephalic, symmetric Eyes: EOMI, anicteric sclera, pupils equal round reactive to light, right eye has subconjunctival hemorrhage known on last ED visit ENT: Nose and ears atraumatic Neck: No cervical lymphadenopathy, trachea midline, supple Mouth: no lip lesion, mucus membranes moist Cardiovascular: S1S2 irregularly irregular, no murmur Lungs: CTA bilateral, no rhonchi, no rales, no accessory muscle use Abdominal: soft, nondistended, nontender to palpation, no guarding Ext: muscle strength 5 out of 5 in all 4 extremities grossly, no gross muscle atrophy, no contractures, positive dorsalis pedis pulse bilateral, no edema Neuro: CN II-XI grossly intact, no gross focal neuro deficits Psych: Alert and oriented x 3, appropriate affect and mood Assessment/Plan: 83-year-old male with atrial fibrillation (on Xarelto), PD (not on home oxygen), hypertension, sleep apnea, acute GI bleed in the setting of Xarelto here for evaluation of generalized weakness, fatigue and poor appetite. The patient is admitted with an anticipated greater than 2 midnight stay for the evaluation of debility and acute encephalopathy Active: #. Acute encephalopathy, rule out anatomic/metabolic etiologies, improved #. Debility #. Hypovolemic hyponatremia, due to poor oral intake, resolved #. Lactic acidosis, resolved #. Nonanion gap metabolic acidosis, resolved #. Dehydration, improved #. Leukocytosis likely reactive, resolved -Fall precautions -Judicious use of fluids. IV fluids discontinued. Encourage oral intake -Blood cultures negative so far -Monitor CBC and BMP -PT OT consulted -Speech therapy consulted -Orthostatics pending improvement of BP -Will likely need home with home care on discharge -Hospice consulted #. Urinary retention -Retaining about 315 mL overnight -Hollingsworth catheter placed. Voiding trial tomorrow. -Flomax 0.4 mg daily #. Atrial fibrillation with RVR, rate controlled -Cardiac telemetry -On Xarelto 50 mg p.o. at bedtime -Cardiology consulted. Increase metoprolol dosing to 25 mg thrice daily #. Elevated ALP, stable -ALP at 159 -Patient is asymptomatic -Will monitor for now #. Hypokalemia, resolved Chronic Conditions: #. CAD #. BPH #. COPD (not on home oxygen) #. Hyperlipidemia #. Hypertension #. BPH #. Sleep apnea #. Santamaria's palsy #. Subconjunctival hemorrhage #. Severe pulmonary hypertension -Resumed home aspirin, Lipitor, Symbicort, oral iron, finasteride, DuoNeb, Lopressor, valacyclovir F: Oral intake E: Monitor electrolytes N: Heart healthy diet A: Fall precautions DVT ppx: Xarelto 20 mg p.o. daily CODE STATUS: No code Anticipated discharge place: Pending clinical course Cleopatra Lee MD PGY-1 Internal Medicine Dictation was produced using [email or web address] dictation software. please excuse any grammatical, word or spelling errors. I have seen and evaluated the patient today. Discussed with the resident and agree with the residents finding and plan as documented in the resident's note. Changes highlighted in blue font. Patient decided on hospice. Objective - Vital Signs Vital signs: Vital Signs Temp 98.9 F 05/12/24 08:53 Pulse 88 05/12/24 10:09 Resp 17 05/12/24 08:53 BP 94/57 05/12/24 08:53 Pulse Ox 95 05/12/24 08:53 FiO2 Intake & Output 05/11/24 05/12/24 05/12/24 18:59 06:59 18:59 Intake Total 180 180 Balance 180 180 Intake: Oral 180 180 Other: Voiding Method Urinal Urinal # Voids 1 # Bowel Movements 1 1 2 - Labs CBC & Chem 7: 05/11/24 06:16 05/11/24 06:16 Labs: Microbiology - Last 24 Hours (Table) 05/09/24 17:53 Blood Culture - Preliminary Blood 05/09/24 11:53 Blood Culture - Preliminary Blood
--- NOTE | 2024-05-13 14:06 | P.PN ---
Subjective Progress Note Date: 05/13/24 Patient is a 83-year-old male with atrial fibrillation (on Xarelto), CAD, BPH, COPD (not on home oxygen), hyperlipidemia, hypertension,, BPH, sleep apnea, renal cell carcinoma status post right nephrostomy, hearing disorder status post bilateral tympanostomy, acute GI bleed in the setting of Xarelto, severe pulmonary hypertension here for evaluation of generalized weakness, fatigue and poor appetite. Patient is a poor historian and family at bedside contributed to majority of the history. Patient was reported to have the symptoms for the past several days and have worsened. Last night, patient was not able to ambulate and support himself and was very drowsy which led them to seek care today. He has associated diarrhea for the past 3 days with tarry stool that is attributed to having oral iron supplementation. Family also mentioned that patient has not had much to eat or drink in the past 24 to 48 hours is very weak but his appetite has been low since he was admitted in March to the point that he cannot eat solid or hard to chew foods. He denied chest pain, shortness of breath, cough, fever, chills, nausea, vomiting palpitations, changes in vision, focal weakness, gait changes, recent prolonged travel. he was recently in our facility when he was diagnosed with Santamaria's palsy and subconjunctival hemorrhage 3 days prior. He was also hospitalized on 03/27/2024 for an acute GI bleed in the setting of Xarelto complicated by sepsis with shock and metabolic encephalopathy. He was sent home with cefdinir p.o. for 4 more days at that time and was sent to [facility] for rehab regarding generalized debility. He was discharged from [facility] on the first week of April. On admission: Vitals: Temperature 97.4 F, pulse rate 128, respiratory rate 18, blood pressure 90/64, O2 saturation 92% on room air Labs: WBC 13, hemoglobin 11.8, platelet count 349,000, PT 13.8, INR 1.3, PTT 30.6, sodium 133, potassium 3.7, chloride 104, bicarb 21, BUN 38, creatinine 1.04, glucose 75, lactic acid 2.2, calcium 9.1, magnesium 2, AST 34, ALT 20, alk phos 165, albumin 2.5. proBNP 9290. Troponins negative. Cepheid 4 Plex negative. Imaging: Chest x-ray showed cardiomegaly, pulmonary vascular congestion and bilateral pleural effusions. Brain CT showed no acute intracranial process, nonspecific white matter changes likely secondary to chronic small vessel ischemic disease. EKG showed atrial fibrillation with a rate of 133 bpm, wide QRS is with a duration 165 MS, nonspecific ST-T changes, QTc 440 MS, left axis deviation. 05/10/2024 patient seen and examined at bedside. No acute events overnight. Patient more awake and cooperative today. Labs: WBC 9.6, hemoglobin 10.9, platelet count 307,000, sodium 135, potassium 3, chloride 108, bicarb 24, BUN 25, creatinine 0.79, glucose 76, alk phos 159, albumin 2.3 05/11/2024 patient seen and examined at bedside. No acute events overnight. Blood pressures labile and soft overnight Labs: WBC 7.8, hemoglobin 10.7, platelet count 323,000, sodium 135, potassium 3.6 creatinine 0.68, calcium 8.4 05/12/2024 patient seen and examined at bedside. No acute events overnight. Patient was also having multiple bowel movements overnight that were nonbloody and nonbilious. Blood pressure still labile. Retaining about 315 mL of urine overnight. 05/13/2024 patient seen and examined at bedside. No acute events overnight. Still having some loose bowel movements. Hollingsworth catheter discontinued for voiding trial. Patient still has low appetite but drinks fluids. Patient and family have decided on going with home hospice on discharge Review of systems: Pertinent positives and negatives as discussed in HPI, a complete review of systems was performed and all other systems are negative. Physical examination: Vital signs reviewed General: non toxic, no distress, appears at stated age, on nasal cannula Derm: no unusual rashes/lesions, warm Head: atraumatic, normocephalic, symmetric Eyes: EOMI, anicteric sclera, pupils equal round reactive to light, right eye has subconjunctival hemorrhage known on last ED visit ENT: Nose and ears atraumatic Neck: No cervical lymphadenopathy, trachea midline, supple Mouth: no lip lesion, mucus membranes moist Cardiovascular: S1S2 irregularly irregular, no murmur Lungs: CTA bilateral, no rhonchi, no rales, no accessory muscle use Abdominal: soft, nondistended, nontender to palpation, no guarding Ext: muscle strength 5 out of 5 in all 4 extremities grossly, no gross muscle atrophy, no contractures, positive dorsalis pedis pulse bilateral, no edema Neuro: CN II-XI grossly intact, no gross focal neuro deficits Psych: Alert and oriented x 3, appropriate affect and mood Assessment/Plan: 83-year-old male with atrial fibrillation (on Xarelto), PD (not on home oxygen), hypertension, sleep apnea, acute GI bleed in the setting of Xarelto here for evaluation of generalized weakness, fatigue and poor appetite. The patient is admitted with an anticipated greater than 2 midnight stay for the evaluation of debility and acute encephalopathy Active: #. Acute encephalopathy, rule out anatomic/metabolic etiologies, improved #. Debility #. Hypovolemic hyponatremia, due to poor oral intake, resolved #. Lactic acidosis, resolved #. Nonanion gap metabolic acidosis, resolved #. Dehydration, improved #. Leukocytosis likely reactive, resolved -Fall precautions -Judicious use of fluids. IV fluids discontinued. Encourage oral intake -Imodium prn for diarrhea -PT OT consulted -Speech therapy consulted. Recommended dysphagia diet -Patient and family have decided on going with home hospice on discharge. Will work on discharge needs #. Urinary retention -Retaining about 315 mL overnight -Hollingsworth catheter removed. Voiding trial today -Flomax 0.4 mg daily #. Atrial fibrillation with RVR, rate controlled -Cardiac telemetry -On Xarelto 50 mg p.o. at bedtime -Cardiology consulted. Increase metoprolol dosing to 25 mg thrice daily. Have singed off #. Elevated ALP, stable -ALP at 159 -Patient is asymptomatic -Will monitor for now #. Hypokalemia, resolved Chronic Conditions: #. CAD #. BPH #. COPD (not on home oxygen) #. Hyperlipidemia #. Hypertension #. BPH #. Sleep apnea #. Santamaria's palsy #. Subconjunctival hemorrhage #. Severe pulmonary hypertension -Resumed home aspirin, Lipitor, Symbicort, oral iron, finasteride, DuoNeb, Lopressor, valacyclovir F: Oral intake E: Monitor electrolytes N: Heart healthy diet A: Fall precautions DVT ppx: Xarelto 20 mg p.o. daily CODE STATUS: No code Anticipated discharge place: Pending clinical course Cleopatra Lee MD PGY-1 Internal Medicine Dictation was produced using [employer] dictation software. please excuse any grammatical, word or spelling errors. I saw and evaluated the patient during the luque and critical portions of this encounter, and discussed the case in detail with the resident author of this note, I agree with the Assessment and Plan, and my changes, if any, are highlighted in blue. Objective - Vital Signs Vital signs: Vital Signs Temp 97.5 F L 05/13/24 08:00 Pulse 65 05/13/24 12:00 Resp 18 05/13/24 12:00 BP 112/67 05/13/24 12:00 Pulse Ox 98 05/13/24 12:00 FiO2 21 05/13/24 07:47 Intake & Output 05/12/24 05/13/24 05/13/24 18:59 06:59 18:59 Intake Total 180 Output Total 175 Balance 180 -175 Weight 74.843 kg Intake: Oral 180 Output: Urine 175 Other: Voiding Method Indwelling Catheter Indwelling Catheter Indwelling Catheter # Voids 1 # Bowel Movements 1 - Labs CBC & Chem 7: 05/11/24 06:16 05/11/24 06:16 Labs: Microbiology - Last 24 Hours (Table) 05/09/24 17:53 Blood Culture - Preliminary Blood 05/09/24 11:53 Blood Culture - Preliminary Blood
[2024-05-13] MEDS: LOPERAMIDE 2 MG CAP PO PRN (14:50)
--- NOTE | 2024-05-14 14:08 | P.PN ---
Subjective Progress Note Date: 05/14/24 Patient is a 83-year-old male with atrial fibrillation (on Xarelto), CAD, BPH, COPD (not on home oxygen), hyperlipidemia, hypertension,, BPH, sleep apnea, renal cell carcinoma status post right nephrostomy, hearing disorder status post bilateral tympanostomy, acute GI bleed in the setting of Xarelto, severe pulmonary hypertension here for evaluation of generalized weakness, fatigue and poor appetite. Patient is a poor historian and family at bedside contributed to majority of the history. Patient was reported to have the symptoms for the past several days and have worsened. Last night, patient was not able to ambulate and support himself and was very drowsy which led them to seek care today. He has associated diarrhea for the past 3 days with tarry stool that is attributed to having oral iron supplementation. Family also mentioned that patient has not had much to eat or drink in the past 24 to 48 hours is very weak but his appetite has been low since he was admitted in March to the point that he cannot eat solid or hard to chew foods. He denied chest pain, shortness of breath, cough, fever, chills, nausea, vomiting palpitations, changes in vision, focal weakness, gait changes, recent prolonged travel. he was recently in our facility when he was diagnosed with Santamaria's palsy and subconjunctival hemorrhage 3 days prior. He was also hospitalized on 03/27/2024 for an acute GI bleed in the setting of Xarelto complicated by sepsis with shock and metabolic encephalopathy. He was sent home with cefdinir p.o. for 4 more days at that time and was sent to [facility] for rehab regarding generalized debility. He was discharged from [facility] on the first week of April. On admission: Vitals: Temperature 97.4 F, pulse rate 128, respiratory rate 18, blood pressure 90/64, O2 saturation 92% on room air Labs: WBC 13, hemoglobin 11.8, platelet count 349,000, PT 13.8, INR 1.3, PTT 30.6, sodium 133, potassium 3.7, chloride 104, bicarb 21, BUN 38, creatinine 1.04, glucose 75, lactic acid 2.2, calcium 9.1, magnesium 2, AST 34, ALT 20, alk phos 165, albumin 2.5. proBNP 9290. Troponins negative. Cepheid 4 Plex negative. Imaging: Chest x-ray showed cardiomegaly, pulmonary vascular congestion and bilateral pleural effusions. Brain CT showed no acute intracranial process, nonspecific white matter changes likely secondary to chronic small vessel ischemic disease. EKG showed atrial fibrillation with a rate of 133 bpm, wide QRS is with a duration 165 MS, nonspecific ST-T changes, QTc 440 MS, left axis deviation. 05/10/2024 patient seen and examined at bedside. No acute events overnight. Patient more awake and cooperative today. Labs: WBC 9.6, hemoglobin 10.9, platelet count 307,000, sodium 135, potassium 3, chloride 108, bicarb 24, BUN 25, creatinine 0.79, glucose 76, alk phos 159, albumin 2.3 05/11/2024 patient seen and examined at bedside. No acute events overnight. Blood pressures labile and soft overnight Labs: WBC 7.8, hemoglobin 10.7, platelet count 323,000, sodium 135, potassium 3.6 creatinine 0.68, calcium 8.4 05/12/2024 patient seen and examined at bedside. No acute events overnight. Patient was also having multiple bowel movements overnight that were nonbloody and nonbilious. Blood pressure still labile. Retaining about 315 mL of urine overnight. 05/13/2024 patient seen and examined at bedside. No acute events overnight. Still having some loose bowel movements. Hollingsworth catheter discontinued for voiding trial. Patient still has low appetite but drinks fluids. Patient and family have decided on going with home hospice on discharge 05/14/2024 no new complaints. Pending CM prior to d/c to hospice. Review of systems: Pertinent positives and negatives as discussed in HPI, a complete review of systems was performed and all other systems are negative. Physical examination: Vital signs reviewed General: non toxic, no distress, appears at stated age, on nasal cannula Derm: no unusual rashes/lesions, warm Head: atraumatic, normocephalic, symmetric Eyes: EOMI, anicteric sclera, pupils equal round reactive to light, right eye has subconjunctival hemorrhage known on last ED visit ENT: Nose and ears atraumatic Neck: No cervical lymphadenopathy, trachea midline, supple Mouth: no lip lesion, mucus membranes moist Cardiovascular: S1S2 irregularly irregular, no murmur Lungs: CTA bilateral, no rhonchi, no rales, no accessory muscle use Abdominal: soft, nondistended, nontender to palpation, no guarding Ext: muscle strength 5 out of 5 in all 4 extremities grossly, no gross muscle atrophy, no contractures, positive dorsalis pedis pulse bilateral, no edema Neuro: CN II-XI grossly intact, no gross focal neuro deficits Psych: Alert and oriented x 3, appropriate affect and mood Assessment/Plan: 83-year-old male with atrial fibrillation (on Xarelto), PD (not on home oxygen), hypertension, sleep apnea, acute GI bleed in the setting of Xarelto here for evaluation of generalized weakness, fatigue and poor appetite. The patient is admitted with an anticipated greater than 2 midnight stay for the evaluation of debility and acute encephalopathy Active: #. Acute encephalopathy, rule out anatomic/metabolic etiologies, improved #. Debility #. Hypovolemic hyponatremia, due to poor oral intake, resolved #. Lactic acidosis, resolved #. Nonanion gap metabolic acidosis, resolved #. Dehydration, improved #. Leukocytosis likely reactive, resolved -Fall precautions -Judicious use of fluids. IV fluids discontinued. Encourage oral intake -Imodium prn for diarrhea -PT OT consulted -Speech therapy consulted. Recommended dysphagia diet -Patient and family have decided on going with home hospice on discharge. Will work on discharge needs #. Urinary retention -Retaining about 315 mL overnight -Hollingsworth catheter removed. Voiding trial today -Flomax 0.4 mg daily #. Atrial fibrillation with RVR, rate controlled -Cardiac telemetry -On Xarelto 50 mg p.o. at bedtime -Cardiology consulted. Increase metoprolol dosing to 25 mg thrice daily. Have singed off #. Elevated ALP, stable -ALP at 159 -Patient is asymptomatic -Will monitor for now #. Hypokalemia, resolved Chronic Conditions: #. CAD #. BPH #. COPD (not on home oxygen) #. Hyperlipidemia #. Hypertension #. BPH #. Sleep apnea #. Santamaria's palsy #. Subconjunctival hemorrhage #. Severe pulmonary hypertension -Resumed home aspirin, Lipitor, Symbicort, oral iron, finasteride, DuoNeb, Lopressor, valacyclovir F: Oral intake E: Monitor electrolytes N: Heart healthy diet A: Fall precautions DVT ppx: Xarelto 20 mg p.o. daily CODE STATUS: No code Anticipated discharge place: Pending clinical course Dictation was produced using dragon dictation software. please excuse any grammatical, word or spelling errors. Objective - Vital Signs Vital signs: Vital Signs Temp 97.7 F 05/14/24 08:20 Pulse 132 H 05/14/24 12:00 Resp 16 05/14/24 12:00 BP 87/46 05/14/24 12:00 Pulse Ox 94 L 05/14/24 12:00 FiO2 21 05/13/24 07:47 Intake & Output 05/13/24 05/14/24 05/14/24 18:59 06:59 18:59 Output Total 150 75 Balance -150 -75 Output: Urine 150 75 Other: Voiding Method Indwelling Catheter Indwelling Catheter Indwelling Catheter # Voids 1 # Bowel Movements 3 - Labs CBC & Chem 7: 05/11/24 06:16 05/11/24 06:16
[2024-05-15] MEDS: SODIUM CHLORIDE 0.9% 500 ML 500 ML IV ONE (00:59)
--- NOTE | 2024-05-15 06:58 | P.PN ---
Subjective Progress Note Date: 05/15/24 The patient is a pleasant 83-year-old gentleman with extensive past medical history who was admitted to the hospital with failure to thrive and generalized weakness and fatigue and A-fib with RVR. He was on beta-kasia currently on hold because of low blood pressure and the patient is in process of going for possible hospice later on today. He is very difficult to hear May 15, 2024 The patient was seen and evaluated this morning. He seems to be stable beside the marginally low blood pressure and he is slightly tachycardic. He is on beta-kasia with metoprolol. If the plan change in terms of not going into hospice I would consider adding amiodarone to the current medical regimen. He is on oral anticoagulation with the physical examination is remarkable for irregular rhythm with a soft systolic murmur and clear breathing sounds bilaterally and no edema was noted in the lower extremities Assessment Generalized weakness and fatigue Atrial fibrillation with mild RVR Multiple comorbid conditions Plan Continue the current medical regimen Consider adding amiodarone if there is a change in the hospice plan Objective - Vital Signs Vital signs: Vital Signs Temp 98 F 05/15/24 03:04 Pulse 133 H 05/15/24 03:04 Resp 19 05/15/24 03:04 BP 88/51 05/15/24 03:04 Pulse Ox 95 05/15/24 03:04 FiO2 21 05/13/24 07:47 Intake & Output 05/14/24 05/14/24 05/15/24 06:59 18:59 06:59 Intake Total 300 Output Total 75 100 Balance -75 200 Intake: Oral 300 Output: Urine 75 100 Other: Voiding Method Indwelling Catheter Indwelling Catheter Indwelling Catheter # Voids 1 1 - Labs CBC & Chem 7: 05/11/24 06:16 05/11/24 06:16 Labs: Microbiology - Last 24 Hours (Table) 05/09/24 17:53 Blood Culture - Final Blood 05/09/24 11:53 Blood Culture - Final Blood
[2024-05-15 07:59] VITALS: TEMP 97.9
--- NOTE | 2024-05-15 11:33 | CDI ---
Documentation Clarification Form Date: 05/15/2024 10:23:46 AM From: Karla Cochran RN CCDS Phone: [phone] Admit Date: 05/09/2024 02:06:00 PM Patient Name: Howie Ogden Visit Number: [id number] Discharge Date: ATTENTION: The Clinical Documentation Specialists (CDI) and [facility] Coding Staff appreciate your assistance in clarifying documentation. Please respond to the clarification below the line at the bottom and electronically sign. The CDI & [facility] Coding staff will review the response and follow-up if needed. Please note: Queries are made part of the Legal Health Record. If you have any questions, please contact the author of this message via ITS. Doctor: Samia Chavez There is documentation of Debility is documented in Medicine HP and progress notes 05/09 05/14. Additional clarification is requested. History/Risk Factors: 83 year old male presents to the ED with generalized weakness, fatigue and poor appetite, The patient is unable to ambulate or support himself is very drowsy with associated diarrhea for three days. Hasnt had much to eat or drink for 24 48 hours prior to arrival, appetite has been low since hospital admission in March 2024 and discharged from [facility] first week of April. Medical History: CAD, BPH, COPD, HLD, HTN, BPH Renal cell carcinoma s/p right nephrostomy, Pulmonary HTN and Gi bleed on Xarelto, 05/09 Clinical Indicators: PT Evaluation 05/10: Patient presents with global weakness, lethargy, confusion and difficulty with mobility. The patient is total Assist: To sit, No ability to demonstrate ambulation, related to poor balance, decreased strength and endurance. Unable to Turn over in bed. Unable to move from lying on back to sitting on the side of the bed. A little difficulty to stand up and sit down from a chair. Needs a lot of help to move from bed to chair. Unable to walk or climb 3-5 steps with railing. OT Evaluation 05/10: Maximum assist, Bathing, Minimal assist Upper Body Dressing and grooming. Supervision Eating. Toileting Ability Total assist, To transfer from toilet moderate assist with two people, Bed mobility Ability Total assist with 2 people Treatment: Evaluation by Physical Therapist, Evaluation by Occupational Therapist. Total assist of two for bed mobility, transfers and standing. Rolling walker, Can you please clarify Debility? [ ] Age related Physical Debility [ x ] Debility related to malnutrition [ ] Other, please specify [ ] Unable to determine (Template Last Revised: April 2020) MTDD
--- NOTE | 2024-05-15 12:00 | CDI ---
Documentation Clarification Form Date: 05/15/2024 11:34:17 AM From: Karla Cochran RN CCDS Phone: [phone] Admit Date: 05/09/2024 02:06:00 PM Patient Name: Howie Ogden Visit Number: [id number] Discharge Date: ATTENTION: The Clinical Documentation Specialists (CDI) and [facility] Coding Staff appreciate your assistance in clarifying documentation. Please respond to the clarification below the line at the bottom and electronically sign. The CDI & [facility] Coding staff will review the response and follow-up if needed. Please note: Queries are made part of the Legal Health Record. If you have any questions, please contact the author of this message via ITS. Doctor Samia Chavez MD Acute Encephalopathy is documented 05/09 05/14 HP thru Medicine notes. Additional clarification regarding the type of encephalopathy is requested. History/Risk Factors: 83 year old male presents to the ED with generalized weakness, fatigue and poor appetite, The patient is unable to ambulate or support himself is very drowsy with associated diarrhea for three days. Hasnt had much to eat or drink for 24 48 hours prior to arrival, appetite has been low since hospital admission in March 2024 and discharged from [facility] first week of April. Medical History: CAD, BPH, COPD, HLD, HTN, BPH Renal cell carcinoma s/p right nephrostomy, Pulmonary HTN and Gi bleed on Xarelto, 05/09 HP Clinical Indicators: Labs, 05/09: Wbc 13.0, NA 133, BUN 38, Cr 1.04, GFR 66, Lactic acid 2.2, Alk phos 165 CTBrain, 05/09: No acute intracranial process. Nonspecific white matter changes likely secondary to chronic small vessel ischemic disease. Bilateral mastoid effusions remonstrated. Treatment: Duoneb Inhalation QID LIAT; 05/09 Symbicort Inhalation BID, 05/11 Ferric Sodium IVPB x 1, 05/09 Feosol po bid, 05/09 Loressor po x1; 05/09 05/10 Lopressor po BID, 05/10 Lopressor po TID, 05/09 05/09 D5% Ns Kcl 20meq/L 75cc/hr; 05/09 0.9ns 500cc IVPB Bolus x 1; 05/15 0.9ns 500cc IV Bolus x 1; 05/12 Flomax po breakfast, 05/10 Valtrex po daily Consults: Please clarify the type of encephalopathy, if known: [ x ] Metabolic Encephalopathy [ ] Anatomic Encephalopathy related to [ ] Other, please specify [ ] Unable to determine (Template Last Revised: April 2020) MTDD
--- NOTE | 2024-05-15 14:21 | P.DS ---
Providers Date of admission: 05/09/24 14:06 Attending physician: Fam Downey [facility] Course: #. Acute encephalopathy, rule out anatomic/metabolic etiologies, improved #. Debility #. Hypovolemic hyponatremia, due to poor oral intake, resolved #. Lactic acidosis, resolved #. Nonanion gap metabolic acidosis, resolved #. Dehydration, improved #. Leukocytosis likely reactive, resolved #. Urinary retention #. Atrial fibrillation with RVR, rate controlled #. Elevated ALP, stable #. Hypokalemia, resolved #. CAD #. BPH #. COPD (not on home oxygen) #. Hyperlipidemia #. Hypertension #. BPH #. Sleep apnea #. Santamaria's palsy #. Subconjunctival hemorrhage #. Severe pulmonary hypertension Hospital Course: Patient is a 83-year-old male with atrial fibrillation (on Xarelto), CAD, BPH, COPD (not on home oxygen), hyperlipidemia, hypertension,, BPH, sleep apnea, renal cell carcinoma status post right nephrostomy, hearing disorder status post bilateral tympanostomy, acute GI bleed in the setting of Xarelto, severe pulmonary hypertension here for evaluation of generalized weakness, fatigue and poor appetite. Patient is a poor historian and family at bedside contributed to majority of the history. Patient was reported to have the symptoms for the past several days and have worsened. Last night, patient was not able to ambulate and support himself and was very drowsy which led them to seek care today. He has associated diarrhea for the past 3 days with tarry stool that is attributed to having oral iron supplementation. Family also mentioned that patient has not had much to eat or drink in the past 24 to 48 hours is very weak but his appetite has been low since he was admitted in March to the point that he cannot eat solid or hard to chew foods. He denied chest pain, shortness of reynaldo ath, cough, fever, chills, nausea, vomiting palpitations, changes in vision, focal weakness, gait changes, recent prolonged travel. he was recently in our facility when he was diagnosed with Santamaria's palsy and subconjunctival hemorrhage 3 days prior. He was also hospitalized on 03/27/2024 for an acute GI bleed in the setting of Xarelto complicated by sepsis with shock and metabolic encephalopathy. He was sent home with cefdinir p.o. for 4 more days at that time and was sent to [facility] for rehab regarding generalized debility. He was discharged from [facility] on the first week of April. On admission: Vitals: Temperature 97.4 F, pulse rate 128, respiratory rate 18, blood pressure 90/64, O2 saturation 92% on room air Labs: WBC 13, hemoglobin 11.8, platelet count 349,000, PT 13.8, INR 1.3, PTT 30.6, sodium 133, potassium 3.7, chloride 104, bicarb 21, BUN 38, creatinine 1.04, glucose 75, lactic acid 2.2, calcium 9.1, magnesium 2, AST 34, ALT 20, alk phos 165, albumin 2.5. proBNP 9290. Troponins negative. Cepheid 4 Plex negative. Imaging: Chest x-ray showed cardiomegaly, pulmonary vascular congestion and bilateral pleural effusions. Brain CT showed no acute intracranial process, non specific white matter changes likely secondary to chronic small vessel ischemic disease. EKG showed atrial fibrillation with a rate of 133 bpm, wide QRS is with a duration 165 MS, nonspecific ST-T changes, QTc 440 MS, left axis deviation. 05/10/2024 patient seen and examined at bedside. No acute events overnight. Patient more awake and cooperative today. Labs: WBC 9.6, hemoglobin 10.9, platelet count 307,000, sodium 135, potassium 3, chloride 108, bicarb 24, BUN 25, creatinine 0.79, glucose 76, alk phos 159, albumin 2.3 05/11/2024 patient seen and examined at bedside. No acute events overnight. Blood pressures labile and soft overnight Labs: WBC 7.8, hemoglobin 10.7, platelet count 323,000, sodium 135, potassium 3.6 creatinine 0.68, calcium 8.4 05/12/2024 patient seen and examined at bedside. No acute events overnight. Patient was also having multiple bowel movements overnight that were nonbloody and nonbilious. Blood pressure still labile. Retaining about 315 mL of urine overnight. 05/13/2024 patient seen and examined at bedside. No acute events overnight. Still having some loose bowel movements. Hollingsworth catheter discontinued for voiding trial. Patient still has low appetite but drinks fluids. Patient and family have decided on going with home hospice on discharge 05/14/2024 no new complaints. Pending CM prior to d/c to hospice. 05/15/2024 Pt found [facility] for discharge needs and hospice will take over his care at this facility. Gen: In NAD, cachectic, ill appearing elderly, frail HEENT: normocephalic, atraumatic, hearing acuity is intant, mucous membranes m oist CVS: perfusing all extremities well, no pitting edema, Respiratory: symmetric chest expansion, no accessory muscle use, GI: soft, NTTP, ND, : no suprapubic tenderness, no CVA tenderness MSK/Derm: no rashes, cyanosis Neuro: CN II-XII intact, no motor weakness, I spent 36 minutes completing this discharge Patient Condition at Discharge: Good Plan - Discharge Summary Discharge Rx Participant: No New Discharge Prescriptions: New Loperamide [Imodium] 2 mg PO QID PRN #30 cap PRN Reason: Diarrhea Continue Aspirin 81 mg PO HS Finasteride [Proscar] 5 mg PO HS Ferrous Sulfate [Feosol] 325 mg PO BID Albuterol Inhaler [Ventolin Hfa Inhaler] 2 puff INHALATION RT-QID PRN PRN Reason: Shortness Of Breath guaiFENesin [Mucinex] 600 mg PO DAILY Rivaroxaban [Xarelto] 15 mg PO HS tab Artificial Tears-Hypromellose [Artificial Tear Drops] 1 drops LEFT EYE TID #10 ml valACYclovir HCL [Valtrex] 1,000 mg PO DAILY 7 Days #7 tablet Acetaminophen Tab [Tylenol] 325 mg PO Q6H PRN PRN Reason: Pain Fluticasone Propion/Salmeterol [Advair 500-50 Diskus] 1 puff INHALATION RT- BID Atorvastatin [Lipitor] 20 mg PO HS Ipratropium-Albuterol Nebulize [Duoneb 0.5 mg-3 mg/3 ml Soln] 3 ml INHALATION RT-QID Erythromycin Ophth Oint [Romycin Ophth Oint] 1 applic OPHTHALMIC DAILY #1 gm Metoprolol Tartrate [Lopressor] 25 mg PO BID Discontinued Furosemide [Lasix] 20 mg PO MOWEFR Sodium Chloride Tab 1 gm PO BID Discharge Medication List Aspirin 81 mg PO HS 01/30/14 [History] Finasteride [Proscar] 5 mg PO HS 01/30/14 [History] Fluticasone Propion/Salmeterol [Advair 500-50 Diskus] 1 puff INHALATION RT-BID 01/02/22 [History] Albuterol Inhaler [Ventolin Hfa Inhaler] 2 puff INHALATION RT-QID PRN 04/25/22 [History] Atorvastatin [Lipitor] 20 mg PO HS 04/25/22 [History] Ferrous Sulfate [Feosol] 325 mg PO BID 04/25/22 [History] Ipratropium-Albuterol Nebulize [Duoneb 0.5 mg-3 mg/3 ml Soln] 3 ml INHALATION RT-QID 12/05/23 [History] guaiFENesin [Mucinex] 600 mg PO DAILY 12/05/23 [History] Rivaroxaban [Xarelto] 15 mg PO HS tab 04/04/24 [Rx] Artificial Tears-Hypromellose [Artificial Tear Drops] 1 drops LEFT EYE TID #10 ml 05/06/24 [Rx] Erythromycin Ophth Oint [Romycin Ophth Oint] 1 applic OPHTHALMIC DAILY #1 gm 05/06/24 [Rx] valACYclovir HCL [Valtrex] 1,000 mg PO DAILY 7 Days #7 tablet 05/06/24 [Rx] Acetaminophen Tab [Tylenol] 325 mg PO Q6H PRN 05/09/24 [History] Metoprolol Tartrate [Lopressor] 25 mg PO BID 05/09/24 [History] Loperamide [Imodium] 2 mg PO QID PRN #30 cap 05/15/24 [Rx] Follow up Appointment(s)/Referral(s): [facility] [NON-STAFF] - 1 Week Discharge/Stand Alone Forms: Adult Foster Group Home List, Assisted Living Facilities, Help In The Home Discharge Disposition: HOME WITH HOSPICE
[2024-05-15 15:12] VITALS: BP 70/48; PULSE 135; RESP 15
== END 2024-05-15 17:16 | disposition hospice, home (50) | DRG 640 ==
LOC: EC 10:18 → 3SCARD 14:05 → OBSVTOIN 14:06 → 3SCARD 16:03
PROVIDERS: ADMIT Student in an Organized Health Care Education/Training Program; ATTEND Student in an Organized Health Care Education/Training Program
DX: E87.1 Hypo-osmolality and hyponatremia (principal); G93.41 Metabolic encephalopathy; E87.20 Acidosis, unspecified; I27.20 Pulmonary hypertension, unspecified; I48.19 Other persistent atrial fibrillation; E86.0 Dehydration; E78.5 Hyperlipidemia, unspecified; E86.1 Hypovolemia; J44.9 Chronic obstructive pulmonary disease, unspecified; I08.3 Combined rheumatic disorders of mitral, aortic and tricuspid valves; I10 Essential (primary) hypertension; N40.1 Benign prostatic hyperplasia with lower urinary tract symptoms; R33.8 Other retention of urine; E87.6 Hypokalemia; I25.10 Atherosclerotic heart disease of native coronary artery without angina pectoris; G47.30 Sleep apnea, unspecified; G51.0 Bell's palsy; R53.81 Other malaise; H11.30 Conjunctival hemorrhage, unspecified eye; Z79.82 Long term (current) use of aspirin; Z87.891 Personal history of nicotine dependence; Z79.01 Long term (current) use of anticoagulants; Z90.5 Acquired absence of kidney
CPT/HCPCS: 36415; 70450; 71046; 80048; 80053; 81001; 82803; 83605; 83735; 83880; 84132; 84443; 84484; 85025; 85610; 85730; 87040; 87636; 93005; 94640; 94760; 96360; 96361; 99285